=== PATIENT | female | born 1990 | race African-American/Black ===

== ENCOUNTER 2024-03-11 07:35 | Outpatient (OUT) | payer OTHER, SELFPAY ==
--- NOTE | 2024-03-11 12:46 | US_ITS ---
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 TECHNIQUE: Ultrasound biophysical profile was performed in the radiology department. BREATHING MOVEMENTS: 2.0 GROSS BODY MOVEMENTS: 2.0 TONE: 2.0 QUALITATIVE AMNIOTIC FLUID VOLUME: 2.0 PRESENTATION: CEPHALIC HEART RATE: 150.0 bpm bpm. AMNIOTIC FLUID VOLUME: 13.5 cm GESTATIONAL AGE: 33 weeks 3 days CONCLUSION: Total biophysical profile score 8.0. Electronically authenticated by: RENZO CÁRDENAS Date: 03/12/2024 04:16
[2024-03-11 13:02] VITALS: BP 101/57; PULSE 96
== END 2024-03-11 13:30 | disposition home or self-care (01) ==
LOC: US 08:00 → FBC 12:44
PROVIDERS: Visit Provider Obstetrics & Gynecology
DX: I31.9 Disease of pericardium, unspecified (principal); Z3A.33 33 weeks gestation of pregnancy
CPT/HCPCS: 76818

== ENCOUNTER 2024-03-15 07:06 | Outpatient (OUT) | payer OTHER, SELFPAY ==
[2024-03-15 12:49] VITALS: BP 100/57; PULSE 86
== END 2024-03-15 14:11 | disposition home or self-care (01) ==
LOC: FBCO 07:06 → FBC 12:47
PROVIDERS: Visit Provider Obstetrics & Gynecology
DX: O26.893 Other specified pregnancy related conditions, third trimester (principal)
CPT/HCPCS: 59025

== ENCOUNTER 2024-03-18 01:46 | Outpatient (OUT) | payer OTHER, SELFPAY ==
--- NOTE | 2024-03-18 12:53 | US_ITS ---
[address] [address] Patient Name: SHIKHA RAMIREZ MRN: [id number] date: 1990 Sex: F Assigned Patient Location: [facility] Current Patient Location: Accession/Order Number: [id number] Exam Date: 03/18/2024 12:59 Report Date: 03/20/2024 08:01 At the request of: ABDELRAHMAN PERLA Procedure: US OB BPP w non-stress EXAMINATION: US OB BPP w non-stress HISTORY: PERICARDIOMYOPATHY I31.9 COMPARISON: Ultrasound OB biophysical 03/11/2024 TECHNIQUE: Ultrasound biophysical profile was performed in the radiology department. BREATHING MOVEMENTS: 2.0 GROSS BODY MOVEMENTS: 2.0 TONE: 2.0 QUALITATIVE AMNIOTIC FLUID VOLUME: 2.0 PRESENTATION: CEPHALIC HEART RATE: 148.4 bpm bpm. AMNIOTIC FLUID VOLUME: 12.4 cm GESTATIONAL AGE: 34 weeks 3 days CONCLUSION: Total biophysical profile score 8.0. Electronically authenticated by: RENZO CÁRDENAS Date: 03/20/2024 08:01
[2024-03-18 13:29] VITALS: BP 110/55; PULSE 91
== END 2024-03-18 13:50 | disposition home or self-care (01) ==
LOC: US 01:47 → FBC 12:47
PROVIDERS: Visit Provider Obstetrics & Gynecology
DX: I31.9 Disease of pericardium, unspecified (principal); Z3A.34 34 weeks gestation of pregnancy
CPT/HCPCS: 76818

== ENCOUNTER 2024-03-25 08:55 | Outpatient (OUT) | payer OTHER, SELFPAY ==
--- NOTE | 2024-03-25 | US_ITS ---
[address] [address] Patient Name: SHIKHA RAMIERZ MRN: [id number] date: 1990 Sex: F Assigned Patient Location: [facility] Current Patient Location: Accession/Order Number: [id number] Exam Date: 03/25/2024 13:05 Report Date: 03/27/2024 07:35 At the request of: ABDELRAHMAN PERLA Procedure: US OB BPP w non-stress EXAMINATION: US OB BPP w non-stress HISTORY: PARICRDIALMYOPATHY COMPARISON: 03/18/2024 TECHNIQUE: Ultrasound biophysical profile was performed in the radiology department. FINDINGS: BREATHING MOVEMENTS: 2.0 GROSS BODY MOVEMENTS: 2.0 TONE: 2.0 QUALITATIVE AMNIOTIC FLUID VOLUME: 2.0 PRESENTATION: CEPHALIC HEART RATE: 160.7 bpm H.B./min AMNIOTIC FLUID VOLUME: 13.2 cm cm GESTATIONAL AGE: 35 weeks 3 days CONCLUSION: Total biophysical profile score: 8.0 Electronically authenticated by: HUBER SIBLEY Date: 03/27/2024 07:35
--- OUTSIDE RECORDS SUMMARY | 2024-03-25 09:12 | XMS_ITS | CCD ---
Author Organization [facility] Care Team Providers Care Shipping Track Supervisor Name Role Phone ZIGGY PAZ Admitting Unavailable ZIGGY PAZ Attending Unavailable REQUEST, NONE LISTED Primary Care Unavailable ZIGGY PAZ Consulting Unavailable KARASIK, RICHARD Admitting Unavailable KARASIK, RICHARD Attending Unavailable REQUEST, NONE LISTED Primary Care Unavailable KARSAMUELKRICHARD Consulting Unavailable HUBER SIBLEY V Consulting Unavailable KARASIK, RICHARD Admitting Unavailable KARASIK, RICHARD Attending Unavailable REQUEST, NONE LISTED Primary Care Unavailable KARASIK, RICHARD Consulting Unavailable MELIA, RENZO R Consulting Unavailable PANWYATTY Admitting Unavailable PANWYATTY Attending Unavailable KARASIK, RICHARD Admitting Unavailable KARASIK, RICHARD Attending Unavailable KARASIK, RICHARD Consulting Unavailable FREDDYEBER, RENZO R Consulting Unavailable KARASIK, RICHARD Admitting Unavailable KARASIK, RICHARD Attending Unavailable KARASIK, RICHARD Consulting Unavailable KARASIK, RICHARD Admitting Unavailable KARASIK, RICHARD Attending Unavailable REQUEST, NONE LISTED Primary Care Unavailable KARASIK, RICHARD Consulting Unavailable KARASIK, RICHARD Procedure Practitioner Unavaila SAMMIE Melgar Consulting Unavailable Services, [facility] Primary Care Provider ANDRESSA GALLAGHER Referring Unavailable SERVICES, [facility] Primary Care Unava ilable SERVICES, [facility] Primary Care Unava ilable SERVICES, [facility] Primary Care Unava ilable TAMIE VELÁSQUEZ Referring Unavailable SERVICES, [facility] Primary Care Unava ilable MOUSSA, HIND NADIM Attending Unavailable TAMIE VELÁSQUEZ Referring Unavailable SERVICES, [facility] Primary Care Unava ilable ANDRESSA GALLAGHER Attending Unavailable SERVICES, [facility] Unava ilable SERVICES, [facility] Care Unava ilable SERVICES, [facility] Care Unava ilable SAVI MOTA Attending Unavaila ble SAVI MOTA Attending Unavaila ble NAKUL, SAVI Galvez Referring Unavaila ble SERVICES, [facility] Unava ilable AHGEGE, ABEER Attending Unavailable AHMED, ABEER Referring Unavailable SERVICES, [facility] Unava ilable TAMIE VELÁSQUEZ Referring Unavailable SERVICES, [facility] Unava ilable TAMIE VELÁSQUEZ Referring Unavailable SERVICES, [facility] Unava ilable JUNG, TIBERIU S Admitting Unavailable JUNG TIBERIU S Attending Unavailable SERVICES, [facility] Unava ilable AGUEDAVAIBHAV MEHTAIE Referring Unavailable SERVICES, [facility] Unava ilable SERVICES, [facility] Unava ilable SHAYY AGARWAL Attending Unavailable KAL ELLISON Attending Unavailable AHMED, EER Referring Unavailable SERVICES, [facility] Unava ilable TAMIE VELÁSQUEZ Referring Unavailable SERVICES, [facility] Unava ilable ABDELRAHMAN AMARAL Attending Unavailable NELLI RICHARDSON Attending Unavailable PANABDELRAHMAN QUARLES Attending Unavailable NELLI RICHARDSON Attending Unavailable Medications Current Medications Medication Drug Class(es) Dates Sig (Normalized) Sig (Original) clotrimazole 10 mg/ml vaginal cream (5 sources) Azole Antifungal Start: 12-10-2023 End: 12-17-2023 clotrimazole (GYNE-LOTRIMIN) 1 % vaginal cream Indications: Vaginal yeast infection , with 20 completed weeks gestation Insert 1 applicator into the vagina in the morning for 7 days. 45 g 0 12/10/2023 12/17/2023 Active docusate sodium 100 mg oral capsule (9 sources) Start: 12-09-2023 take 1 capsule by mouth once in the morning, then take 1 capsule by mouth at bedtime docusate sodium (COLACE) 100 mg capsule Indications: Constipation during in second trimester Take 1 capsule (100 mg total) by mouth in the morning and 1 capsule (100 mg total) before bedtime. 60 capsule 1 12/09/2023 Active metroNIDAZOLE 500 mg oral tablet (9 sources) Nitroimidazole Antimicrobial Start: 12-10-2023 End: 12-17-2023 take 1 tablet by mouth once in the morning, then take 1 tablet by mouth at bedtime metroNIDAZOLE (FLAGYL) 500 mg tablet Indications: Bacterial vaginosis in , with 20 completed weeks gestation Take 1 tablet (500 mg total) by mouth in the morning and 1 tablet (500 mg total) before bedtime. Do all this for 7 days. 14 tablet 0 12/10/2023 12/17/2023 Active End: 12-10-2023 take 1 capsule by mouth in the morning, then take 1 capsule by mouth at bedtime metroNIDAZOLE (FLAGYL) 375 mg capsule Take 1 capsule (375 mg total) by mouth in the morning and 1 capsule (375 mg total) before bedtime. 0 12/10/2023 Discontinued nitrofurantoin, macrocrystals 25 mg / nitrofurantoin, monohydrate 75 mg oral capsule (1 source) Nitrofuran Antibacterial Start: 11-11-2023 End: 11-18-2023 take 1 capsule by mouth in the morning, then take 1 capsule by mouth at bedtime nitrofurantoin, macrocrystal-monohydrate, (MACROBID) 100 mg capsule Take 1 capsule (100 mg total) by mouth in the morning and 1 capsule (100 mg total) before bedtime. Do all this for 7 days. 14 capsule 0 11/11/2023 11/18/2023 Active 28 mg iron- 800 mcg tablet (11 sources) Start: 09-16-2023 take 1 tablet by mouth in the morning 28 mg iron- 800 mcg tablet Take 1 tablet by mouth in the morning. 0 09/16/2023 Active promethazine hydrochloride 12.5 mg oral tablet (9 sources) Phenothiazine Start: 12-09-2023 take 1 tablet by mouth every six hours as needed for nausea promethazine (PHENERGAN) 12.5 mg tablet Indications: Nausea/vomiting in Take 1 tablet (12.5 mg total) by mouth every 6 (six) hours as needed for nausea or vomiting. 30 tablet 0 12/09/2023 Active Completed/Discontinued Medications Medication Drug Class(es) Dates Sig (Normalized) Sig (Original) ondansetron 4 mg disintegrating oral tablet (3 sources) Serotonin-3 Receptor Antagonist Start: 10-28-2023 End: 12-09-2023 take 1 tablet by mouth every eight hours as needed for nausea ondansetron ODT (ZOFRAN ODT) 4 mg disintegrating tablet Dissolve 1 tablet (4 mg total) on tongue every 8 (eight) hours as needed for nausea for up to 10 doses. 10 tablet 0 10/28/2023 12/09/2023 Discontinued (Side effects) Problems Active Problems Problem Classification Problem Date Documented Date Episodic/Chronic Abdominal pain (2 sources) Unspecified abdominal pain; Translations: [Abdominal pain] Onset: 02-18-2024 Episodic Cardiac and circulatory congenital anomalies (2 sources) H/O: cardiac anomaly; Translations: [Personal history of (corrected) congenital malformations of heart and circulatory system] Onset: 01-13-2024 01-13-2024 Episodic Heart valve disorders (16 sources) Mitral valve regurgitation; Translations: [Nonrheumatic mitral (valve) insufficiency] Onset: 11-23-2019 11-23-2019 Chronic Inflammatory diseases of female pelvic organs (1 source) Vaginitis Onset: 12-09-2023 Episodic Mycoses (1 source) Candidiasis of vagina; Translations: [Vaginal yeast infection] 12-10-2023 Episodic Other and ill-defined heart disease (1 source) Heart disease, unspecified; Translations: [Heart disease, unspecified] Onset: 02-15-2024 Chronic Other complications of (4 sources) Maternal care for other known or suspected poor growth, third trimester, not applicable or unspecified; Translations: [MAT CARE OT IA FTL GR 3RD TM UNS] Onset: 05-12-2019 Episodic Other complications of (2 sources) Supervision of high risk , unspecified, second trimester; Translations: [SUP HIGH RISK UNS 2ND TRI] Onset: 01-19-2019 Episodic Other complications of (2 sources) Vomiting of , unspecified; Translations: [VOMITING OF UNSPECIFIED] Onset: 11-23-2018 Episodic Other complications of (11 sources) Nausea and vomiting; Translations: [Vomiting of , unspecified] Onset: 12-09-2023 12-09-2023 Episodic Other complications of (12 sources) Diseases of the digestive system complicating , second trimester; Translations: [Other current conditions classifiable elsewhere of mother, antepartum condition or complication] Onset: 12-09-2023 12-09-2023 Episodic Other complications of (1 source) Bacterial vaginosis in ; Translations: [Infection of other part of genital tract in , unspecified trimester] 12-10-2023 Episodic Other complications of (1 source) High risk ; Translations: [Supervision of high risk , unspecified, second trimester] 12-16-2023 Episodic Other complications of (2 sources) heart echogenicity on obstetric ultrasound scan; Translations: [Abnormal ultrasonic finding on screening of mother] Onset: 02-22-2024 12-16-2023 Episodic Other complications of (1 source) Gestational edema; Translations: [Gestational edema, third trimester] 01-05-2024 Episodic Other complications of (1 source) Abnormal ultrasonic finding on screening of mother; Translations: [Abnormal ultrasonic finding on screening of mother] Onset: 12-16-2023 Episodic Other complications of (2 sources) Supervision of high risk , unspecified, unspecified trimester; Translations: [Supervision of high risk , unspecified, unspecified trimester] Onset: 12-16-2023 Episodic Other complications of (1 source) Supervision of other high risk pregnancies, third trimester; Translations: [Supervision of other high risk pregnancies, third trimester] Onset: 03-07-2024 Episodic Other complications of (1 source) Other specified related conditions, unspecified trimester; Translations: [Other specified related conditions, unspecified trimester] Onset: 02-18-2024 Episodic Other complications of (1 source) Diseases of the circulatory system complicating , third trimester; Translations: [Diseases of the circulatory system complicating , third trimester] Onset: 02-15-2024 Episodic Other complications of (1 source) Gestational edema, third trimester; Translations: [Gestational edema, third trimester] Onset: 01-05-2024 Episodic Other connective tissue disease (1 source) Pain in lower limb Onset: 01-21-2024 Episodic Other female genital disorders (1 source) Vaginal discharge; Translations: [Other specified noninflammatory disorders of vagina] 12-09-2023 Episodic Other female genital disorders (1 source) Pruritus of vagina; Translations: [Other specified noninflammatory disorders of vagina] 12-09-2023 Episodic Other female genital disorders (1 source) Vaginal irritation; Translations: [Other specified noninflammatory disorders of vagina] 12-09-2023 Episodic Other female genital disorders (2 sources) Other specified noninflammatory disorders of vagina; Translations: [Other specified noninflammatory disorders of vagina] Onset: 12-09-2023 Episodic Other injuries and conditions due to external causes (1 source) Other injury of other muscle(s) and tendon(s) at lower leg level, unspecified leg, initial encounter; Translations: [Other injury of other muscle(s) and tendon(s) at lower leg level, unspecified leg, initial encounter] Onset: 01-21-2024 Episodic Other and delivery including normal (5 sources) Single live ; Translations: [Encounter for test, result positive] Onset: 01-19-2019 01-13-2024 Episodic Other screening for suspected conditions (not mental disorders or infectious disease) (3 sources) Encounter for other specified screening; Translations: [Encounter for screening for cervical length] Onset: 12-16-2023 Episodic Other screening for suspected conditions (not mental disorders or infectious disease) (8 sources) Encounter for screening for Streptococcus B; Translations: [Encounter for other specified screening] Onset: 01-17-2019 Residual codes; unclassified (1 source) Gestation period, 20 weeks; Translations: [20 weeks gestation of ] 12-10-2023 Episodic Residual codes; unclassified (2 sources) Gestation period, 21 weeks; Translations: [21 weeks gestation of ] 12-16-2023 Episodic Residual codes; unclassified (1 source) Gestation period, 25 weeks; Translations: [25 weeks gestation of ] 01-13-2024 Episodic Residual codes; unclassified (2 sources) 25 weeks gestation of ; Translations: [25 weeks gestation of ] Onset: 01-13-2024 Episodic Residual codes; unclassified (1 source) 21 weeks gestation of ; Translations: [21 weeks gestation of ] Onset: 12-16-2023 Episodic Residual codes; unclassified (1 source) 17 weeks gestation of ; Translations: [17 weeks gestation of ] Onset: 11-17-2023 Episodic Residual codes; unclassified (1 source) 35 weeks gestation of ; Translations: [35 WEEKS GESTATION OF ] Onset: 05-15-2019 Residual codes; unclassified (1 source) 18 weeks gestation of ; Translations: [18 WEEKS GESTATION OF ] Onset: 01-19-2019 Residual codes; unclassified (1 source) 38 weeks gestation of ; Translations: [38 WEEKS GESTATION OF ] Onset: 06-15-2019 Residual codes; unclassified (1 source) 25 weeks gestation of ; Translations: [25 WEEKS GESTATION OF ] Onset: 03-15-2019 Screening and history of mental health and substance abuse codes (1 source) Personal history of nicotine dependence; Translations: [PERSONAL HISTORY OF NICOTINE DEPEND] Onset: 06-15-2019 Episodic Spondylosis; intervertebral disc disorders; other back problems (1 source) Backache Onset: 02-18-2024 Episodic Umbilical cord complication (3 sources) Labor and delivery complicated by cord around neck, without compression, not applicable or unspecified; Translations: [L AND D COMP CORD NECK NO COMPRS NA/UNS] Onset: 06-05-2019 Episodic Unclassified (1 source) mfm consult Onset: 12-16-2023 Unclassified (1 source) Routine Visit Onset: 11-17-2023 Unclassified (1 source) Leg Pain 26wks Onset: 01-21-2024 Unclassified (1 source) New Patient Onset: 01-05-2024 Past or Other Problems Problem Classification Problem Date Documented Da te Episodic/Chronic Anal and rectal conditions (1 source) Rectal pain Onset: 11-12-2023 Episodic Nausea and vomiting (3 sources) Nausea with vomiting, unspecified; Translations: [NAUSEA WITH VOMITING UNSPECIFIED] Onset: 10-28-2018 Episodic Other circulatory disease (13 sources) H/O: heart failure; Translations: [Personal history of other diseases of the circulatory system] Onset: 11-17-2023 11-17-2023 Episodic Other circulatory disease (2 sources) Personal history of other diseases of the circulatory system; Translations: [Personal history of other diseases of the circulatory system] Onset: 11-17-2023 Episodic Other complications of ; puerperium affecting management of mother (4 sources) Maternal care for other (suspected) abnormality and damage, not applicable or unspecified; Translations: [MAT CARE OTH ABN DAMGE NA/UNS] Onset: 03-09-2019 Episodic Other complications of (1 source) Supervision of with insufficient care, second trimester; Translations: [SUP PG INSUFF ANTENATL CARE 2ND TRI] Onset: 01-19-2019 Episodic Other gastrointestinal disorders (2 sources) Constipation, unspecified; Translations: [Constipation, unspecified] Onset: 11-12-2023 Episodic Other gastrointestinal disorders (1 source) Constipation Onset: 11-12-2023 Episodic Other lower respiratory disease (11 sources) Dyspnea; Translations: [Dyspnea, unspecified] Onset: 06-11-2019 06-11-2019 Episodic Substance-related disorders (15 sources) Maternal drug use; Translations: [Drug use complicating , unspecified trimester] Onset: 11-12-2023 11-12-2023 Episodic Urinary tract infections (1 source) Acute cystitis without hematuria; Translations: [Acute cystitis without hematuria] Onset: 11-12-2023 Episodic Results Test Name Value Interpretation Reference Range Facil ity COMPLETE BLOOD COUNTon 02-14 Erythrocyte distribution width (RBC) [Ratio] 13.1 % Normal 11.5-15.0 [facility] Comment on above: Performed By: #### Anabella VERGARA, 1504-0, 56144-5 #### [facility] ([id number]) [address] [address] [place] [address] Hematocrit (Bld) [Volume fraction] 30.3 % Low 35-47 [facility] Comment on above: Performed By: #### Anabella VERGARA, 1504-0, 83553-8 #### [facility] ([id number]) [address], [address] [place] [address] Hemoglobin (Bld) [Mass/Vol] 10.4 g/dL Low 11.7-15.5 [facility] Comment on above: Performed By: #### Anabella VERGARA, 1504-0, 56475-6 #### [facility] ([id number]) [address], [facility] [address] [place] [address] MCH (RBC) [Entitic mass] 31.2 pg Normal 27-34 [facility] Comment on above: Performed By: #### Anabella VERGARA, 1504-0, 40361-3 #### [facility] ([id number]) [address], [address] [place] [address] MCHC (RBC) [Mass/Vol] 34.3 g/dL Normal 32-36 [facility] Comment on above: Performed By: #### Anabella VERGARA, 1504-0, 10562-6 #### [facility] ([id number]) [address], [facility] [address] [place] [address] MCV (RBC) [Entitic vol] 91 fL Normal 80-100 [facility] Comment on above: Performed By: #### Anabella VERGARA, 1504-0, 88538-4 #### [facility] ([id number]) [address], [facility] [address] [place] [address] Platelet mean volume (Bld) [Entitic vol] 10.0 fL Normal 7-12 [facility] Comment on above: Performed By: #### Anabella VERGARA, 1504-0, 34257-9 #### [facility] ([id number]) [address], [facility] [address] [place] [address] Platelets (Bld) [#/Vol] 152 10*3/uL Normal 150-450 [facility] Comment on above: Performed By: #### Anabella VERGARA, 1504-0, 79996-8 #### [facility] ([id number]) [address], [address] [place] [address] RBC COUNT 3.33 X10E12/L Low 3.80-5.20 [facility] Comment on above: Performed By: #### Anabella VERGARA, 1504-0, 16006-1 #### [facility] ([id number]) [address], [facility] [address] [place] [address] WBC (Bld) [#/Vol] 6.1 10*3/uL Normal 4.0-11.0 [facility] Comment on above: Performed By: #### Anabella VERGARA, 1504-0, 78014-9 #### [facility] ([id number]) [address] [facility], [address] [place] [address] Glucose 1 Hr post 50 g gluco se PO [Mass/Vol]on 02-15-2024 GLU 1H POST 50G LOAD 102 mg/dL Normal 65-[address] [facility] Comment on above: Performed By: #### C , 1504-0, 73366-4 #### [facility] ([id number]) [address] [place] [address], [address] [place] [address] T. pallidum IgG+IgM IA Ql (S )on 02-15-2024 Syphilis Total <0.2 Normal 0.0-0.8 [facility] Comment on above: Result Comment: NON REACTIVE No serologic evidence of infection to Treponema pallidum (syphilis). Repeat testing may be considered in patients with suspected acute or primary syphilis in 2 to 4 weeks. Performed By: #### C , 1504-0, 88620-5 #### [facility] ([id number]) [address] [place] [address], [address] [place] [address] POCT EKGon 01-05-2024 [facility] VAGINITIS PANEL PCRon 2023 VAGINITIS PANEL PCR BACT. VAGINOSIS DNA Detected (qualifier value) Qualitative results are reported based on detection and quantitation of targeted organism markers which include: Lactobacillus spp. (L. crispatus and L. jensenii), Gardnerella vaginalis, Atopobium vaginae, Bacterial Vaginosis Associated Bacteria-2 (BVAB-2) and Megasphaera-1 CHASITY SPECIES DNA Detected (qualifier value) Chasity species result based on detection of one or more of the following species: C. albicans, C. tropicalis, C. parapsilosis or C. dubliniensis CHASITY KRUSEI DNA Not detected (qualifier value) No Chasity krusei detected CHASITY GLABRATA DNA Not detected (qualifier value) No Chasity glabrata detected TRICHOMONAS VAG DNA Not detected (qualifier value) No Trichomonas vaginalis detected NOTE BD MAX Vaginal Panel has not been evaluated for patients under 18 years old. Results for these patients should be reviewed and assessed in accordance with clinical presentation to determine patient diagnosis. Normal [facility] Comment on above: Performed By: #### V PPCR #### [facility] ([id number]) [address], [address] [place] [address] URINE CULTUREon 11-12-2023 Bacteria identified Cx Nom (U) CULTURE RESULTS 10-50,000 ORGANISMS/mL NORMAL UROGENITAL PAYTON Normal [facility] Comment on above: Performed By: #### 6 30-4 #### [facility] ([id number]) [address] [facility] [place] [address] URN MACROSCOPIC NURon 2022 BILIRUBIN MERY Negative Normal NEG [facility] Comment on above: Performed By: #### N UM #### [facility] ([id number]) [address] [place] [address] BLOOD/HGB MERY Trace Abnormal NEG [facility] Comment on above: Performed By: #### N UM #### [facility] ([id number]) [address] [place] [address] GLUCOSE MERY Negative Normal NEG [facility] Comment on above: Performed By: #### N UM #### [facility] ([id number]) [address] [place] [address] KETONES MERY 15 mg/dL Abnormal NEG [facility] Comment on above: Performed By: #### N UM #### [facility] ([id number]) [address] [place] [address] LEUKOCYTE ESTERASE MERY Trace Abnormal NEG [facility] Comment on above: Performed By: #### N UM #### [facility] ([id number]) [address] [place] [address] NITRITE MERY Negative Normal NEG [facility] Comment on above: Performed By: #### N UM #### [facility] ([id number]) [address] [place] [address] PH MERY 6.0 Normal 5.0-8.5 [facility] Comment on above: Performed By: #### N UM #### [facility] ([id number]) [address] [place] [address] PROTEIN MERY 100 mg/dL Abnormal NEG [facility] Comment on above: Performed By: #### N UM #### [facility] ([id number]) [address] [place] [address] SPECIFIC GRAVITY MERY >=1.030 Normal 1.003-1.035 [facility] Comment on above: Performed By: #### N UM #### [facility] ([id number]) [address] [place] [address] UROBILINOGEN MERY 0.2 eu/dL Normal <1.1 [facility] Comment on above: Performed By: #### N UM #### [facility] ([id number]) [address] [place] [address] BARBITUATE CONFIRMATION, URI NEon 06-11-2019 Amobarbital Negative Normal Donssn=404 [facility] Comment on above: Performed By: #### ALEXANDRA OLIVIA #### [facility] [address] [address] Randi Sandra Barbiturates Positive Abnormal [facility] Comment on above: Performed By: #### ALEXANDRA OLIVIA #### [facility] [address] [address] Randi Sandra Butalbital Positive Abnormal [facility] Comment on above: Performed By: #### ALEXANDRA OLIVIA #### [facility] [address] [address] Randi Sandra Butalbital GC/MS Conf 361 ng/mL Normal Gpdlfn=202 [facility] Comment on above: Performed By: #### ALEXANDRA OLIVIA #### [facility] [address] [place] [address] Randi Sandra Phenobarbital [Mass/Vol] Negative Normal Dydnil=639 [facility] Comment on above: Performed By: #### ALEXANDRA OLIVIA #### [facility] [address] [place] [address] Randi Sandra Phentobarbital Negative Normal Linsjl=186 [facility] Comment on above: Performed By: #### ALEXANDRA OLIVIA #### [facility] [address] [place] [address] Randi Sandra Secobarbital Negative Normal Fmdzwm=529 [facility] Comment on above: Performed By: #### ALEXANDRA OLIVIA #### [facility] [address] [place] [address] Randi Sandra CANNABINOID (THC) CONFIRMATI ON, URINEon 06-10-2019 Cannabinoid Positive Abnormal [facility] Comment on above: Performed By: #### ALEXANDRA OLIVIA #### [facility] [address] [place] [address] Randi Sandra Carboxy THC GC/MS Conf 76 ng/mL Normal Cutoff=10 [facility] Comment on above: Performed By: #### ALEXANDRA OLIVIA #### [facility] [address] [place] [address] Randi Sandra CBC AUTO DIFFon 06-06-2019 Basophils (Bld) [#/Vol] 0.0 103/ul Normal 0.0-0.1 [facility] Comment on above: Performed By: #### ALEXANDRA OLIVIA #### [facility] [address] [place] [address] Randi Sandra Basophils/100 WBC (Bld) 0.4 % Normal 0.2-2.0 [facility] Comment on above: Performed By: #### ALEXANDRA OLIVIA #### [facility] [address] [place] [address] Randi Sandra Eosinophils (Bld) [#/Vol] 0.1 103/ul Normal 0.0-0.7 [facility] Comment on above: Performed By: #### ALEXANDRA OLIVIA #### [facility] [address] [place], [place] [phone] Randi Sandra Eosinophils/100 WBC (Bld) 0.6 % Critically low 0.9-7.0 [facility] Comment on above: Performed By: #### ALEXANDRA OLIVIA #### [facility] [address] [place] [address] Randi Sandra Erythrocyte distribution width (RBC) [Ratio] 13.8 % Normal 11.0-15.0 [facility] Comment on above: Performed By: #### ALEXANDRA OLIVIA #### [facility] [address] [place] [address] Randi Sandra Hematocrit (Bld) [Volume fraction] 25.0 % Critically low 36.0-48.0 [facility] Comment on above: Performed By: #### ALEXANDRA OLIVIA #### [facility] [address] [place] [address] Randi Sandra Hemoglobin (Bld) [Mass/Vol] 8.0 g/dL Critically low 12.0-16.0 [facility] Comment on above: Performed By: #### ALEXANDRA OLIVIA #### [facility] [address] [place] [address] Randi Sandra IG # 0.13 10e3/ul Critically high 0.00-0.03 [facility] Comment on above: Performed By: #### ALEXANDRA OLIVIA #### [facility] [address] [place] [address] Randi Sandra IG % 1.6 % Critically high 0.0-0.5 [facility] Comment on above: Performed By: #### ALEXANDRA OLIVIA #### [facility] [address] [place] [address] Randi Sandra Lymphocytes (Bld) [#/Vol] 1.9 103/ul Normal 1.2-3.8 [facility] Comment on above: Performed By: #### ALEXANDRA OLIVIA #### [facility] [address] [id number] Randi Sandra Lymphocytes/100 WBC (Bld) 22.5 % Normal 20.5-60.0 [facility] Comment on above: Performed By: #### EPHRAIM OLIVIARO #### [facility] [address] [place] [id number] Randi Sandra MANUAL DIFF REQ NO Normal [facility] Comment on above: Performed By: #### EPHRAIM OLIVIARO #### [facility] [address] [place], [place] [phone] Randi Sandra MCH (RBC) [Entitic mass] 28.0 pg Normal 26.7-34.0 [facility] Comment on above: Performed By: #### EPHRAIM OLIVIARO #### [facility] [address] [place], [place] [phone] Randi Sandra MCHC (RBC) [Mass/Vol] 32.0 g/dL Normal 29.9-35.2 [facility] Comment on above: Performed By: #### EPHRAIM OLIVIARO #### [facility] [address] [place], [place] [phone] Randi Sandra MCV (RBC) [Entitic vol] 87.4 fL Normal 81.0-99.0 [facility] Comment on above: Performed By: #### EPHRAIM OLIVIARO #### [facility] [address] [place], [place] [phone] Randi Sandra Monocytes (Bld) [#/Vol] 0.6 103/ul Normal 0.3-0.8 [facility] Comment on above: Performed By: #### EPHRAIM OLIVIARO #### [facility] [address] [place], [place] [phone] Randi Sandra Monocytes/100 WBC (Bld) 6.7 % Normal 1.7-12.0 [facility] Comment on above: Performed By: #### EPHRAIM OLIVIARO #### [facility] [address] [place], [place] [phone] Randi Sandra Neutrophils (Bld) [#/Vol] 5.6 103/ul Normal 1.4-6.5 [facility] Comment on above: Performed By: #### ALEXANDRA OLIVIA #### [facility] [address] [place], [place] [phone] Randi Sandra Neutrophils/100 WBC (Bld) 68.2 % Normal 43.0-75.0 [facility] Comment on above: Performed By: #### ALEXANDRA OLIVIA #### [facility] [address] [place], [place] [phone] Randi Sandra Platelet mean volume (Bld) [Entitic vol] 12.9 fL Normal 9.5-13.5 [facility] Comment on above: Performed By: #### ALEXANDRA OLIVIA #### [facility] [address] [place] [address] Randi Sandra Platelets (Bld) [#/Vol] 103 103/ul Critically low 150-450 [facility] Comment on above: Performed By: #### ALEXANDRA OLIVIA #### [facility] [address] [place], [place] [phone] Randi Sandra RBC (Bld) [#/Vol] 2.86 106/ul Critically low 4.20-5.40 [facility] Comment on above: Performed By: #### ALEXANDRA OLIVIA #### [facility] [address] [place], [place] [phone] Randi Sandra WBC (Bld) [#/Vol] 8.3 103/ul Normal 4.0-11.0 [facility] Comment on above: Performed By: #### EPHRAIM OLIVIARO #### [facility] [address] [place], [place] [phone] Randi Sandra ABO AND RH TYPEon 06-05-2019 ABO and Rh group Nom (Bld) ABO Rh Typing O Rh Positive Normal [facility] Comment on above: Performed By: #### ALEXANDRA OLIVIA #### [facility] [address] [place], [place] [phone] Randi Sandra CBC AUTO DIFFon 06-05-2019 Basophils (Bld) [#/Vol] 0.0 103/ul Normal 0.0-0.1 [facility] Comment on above: Performed By: #### C BC #### [facility] [address] [place], [place] [phone] Randi Sandra Basophils/100 WBC (Bld) 0.4 % Normal 0.2-2.0 [facility] Comment on above: Performed By: #### C BC #### [facility] [address] [place], [place] [phone] Randi Sandra Eosinophils (Bld) [#/Vol] 0.0 103/ul Normal 0.0-0.7 [facility] Comment on above: Performed By: #### C BC #### [facility] [address] [place] [address] Randi Sandra Eosinophils/100 WBC (Bld) 0.3 % Critically low 0.9-7.0 [facility] Comment on above: Performed By: #### C BC #### [facility] [address] [place] [address] Randi Sandra Erythrocyte distribution width (RBC) [Ratio] 13.6 % Normal 11.0-15.0 [facility] Comment on above: Performed By: #### C BC #### [facility] [address] [place] [address] Randi Sandra Hematocrit (Bld) [Volume fraction] 26.8 % Critically low 36.0-48.0 [facility] Comment on above: Performed By: #### C BC #### [facility] [address] [place] [address] Randi Sandra Hemoglobin (Bld) [Mass/Vol] 8.8 g/dL Critically low 12.0-16.0 [facility] Comment on above: Performed By: #### C BC #### [facility] [address] [place] [address] Randi Sandra IG # 0.03 10e3/ul Normal 0.00-0.03 [facility] Comment on above: Performed By: #### C BC #### [facility] [address] [place] [address] Randi Sandra IG % 0.4 % Normal 0.0-0.5 [facility] Comment on above: Performed By: #### C BC #### [facility] [address] [place], [place] [phone] Randi Sandra Lymphocytes (Bld) [#/Vol] 1.9 103/ul Normal 1.2-3.8 [facility] Comment on above: Performed By: #### C BC #### [facility] [address] [place] [address] Randi Sandra Lymphocytes/100 WBC (Bld) 25.2 % Normal 20.5-60.0 [facility] Comment on above: Performed By: #### C BC #### [facility] [address] [place], [place] [phone] Randi Sandra MANUAL DIFF REQ NO Normal [facility] Comment on above: Performed By: #### C BC #### [facility] [address] [place], [place] [phone] Randi Sandra MCH (RBC) [Entitic mass] 28.3 pg Normal 26.7-34.0 [facility] Comment on above: Performed By: #### C BC #### [facility] [address] [place], [place] [phone] Randi Sandra MCHC (RBC) [Mass/Vol] 32.8 g/dL Normal 29.9-35.2 [facility] Comment on above: Performed By: #### C BC #### [facility] [address] [place], [place] [phone] Randi Sandra MCV (RBC) [Entitic vol] 86.2 fL Normal 81.0-99.0 [facility] Comment on above: Performed By: #### C BC #### [facility] [address] [place], [place] [phone] Randi Sandra Monocytes (Bld) [#/Vol] 0.4 103/ul Normal 0.3-0.8 [facility] Comment on above: Performed By: #### C BC #### [facility] [address] [place], [place] [phone] Randi Sandra Monocytes/100 WBC (Bld) 5.7 % Normal 1.7-12.0 [facility] Comment on above: Performed By: #### C BC #### [facility] [address] [phone] Randi Sandra Neutrophils (Bld) [#/Vol] 5.2 103/ul Normal 1.4-6.5 [facility] Comment on above: Performed By: #### C BC #### [facility] [address] [place], [place] [phone] Randipancho Flores Neutrophils/100 WBC (Bld) 68.0 % Normal 43.0-75.0 [facility] Comment on above: Performed By: #### C BC #### [facility] [address] [place], [place] [phone] Randipancho Flores Platelet mean volume (Bld) [Entitic vol] 13.1 fL Normal 9.5-13.5 [facility] Comment on above: Performed By: #### C BC #### [facility] [address] [place], [place] [phone] Randipancho Flores Platelets (Bld) [#/Vol] 112 103/ul Critically low 150-450 [facility] Comment on above: Result Comment: jack r reviewed, few giant plts seen Performed By: #### C BC #### [facility] [address] [place], [place] [phone] Randipancho Albertsen RBC (Bld) [#/Vol] 3.11 106/ul Critically low 4.20-5.40 [facility] Comment on above: Performed By: #### C BC #### [facility] [address] [place], [place] [phone] Randipancho Flores WBC (Bld) [#/Vol] 7.6 103/ul Normal 4.0-11.0 [facility] Comment on above: Performed By: #### C BC #### [facility] [address] [place], [place] [phone] Randipancho Flores DRUG SCREEN RAPID (URINE)on 06-05-2019 AMP Negative Normal NEGATIVE [facility] Comment on above: Performed By: #### E ALEXANDRA VASQUEZ #### [facility] [address] [place] [address] Randi Sandra BAR Positive Normal NEGATIVE [facility] Comment on above: Performed By: #### E EPHRAIM VASQUEZRO #### [facility] [address] [place] [address] Randi Sandra BUP Negative Normal NEGATIVE [facility] Comment on above: Performed By: #### E CHRISTINA UMICRO #### [facility] [address] [place] [address] Randi Sandra BZO Negative Normal NEGATIVE [facility] Comment on above: Performed By: #### E RUEPHRAIM LeeRO #### [facility] [address] [place] [address] Randi Sandra LOREE Negative Normal NEGATIVE [facility] Comment on above: Performed By: #### E EPHRAIM VASQUEZRO #### [facility] [address] [place] [address] Randi Sandra CUT-OFFS SEE BELOW Normal [facility] Comment on above: Result Comment: AMP (Amphetamine): 500ng/mL, BAR (Barbituates): 200 ng/mL, BZO (Benzodiazepines): 150 ng/mL, BUP (Buprenorphine): 10 ng/mL, LOREE (Cocaine): 150 ng/mL, mAMP (Methamphetamine): 500 ng/mL, MTD (Methadone): 200 ng/mL, OPI (Opiates): 100 ng/mL or 2000 ng/mL, OXY (Oxycodone): 100 ng/mL, PCP (Phencyclidine): 25 ng/mL, PPX (Propoxyphene): 300 ng/mL, THC (Cannabinoids): 50 ng/mL, TCA (Trycyclic Antidepressants): 300 ng/mL Performed By: #### E RURosa UMICRO #### [facility] [address] [place] [address] Randi Sandra DRUG CUT HEADER DRUG CLASS TEST SYSTEM CUT-OFF CONCENTRATIONS ARE FOLLOWS: Normal [facility] Comment on above: Performed By: #### E RURosa UMICRO #### [facility] [address] [place] [address] Randi Sandra mAMP Negative Normal NEGATIVE [facility] Comment on above: Performed By: #### Rere VASQUEZ UMICRO #### [facility] [address] [place] [address] Randi Sandra MTD Negative Normal NEGATIVE [facility] Comment on above: Performed By: #### Rere VASQUEZ UMICRO #### [facility] [address] [place] [address] Randi Sandra OPI Negative Normal NEGATIVE [facility] Comment on above: Performed By: #### Rere VASQUEZ UMICRO #### [facility] [address] [place] [address] Randi Sandra OXY Negative Normal NEGATIVE [facility] Comment on above: Performed By: #### Rere VASQUEZ UMICRO #### [facility] [address] [place] [address] Randi Sandra PCP Negative Normal NEGATIVE [facility] Comment on above: Performed By: #### TERESA OLIVIAICRO #### [facility] [address] [place] [address] Randi Sandra PPX Negative Normal NEGATIVE [facility] Comment on above: Performed By: #### Rere VASQUEZ UMICRO #### [facility] [address] [place] [address] Randi Sandra TCA Negative Normal NEGATIVE [facility] Comment on above: Performed By: #### Rere VASQUEZ UMICRO #### [facility] [address] [place] [address] Randi Sandra THC Positive Normal NEGATIVE [facility] Comment on above: Performed By: #### Rere VASQUEZ UMICRO #### [facility] [address] [place] [address] Randi Sandra GROUP B STREP CULTUREon 04-23 S. agalactiae Ag Ql (Unsp spec) Culture Observations: Negative for Group B Streptococcus. Normal [facility] Comment on above: Performed By: #### G BSCX #### [facility] [address] [place] [address] Randi Sandra US PREG GROWTHon 05-12-2019 US PREG GROWTH Patient: CONNIE RAMIREZLiliya Exam Date: 05/12/2019 : 1990 Gender:F Ordering : DR RICHARD GARCÍA . Admission #: [id number] Family : Order #: [id number] CLICK HERE TO VIEW EXAM RADIOLOGY REPORT PROCEDURE: ULTRASOUND GROWTH COMPARISON: None. INDICATIONS: Gacma-jid-yljin baby P05.10; 35w0d TECNIQUE: Transabdominal sonographic examination for growth. FINDINGS: Heart Rate: 127.96 H.B./min Amniotic Fluid Volume 12.32 cm Number: 1 Position: Cephalic BIOMETRY: BPD: 8.56 cm 34 weeks, 4 days 37.30 % FL/AC: 22.03 HC: 31.04 cm 34 weeks, 5 days 12.40 % FL/BPD: 79.41 AC: 30.85 cm 34 weeks, 6 days 50.60 % HC/AC: 1.01 FL: 6.80 cm 35 weeks, 0 days 40.30 % EFW: 2514.62 g 40% by EDC GESTATIONAL AGE: Age by EDC: 35 weeks, 0 days NING by EDC: 2019-06-16 Age by US: 34 weeks, 6 days NING by US: 2019-06-17 CONCLUSION: 1. Single live intrauterine with growth detailed above. Dictated by: Renzo Sloan M.D. on 05/12/2019 at 14:01 Approved by: Renzo Sloan M.D. on 05/12/2019 at 14:02 Normal [facility] US PREG REEVAL ABNon -18-2 019 PREG REEVAL ABN [address] [place] [address] Patient: CONNIE RAMIREZ Exam Date: 03/09/2019 : 1990 Gender:F Ordering : DR RICHARD GARCÍA . Admission #: [id number] Family : Order #: [id number] CLICK HERE TO VIEW EXAM RADIOLOGY REPORT PROCEDURE: ULTRASOUND REEVALUATE ABNORMAL COMPARISON: None. INDICATIONS: screening; 25 weeks, 6 days TECHNIQUE: Transabdominal sonographic examination for obstetrical and evaluation. FINDINGS: NUMBER: One. POSITION: Cephalic. HEART RATE: 146 bpm OBSERVED ANATOMY: Echogenic foci again noted in left cardiac ventricle. AGE BY EDC: 25 weeks, 6 days NING BY EDC: May 17, 2019 CONCLUSION: 1. Persistent echogenic focus within the left cardiac ventricle. This is nonspecific but can be associated with the trisomy syndromes. Dictated by: Renzo Sloan M.D. on 03/09/2019 at 17:11 Approved by: Renzo Sloan M.D. on 03/09/2019 at 17:13 Normal [facility] PREG ANATOMY SINGLEon PREG ANATOMY SINGLE [address] [place] [id number] Patient: CONNIE RAMIREZ Exam Date: 01/17/2019 : 1990 Gender:F Ordering : DR RICHARD GARCÍA . Admission #: [id number] Family : Order #: [id number] CLICK HERE TO VIEW EXAM RADIOLOGY REPORT PROCEDURE: ULTRASOUND > 14 WEEKS COMPARISON: None. INDICATIONS: anatomy study O09.32; 18 weeks, 4 days TECHNIQUE: Transvaginal sonographic examination for obstetrical and evaluation. FINDINGS: FLUID / PLACENTA: Amniotic fluid volume: Subjectively normal for gestational age. Placental location: Anterior. No previa. Cervix Length: 4.3 cm, closed Heart Rate: 143 H.B./min Number: One ANATOMY: Normal structures: Cerebellum. Choroid plexus. Cisterna magna. Lateral cerebral ventricles. Orbits. Midline falx. Hard palate. 4-chamber heart. RVOT. LVOT. Stomach. Kidneys. Bladder. Umbilical cord insertion into abdomen. 3 vessel cord. Cervical spine. Thoracic spine. Lumbar spine. Sacral spine. Right upper extremity. Left upper extremity. Right lower extremity. Left lower extremity. Suboptimally seen: None. Abnormalities/Other: Echogenic foci noted in heart BIOMETRY: BPD: 4.05 cm 18 weeks, 2 days FL/AC: 0.22 HC: 14.80 cm 18 weeks, 0 days FL/BPD: 0.66 AC: 12.40 cm 18 weeks, 0 days HC/AC: 1.19 FL: 2.68 cm 18 weeks, 1 day EFW: 224 grams 52% by AUA; 24% by EDC GESTATIONAL AGE: Age by EDC: 18 weeks, 4 days NING by EDC: 2019-06-16 Age by current US: 18 weeks, 0 days NING by current US: 2019-06-20 *Reference: [employer] Practice Guideline for the performance of Obstetric Ultrasound Examinations, August 22, 2007. CONCLUSION: 1. Single echogenic cardiac focus, consider follow-up in 4 weeks Dictated by: Huber Sibley M.D. on 01/17/2019 at 10:20 Approved by: Huber Sibley M.D. on 01/17/2019 at 10:21 Normal [facility] CBC AUTO DIFFon 10-28-2018 Basophils (Bld) [#/Vol] 0.0 103/ul Normal 0.0-0.1 [facility] Comment on above: Performed By: #### C BC #### [facility] [address] [place] [address] Randi Sandra Basophils/100 WBC (Bld) 0.5 % Normal 0.2-2.0 [facility] Comment on above: Performed By: #### C BC #### [facility] [address] [place] [address] Randi Sandra Eosinophils (Bld) [#/Vol] 0.0 103/ul Normal 0.0-0.7 [facility] Comment on above: Performed By: #### C BC #### [facility] [address] [place] [address] Randi Sandra Eosinophils/100 WBC (Bld) 0.3 % Critically low 0.9-7.0 [facility] Comment on above: Performed By: #### C BC #### [facility] [address] [place], [place] [phone] Randi Sandra Erythrocyte distribution width (RBC) [Ratio] 12.2 % Normal 11.0-15.0 [facility] Comment on above: Performed By: #### C BC #### [facility] [address] [place], [place] [address] Randi Sandra Hematocrit (Bld) [Volume fraction] 35.3 % Critically low 36.0-48.0 [facility] Comment on above: Performed By: #### C BC #### [facility] [address] [place], [place] [phone] Randi Sandra Hemoglobin (Bld) [Mass/Vol] 12.4 g/dL Normal 12.0-16.0 [facility] Comment on above: Performed By: #### C BC #### [facility] [address] [place] [address] Randipancho Flores IG # 0.01 10e3/ul Normal 0.00-0.03 [facility] Comment on above: Performed By: #### C BC #### [facility] [address] [place] [address] Randi Sandra IG % 0.2 % Normal 0.0-0.5 [facility] Comment on above: Performed By: #### C BC #### [facility] [address] [place] [address] Randi Sandra Lymphocytes (Bld) [#/Vol] 2.4 103/ul Normal 1.2-3.8 [facility] Comment on above: Performed By: #### C BC #### [facility] [address] [place] [address] Randipancho Flores Lymphocytes/100 WBC (Bld) 39.3 % Normal 20.5-60.0 [facility] Comment on above: Performed By: #### C BC #### [facility] [address] [place] [address] Randipancho Flores MANUAL DIFF REQ NO Normal [facility] Comment on above: Performed By: #### C BC #### [facility] [address] [place] [address] Randipancho Flores MCH (RBC) [Entitic mass] 30.8 pg Normal 26.7-34.0 [facility] Comment on above: Performed By: #### C BC #### [facility] [address] [place], [place] [phone] Randipancho Flores MCHC (RBC) [Mass/Vol] 35.1 g/dL Normal 29.9-35.2 [facility] Comment on above: Performed By: #### C BC #### [facility] [address] [place] [address] Randipancho Flores MCV (RBC) [Entitic vol] 87.6 fL Normal 81.0-99.0 [facility] Comment on above: Performed By: #### C BC #### [facility] [address] [id number] Randi Sandra Monocytes (Bld) [#/Vol] 0.4 103/ul Normal 0.3-0.8 [facility] Comment on above: Performed By: #### C BC #### [facility] [address] [place], [place] [address] Randi Sandra Monocytes/100 WBC (Bld) 6.8 % Normal 1.7-12.0 [facility] Comment on above: Performed By: #### C BC #### [facility] [address] [place], [place] [phone] Randi Sandra Neutrophils (Bld) [#/Vol] 3.2 103/ul Normal 1.4-6.5 [facility] Comment on above: Performed By: #### C BC #### [facility] [address] [place], [place] [address] Randi Sandra Neutrophils/100 WBC (Bld) 52.9 % Normal 43.0-75.0 [facility] Comment on above: Performed By: #### C BC #### [facility] [address] [place], [place] [phone] Randi Sandra Platelet mean volume (Bld) [Entitic vol] 10.9 fL Normal 9.5-13.5 [facility] Comment on above: Performed By: #### C BC #### [facility] [address] [place], [place] [phone] Randi Sandra Platelets (Bld) [#/Vol] 213 103/ul Normal 150-450 [facility] Comment on above: Performed By: #### C BC #### [facility] [address] [place], [place] [phone] Randi Sandra RBC (Bld) [#/Vol] 4.03 106/ul Critically low 4.20-5.40 [facility] Comment on above: Performed By: #### C BC #### [facility] [address] [place], [place] [phone] Randi Sandra WBC (Bld) [#/Vol] 6.1 103/ul Normal 4.0-11.0 [facility] Comment on above: Performed By: #### C BC #### [facility] [address] [place] [address] Randi Sandra ER URINE PROFILEon 8 Bilirubin [Mass/Vol] Negative Normal NEGATIVE [facility] Comment on above: Performed By: #### EPHRAIM OLIVIARO #### [facility] [address] [place] [address] Randi Sandra BLOOD TRACE-INTACT Normal NEGATIVE [facility] Comment on above: Performed By: #### EPHRAIM OLIVIARO #### [facility] [address] [place] [address] Randi Sandra Clarity (U) CLEAR Normal [facility] Comment on above: Performed By: #### EPHRAIM OLIVIARO #### [facility] [address] [place] [address] Randi Sandra Color (U) YELLOW Normal YELLOW [facility] Comment on above: Performed By: #### EPHRAIM OLIVIARO #### [facility] [address] [place] [address] Randi Sandra ERUAHD A micrscopic examination will be performed if indicated. Normal [facility] Comment on above: Performed By: #### EPHRAIM OLIVIARO #### [facility] [address] [place] [address] Randi Sandra Glucose [Mass/Vol] Negative Normal NEGATIVE [facility] Comment on above: Performed By: #### TERESA OLIVIAICRO #### [facility] [address] [place] [address] Randi Sandra Ketones Ql (U) TRACE Normal NEGATIVE [facility] Comment on above: Performed By: #### EPHRAIM OLIVIARO #### [facility] [address] [place] [address] Randi Sandra Nitrite Ql (U) Negative Normal NEGATIVE [facility] Comment on above: Performed By: #### EPHRAIM OLIVIARO #### [facility] [address] [id number] Randipancho Flores pH (Bld) 6.0 Normal 5-9 [facility] Comment on above: Performed By: #### ALEXANDRA OLIVIA #### [facility] [address] [place], [place] [phone] Randi Flores Protein (U) [Mass/Vol] Negative Normal [facility] [facility] Comment on above: Performed By: #### ALEXANDRA OLIVIA #### [facility] [address] [place] [address] Randi Flores SPEC GRAVITY >=1.030 Normal 1.005-<=1.025 [facility] Comment on above: Performed By: #### ALEXANDRA OLIVIA #### [facility] [address] [place], [place] [phone] Randi Flores UR MICRO IND INDICATED Normal [facility] Comment on above: Performed By: #### ALEXANDRA OLIVIA #### [facility] [address] [place], [place] [phone] Randi Flores Urobilinogen Qn (U) 0.2 EU/dl Normal [facility] Comment on above: Performed By: #### ALEXANDRA OLIVIA #### [facility] [address] [place], [place] [phone] Randi Flores WBC (Bld) [#/Vol] Negative Normal NEGATIVE [facility] Comment on above: Performed By: #### ALEXANDRA OLIVIA #### [facility] [address] [place], [place] [phone] Randipancho Flores PREG QUANT HCGon 10-28-2018 HCG QUANT 88240.00 mIU/mL Normal [facility] Comment on above: Performed By: #### Omar MP, PREGQNT #### [facility] [address] [place], [place] [phone] Randi Sandra HCG RANGE SEE BELOW Normal [facility] Comment on above: Result Comment: 5-50 0-1 WEEK 40-300 1-2 WEEKS 100-1,000 2-3 WEEKS 500-6,000 3-4 WEEKS 5,000-200,000 1-2 MONTHS 10,000-100,000 2-3 MONTHS 3,000-50,000 2ND TRIMESTER 1,000-50,000 3RD TRIMESTER Performed By: #### B HANG, PREGQNT #### [facility] [address] [place] [address] Randi Sandra PROF CHEM 8 (BAS METB)on Anion gap [Moles/Vol] 12.1 mmol/L Normal [facility] Comment on above: Performed By: #### B HANG, PREGQNT #### [facility] [address] [place] [address] Randi Sandra Calcium [Mass/Vol] 9.0 mg/dL Normal 8.4-10.2 [facility] Comment on above: Performed By: #### B HANG, PREGQNT #### [facility] [address] [place] [address] Randi Sandra Chloride [Moles/Vol] 101 mmol/L Normal 98-107 [facility] Comment on above: Performed By: #### B HANG, PREGQNT #### [facility] [address] [place] [address] Randi Sandra CO2 [Moles/Vol] 26.0 mmol/L Normal 22.0-30.[address] [facility] Comment on above: Performed By: #### B HANG, PREGQNT #### [facility] [address] [place] [address] Randi Sandra Creatinine [Mass/Vol] 0.61 mg/dL Normal 0.52-1.04 [facility] Comment on above: Performed By: #### B HANG, PREGQNT #### [facility] [address] [place] [address] Randi Sandra EGFR-AF BELGIAN >60 Normal >=[address] [facility] Comment on above: Performed By: #### B HANG, PREGQNT #### [facility] [address] [place] [address] Randi Sandra EGFR-NON AF BELGIAN >60 Normal >=60 [facility] Comment on above: Performed By: #### B HANG, PREGQNT #### [facility] [address] [phone] Randi Sandra Glucose [Mass/Vol] 82 mg/dL Normal 74-106 [facility] Comment on above: Performed By: #### B HANG, PREGQNT #### [facility] [address] [id number] Randi Sandra Potassium [Moles/Vol] 3.1 mmol/L Critically low 3.4-5.0 [facility] Comment on above: Performed By: #### B HANG, PREGQNT #### [facility] [address] [place] [address] Randi Sandra Sodium [Moles/Vol] 136 mmol/L Critically low 137-145 [facility] Comment on above: Performed By: #### B HANG, PREGQNT #### [facility] [address] [place], [place] [phone] Randi Sandra Urea nitrogen [Mass/Vol] 8.0 mg/dL Normal 7.0-17.0 [facility] Comment on above: Performed By: #### B HANG, PREGQNT #### [facility] [address] [place], [place] [phone] Randi Sandra Urea nitrogen/Creatinine [Mass ratio] 13.1 mg/mg Normal [facility] Comment on above: Performed By: #### B HANG, PREGQNT #### [facility] [address] [place], [place] [phone] Randi Sandra URINE MICROSCOPIC ONLYon Bacteria LM.HPF (Urine sed) [#/Area] TRACE Normal NONE SEEN [facility] Comment on above: Performed By: #### Rere VASQUEZ UMICRO #### [facility] [address] [place], [place] [phone] Randi Sandra CAST NONE SEEN Normal NONE SEEN [facility] Comment on above: Performed By: #### Rere VASQUEZ UMICRO #### [facility] [address] [place], [place] [phone] Randi Sandra Crystals LM Nom (Urine sed) NONE SEEN Normal NONE SEEN [facility] Comment on above: Performed By: #### ALEXANDRA OLIVIA #### [facility] [address] [place], [place] [address] Randi Sandra CULTURE NOT INDICATED Normal [facility] Comment on above: Performed By: #### ALEXANDRA OLIVIA #### [facility] [address] [place], [place] [address] Randi Sandra Epithelial cells LM.HPF (Urine sed) [#/Area] RARE Normal [facility] Comment on above: Performed By: #### ALEXANDRA OLIVIA #### [facility] [address] [place], [place] [address] Randi Sandra MUCOUS NONE SEEN Normal NONE SEEN [facility] Comment on above: Performed By: #### ALEXANDRA OLIVIA #### [facility] [address] [phone] Randi Sandra RBC (U) [#/Vol] 0-2 Normal 0-2 [facility] Comment on above: Performed By: #### ALEXANDRA OLIVIA #### [facility] [address] [phone] Randi Sandra WBC (Bld) [#/Vol] 0-2 Normal NONE SEEN [facility] Comment on above: Performed By: #### ALEXANDRA OLIVIA #### [facility] [address] [phone] Randi Sandra Vital Signs Date Time Vital Sign Value Performing Clinician Mike meier 01-13-2024 15:40-0500 Body mass index (BMI) [Ratio] 20.88 kg/m2 [facility] 01-13-2024 15:40-0500 Body weight 56.93 kg [facility] 01-13-2024 15:40-0500 Diastolic blood pressure 58 mm[Hg] [facility] 01-13-2024 15:40-0500 Systolic blood pressure 100 mm[Hg] [facility] 01-05-2024 09:01-0500 Body height 165.1 cm Kal Ellison MD Work Phone: [facility] 01-05-2024 09:01-0500 Body mass index (BMI) [Ratio] 21.13 kg/m2 Kal Ellison MD Work Phone: [facility] 01-05-2024 09:01-0500 Body weight 57.61 kg Kal Ellison MD Work Phone: [facility] 01-05-2024 09:01-0500 Diastolic blood pressure 60 mm[Hg] Kal Ellison MD Work Phone: [facility] 01-05-2024 09:01-0500 Heart rate 80 /min Kal Ellison MD Work Phone: [facility] 01-05-2024 09:01-0500 SaO2% (BldA) [Mass fraction] 100 % Kal Ellison MD Work Phone: [facility] 01-05-2024 09:01-0500 Systolic blood pressure 110 mm[Hg] Kal Ellison MD Work Phone: [facility] 12-17-2023 14:13-0500 Body mass index (BMI) [Ratio] 19.96 kg/m2 Andressa Keven SOIL FIELD TECHNICIAN-HIGH SCHOOL COORDINATOR Work Phone: [facility] 12-17-2023 14:13-0500 Body weight 56.06 kg Andressa Keven SOIL FIELD TECHNICIAN-HIGH SCHOOL COORDINATOR Work Phone: [facility] 12-17-2023 14:13-0500 Diastolic blood pressure 52 mm[Hg] Andressa Keven SOIL FIELD TECHNICIAN-HIGH SCHOOL COORDINATOR Work Phone: [facility] 12-17-2023 14:13-0500 Systolic blood pressure 94 mm[Hg] Andressa Keven SOIL FIELD TECHNICIAN-HIGH SCHOOL COORDINATOR Work Phone: [facility] 12-16-2023 14:09-0500 Body height 167.6 cm Jossy Nunes MD Work Phone: [facility] 12-16-2023 14:09-0500 Body mass index (BMI) [Ratio] 19.47 kg/m2 Jossy Nunes MD Work Phone: [facility] 12-16-2023 14:09-0500 Body weight 54.7 kg Jossy Nunes MD Work Phone: [facility] 12-16-2023 14:09-0500 Diastolic blood pressure 60 mm[Hg] Jossy Nunes MD Work Phone: [facility] 12-16-2023 14:09-0500 Systolic blood pressure 98 mm[Hg] Jossy Nunes MD Work Phone: [facility] 12-09-2023 14:15-0500 Body height 167.6 cm ws Engineering Program Manager [facility] 12-09-2023 14:15-0500 Body mass index (BMI) [Ratio] 19.43 kg/m2 [facility] 12-09-2023 14:15-0500 Body weight 54.61 kg [facility] 12-09-2023 14:15-0500 Diastolic blood pressure 64 mm[Hg] Pfws Engineering Program Manager [facility] 12-09-2023 14:15-0500 Systolic blood pressure 112 mm[Hg] [facility] Encounters Encounter Date Encounter Type Care Provider Facility Start: 03-20-2024 End: 03-20-2024 ambulatory NELLI RICHARDSON Not Available Start: 03-07-2024 End: 03-08-2024 ambulatory HOLLY [facility] Start: 03-06-2024 End: 03-06-2024 ambulatory ABDELRAHMAN PAN Not Available Start: 02-22-2024 Telephone encounter Tamie clayton SOIL FIELD TECHNICIAN-CNM Work Phone: [facility] Start: 02-21-2024 End: 02-21-2024 ambulatory NELLI RICHARDSON Not Available Start: 02-18-2024 End: 02-18-2024 ambulatory TORRES FENG [facility] Start: 02-15-2024 End: 02-16-2024 ambulatory TAMIE VELÁSQUEZ [facility] Start: 02-15-2024 End: 02-15-2024 ambulatory TAMIE Mejia [facility] Start: 02-07-2024 End: 02-07-2024 ambulatory ABDELRAHMAN AMARAL Not Available Start: 01-21-2024 End: 01-22-2024 Emergency department patient visit SAVI MOTA [facility] Start: 01-18-2024 End: 01-19-2024 ambulatory [facility] Start: 01-13-2024 End: 01-13-2024 ambulatory [facility] Start: 01-13-2024 End: 01-13-2024 Subsequent care visit Pfws Ob Engineering Program Manager [facility] Comment on above: GA: 25w1d Start: 01-05-2024 End: 01-05-2024 ambulatory KAL Mejia [facility] Start: 01-05-2024 End: 01-05-2024 Office outpatient visit 15 minutes Dominik Meza MD Work Phone: [facility] Comment on above: Mitral valve insuffi ciency, unspecified etiology (Primary Dx); Gestational edema in third trimester Start: 12-17-2023 End: 12-17-2023 ambulatory [facility] Start: 12-17-2023 End: 12-17-2023 [facility] SOIL FIELD TECHNICIAN-HIGH SCHOOL COORDINATOR Work Phone: [facility] Comment on above: GA: 21w2d Start: 12-16-2023 End: 12-16-2023 Office outpatient new 45 minutes Jossy Nunes MD Work Phone: [facility] Comment on above: High-risk in second trimester (Primary Dx); Drug use affecting , antepartum; History of acute congestive heart failure; Nonrheumatic mitral valve regurgitation; Echogenic intracardiac focus of fetus on ultrasound; 21 weeks gestation of ; Nausea/vomiting in ; Constipation during in second trimester Start: 12-16-2023 End: 12-16-2023 Orders Only Srinivasan Campbell RN [facility] Comment on above: Nonrheumatic mitral valve regurgitation (Primary Dx); Drug use affecting , antepartum; History of acute congestive heart failure Start: 12-10-2023 Orders Only Andressa Gallagher SOIL FIELD TECHNICIAN-HIGH SCHOOL COORDINATOR Work Phone: [facility] Comment on above: Bacterial vaginosis in (Primary Dx); Vaginal yeast infection; with 20 completed weeks gestation Start: 12-10-2023 End: 12-10-2023 ambulatory ANDRESSA GALLAGHER [facility] Start: 12-09-2023 End: 12-09-2023 [facility] Start: 12-09-2023 End: 12-09-2023 Office outpatient visit 15 minutes Pfws Ob Engineering Program Manager [facility] Comment on above: Vaginal discharge (P rimary Dx); Vagina itching; Vaginal irritation; Nausea/vomiting in ; Constipation during in second trimester Start: 11-23-2023 Telephone encounter Mago cerna DO Work Phone: [facility] Start: 11-17-2023 End: 11-18-[facility] Start: 11-17-2023 End: 11-17-2023 ambulatory [facility] Start: 11-12-2023 Telephone encounter Tamie clayton SOIL FIELD TECHNICIAN-CNM Work Phone: [facility] Start: 11-12-2023 End: 11-12-2023 Emergency department patient visit [facility] Start: 06-05-2019 End: 06-07-2019 Evaluation and management of inpatient RICHARD GARCÍA Facility:[facility] Start: 05-19-2019 End: 05-19-2019 Patient encounter procedure RICHARD GARCÍA Facility:[facility] Start: 05-12-2019 End: 05-13-2019 Patient encounter procedure RICHARD GARCÍA Facility:[facility] Start: 03-11-2019 Patient encounter procedure ABDELRAHMAN AMARAL Facility:[facility] Start: 03-09-2019 End: 03-10-2019 Patient encounter procedure RICHARD ALBERTSSAMUELLindsey Facility:[facility] Start: 01-17-2019 End: 01-18-2019 Patient encounter procedure RICHARD GARCÍA Facility:[facility] Start: 10-28-2018 End: 10-28-2018 Patient encounter procedure ZIGGY PAZ Facility:[facility]1 Procedures Date Procedure Procedure Detail Performing Clinician Start: 01-05-2024 Ecg routine ecg w/le ast 12 lds w/i&r Kal Ellison MD Work Phone: Start: 09-28-2023 Microscopic observat ion [Identifier] in Cervix by Cyto stain Tamie Velásquez APRN-SOHEILA Work Phone: Start: 06-05-2019 Delivery of Products of Conception, External Approach ZIGGY PAZ Plan of Treatment Date Care Activity Detail Author Start: 09-28-2026 Screening for malign ant neoplasm of cervix Pap Smear [facility] Start: 02-17-2025 Adult BMI Screening Adult BMI Screen ing [facility] Start: 02-17-2025 Tobacco Screening Tobacco Screening [facility] Start: 01-13-2025 Adult BMI Screening Adult BMI Screen ing [facility] Start: 01-13-2025 Tobacco Screening Tobacco Screening [facility] Start: 12-17-2024 Adult BMI Screening Adult BMI Screen ing [facility] Start: 12-17-2024 Tobacco Screening Tobacco Screening [facility] Start: 12-16-2024 Adult BMI Screening Adult BMI Screen ing [facility] Start: 12-16-2024 Tobacco Screening Tobacco Screening [facility] Start: 12-09-2024 Adult BMI Screening Adult BMI Screen ing [facility] Start: 12-09-2024 Tobacco Screening Tobacco Screening [facility] Start: 11-17-2024 Adult BMI Screening Adult BMI Screen ing [facility] Start: 11-17-2024 Tobacco Screening Tobacco Screening [facility] Start: 11-11-2024 Adult BMI Screening Adult BMI Screen ing [facility] Start: 11-11-2024 Tobacco Screening Tobacco Screening [facility] Start: 07-23-2024 Influenza vaccination Influenza Vacc ine [facility] Start: 03-07-2024 End: 03-07-2024 Patient encounter procedure 03/07/2024 9:[address] [facility] [address] [place] [address] [facility] Start: 01-18-2024 End: 01-18-2024 Patient encounter procedure 01/18/2024 2:[address] [facility] [address] [place] [phone] [facility] Start: 01-16-2024 End: 12-16-2024 US MFM with or without consult US MFM with or without consult Imaging Routine Nonrheumatic mitral valve regurgitation Drug use affecting , antepartum History of acute congestive heart failure Expected: 01/16/2024 (Approximate), Expires: 12/16/2024 [facility] Work Phone: Comment on above: Expected: 01/16/2024 (Approximate), Expires: 12/16/2024 Start: 01-13-2024 End: 01-13-2024 Patient encounter procedure 01/13/2024 3:45 PM EST Routine [facility] [address] [facility] [place] [phone] [facility] Start: 01-05-2024 End: 01-05-2024 Patient encounter procedure 01/05/2024 9:00 AM EST Office Visit [facility] [address] [place] [phone] Dominik Meza MD [address] [place] [address] Kal Ellison MD [address] [place] [address] [facility] Start: 12-20-2023 End: 12-20-2023 Patient encounter procedure 12/20/2023 8:00 AM EST Office Visit [facility] [address] [place] [phone] Dominik Meza MD [address] [place] [address] Joseph Cook MD [address] [place] [address] [facility] Start: 12-17-2023 End: 12-17-2023 Patient encounter procedure 12/17/2023 2:15 PM EST Routine [facility] [address] [facility] [place] [phone] Andressa Gallagher, SOIL FIELD TECHNICIAN-[facility] [address] [place], [place] [phone] [facility] Start: 12-16-2023 End: 12-16-2023 Telemedicine consultation with patient 12/16/2023 2:15 PM EST Telemedicine [facility] [address] [address] Jossy Nunes MD [address] [facility], [address] [place] [id number] [facility] Start: 12-16-2023 End: 12-16-2023 Patient encounter procedure 12/16/2023 1:00 PM EST Appointment [facility] [address] [facility] [address] [place] [phone] [facility] Start: 12-15-2023 End: 12-15-2023 Patient encounter procedure 12/15/2023 4:00 PM EST Routine [facility] [address] [facility] [place] [address] [facility] Start: 12-09-2023 End: 12-09-2024 Vaginitis Panel PCR Vaginitis Panel PCR Microbiology Routine Vaginal discharge Vagina itching Vaginal irritation Expected: 12/09/2023 (Approximate), Expires: 12/09/2024 [facility] Work Phone: Comment on above: Expected: 12/09/2023 (Approximate), Expires: 12/09/2024 Start: 11-24-2023 End: 11-24-2023 Patient encounter procedure 11/24/2023 9:30 AM EST Routine [facility] [address] [facility] [place] [phone] Mago Valdez DO [address] [place] [address] [facility] Start: 11-17-2023 End: 11-17-2023 Patient encounter procedure [facility] Start: 2011 DTaP,Tdap and Td Vaccines (1 - Tdap) DTaP,Tdap and Td Vaccines (1 - Tdap) [facility] Start: 2010 Adult BMI Follow Up Plan Adult BMI Follow Up Plan [facility] Start: 2004 Depression Screening Depression Scre joanie [facility] Start: 1992 Tobacco Counseling Tobacco Counselin g [facility] End: 01-12-2025 CBC panel - Blood by Automated count CBC without diff Lab Routine 25 weeks gestation of Second trimester 1 Occurrences starting 01/13/2024 until 01/12/2025 [facility] Work Phone: Comment on above: 1 Occurrences starti ng 01/13/2024 until 01/12/2025 End: 01-13-2025 Glucose 1h post 50g load Glucose 1h post 50g load Lab Routine 25 weeks gestation of Second trimester 1 Occurrences starting 01/13/2024 until 01/13/2025 [facility] Comment on above: 1 Occurrences starti ng 01/13/2024 until 01/13/2025 End: 01-13-2025 Syphilis Total(Unknown Syphilis Status) Syphilis Total(Unknown Syphilis Status) Lab Routine 25 weeks gestation of Second trimester 1 Occurrences starting 01/13/2024 until 01/13/2025 [facility] Comment on above: 1 Occurrences starti ng 01/13/2024 until 01/13/2025 Immunizations Immunization Date Immunization Notes Care Provider Lizeth swann 10-26-2023 influenza virus vaccine, unspecified formulation Tamie Velásquez SOIL FIELD TECHNICIAN-CNM Work Phone: [employer] Payers Date Payer Category Payer Private Health [place] [facility] [id number] 2022-Present [phone] [address] [place] [address] [id number] 2022 Private Health Insurance [id number] 1992 Unknown [id number] 2.16.840.1.236522.3.579. 2.593 1992 Unknown [id number] 2.16.840.1.729938.3.579. 2.593 1992 Unknown [id number] 2.16.840.1.977380.3.579. 2.593 1992 Unknown [id number] 2.16.840.1.422743.3.579. 2.593 1992 Unknown [id number] 2.16.840.1.605489.3.579. 2.593 1992 Unknown [id number] 2.16.840.1.284958.3.579. 2.593 1992 Unknown [id number] 2.16.840.1.362260.3.579. 2.593 1992 Unknown [id number] 2.16.840.1.811881.3.579. 2.1286 1992 Unknown [id number] 2.16.840.1.695437.3.579. 2.1286 1992 Unknown [id number] 2.16.840.1.372823.3.579. 2.1285 1992 Unknown [id number] 2.16.840.1.200059.3.579. 2.1285 1992 Unknown [id number] 2.16.840.1.926596.3.579. 2.1285 1992 Unknown [id number] 2.16.840.1.430318.3.579. 2.1285 1992 Unknown [id number] 2.16.840.1.521648.3.579. 2.1285 1992 Unknown [id number] 2.16.840.1.030479.3.579. 2.1285 1992 Unknown [id number] 2.16.840.1.448619.3.579. 2.1285 1992 Unknown [id number] 2.16.840.1.868401.3.579. 2.1285 1992 Unknown [id number] 2.16.840.1.116821.3.579. 2.1285 1992 Unknown [id number] 2.16.840.1.262388.3.579. 2.1285 1992 Unknown [id number] 2.16.840.1.929830.3.579. 2.1285 1992 Unknown [id number] 2.16.840.1.376196.3.579. 2.1285 1992 Unknown [id number] 2.16.840.1.559409.3.579. 2.1285 1992 Unknown [id number] 2.16.840.1.288202.3.579. 2.1285 1992 Unknown [id number] 2.16.840.1.578577.3.579. 2.1285 1992 Unknown [id number] 2.16.840.1.577433.3.579. 2.1258 1992 Unknown [id number] 2.16.840.1.229959.3.579. 2.1258 1992 Unknown [id number] 2.16.840.1.323618.3.579. 2.1259 1992 Unknown [id number] 2.16.840.1.100329.3.579. 2.1259 1959 Self-pay 1959 Unknown [id number] Social History Date Type Detail Facility Start: 03-29-2021 End: 11-17-2023 Tobacco smoking status NHIS Occasional tobacco smoker [facility] Start: 03-29-2021 End: 11-17-2023 Tobacco use and exposure Smokeless tobacco non-user [facility] Start: 11-11-2023 End: 02-18-2024 Alcohol intake Ex-drinker (finding) [facility] Start: 10-21-2018 End: 01-02-2021 History of Social function [facility] Start: 10-21-2018 End: 01-02-2021 Alcohol Use Disorder Identification Test - Consumption [AUDIT-C] [facility] Frequency of Alcohol Consumption Never [facility] Start: 08-04-2023 [facility] Start: 1992 Sex Assigned At Not on file [facility] Clinical Notes 11-12-2023 to 02-22-2024 Telephone Encounter - SHEYLA Hernandez - 02/22/2024 4:31 PM EDTTelephone Encounter - SHEYLA Hernandez - 02/22/2024 4:31 PM EDTGjaylene Velásquez APRNSOHEILA - 01/13/2024 3:45 PM EST Note Date & Type Note Facility 02-22-2024 Miscellaneous Notes Call to pt. To discuss labs. Advised pt. That her hemoglobin is slightly low. Discussed iron rich diet and examples thereof. Discussed that iron can be constipating and may need stool softener in addition to an iron supplement. Pt. State she has transferred her care to Dr. Amaral and she relates she has come into our office and signed the records release for this. Pt. Advised to call Dr. Amaral's office tomorrow to discuss labs. Pt. Verbalized understanding. documented in this encounter [facility] 02-22-2024 Telephone encounter Note Call to pt. To discuss labs. Advised pt. That her hemoglobin is slightly low. Discussed iron rich diet and examples thereof. Discussed that iron can be constipating and may need stool softener in addition to an iron supplement. Pt. State she has transferred her care to Dr. Amaral and she relates she has come into our office and signed the records release for this. Pt. Advised to call Dr. Amaral's office tomorrow to discuss labs. Pt. Verbalized understanding. [facility] 01-13-2024 History of Presen t illness Narrative 34 y.o. at 25w1d. No CTX, VB, LOF. positive FM. Pt. Initially unable to void for routine appt. 1. Reviewed signs of labor and movement 2. No cramping, vaginal bleeding or LOF 3. 28 wk labs next visit 4. Return 3 WKS. WITH [facility]. Discussed MFM recommendation for telemetry in labor and 24hr. After. Discussed availability of cardiology at [facility] vs. [place] and avoidance of separation of mom and baby if either were to need transferred after delivery 5. Reviewed cardiology referral on 01/05 w/Dr. Ellison 6. Reviewed MFM note on 12/16 MARIA ESTHER Hernandez 01/13/24 1657 documented in this encounter [facility] 01-05-2024 History of Presen t illness Narrative Connie Ramirez Date of visit: 01/05/2024 Date of : 1990 Age: 34 y.o. Patient Active Problem List Diagnosis Dyspnea Mitral regurgitation Drug use affecting , antepartum History of acute congestive heart failure Nausea/vomiting in Constipation during No Known Allergies Current Outpatient Medications Medication Sig Dispense Refill docusate sodium (COLACE) 100 mg capsule Take 1 capsule (100 mg total) by mouth in the morning and 1 capsule (100 mg total) before bedtime. 60 capsule 1 28 mg iron- 800 mcg tablet Take 1 tablet by mouth in the morning. promethazine (PHENERGAN) 12.5 mg tablet Take 1 tablet (12.5 mg total) by mouth every 6 (six) hours as needed for nausea or vomiting. 30 tablet 0 No current facility-administered medications for this visit. Chief Complaint Patient presents with New Patient CHERRY CUTTER Mitral valve insufficiency, unspecified etiology L/S MGI 08/2020 PT is in her first trimester due in April 2024. no testing per patient sched w/pt History of Present Illness Patient presents for follow-up she had a history of moderate mitral regurgitation with her 1st in 2018 her heart totally recovered however it appears more likely she had preeclampsia with fluid accumulation in that probably made her valve look more regurgitant at the time be sides being right now she is doing fine she is about 5 months she has no significant lower extremity edema she does have some shortness of breath from time to time she has had no lightheadedness no syncope near syncope Past Medical History: Diagnosis Date Anemia Depression Miscarriage No data recorded No data recorded No data recorded Past Surgical History: Procedure Laterality Date DILATION AND CURETTAGE OF UTERUS x2 Family History Problem Relation Age of Onset Hypertension Mother No Known Problems Father Social History Socioeconomic History Marital status: Single Spouse name: Not on file Number of children: Not on file Years of education: Not on file Highest education level: Not on file Occupational History Not on file Tobacco Use Smoking status: Some Days Smokeless tobacco: Never Vaping Use Vaping Use: Never used Substance and Sexual Activity Alcohol use: Not Currently Drug use: Yes Types: Marijuana Comment: some night when having trouble sleeping Sexual activity: Yes Partners: Male Other Topics Concern Caffeine Use Yes Social History Narrative Not on file Social Determinants of Health Financial Resource Strain: Not on file Food Insecurity: No Food Insecurity (01/05/2024) Hunger Screening Food Insecurity - Worry: Never True Food Insecurity - Inability: Never True Transportation Needs: Not on file Physical Activity: Not on file Stress: Not on file Social Connections: Not on file Interpersonal Safety: Not on file Housing Instability: Not on file Review of Systems Review of Systems Constitutional: Positive for malaise/fatigue. Musculoskeletal: Positive for back pain. Neurological: Positive for headaches. CARDIOVASCULAR: Please review HPI. Physical Examination General appearance: Alert, oriented and cooperative. In no acute distress. Skin: Warm and dry to touch. Head: Normocephalic, without obvious abnormality, atraumatic. Ears, Nose, Mouth, Throat: Throat clear without erythema or exudate. Dentition intact. Eyes: Conjunctivae unremarkable, EOM intact. Neck: No JVD, No carotid bruit. Neck supple, trachea midline. Respiratory: Clear to auscultation bilaterally, no use of accessory muscles. Cardiovascular: RRR with normal S1 and S2 with no murmurs. Musculoskeletal: No peripheral edema. Neurologic: Oriented to time, person and place, affect appropriate. No focal/major motor defects noted. Psychiatric: Appropriate mood, memory and judgement. VITAL SIGNS: BP 110/60 (BP Site: Left Arm, BP Postition: Sitting) Pulse 80 Ht 165.1 cm (5' 5 ) Wt 57.6 kg (127 lb) LMP 06/20/2023 (Within Weeks) SpO2 100% BMI 21.13 kg/m No orders of the defined types were placed in this encounter. There are no discontinued medications. IMPRESSIONS/PLAN 1. Mitral valve insufficiency, unspecified etiology - Ambulatory referral to Cardiology - POCT EKG 1. History of mitral regurgitation prior but the patient did have fluid overload at the time. Last echo is back to normal with normal function with no significant valvular disease Support hose Watch for fluid buildup But I think the patient does not have structural heart disease but rather the increase in fluid previously made the valve look more regurgitant TODAYS ORDERS Orders Placed This Encounter Procedures POCT EKG FOLLOW UP No follow-ups on file. PCP: [facility] [place] Referring Physician: Dominik Meza MD [address] [place] [address] documented in this encounter [facility] 01-05-2024 Instructions Adwoa Rico [facility] - 01/05/2024 9:00 AM EST Are You Ready To Kick The Habit? Free Tobacco Cessation Resources [facility] Services [facility] Centers provide all employees with free tobacco cessation services that include: Counseling to understand nicotine addiction Education about medications that can help you successfully quit Assistance with developing a plan to quit Call to set up an individual appointment or find out when group classes will be held: [facility]: [phone] [facility]: [phone] [facility]: [phone] [facility]: [phone] Quit Smoking Action Plan and Resources [facility] offers an eight-week, online smoking cessation plan to all [facility] employees, regardless of whether [place] is your medical insurance provider. Go to [email or web address] and click the Health Risk Assessment and Resources link to get started. In the [employer] menu, click Action Plans instead of Health Risk Assessment to access the Quit Smoking Action Plan. Additional smoking cessation resources are also available to all [facility] employees on the [employer] web page at [email or web address]/quit smoking. [place] Tobacco Cessation Program If [place] is your medical insurance provider, there are more free resources available to you, including: No copays or deductibles on local tobacco cessation counseling services to help you quit Prescription assistance for tobacco cessation medications to help you quit For details about the tobacco cessation program available to [place] members, go to www.Tweegee (Search: Tobacco Cessation Program). [place] Tobacco Quit Line 0-264-HGAN-NOW ( ) is a toll-free, telephonic service that helps [place] residents quit smoking and using tobacco. It is staffed by experts who tailor a quit plan for you and provide you with advice. [place] Tobacco Quit Line 7-608-MKXS-NOW ( ) is a toll-free, telephonic service that helps [place] residents quit smoking and using tobacco. It is staffed by experts who tailor a quit plan for you and provide you with advice. Two weeks of nicotine replacement therapy may be provided at no charge, if needed. Additional Resources These national organizations also offer free information and resources to help you quit tobacco: [place] [employer]--www.cancer.org/healthy/ stayawayfromtobacco [place] Heart Association--www.heart.org (Search: Quit Smoking) Centers for Disease Control and Prevention--www.cdc.gov/tobacco [place] Lung Association--www.lungusa.org documented in this encounter [facility] 12-17-2023 History of Presen t illness Narrative Routine OB visit 33 y.o. at 21w2d. She denies cramping or abdominal pain. She denies vaginal bleeding or vaginal loss of fluid. Tolerating regular diet without emesis. She reports movements are present. Patient is planning to bottle / formula feed . Today patient reports she is coming down with a cold. No fever / chills. She finished meds for + BV and yeast. Vitals: 12/17/23 1413 BP: 94/52 Weight: 56.1 kg (123 lb 9.6 oz) complicated by: Patient Active Problem List Diagnosis Dyspnea Mitral regurgitation Drug use affecting , antepartum History of acute congestive heart failure Nausea/vomiting in Constipation during 1. Discussed results of anatomy scan / MFM consult and their recommendations. 2. Counseled regarding safe use of safety belt in , importance of exercise and good nutrition, avoidance of supine position and reviewed danger signs. 3. Patient received a flu shot in September. 4. Discussed safe medications to take for cold / sinus / sore throat relief. 5. Answered all questions 6. Educational information given. 7. Return 4 wks. NITO Younger 12/17/23 1438 documented in this encounter [facility] 12-16-2023 History of Presen t illness Narrative Images from the original note were not included. [facility] Maternal- Medicine Tele-Consult Note Reason For Consult: Provider at different site/location than patient. Connie Wallis Hudgiescurrently at [place] office and provider at remote site The patient consented to be treated electronically via this form of telemedicine. This visit was not related to an office visit or procedure in the past 7 days, and in-office follow up is not recommended in the next 24 hours. Video Visit via Real-time Synchronous Audiovisual Provider Location: [facility] AT [address] [address] Patient Location: Other Patient Location Hair Stylist: None Video Visit Consent Statement: I discussed risks, benefits, and alternatives of a real-time synchronous audiovisual consultation with the patient (and any accompanying persons) including the risks that the patient's personal health details and medical records will be discussed over real-time, synchronous, interactive video/audio/telecommunication technology, the visit will not be recorded without the express consent of both the provider and the patient, and that there are some limitations compared to [id number] evaluations. We elected to proceed. HPI: Connie Ramirez is a 33 y.o. @ 21w1d who presented for consultation from Tamie Westfall, AXEL-Anabella* regarding Chief Complaint Patient presents with mfm consult She reports that she is doing well. She denies LOF, contractions, vaginal bleeding, headache, blurry vision, RUQ pain and edema. The primary encounter diagnosis was High-risk in second trimester. Diagnoses of Drug use affecting , antepartum, History of acute congestive heart failure, Nonrheumatic mitral valve regurgitation, Echogenic intracardiac focus of fetus on ultrasound, 21 weeks gestation of , Nausea/vomiting in , and Constipation during in second trimester were also pertinent to this visit. Aneuploidy screening was completed at her office and was low risk for select aneuploidy of chromosomes 21, 13, 18 and sex chromosomes per her report Review of systems: Review of systems was noncontributory Complications: 1. High-risk in second trimester 2. Drug use affecting , antepartum 3. History of acute congestive heart failure 4. Nonrheumatic mitral valve regurgitation 5. Echogenic intracardiac focus of fetus on ultrasound 6. 21 weeks gestation of 7. Nausea/vomiting in 8. Constipation during in second trimester PMH: Past Medical History: Diagnosis Date Anemia Depression Miscarriage PSHIST: Past Surgical History: Procedure Laterality Date DILATION AND CURETTAGE OF UTERUS x2 OB Hx: OB History Para Term AB Living 4 1 1 2 0 SAB IAB Ectopic Multiple Live Births 2 # Outcome Date GA Lbr Tom/2nd Weight Sex Delivery Anes PTL Lv 4 Current 3 2014 10w0d SAB 2 2013 9w0d SAB 1 Term Vag-Spont PREECLAMPSIA SCREEN (US Preventive Services Task Force) Patient is at high risk if 1 or more factors present. Incidence of preeclampsia is ? 8%: Prior preeclampsia YES Multiple gestation NO Chronic hypertension NO Type 1 or 2 diabetes NO Renal disease NO Autoimmune disease NO (Lupus, APLS) Patient is at moderate risk is several risk factors are present: Nulliparity NO Obesity (BMI ? 30) NO Family history of preeclampsia NO (Mother, sister) NO Sociodemographic characteristics NO (AA, low socioeconomic status) Age ? 37 NO Personal history factor NO (Previous SGA, adverse outcome, > 10 years from last ) Allergies: No Known Allergies Meds: Prior to Admission medications Medication Sig Start Date End Date Taking? Authorizing Provider clotrimazole (GYNE-LOTRIMIN) 1 % vaginal cream Insert 1 applicator into the vagina in the morning for 7 days. 12/10/23 12/17/23 NITO Younger docusate sodium (COLACE) 100 mg capsule Take 1 capsule (100 mg total) by mouth in the morning and 1 capsule (100 mg total) before bedtime. 12/09/23 NITO Younger metroNIDAZOLE (FLAGYL) 500 mg tablet Take 1 tablet (500 mg total) by mouth in the morning and 1 tablet (500 mg total) before bedtime. Do all this for 7 days. 12/10/23 12/17/23 NITO Younger 28 mg iron- 800 mcg tablet Take 1 tablet by mouth in the morning. 09/16/23 Not In System Ref Prov promethazine (PHENERGAN) 12.5 mg tablet Take 1 tablet (12.5 mg total) by mouth every 6 (six) hours as needed for nausea or vomiting. 12/09/23 NITO Younger SH: Social History Socioeconomic History Marital status: Single Spouse name: Not on file Number of children: Not on file Years of education: Not on file Highest education level: Not on file Occupational History Not on file Tobacco Use Smoking status: Some Days Smokeless tobacco: Never Substance and Sexual Activity Alcohol use: Not Currently Drug use: Yes Types: Marijuana Comment: some night when having trouble sleeping Sexual activity: Yes Partners: Male Other Topics Concern Caffeine Use Yes Social History Narrative Not on file Social Determinants of Health Financial Resource Strain: Not on file Food Insecurity: No Food Insecurity (11/11/2023) Hunger Screening Food Insecurity - Worry: Never True Food Insecurity - Inability: Never True Transportation Needs: Not on file Physical Activity: Not on file Stress: Not on file Social Connections: Not on file Interpersonal Safety: Not on file Housing Instability: Not on file Physical Exam: Vital Signs: Not obtained Physical Exam: Appears alert, oriented and not in any distress Normal breathing and appropriate affect via video Assessment/Plan 33 y.o. @ 21w1d here for consultation regardin. High-risk in second trimester 2. Drug use affecting , antepartum She denies any drug use at this time. Discussed with her the importance of abstinence in regards to tobacco as well as marijuana use in . She vocalized understanding. 3. History of acute congestive heart failure 4. Nonrheumatic mitral valve regurgitation Reviewed previous records including cardiology records. It appears that she developed pulmonary edema and presented in heart failure 1 week . Connie Ramirez reports that after her discharge from the hospital post delivery she started having shortness of breath at form especially with orthopnea. She presented to the hospital and was told that she has fluid around her heart and in her lungs. Workup at that time included maternal echocardiogram that revealed an ejection fraction that was borderline however not abnormal. There was xeny-ne-moztvury mitral valve regurgitation. There was no evidence of peripartum cardiomyopathy. Discussed with patient the possibility of preeclampsia partially that she reports that her blood pressure was elevated at that time as well. In addition to that reviewed her most recent evaluation including echocardiogram that was done recently. Most recent echocardiogram completed on 11/17/2023 was within normal limits. Recommend baby aspirin in view of possibility of peripartum preeclampsia to reduce recurrence risk. In addition to that it is reasonable to repeat her echocardiogram in the 3rd trimester. Reviewed heart disease in and the WHO criteria for evaluation and management during . In view of point hope ira valvular heart disease however not meeting criteria of being severe it is reasonable to continue follow-up with Cardiology during the every trimester and to deliver at a tertiary care center. Close monitoring including telemetry during labor and for 24 hours . Anesthesia consultation to be obtained in the 3rd trimester. This can be initiated by her primary OB team. From a standpoint serial growth assessments every 4 weeks is recommended. testing to be initiated at 32 weeks with weekly NST and weekly DVP, twice weekly testing at 36 weeks with twice weekly NST and weekly DVP. Delivery recommended at 39 weeks or earlier as clinically indicated 5. Echogenic intracardiac focus of fetus on ultrasound Echogenic intracardiac focus (EIF): An EIF is defined as a small (<6 mm) echogenic area in either cardiac ventricle that is as bright as the surrounding bone and visualized in at least 2 separate planes. EIFs are identified in 3% to 5% of karyotypically normal fetuses, and ethnic variation exists. The pathogenesis of this finding is unclear. EIFs do not represent a structural or functional cardiac abnormality, and they are not associated with cardiac malformations in the fetus or . For people with negative serum or cfDNA screening results and an isolated EIF, we recommend no further evaluation, as this finding is a normal variant of no clinical importance with no indication for echocardiography, follow-up ultrasound imaging, or evaluation. She reports that she has had cell free DNA aneuploidy screen that was low risk. I do not have a copy of that test results. Will attempt to obtain a copy from her primary OB office. For people with no previous aneuploidy screening and isolated echogenic bowel, we recommend counseling to estimate the probability of trisomy 21 and a discussion of options for noninvasive aneuploidy screening with cfDNA or quad screen if cfDNA is unavailable or cost-prohibitive. Although any patient may request diagnostic testing for any indication, we do not recommend diagnostic testing solely for this indication. 6. 21 weeks gestation of High-risk in second trimester [O09.92] The patient is to continue with routine care in your office Recommendations: Baby aspirin 81 mg q.day Serial follow-up with Cardiology during the with repeat echocardiogram in the 3rd trimester Serial growth assessments every 4 weeks after the anatomy scan testing to be initiated at 32 weeks with weekly NST and weekly DVP. Twice weekly testing at 36 weeks with twice weekly NST and weekly DVP Delivery recommended at 39 weeks or earlier as clinically indicated Delivery at tertiary care center is recommended. She is agreeable for delivery at [facility]. Referral to [place] for Health Services is recommended accordingly. In addition to that recommend anesthesia consultation in the 3rd trimester this can be initiated by her primary OB team. Telemetry during labor and for 24 hours Plan reviewed with patient. She vocalized understanding all questions answered. [facility], the CDC, and other organizations representing maternal and public health professionals recommend that , , and lactating people and those considering receive the COVID-19 vaccination. Vaccination is the best method to reduce maternal and complications of SARS-CoV-2 infection. This document was created with [employer] technology. Though I make every effort to review the dictation as it is transcribed, on occasion the spoken word can be misinterpreted by the technology leading to inappropriate words, phrases, or sentences. This note is addressed to the requesting provider as a consultation for clinical guidance. Specific medical abbreviations are occasionally used and those are generally approved by the [place]?Board of?Obstetrics and?Gynecology?as well as?[place] cross abbreviations. The above plan of care was based solely on the diagnoses for which a consultation was requested. ?More frequent testing may be indicated based on her other medical/obstetrical conditions. The management of other or medical conditions is beyond the scope of requested consultation and will continue to be followed by the primary window glass cutter off or primary care provider. Thank you for allowing me to participate in her care. Please contact me if you have any concerns. Total time spent was 45 minutes: Preparing to see the patient (e.g., review of tests) Obtaining and/or reviewing separately obtained history Performing a medically appropriate examination and/or evaluation Counseling and educating the patient/family/caregiver Ordering medications, tests, or procedures Referring and communicating with other health acute care surgeon (not separately reported) Documenting clinical information in the electronic or other health record Independently interpreting results (not separately reported) and communicating results to the patient/family/caregiver Care coordination (not separately reported) Headache/epigastric pain/blurry vision/swelling? denies Cramping/contractions? denies Abnormal vaginal discharge? denies Spotting/vaginal bleeding? denies Loss of fluid like your water may have broken? denies Cats in the home? no Do you change the litter box? na Flu vaccine? yes Genetic testing done this here or other office? yes negative per patient Have you been seen here at [facility] in a previous ? no Recent ER visits or hospitalizations? no Bring blood sugar log or meter with you today? (Please bring them with you for every visit at [facility]) Traveled outside the country in the past 6 month no Any concerns that you would like me to mention to the provider today? No concerns documented in this encounter [facility] 12-10-2023 Miscellaneous Notes Pt seen in Office on December 09 for yeast infection. Pt states she is having a lot of pain. Pt is requesting work excuse note for today. Please advise. Thank you Please provide work note for today only. I did sent prescriptions for her and she should begin them zoraida. Thank you. Advised Pt work note can be provided. Pt asked for it to be emailed to [email or web address]. Work note emailed to Pt. [facility] Tele[facility] encounter Note Pt seen in Office on December 09 for yeast infection. Pt states she is having a lot of pain. Pt is requesting work excuse note for today. Please advise. [facility] Telephone encounter Note Please provide work note for today only. I did sent prescriptions for her and she should begin them zoraida. Thank you. [facility]-10-2023 Telephone encounter Note Advised Pt work note can be provided. Pt asked for it to be emailed to [email or web address]. Work note emailed to Pt. [employer] 12-09-2023 History of Presen t illness Narrative Connie Ramirez is a 33 y.o.female at 20 weeks and 1 day gestation. She presents for possible yeast infection. Pt reports vaginal itching and irritation that started a few days ago. Pt states she did take one dose of Monistat last night with no relief. She is having lots of nausea today, threw up in the trash when getting roomed. Patient was on zofran but states it caused severe constipation. She is also asking for colace today. Patient denies vaginal bleeding, loss of fluid or severe abdominal pain. OB History 4 Para 1 Term 1 AB 2 Living 0 SAB 2 IAB Ectopic Multiple Live Births MEDICAL HX Past Medical History: Diagnosis Date Anemia Depression Miscarriage SURGICAL HX Past Surgical History: Procedure Laterality Date DILATION AND CURETTAGE OF UTERUS x2 FAMILY HX Family History Problem Relation Age of Onset Hypertension Mother No Known Problems Father MEDS Current Outpatient Medications Medication Sig Dispense Refill 28 mg iron- 800 mcg tablet Take 1 tablet by mouth in the morning. docusate sodium (COLACE) 100 mg capsule Take 1 capsule (100 mg total) by mouth in the morning and 1 capsule (100 mg total) before bedtime. 60 capsule 1 metroNIDAZOLE (FLAGYL) 375 mg capsule Take 1 capsule (375 mg total) by mouth in the morning and 1 capsule (375 mg total) before bedtime. (Patient not taking: Reported on 12/09/2023) promethazine (PHENERGAN) 12.5 mg tablet Take 1 tablet (12.5 mg total) by mouth every 6 (six) hours as needed for nausea or vomiting. 30 tablet 0 No current facility-administered medications for this visit. ALLERGIES No Known Allergies Review of Systems Review of Systems Constitutional: Negative. Gastrointestinal: Positive for constipation, nausea and vomiting. Genitourinary: Positive for vaginal discharge. Negative for pelvic pain. Neurological: Negative. Psychiatric/Behavioral: Negative. Objective BP 112/64 Ht 167.6 cm (5' 6 ) Wt 54.6 kg (120 lb 6.4 oz) LMP 06/20/2023 (Within Weeks) BMI 19.43 kg/m Physical Exam Vitals and nursing note reviewed. Constitutional: Appearance: Normal appearance. Pulmonary: Effort: Pulmonary effort is normal. Genitourinary: General: Normal vulva. Labia: Right: No rash or lesion. Left: No rash or lesion. Musculoskeletal: General: Normal range of motion. Skin: General: Skin is warm and dry. Neurological: Mental Status: She is alert and oriented to person, place, and time. Psychiatric: Mood and Affect: Mood normal. Speech: Speech normal. Behavior: Behavior normal. Thought Content: Thought content normal. Judgment: Judgment normal. Assessment/Plan: Connie was seen today for vaginitis. Diagnoses and all orders for this visit: Vaginal discharge - Vaginitis Panel PCR; Future Vagina itching - Vaginitis Panel PCR; Future Vaginal irritation - Vaginitis Panel PCR; Future Nausea/vomiting in - promethazine (PHENERGAN) 12.5 mg tablet; Take 1 tablet (12.5 mg total) by mouth every 6 (six) hours as needed for nausea or vomiting. Constipation during in second trimester - docusate sodium (COLACE) 100 mg capsule; Take 1 capsule (100 mg total) by mouth in the morning and 1 capsule (100 mg total) before bedtime. Await culture and treat as indicated. All questions answered. Educational material provided through [employer]. RTO for next scheduled visit or sooner as needed. Patient has her MFM consult and anatomy scan next week. ALEIDA BILLY APRN-CNP 12/09/23 1431 documented in this encounter [facility] 11-23-2023 Miscellaneous Notes Pt states she had Echo cardiogram done last week & does not understand the results. Procedure was ordered by Dr. Meza. Pt was seen in this Office on November 17, 2023. Please advise. Thank you MAKE APPT TO DISCUSS RESULTS PLS Pt scheduled appt with Dr Valdez on November 24. documented in this encounter [facility] 11-23-2023 Telephone encounter Note Pt states she had Echo cardiogram done last week & does not understand the results. Procedure was ordered by Dr. Meza. Pt was seen in this Office on November 17, 2023. Please advise. Thank you [facility] 11-23-2023 Telephone encounter Note MAKE APPT TO DISCUSS RESULTS PLS [facility] Work Phone: 11-23-2023 Telephone encounter Note Pt scheduled appt with Dr Valdez on November 24. [facility] 11-12-2023 Miscellaneous Notes Call rec.'d from ans. Service. Pt. Relates she went to ED yesterday for constipation and was given an enema and she was told to buy miralax and eat food w/beans. She states she had watery stool yesterday. She relates she went in the middle of the night and it was solid. She states her BM today was solid. Pt. C/o pain to rectum and vagina. She denies having any bleeding. She states she still feels like she needs to move her bowels. She relates she stopped taking zofran 3-4days ago but she did take one yesterday morning. She has not taken anything for pain. Pt. Relates she just went to the bathroom and she is still hurting at the vagina and rectum. She rates her pain at an 8. She states when she has to move her bowels it is a 10. She relates the pain is constant and does not go away between BMs. She denies fever or chills or nausea or vomiting. She states her pain has been this bad all day. She states she has been in bed all day. Pt. States prior to going to the ER yesterday she had not moved her bowels for 2-3 days. Advised pt. To go to ED now. Pt. Agreed to plan of care and verbalized understanding. documented in this encounter [facility] 11-12-2023 Telephone encounter Note Call rec.'d from ans. Service. Pt. Relates she went to ED yesterday for constipation and was given an enema and she was told to buy miralax and eat food w/beans. She states she had watery stool yesterday. She relates she went in the middle of the night and it was solid. She states her BM today was solid. Pt. C/o pain to rectum and vagina. She denies having any bleeding. She states she still feels like she needs to move her bowels. She relates she stopped taking zofran 3-4days ago but she did take one yesterday morning. She has not taken anything for pain. Pt. Relates she just went to the bathroom and she is still hurting at the vagina and rectum. She rates her pain at an 8. She states when she has to move her bowels it is a 10. She relates the pain is constant and does not go away between BMs. She denies fever or chills or nausea or vomiting. She states her pain has been this bad all day. She states she has been in bed all day. Pt. States prior to going to the ER yesterday she had not moved her bowels for 2-3 days. Advised pt. To go to ED now. Pt. Agreed to plan of care and verbalized understanding. [facility] Evaluation note Diagnosis Vaginal discharge- Primary Leukorrhea, not specified as infective Vagina itching Pruritus of genital organs Vaginal irritation Pruritus of genital organs Nausea/vomiting in Unspecified vomiting of , unspecified as to episode of care Constipation during in second trimester [facility] Bacterial vaginosis in - Primary Vaginal yeast infection Candidiasis of vulva and vagina with 20 completed weeks gestation [facility] Diagnosis Nonrheumatic mitral valve regurgitation- Primary Drug use affecting , antepartum History of acute congestive heart failure [facility] Diagnosis High-risk in second trimester- Primary Drug use affecting , antepartum History of acute congestive heart failure Nonrheumatic mitral valve regurgitation Echogenic intracardiac focus of fetus on ultrasound 21 weeks gestation of Nausea/vomiting in Unspecified vomiting of , unspecified as to episode of care Constipation during in second trimester [facility] Diagnosis with 21 completed weeks gestation- Primary [facility] Diagnosis Mitral valve insufficiency, unspecified etiology- Primary Gestational edema in third trimester documented [facility] Diagnosis 25 weeks gestation of - Primary Second trimester state, incidental History of congenital mitral regurgitation History of CHF (congestive heart failure) Personal history of other diseases of circulatory system documented [facility] filedocumented in this encounter [facility]Not on filedocumented in this encounter [facility]* Attachments The following attachments cannot be sent through Care Everywhere. * High Fiber Diet (Venezuelan) * The Fifth Month (Venezuelan) * Vaginitis (Venezuelan) [facility] System[facility]ructionsNot on file documented in [facility] [place] [facility] SystemInstructionsNot on file documented in this encounterPro[facility]Abac[facility] SystemInstructionsNot on file documented in this encounterPro[facility] SystemInstructions* Attachments The following attachments cannot be sent through Care Everywhere. * How to Prepare Baby Formula (Venezuelan) * Kangaroo Care (Venezuelan) documented [facility] [place] [facility] SystemInstructionsNot on file documented in this encounter[facility] [place] [facility] SystemInstructionsNot on file documented in this encounterProDay[facility] SystemReason for referral (narrative)* Consultation (Routine) - Pending Review Specialty Diagnoses / Procedures Referred By Cassius reynolds Referred To Contact Obstetrics and Gynecology Diagnoses 25 weeks gestation of Second trimester History of congenital mitral regurgitation History of CHF (congestive heart failure) Tamie Velásquez, AXEL-JAYDEN [address] [place] [address] [facility] [address] [place] [address] Referral ID Status Reason Start Date Expiration Date Visits Requested Visits Authorized [id number] Pending Review Specialty Services Required 01/13/2024 01/12/2025 1 1 [facility] Summary Purpose Family History No Family History Records FoundNo Family History Records FoundNo Family History Records FoundNo Family History Records FoundNo Family History Records Found Advance Directives No Advanced Directives Records FoundLatest Code Status on File Code Status Date Activated Date Inactivated Comments Full Code 01/28/2019 2:12 PM 01/28/2019 6:30 PM Latest Code Status on File Code Status Date Activated Date Inactivated Comments Full Code 01/28/2019 2:12 PM 01/28/2019 6:30 PM Reason for Referral Specialty Diagnoses / Procedures Referred By Cassius reynolds Referred To Contact Maternal and Medicine Diagnoses Nonrheumatic mitral valve regurgitation Drug use affecting , antepartum History of acute congestive heart failure Procedures [facility] with or without consult Jossy Nunes MD [address], [address] [place] [id number] [facility] Maternal Med [address] [place] [place] [address] Referral ID Status Reason Start Date Expiration Date V isits Requested Visits Authorized [id number] Pending Review 12/16/2023 12/15/2024 1 1 Additional Source Comments INFORMATION SOURCE (unrecogn ized section and content) DATE CREATED AUTHOR 07/21/2019 [facility] DATE CREATED AUTHOR AUTHOR'S ORGANIZ ATION 12/12/2023 [facility] DATE CREATED AUTHOR AUTHOR'S ORGANIZ ATION 01/21/2024 [facility] DATE CREATED AUTHOR AUTHOR'S ORGANIZ ATION 03/08/2024 [facility] DATE CREATED AUTHOR AUTHOR'S ORGANIZ ATION 03/21/2024 [facility] EP[employer] Care Teams (unrecognized sec tion and content) Shipping Track Supervisor Relationship Specialty Start Date End Date Services, [address] [place] - General Family Medicine 09/04/23 Shipping Track Supervisor Relationship Specialty Start Date End Date Services, [facility] [address] [place], [place] PCP - General Family Medicine 09/04/23 Shipping Track Supervisor Relationship Specialty Start Date End Date Services, [facility] [address] [place], [place] PCP - General Family Medicine 09/04/23 Shipping Track Supervisor Relationship Specialty Start Date End Date Services, [facility] [address] [place], [place] PCP - General Family Medicine 09/04/23 Shipping Track Supervisor Relationship Specialty Start Date End Date Services, [facility] [address] [place] - General Family Medicine 09/04/23 Shipping Track Supervisor Relationship Specialty Start Date End Date Services, [facility] [address] [place] - General Family Medicine 09/04/23 Shipping Track Supervisor Relationship Specialty Start Date End Date Services, [facility] [address] [place], [place] PCP - General Family Medicine 09/04/23 Shipping Track Supervisor Relationship Specialty Start Date End Date Services, [facility] [address] [place] - General Family Medicine 09/04/23 Shipping Track Supervisor Relationship Specialty Start Date End Date Services, [facility] [address] [place] PCP - General Family Medicine 09/04/23 Reason for Visit (unrecogniz ed section and content) Reason Comments Vaginitis Reason Comments mfm consult Reason Comments Routine Visit Reason Comments New Patient CHERRY CUTTER Mitral valve insu fficiency, unspecified etiology L/S [facility] 08/2020 PT is in her first trimester due in April 2024. no testing per patient sched w/pt Specialty Diagnoses / Procedures Referred By Contjanel t Referred To Contact Cardiology Diagnoses Mitral valve insufficiency, unspecified etiology Dominik Meza MD [address] [place] [address] [facility] [address] [place] [address] Referral ID Status Reason Start Date Expiration Date Visits Requested Visits Authorized [id number] Pending Review Specialty Services Required 09/28/2023 09/27/2024 1 1 Reason Comments Routine Visit FOR RECORDS PERTAINING TO PATIENTS WHO ARE OR HAVE BEEN ENROLLED IN A CHEMICAL DEPENDENCY/SUBSTANCEABUSE PROGRAM, SOME INFORMATION MAY BE OMITTED. This clinical summary was aggregated from multiple sources. Caution should be exercised in using it in the provision of clinical care. This summary normalizes information from multiple sources, and as a consequence, information in this document may materially change the coding, format and clinical context of patient data. In addition, data may be omitted in some cases. CLINICAL DECISIONS SHOULD BE BASED ON THE PRIMARY CLINICAL RECORDS. [facility] [employer] [facility]. provides no warranty or guarantee of the accuracy or completeness of information in this document.
[2024-03-25 12:56] VITALS: BP 118/61; PULSE 111
== END 2024-03-25 14:26 | disposition home or self-care (01) ==
LOC: US 09:09 → FBC 12:52
PROVIDERS: Visit Provider Obstetrics & Gynecology
DX: I31.9 Disease of pericardium, unspecified (principal); Z3A.35 35 weeks gestation of pregnancy; O90.3 Peripartum cardiomyopathy
CPT/HCPCS: 76818

== ENCOUNTER 2024-03-27 20:31 | Outpatient (REF) | payer OTHER, SELFPAY ==
--- OUTSIDE RECORDS SUMMARY | 2024-03-27 20:40 | XMS_ITS | CCD ---
Author Organization [facility] Care Team Providers [facility] Staff Name Role Phone ZIGGY PAZ Admitting Unavailable [...] RENZO R Consulting Unavailable PANWYATTY Admitting Unavailable PANWYATT QUARLESY Attending Unavailable KARASIK, RICHARD Admitting Unavailable KARASIK, RICHARD Attending Unavailable KARASIK, RICHARD Consulting Unavailable FREDDYEBERRENZO R Consulting Unavailable KARASIK, RICHARD Admitting Unavailable KARASIK, RICHARD Attending Unavailable KARASIK, RICHARD Consulting Unavailable KARASIK, RICHARD Admitting Unavailable KARASIK, RICHARD Attending Unavailable REQUEST, NONE LISTED Primary Care Unavailable KARASIK, RICHARD Consulting Unavailable KARASIK, RICHARD Procedure Practitioner Unavaila SAMMIE Melgar Consulting Unavailable Services, [facility] Primary Care Provider ANDRESSA GALLAGHER Referring Unavailable SERVICES, [facility] Primary Care Unava ilable SERVICES, [facility] Primary Care Unava ilable SERVICES, [facility] Primary Care Unava ilable TAMIE VELÁSQUEZ Referring Unavailable SERVICES, [facility] Primary Care Unava ilable MOUSSA, HIND NADIM Attending Unavailable TAMIE VELÁSQUEZ Referring Unavailable SERVICES, [facility] Primary Care Unava ilable ANDRESSA GALLAGHER Attending Unavailable SERVICES, [facility] Unava ilable SERVICES, [facility] Care Unava ilable SERVICES, [facility] Care Unava ilable SAVI MOTA Attending Unavaila ble SAVI MOTA Attending Unavaila ble NAKUL, SAVI Galvez Referring Unavaila ble SERVICES, [facility] Unava ilable AHGEGE, ABEER Attending Unavailable AHMED, ABEER Referring Unavailable SERVICES, [facility] Unava ilable TAMIE VELÁSQUEZ Referring Unavailable SERVICES, [facility] Unava ilable TAMIE VELÁSQUEZ Referring Unavailable SERVICES, [facility] Unava ilable JUNG, TIBERIU S Admitting Unavailable JUNG TIBERIU S Attending Unavailable SERVICES, [facility] Unava ilable AGUEDAVAIBHAV MEHTAIE Referring Unavailable SERVICES, [facility] Unava ilable SERVICES, [facility] Unava ilable SHAYY AGARWAL Attending Unavailable KAL ELLISON Attending Unavailable AHMED, EER Referring Unavailable SERVICES, [facility] Unava ilable TAMIE VELÁSQUEZ Referring Unavailable SERVICES, [facility] Unava ilable ABDELRAHMAN AMARAL Attending Unavailable NELLI [...] applicable or unspecified; Translations: [MAT CARE OT NV FTL GR 3RD TM UNS] Onset: 05-12-2019 [...] width (RBC) [Ratio] 13.1 % Normal 11.5-15.0 [facility] Comment on above: Performed By: #### Anabella VERGARA, 1504-0, 54670-0 #### [facility] ([id number]) [address] [place] [address] Hematocrit (Bld) [Volume fraction] 30.3 % Low 35-47 [facility] Comment on above: Performed By: #### Anabella VERGARA, 1504-0, 89142-1 #### [facility] ([id number]) [address], [address] [place] [address] Hemoglobin (Bld) [Mass/Vol] 10.4 g/dL Low 11.7-15.5 [facility] Comment on above: Performed By: #### Anabella VERGARA, 1504-0, 12876-4 #### [facility] ([id number]) [address], [facility] [address] [place] [address] MCH (RBC) [Entitic mass] 31.2 pg Normal 27-34 [facility] Comment on above: Performed By: #### Anabella VERGARA, 1504-0, 10680-9 #### [facility] ([id number]) [address], [address] [place] [address] MCHC (RBC) [Mass/Vol] 34.3 g/dL Normal 32-36 [facility] Comment on above: Performed By: #### Anabella VERGARA, 1504-0, 47504-2 #### [facility] ([id number]) [address], [facility] [address] [place] [address] MCV (RBC) [Entitic vol] 91 fL Normal 80-100 [facility] Comment on above: Performed By: #### Anabella VERGARA, 1504-0, 18590-4 #### [facility] ([id number]) [address], [facility] [address] [place] [address] Platelet mean volume (Bld) [Entitic vol] 10.0 fL Normal 7-12 [facility] Comment on above: Performed By: #### Anabella VERGARA, 1504-0, 04977-8 #### [facility] ([id number]) [address], [facility] [address] [place] [address] Platelets (Bld) [#/Vol] 152 10*3/uL Normal 150-450 [facility] Comment on above: Performed By: #### Anabella VERGARA, 1504-0, 34549-5 #### [facility] ([id number]) [address], [address] [place] [address] RBC COUNT 3.33 X10E12/L Low 3.80-5.20 [facility] Comment on above: Performed By: #### Anabella VERGARA, 1504-0, 03355-4 #### [facility] ([id number]) [address], [facility] [address] [place] [address] WBC (Bld) [#/Vol] 6.1 10*3/uL Normal 4.0-11.0 [facility] Comment on above: Performed By: #### Anabella VERGARA, 1504-0, 84528-0 #### [facility] ([id number]) [address] [facility], [address] [place] [address] Glucose 1 Hr post 50 g gluco se PO [Mass/Vol]on 02-15-2024 GLU 1H POST 50G LOAD 102 mg/dL Normal 65-139 [facility] Comment on above: Performed By: #### C , 1504-0, 94649-1 #### [facility] ([id number]) [address] [place] [address], [address] [place] [address] T. pallidum IgG+IgM IA Ql (S )on 02-15-2024 Syphilis Total <0.2 Normal 0.0-0.8 [facility] Comment on above: Result Comment: NON REACTIVE No serologic evidence of infection to Treponema pallidum (syphilis). Repeat testing may be considered in patients with suspected acute or primary syphilis in 2 to 4 weeks. Performed By: #### C , 1504-0, 78165-8 #### [facility] ([id number]) [address] [place] [address], [address] [place] [address] POCT EKGon 01-05-2024 [facility] VAGINITIS PANEL PCRon 2023 VAGINITIS PANEL PCR [...] clinical presentation to determine patient diagnosis. Normal [facility] Comment on above: Performed By: #### V PPCR #### [facility] ([id number]) [address], [address] [place] [address] URINE CULTUREon 11-12-2023 Bacteria identified Cx Nom (U) CULTURE RESULTS 10-50,000 ORGANISMS/mL NORMAL UROGENITAL PAYTON Normal [facility] Comment on above: Performed By: #### 6 30-4 #### [facility] ([id number]) [address] [facility], [address] [place] [address] URN MACROSCOPIC NURon 2022 BILIRUBIN MERY Negative Normal NEG [facility] Comment on above: Performed By: #### N UM #### [facility] ([id number]) [address] [place] [address] BLOOD/HGB MERY Trace Abnormal NEG [facility] Comment on above: Performed By: #### N UM #### [facility] ([id number]) [address] [place] [address] GLUCOSE MERY Negative Normal NEG [facility] Comment on above: Performed By: #### N UM #### [facility] ([id number]) [address] [place] [address] KETONES MERY 15 mg/dL Abnormal NEG [facility] Comment on above: Performed By: #### N UM #### [facility] ([id number]) [address] [place] [address] LEUKOCYTE ESTERASE MERY Trace Abnormal NEG [facility] Comment on above: Performed By: #### N UM #### [facility] ([id number]) [address] [place] [address] NITRITE MERY Negative Normal NEG [facility] Comment on above: Performed By: #### N UM #### [facility] ([id number]) [address] [place] [address] PH MERY 6.0 Normal 5.0-8.5 [facility] Comment on above: Performed By: #### N UM #### [facility] ([id number]) [address] [place] [address] PROTEIN MERY 100 mg/dL Abnormal NEG [facility] Comment on above: Performed By: #### N UM #### [facility] ([id number]) [address] [place] [address] SPECIFIC GRAVITY MERY >=1.030 Normal 1.003-1.035 [facility] Comment on above: Performed By: #### N UM #### [facility] ([id number]) [address] [place] [address] UROBILINOGEN MERY 0.2 eu/dL Normal <1.1 [facility] Comment on above: Performed By: #### N UM #### [facility] ([id number]) [address] [place] [address] BARBITUATE CONFIRMATION, URI NEon 06-11-2019 Amobarbital Negative Normal Dxigjh=[address] [facility] Comment on above: Performed By: #### ALEXANDRA OLIVIA #### [facility] [address] [address] Randi Sandra Barbiturates Positive Abnormal [facility] Comment on above: Performed By: #### ALEXANDRA OLIVIA #### [facility] [address] [address] Randi Sandra Butalbital Positive Abnormal [facility] Comment on above: Performed By: #### ALEXANDRA OLIVIA #### [facility] [address] [address] Randi Sandra Butalbital GC/MS Conf 361 ng/mL Normal Tqebqp=732 [facility] Comment on above: Performed By: #### ALEXANDRA OLIVIA #### [facility] [address] [place] [address] Randi Sandra Phenobarbital [Mass/Vol] Negative Normal Zturwg=141 [facility] Comment on above: Performed By: #### ALEXANDRA OLIVIA #### [facility] [address] [place] [address] Randi Sandra Phentobarbital Negative Normal Bpucbu=522 [facility] Comment on above: Performed By: #### ALEXANDRA OLIVIA #### [facility] [address] [place] [address] Randi Sandra Secobarbital Negative Normal Sfwtpu=990 [facility] Comment on above: Performed By: #### ALEXANDRA OLIVIA #### [facility] [address] [place] [address] Randi Sandra CANNABINOID (THC) CONFIRMATI ON, URINEon 06-10-2019 Cannabinoid Positive Abnormal [facility] Comment on above: Performed By: #### ALEXANDRA OLIVIA #### [facility] [address] [place] [address] Randi Sandra Carboxy THC GC/MS Conf 76 ng/mL Normal Cutoff=10 [facility] Comment on above: Performed By: #### ALEXANDRA OLIVIA #### [facility] [address] [place] [address] Randi Sandra CBC AUTO DIFFon 06-06-2019 Basophils (Bld) [#/Vol] 0.0 103/ul Normal 0.0-0.1 [facility] Comment on above: Performed By: #### ALEXANDRA OLIVIA #### [facility] [address] [place] [address] Randi Sandra Basophils/100 WBC (Bld) 0.4 % Normal 0.2-2.0 [facility] Comment on above: Performed By: #### ALEXANDRA OLIVIA #### [facility] [address] [place] [address] Randi Sandra Eosinophils (Bld) [#/Vol] 0.1 103/ul Normal 0.0-0.7 [facility] Comment on above: Performed By: #### ALEXANDRA OLIVIA #### [facility] [address] [place], [place] [address] Randi Sandra Eosinophils/100 WBC (Bld) 0.6 % Critically low 0.9-7.0 [facility] Comment on above: Performed By: #### ALEXANDRA OLIVIA #### [facility] [address] [place] [address] Randi Sandra Erythrocyte distribution width (RBC) [Ratio] 13.8 % Normal 11.0-15.0 [facility] Comment on above: Performed By: #### ALEXANDRA OLIVIA #### [facility] [address] [place] [address] Randi Sandra Hematocrit (Bld) [Volume fraction] 25.0 % Critically low 36.0-48.0 [facility] Comment on above: Performed By: #### ALEXANDRA OLIVIA #### [facility] [address] [place] [address] Randi Sandra Hemoglobin (Bld) [Mass/Vol] 8.0 g/dL Critically low 12.0-16.0 [facility] Comment on above: Performed By: #### ALEXANDRA OLIVIA #### [facility] [address] [place] [address] Randi Sandra IG # 0.13 10e3/ul Critically high 0.00-0.03 [facility] Comment on above: Performed By: #### ALEXANDRA OLIVIA #### [facility] [address] [place] [address] Randi Sandra IG % 1.6 % Critically high 0.0-0.5 [facility] Comment on above: Performed By: #### ALEXANDRA OLIVIA #### [facility] [address] [place] [address] Randi Sandra Lymphocytes (Bld) [#/Vol] 1.9 103/ul Normal 1.2-3.8 [facility] Comment on above: Performed By: #### ALEXANDRA OLIVIA #### [facility] [address] [id number] Randi Sandra Lymphocytes/100 WBC (Bld) 22.5 % Normal 20.5-60.0 [facility] Comment on above: Performed By: #### EPHRAIM OLIVIARO #### [facility] [address] [place] [address] Randi Sandra MANUAL DIFF REQ NO Normal [facility] Comment on above: Performed By: #### EPHRAIM OLIVIARO #### [facility] [address] [place], [place] [address] Randi Sandra MCH (RBC) [Entitic mass] 28.0 pg Normal 26.7-34.0 [facility] Comment on above: Performed By: #### EPHRAIM OLIVIARO #### [facility] [address] [place], [place] [address] Randi Sandra MCHC (RBC) [Mass/Vol] 32.0 g/dL Normal 29.9-35.2 [facility] Comment on above: Performed By: #### EPHRAIM OLIVIARO #### [facility] [address] [place], [place] [address] Randi Sandra MCV (RBC) [Entitic vol] 87.4 fL Normal 81.0-99.0 [facility] Comment on above: Performed By: #### EPHRAIM OLIVIARO #### [facility] [address] [place], [place] [address] Randi Sandra Monocytes (Bld) [#/Vol] 0.6 103/ul Normal 0.3-0.8 [facility] Comment on above: Performed By: #### EPHRAIM OLIVIARO #### [facility] [address] [place], [place] [address] Randi Sandra Monocytes/100 WBC (Bld) 6.7 % Normal 1.7-12.0 [facility] Comment on above: Performed By: #### EPHRAIM OLIVIARO #### [facility] [address] [place], [place] [address] Randi Sandra Neutrophils (Bld) [#/Vol] 5.6 103/ul Normal 1.4-6.[address] [facility] Comment on above: Performed By: #### ALEXANDRA OLIVIA #### [facility] [address] [place], [place] [address] Randi Sandra Neutrophils/100 WBC (Bld) 68.2 % Normal 43.0-75.[address] [facility] Comment on above: Performed By: #### ALEXANDRA OLIVIA #### [facility] [address] [place], [place] [address] Randi Sandra Platelet mean volume (Bld) [Entitic vol] 12.9 fL Normal 9.5-13.5 [facility] Comment on above: Performed By: #### ALEXANDRA OLIVIA #### [facility] [address] [place] [address] Randi Sandra Platelets (Bld) [#/Vol] 103 103/ul Critically low 150-450 [facility] Comment on above: Performed By: #### ALEXANDRA OLIVIA #### [facility] [address] [place], [place] [address] Randi Sandra RBC (Bld) [#/Vol] 2.86 106/ul Critically low 4.20-5.40 [facility] Comment on above: Performed By: #### ALEXANDRA OLIVIA #### [facility] [address] [place], [place] [address] Randi Sandra WBC (Bld) [#/Vol] 8.3 103/ul Normal 4.0-11.0 [facility] Comment on above: Performed By: #### EPHRAIM OLIVIARO #### [facility] [address] [place], [place] [address] Randi Sandra ABO AND RH TYPEon 06-05-2019 ABO and Rh group Nom (Bld) ABO Rh Typing O Rh Positive Normal [facility] Comment on above: Performed By: #### ALEXANDRA OLIVIA #### [facility] [address] [place], [place] [address] Randi Sandra CBC AUTO DIFFon 06-05-2019 Basophils (Bld) [#/Vol] 0.0 103/ul Normal 0.0-0.[address] [facility] Comment on above: Performed By: #### C BC #### [facility] [address] [place], [place] [address] Randi Sandra Basophils/100 WBC (Bld) 0.4 % Normal 0.2-2.[address] [facility] Comment on above: Performed By: #### C BC #### [facility] [address] [place], [place] [address] Randi Sandra Eosinophils (Bld) [#/Vol] 0.0 103/ul Normal 0.0-0.7 [facility] Comment on above: Performed By: #### C BC #### [facility] [address] [place] [address] Randi Sandra Eosinophils/100 WBC (Bld) 0.3 % Critically low 0.9-7.[address] [facility] Comment on above: Performed By: #### C BC #### [facility] [address] [place] [address] Randi Sandra Erythrocyte distribution width (RBC) [Ratio] 13.6 % Normal 11.0-15.[address] [facility] Comment on above: Performed By: #### C BC #### [facility] [address] [place] [address] Randi Sandra Hematocrit (Bld) [Volume fraction] 26.8 % Critically low 36.0-48.[address] [facility] Comment on above: Performed By: #### C BC #### [facility] [address] [place] [address] Randi Sandra Hemoglobin (Bld) [Mass/Vol] 8.8 g/dL Critically low 12.0-16.0 [facility] Comment on above: Performed By: #### C BC #### [facility] [address] [place] [address] Randi Sandra IG # 0.03 10e3/ul Normal 0.00-0.[address] [facility] Comment on above: Performed By: #### C BC #### [facility] [address] [place] [address] Randi Sandra IG % 0.4 % Normal 0.0-0.[address] [facility] Comment on above: Performed By: #### C BC #### [facility] [address] [place], [place] [address] Randi Sandra Lymphocytes (Bld) [#/Vol] 1.9 103/ul Normal 1.2-3.[address] [facility] Comment on above: Performed By: #### C BC #### [facility] [address] [place] [address] Randi Sandra Lymphocytes/100 WBC (Bld) 25.2 % Normal 20.5-60.[address] [facility] Comment on above: Performed By: #### C BC #### [facility] [address] [place], [place] [address] Randi Sandra MANUAL DIFF REQ NO Normal [facility] Comment on above: Performed By: #### C BC #### [facility] [address] [place], [place] [address] Randi Sandra MCH (RBC) [Entitic mass] 28.3 pg Normal 26.7-34.[address] [facility] Comment on above: Performed By: #### C BC #### [facility] [address] [place], [place] [address] Randi Sandra MCHC (RBC) [Mass/Vol] 32.8 g/dL Normal 29.9-35.[address] [facility] Comment on above: Performed By: #### C BC #### [facility] [address] [place], [place] [address] Randi Sandra MCV (RBC) [Entitic vol] 86.2 fL Normal 81.0-99.[address] [facility] Comment on above: Performed By: #### C BC #### [facility] [address] [place], [place] [address] Randi Sandra Monocytes (Bld) [#/Vol] 0.4 103/ul Normal 0.3-0.[address] [facility] Comment on above: Performed By: #### C BC #### [facility] [address] [place], [place] [address] Randi Sandra Monocytes/100 WBC (Bld) 5.7 % Normal 1.7-12.[address] [facility] Comment on above: Performed By: #### C BC #### [facility] [address] [id number] Randi Sandra Neutrophils (Bld) [#/Vol] 5.2 103/ul Normal 1.4-6.[address] [facility] Comment on above: Performed By: #### C BC #### [facility] [address] [place], [place] [address] Randipancho Flores Neutrophils/100 WBC (Bld) 68.0 % Normal 43.0-75.[address] [facility] Comment on above: Performed By: #### C BC #### [facility] [address] [place], [place] [address] Randipancho Flores Platelet mean volume (Bld) [Entitic vol] 13.1 fL Normal 9.5-13.[address] [facility] Comment on above: Performed By: #### C BC #### [facility] [address] [place], [place] [address] Randipancho Flores Platelets (Bld) [#/Vol] 112 103/ul Critically low 150-450 [facility] Comment on above: Result Comment: jack r reviewed, few giant plts seen Performed By: #### C BC #### [facility] [address] [place], [place] [address] Randipancho Albertsen RBC (Bld) [#/Vol] 3.11 106/ul Critically low 4.20-5.40 [facility] Comment on above: Performed By: #### C BC #### [facility] [address] [place], [place] [address] Randipancho Flores WBC (Bld) [#/Vol] 7.6 103/ul Normal 4.0-11.0 [facility] Comment on above: Performed By: #### C BC #### [facility] [address] [place], [place] [address] Randipancho Flores DRUG SCREEN RAPID (URINE)on 06-05-2019 AMP Negative Normal NEGATIVE [facility] Comment on above: Performed By: #### E ALEXANDRA VASQUEZ #### [facility] [address] [place] [address] Randi Sandra BAR Positive Normal NEGATIVE [facility] Comment on above: Performed By: #### E EPHRAIM VASQUEZRO #### [facility] [address] [place] [address] Randi Sandra BUP Negative Normal NEGATIVE [facility] Comment on above: Performed By: #### E CHRISTINA UMICRO #### [facility] [address] [place] [address] Randi Sandra BZO Negative Normal NEGATIVE [facility] Comment on above: Performed By: #### E RUEPHRAIM LeeRO #### [facility] [address] [place] [address] Randi Sandra LOREE Negative Normal NEGATIVE [facility] Comment on above: Performed By: #### E EPHRAIM VASQUEZRO #### [facility] [address] [place] [address] Randi Sandra CUT-OFFS SEE BELOW Normal [facility] Comment on above: Result Comment: AMP (Amphetamine): [...] Performed By: #### E RURosa UMICRO #### [facility] [address] [place] [address] Randi Sandra DRUG CUT HEADER DRUG CLASS TEST SYSTEM CUT-OFF CONCENTRATIONS ARE FOLLOWS: Normal [facility] Comment on above: Performed By: #### E RURosa UMICRO #### [facility] [address] [place] [address] Randi Sandra mAMP Negative Normal NEGATIVE [facility] Comment on above: Performed By: #### Rere VASQUEZ UMICRO #### [facility] [address] [place] [address] Randi Sandra MTD Negative Normal NEGATIVE [facility] Comment on above: Performed By: #### Rere VASQUEZ UMICRO #### [facility] [address] [place] [address] Randi Sandra OPI Negative Normal NEGATIVE [facility] Comment on above: Performed By: #### Rere VASQUEZ UMICRO #### [facility] [address] [place] [address] Randi Sandra OXY Negative Normal NEGATIVE [facility] Comment on above: Performed By: #### Rere VASQUEZ UMICRO #### [facility] [address] [place] [address] Randi Sandra PCP Negative Normal NEGATIVE [facility] Comment on above: Performed By: #### TERESA OLIVIAICRO #### [facility] [address] [place] [address] Randi Sandra PPX Negative Normal NEGATIVE [facility] Comment on above: Performed By: #### Rere VASQUEZ UMICRO #### [facility] [address] [place] [address] Randi Sandra TCA Negative Normal NEGATIVE [facility] Comment on above: Performed By: #### Rere VASQUEZ UMICRO #### [facility] [address] [place] [address] Randi Sandra THC Positive Normal NEGATIVE [facility] Comment on above: Performed By: #### Rere VASQUEZ UMICRO #### [facility] [address] [place] [address] Randi Sandra GROUP B STREP CULTUREon 04-23 S. agalactiae Ag Ql (Unsp spec) Culture Observations: Negative for Group B Streptococcus. Normal [facility] Comment on above: Performed By: #### G BSCX #### [facility] [address] [place] [address] Randi Sandra US PREG GROWTHon 05-12-2019 US PREG GROWTH Patient: CONNIE RAMIREZLiliya Exam Date: 05/12/2019 : 1990 Gender:F Ordering : DR RICHARD GARCÍA . Admission #: [id number] Family : Order #: [id number] CLICK HERE TO VIEW EXAM RADIOLOGY REPORT PROCEDURE: ULTRASOUND GROWTH COMPARISON: None. INDICATIONS: [id number]-nzu-[id number] baby P05.10; 35w0d TECNIQUE: Transabdominal sonographic examination [...] intrauterine with growth detailed above. Dictated by: Rezno Sloan M.D. on 05/12/2019 at 14:01 Approved by: Renzo Sloan M.D. on 05/12/2019 at 14:[address] [facility] US PREG REEVAL ABNon -18-2 019 PREG REEVAL ABN [address] [place] [address] Patient: CONNIE RAMIREZ Exam Date: 03/09/2019 : 1990 Gender:F Ordering : DR RICHARD GARCÍA . Admission #: [id number] Family : Order #: [id number] CLICK HERE TO VIEW EXAM RADIOLOGY REPORT [...] Sloan M.D. on 03/09/2019 at 17:13 Normal [facility] PREG ANATOMY SINGLEon PREG ANATOMY SINGLE [address] [place] [id number] Patient: CONNIE RAMIREZ Exam Date: 01/17/2019 : 1990 Gender:F Ordering : DR RICHARD GARCÍA . Admission #: [id number] Family : Order #: [id number] CLICK HERE TO VIEW EXAM RADIOLOGY REPORT [...] M.D. on 01/17/2019 at 10:21 Normal [facility] CBC AUTO DIFFon 10-28-2018 Basophils (Bld) [#/Vol] 0.0 103/ul Normal 0.0-0.1 [facility] Comment on above: Performed By: #### C BC #### [facility] [address] [place] [address] Randi Sandra Basophils/100 WBC (Bld) 0.5 % Normal 0.2-2.[address] [facility] Comment on above: Performed By: #### C BC #### [facility] [address] [place] [address] Randi Sandra Eosinophils (Bld) [#/Vol] 0.0 103/ul Normal 0.0-0.7 [facility] Comment on above: Performed By: #### C BC #### [facility] [address] [place] [address] Randi Sandra Eosinophils/100 WBC (Bld) 0.3 % Critically low 0.9-7.[address] [facility] Comment on above: Performed By: #### C BC #### [facility] [address] [place], [place] [id number] Randi Sandra Erythrocyte distribution width (RBC) [Ratio] 12.2 % Normal 11.0-15.0 [facility] Comment on above: Performed By: #### C BC #### [facility] [address] [place], [place] [id number] Randi Sandra Hematocrit (Bld) [Volume fraction] 35.3 % Critically low 36.0-48.[address] [facility] Comment on above: Performed By: #### C BC #### [facility] [address] [place], [place] [address] Randi Sandra Hemoglobin (Bld) [Mass/Vol] 12.4 g/dL Normal 12.0-16.[address] [facility] Comment on above: Performed By: #### C BC #### [facility] [address] [place] [address] Randipancho Flores IG # 0.01 10e3/ul Normal 0.00-0.[address] [facility] Comment on above: Performed By: #### C BC #### [facility] [address] [place] [address] Randi Sandra IG % 0.2 % Normal 0.0-0.[address] [facility] Comment on above: Performed By: #### C BC #### [facility] [address] [place] [address] Randi Sandra Lymphocytes (Bld) [#/Vol] 2.4 103/ul Normal 1.2-3.8 [facility] Comment on above: Performed By: #### C BC #### [facility] [address] [place] [address] Randipancho Flores Lymphocytes/100 WBC (Bld) 39.3 % Normal 20.5-60.[address] [facility] Comment on above: Performed By: #### C BC #### [facility] [address] [place] [address] Randipancho Flores MANUAL DIFF REQ NO Normal [facility] Comment on above: Performed By: #### C BC #### [facility] [address] [place] [address] Randipancho Flores MCH (RBC) [Entitic mass] 30.8 pg Normal 26.7-34.[address] [facility] Comment on above: Performed By: #### C BC #### [facility] [address] [place], [place] [address] Randipancho Flores MCHC (RBC) [Mass/Vol] 35.1 g/dL Normal 29.9-35.2 [facility] Comment on above: Performed By: #### C BC #### [facility] [address] [place] [address] Randipancho Flores MCV (RBC) [Entitic vol] 87.6 fL Normal 81.0-99.0 [facility] Comment on above: Performed By: #### C BC #### [facility] [address] [id number] Randi Sandra Monocytes (Bld) [#/Vol] 0.4 103/ul Normal 0.3-0.[address] [facility] Comment on above: Performed By: #### C BC #### [facility] [address] [place], [place] [address] Randi Sandra Monocytes/100 WBC (Bld) 6.8 % Normal 1.7-12.[address] [facility] Comment on above: Performed By: #### C BC #### [facility] [address] [place], [place] [address] Randi Sandra Neutrophils (Bld) [#/Vol] 3.2 103/ul Normal 1.4-6.[address] [facility] Comment on above: Performed By: #### C BC #### [facility] [address] [place], [place] [address] Randi Sandra Neutrophils/100 WBC (Bld) 52.9 % Normal 43.0-75.[address] [facility] Comment on above: Performed By: #### C BC #### [facility] [address] [place], [place] [address] Randi Sandra Platelet mean volume (Bld) [Entitic vol] 10.9 fL Normal 9.5-13.[address] [facility] Comment on above: Performed By: #### C BC #### [facility] [address] [place], [place] [address] Randi Sandra Platelets (Bld) [#/Vol] 213 103/ul Normal 150-450 [facility] Comment on above: Performed By: #### C BC #### [facility] [address] [place], [place] [address] Randi Sandra RBC (Bld) [#/Vol] 4.03 106/ul Critically low 4.20-5.40 [facility] Comment on above: Performed By: #### C BC #### [facility] [address] [place], [place] [address] Randi Sandra WBC (Bld) [#/Vol] 6.1 103/ul Normal 4.0-11.0 [facility] Comment on above: Performed By: #### C BC #### [facility] [address] [place] [address] Randi Sandra ER URINE PROFILEon 8 Bilirubin [Mass/Vol] Negative Normal NEGATIVE [facility] Comment on above: Performed By: #### EPHRAIM OLIVIARO #### [facility] [address] [place] [address] Randi Sandra BLOOD TRACE-INTACT Normal NEGATIVE [facility] Comment on above: Performed By: #### EPHRAIM OLIVIARO #### [facility] [address] [place] [address] Randi Sandra Clarity (U) CLEAR Normal [facility] Comment on above: Performed By: #### EPHRAIM OLIVIARO #### [facility] [address] [place] [address] Randi Sandra Color (U) YELLOW Normal YELLOW [facility] Comment on above: Performed By: #### EPHRAIM OLIVIARO #### [facility] [address] [place] [address] Randi Sandra ERUAHD A micrscopic examination will be performed if indicated. Normal [facility] Comment on above: Performed By: #### EPHRAIM OLIVIARO #### [facility] [address] [place] [address] Randi Sandra Glucose [Mass/Vol] Negative Normal NEGATIVE [facility] Comment on above: Performed By: #### TERESA OLIVIAICRO #### [facility] [address] [place] [address] Randi Sandra Ketones Ql (U) TRACE Normal NEGATIVE [facility] Comment on above: Performed By: #### EPHRAIM OLIVIARO #### [facility] [address] [place] [address] Randi Sandra Nitrite Ql (U) Negative Normal NEGATIVE [facility] Comment on above: Performed By: #### EPHRAIM OLIVIARO #### [facility] [address] [id number] Randipancho Flores pH (Bld) 6.0 Normal 5-[address] [facility] Comment on above: Performed By: #### ALEXANDRA OLIVIA #### [facility] [address] [place], [place] [address] Randi Flores Protein (U) [Mass/Vol] Negative Normal [facility] Comment on above: Performed By: #### ALEXANDRA OLIVIA #### [facility] [address] [place] [address] Randi Flores SPEC GRAVITY >=1.030 Normal 1.005-<=1.025 [facility] Comment on above: Performed By: #### ALEXANDRA OLIVIA #### [facility] [address] [place], [place] [address] Randi Flores UR MICRO IND INDICATED Normal [facility] Comment on above: Performed By: #### ALEXANDRA OLIVIA #### [facility] [address] [place], [place] [address] Randi Flores Urobilinogen Qn (U) 0.2 EU/dl Normal [facility] Comment on above: Performed By: #### ALEXANDRA OLIVIA #### [facility] [address] [place], [place] [address] Randi Flores WBC (Bld) [#/Vol] Negative Normal NEGATIVE [facility] Comment on above: Performed By: #### ALEXANDRA OLIVIA #### [facility] [address] [place], [place] [address] Randipancho Flores PREG QUANT HCGon 10-28-2018 HCG QUANT 09416.00 mIU/mL Normal [facility] Comment on above: Performed By: #### Omar MP, PREGQNT #### [facility] [address] [place], [place] [address] Randi Sandra HCG RANGE SEE BELOW Normal [facility] Comment on above: Result Comment: 5-50 0-1 WEEK 40-300 1-2 WEEKS 100-1,000 2-3 WEEKS 500-6,000 3-4 WEEKS 5,000-200,000 1-2 MONTHS 10,000-100,000 2-3 MONTHS 3,000-50,000 2ND TRIMESTER 1,000-50,000 3RD TRIMESTER Performed By: #### B HANG, PREGQNT #### [facility] [address] [place] [address] Randi Sandra PROF CHEM 8 (BAS METB)on Anion gap [Moles/Vol] 12.1 mmol/L Normal [facility] Comment on above: Performed By: #### B HANG, PREGQNT #### [facility] [address] [place] [address] Randi Sandra Calcium [Mass/Vol] 9.0 mg/dL Normal 8.4-10.2 [facility] Comment on above: Performed By: #### B HANG, PREGQNT #### [facility] [address] [place] [address] Randi Sandra Chloride [Moles/Vol] 101 mmol/L Normal 98-107 [facility] Comment on above: Performed By: #### B HANG, PREGQNT #### [facility] [address] [place] [address] Randi Sandra CO2 [Moles/Vol] 26.0 mmol/L Normal 22.0-30.0 [facility] Comment on above: Performed By: #### B HANG, PREGQNT #### [facility] [address] [place] [address] Randi Sandra Creatinine [Mass/Vol] 0.61 mg/dL Normal 0.52-1.[address] [facility] Comment on above: Performed By: #### B HANG, PREGQNT #### [facility] [address] [place] [address] Randi Sandra EGFR-AF PERUVIAN >60 Normal >=60 [facility] Comment on above: Performed By: #### B HANG, PREGQNT #### [facility] [address] [place] [address] Randi Sandra EGFR-NON AF PERUVIAN >60 Normal >=60 [facility] Comment on above: Performed By: #### B HANG, PREGQNT #### [facility] [address] [id number] Randi Sandra Glucose [Mass/Vol] 82 mg/dL Normal 74-106 [facility] Comment on above: Performed By: #### B HANG, PREGQNT #### [facility] [address] [id number] Randi Sandra Potassium [Moles/Vol] 3.1 mmol/L Critically low 3.4-5.[address] [facility] Comment on above: Performed By: #### B HANG, PREGQNT #### [facility] [address] [place] [address] Randi Sandra Sodium [Moles/Vol] 136 mmol/L Critically low 137-145 [facility] Comment on above: Performed By: #### B HANG, PREGQNT #### [facility] [address] [place], [place] [address] Randi Sandra Urea nitrogen [Mass/Vol] 8.0 mg/dL Normal 7.0-17.[address] [facility] Comment on above: Performed By: #### B HANG, PREGQNT #### [facility] [address] [place], [place] [address] Randi Sandra Urea nitrogen/Creatinine [Mass ratio] 13.1 mg/mg Normal [facility] Comment on above: Performed By: #### B HANG, PREGQNT #### [facility] [address] [place], [place] [address] Randi Sandra URINE MICROSCOPIC ONLYon Bacteria LM.HPF (Urine sed) [#/Area] TRACE Normal NONE SEEN [facility] Comment on above: Performed By: #### Rere VASQUEZ UMICRO #### [facility] [address] [place], [place] [address] Randi Sandra CAST NONE SEEN Normal NONE SEEN [facility] Comment on above: Performed By: #### Rere VASQUEZ UMICRO #### [facility] [address] [place], [place] [address] Randi Sandra Crystals LM Nom (Urine sed) NONE SEEN Normal NONE SEEN [facility] Comment on above: Performed By: #### ALEXANDRA OLIVIA #### [facility] [address] [place], [place] [address] Randi Sandra CULTURE NOT INDICATED Normal [facility] Comment on above: Performed By: #### ALEXANDRA OLIVIA #### [facility] [address] [place], [place] [address] Randi Sandra Epithelial cells LM.HPF (Urine sed) [#/Area] RARE Normal [facility] Comment on above: Performed By: #### ALEXANDRA OLIVIA #### [facility] [address] [place], [place] [address] Randi Sandra MUCOUS NONE SEEN Normal NONE SEEN [facility] Comment on above: Performed By: #### ALEXANDRA OLIVIA #### [facility] [address] [id number] Randi Sandra RBC (U) [#/Vol] 0-2 Normal 0-2 [facility] Comment on above: Performed By: #### ALEXANDRA OLIVIA #### [facility] [address] [id number] Randi Sandra WBC (Bld) [#/Vol] 0-2 Normal NONE SEEN [facility] Comment on above: Performed By: #### ALEXANDRA OLIVIA #### [facility] [address] [id number] Randi Sandra Vital Signs Date Time Vital Sign Value Performing Clinician Mike meier 01-13-2024 15:40-0500 Body mass index (BMI) [Ratio] 20.88 kg/m2 [facility] 01-13-2024 15:40-0500 Body weight 56.93 kg [facility] 01-13-2024 15:40-0500 Diastolic blood pressure 58 mm[Hg] [facility] 01-13-2024 15:40-0500 Systolic blood pressure 100 mm[Hg] [facility] 01-05-2024 09:01-0500 Body height 165.1 cm Kal Ellison MD Work Phone: [facility] 01-05-2024 09:01-0500 Body mass index (BMI) [Ratio] 21.13 kg/m2 Kal Ellison MD Work Phone: [facility] 01-05-2024 09:01-0500 Body weight 57.61 kg Kal Ellison MD Work Phone: [facility] 01-05-2024 09:01-0500 Diastolic blood pressure 60 mm[Hg] Kal Ellison MD Work Phone: [facility] 01-05-2024 09:01-0500 Heart rate 80 /min Kal Ellison MD Work Phone: [facility] 01-05-2024 09:01-0500 SaO2% (BldA) [Mass fraction] 100 % Kal Ellison MD Work Phone: [facility] 01-05-2024 09:01-0500 Systolic blood pressure 110 mm[Hg] Kal Ellison MD Work Phone: [facility] 12-17-2023 14:13-0500 Body mass index (BMI) [Ratio] 19.96 kg/m2 Andressa Keven EQUIPMENT PROCESSOR[employer] Work Phone: [facility] 12-17-2023 14:13-0500 Body weight 56.06 kg Andressa Keven EQUIPMENT PROCESSOR[employer] Work Phone: [facility] 12-17-2023 14:13-0500 Diastolic blood pressure 52 mm[Hg] Andressa Keven EQUIPMENT PROCESSOR[employer] Work Phone: [facility] 12-17-2023 14:13-0500 Systolic blood pressure 94 mm[Hg] Andressa Keven EQUIPMENT PROCESSOR[employer] Work Phone: [facility] 12-16-2023 14:09-0500 Body height 167.6 cm Jossy Nunes MD Work Phone: [facility] 12-16-2023 14:09-0500 Body mass index (BMI) [Ratio] 19.47 kg/m2 Jossy Nunes MD Work Phone: [facility] 12-16-2023 14:09-0500 Body weight 54.7 kg Jossy Nunes MD Work Phone: [facility] 12-16-2023 14:09-0500 Diastolic blood pressure 60 mm[Hg] Jossy Nunes MD Work Phone: [facility] 12-16-2023 14:09-0500 Systolic blood pressure 98 mm[Hg] Jossy Nunes MD Work Phone: [facility] 12-09-2023 14:15-0500 Body height 167.6 cm ws [employer] [facility] 12-09-2023 14:15-0500 Body mass index (BMI) [Ratio] 19.43 kg/m2 [facility] 12-09-2023 14:15-0500 Body weight 54.61 kg [facility] 12-09-2023 14:15-0500 Diastolic blood pressure 64 mm[Hg] [employer] [employer] [facility] 12-09-2023 14:15-0500 Systolic blood pressure 112 mm[Hg] [facility] Encounters Encounter Date Encounter Type Care Provider Facility Start: 03-20-2024 End: 03-20-2024 ambulatory NELLI RICHARDSON Not Available Start: 03-07-2024 End: 03-08-[address] [facility] Start: 03-06-2024 End: 03-06-2024 ambulatory ABDELRAHMAN PAN Not Available Start: 02-22-2024 Telephone encounter Tamie clayton EQUIPMENT PROCESSOR[employer] Work Phone: [facility] Start: 02-21-2024 End: 02-21-2024 ambulatory NELLI RICHARDSON Not Available Start: 02-18-2024 End: 02-18-2024 ambulatory TORRES FENG [facility] Start: 02-15-2024 End: 02-16-2024 ambulatory TAMIE VELÁSQUEZ [facility] Start: 02-15-2024 End: 02-15-2024 ambulatory TAMIE Mejia [facility] Start: 02-07-2024 End: 02-07-2024 ambulatory ABDELRAHMAN AMARAL Not Available Start: 01-21-2024 End: 01-22-2024 Emergency department patient visit SAVI MOTA [facility] Start: 01-18-2024 End: 01-19-2024 ambulatory [facility] Start: 01-13-2024 End: 01-13-2024 ambulatory [facility] Start: 01-13-2024 End: 01-13-2024 Subsequent care visit Pfws [employer] [facility] Comment on above: GA: 25w1d Start: 01-05-2024 End: 01-05-2024 ambulatory KAL Mejia [facility] Start: 01-05-2024 End: 01-05-2024 Office outpatient visit 15 minutes Dominik Meza MD Work Phone: [facility] Comment on above: Mitral valve insuffi ciency, unspecified etiology (Primary Dx); Gestational edema in third trimester Start: 12-17-2023 End: 12-17-2023 [place]ulatory [facility] Start: 12-17-2023 End: 12-17-2023 [facility] Work Phone: [facility] Comment on above: GA: 21w2d Start: 12-16-2023 End: 12-16-2023 Office outpatient new 45 minutes Jossy Nunes MD Work Phone: [facility] Comment on above: High-risk in second trimester [...] failure Start: 12-10-2023 Orders Only Andressa Gallagher EQUIPMENT PROCESSOR[employer] Work Phone: [facility] Comment on above: Bacterial vaginosis in (Primary Dx); Vaginal yeast infection; with 20 completed weeks gestation Start: 12-10-2023 End: 12-10-2023 ambulatory ANDRESSA GALLAGHER [facility] Start: 12-09-2023 End: 12-09-2023 [facility] Start: 12-09-2023 End: 12-09-2023 Office outpatient visit 15 minutes [employer] [facility] Comment on above: Vaginal discharge (P rimary Dx); Vagina itching; Vaginal irritation; Nausea/vomiting in ; Constipation during in second trimester Start: 11-23-2023 Telephone encounter Mago cerna DO Work Phone: [facility] Start: 11-17-2023 End: 11-18-[address] [facility] Start: 11-17-2023 End: 11-17-2023 ambulatory [facility] Start: 11-12-2023 Telephone encounter Tamie clayton EQUIPMENT PROCESSOR-CNM Work Phone: [facility] Start: 11-12-2023 End: 11-12-2023 Emergency department patient visit [facility] Start: 06-05-2019 End: 06-07-2019 Evaluation and management [...] malign ant neoplasm of cervix Pap Smear [facility] Start: 02-17-2025 Adult BMI Screening Adult BMI Screen ing [facility] Start: 02-17-2025 Tobacco Screening Tobacco Screening [facility] Start: 01-13-2025 Adult BMI Screening Adult BMI Screen ing [facility] Start: 01-13-2025 Tobacco Screening Tobacco Screening [facility] Start: 12-17-2024 Adult BMI Screening Adult BMI Screen ing [facility] Start: 12-17-2024 Tobacco Screening Tobacco Screening [facility] Start: 12-16-2024 Adult BMI Screening Adult BMI Screen ing [facility] Start: 12-16-2024 Tobacco Screening Tobacco Screening [facility] Start: 12-09-2024 Adult BMI Screening Adult BMI Screen ing [facility] Start: 12-09-2024 Tobacco Screening Tobacco Screening [facility] Start: 11-17-2024 Adult BMI Screening Adult BMI Screen ing [facility] Start: 11-17-2024 Tobacco Screening Tobacco Screening [facility] Start: 11-11-2024 Adult BMI Screening Adult BMI Screen ing [facility] Start: 11-11-2024 Tobacco Screening Tobacco Screening [facility] Start: 07-23-2024 Influenza vaccination Influenza Vacc ine [facility] Start: 03-07-2024 End: 03-07-2024 Patient encounter procedure 03/07/2024 9:30 AM EDT Appointment [facility] [address] [place] [address] [facility] Start: 01-18-2024 End: 01-18-2024 Patient encounter procedure 01/18/2024 2:45 PM EST Appointment [facility] [address] [place] [phone] [facility] Start: 01-16-2024 End: 12-16-2024 US [...] PM EST Routine [facility] [address] [facility] [place] [phone] [facility] Start: 01-05-2024 End: 01-05-2024 Patient encounter procedure 01/05/2024 9:00 AM EST Office Visit [facility] [address] [place] [phone] Dominik Meza MD [address] [place] [address] Kal Ellison MD [address] [place] [address] [facility] Start: 12-20-2023 End: 12-20-2023 Patient encounter procedure 12/20/2023 8:00 AM EST Office Visit [facility] [address] [place] [phone] Dominik Meza MD [address] [place] [address] Joseph Cook MD [address] [place] [address] [facility] Start: 12-17-2023 End: 12-17-2023 Patient encounter procedure 12/17/2023 2:15 PM EST Routine [facility] [address] [facility] [place] [address] Andressa Gallagher, EQUIPMENT PROCESSOR-[facility] [address] [place], [place] [id number] [facility] Start: 12-16-2023 End: 12-16-2023 Telemedicine consultation with patient 12/16/2023 2:15 PM EST [facility]medicine [facility] [place] [address] [address] Jossy Nunes MD [address] [facility], [address] [place] [address] [facility] [place] Start: 12-16-2023 End: 12-16-2023 Patient encounter procedure 12/16/2023 1:00 PM EST Appointment [facility] [place] [address] [facility] [place] [phone] [facility] [place] Start: 12-15-2023 End: 12-15-2023 Patient encounter procedure 12/15/2023 4:00 PM EST Routine [facility] [address] [facility] [place] [address] [facility] Start: 12-09-2023 End: 12-09-2024 Vaginitis Panel PCR Vaginitis Panel PCR Microbiology Routine Vaginal discharge Vagina itching Vaginal irritation Expected: 12/09/2023 (Approximate), Expires: 12/09/2024 [facility] Work Phone: Comment on above: Expected: 12/09/2023 (Approximate), Expires: 12/09/2024 Start: 11-24-2023 End: 11-24-2023 Patient encounter procedure 11/24/2023 9:30 AM EST Routine [facility] [address] [facility] [place] [phone] Mago Valdez DO [address] [place] [address] [facility] Start: 11-17-2023 End: 11-17-2023 Patient encounter procedure [facility] Start: 2011 DTaP,Tdap and Td Vaccines (1 - Tdap) DTaP,Tdap and Td Vaccines (1 - Tdap) [facility] Start: 2010 Adult BMI Follow Up Plan Adult BMI Follow Up Plan [facility] Start: 2004 Depression Screening Depression Scre joanie [facility] Start: 1992 Tobacco Counseling Tobacco Counselin g [facility] End: 01-12-2025 CBC panel - Blood by Automated count CBC without diff Lab Routine 25 weeks gestation of Second trimester 1 Occurrences starting 01/13/2024 until 01/12/2025 [facility] Work Phone: Comment on above: 1 Occurrences starti ng 01/13/2024 until 01/12/2025 End: 01-13-2025 Glucose 1h post 50g load Glucose 1h post 50g load Lab Routine 25 weeks gestation of Second trimester 1 Occurrences starting 01/13/2024 until 01/13/2025 [facility] Comment on above: 1 Occurrences starti ng 01/13/2024 until 01/13/2025 End: 01-13-2025 Syphilis Total(Unknown Syphilis Status) Syphilis Total(Unknown Syphilis Status) Lab Routine 25 weeks gestation of Second trimester 1 Occurrences starting 01/13/2024 until 01/13/2025 [facility] Comment on above: 1 Occurrences starti ng 01/13/2024 until 01/13/2025 Immunizations Immunization Date Immunization Notes Care Provider Lizeth swann 10-26-2023 influenza virus vaccine, unspecified formulation Tamie Velásquez EQUIPMENT PROCESSOR-CNM Work Phone: [employer] Payers Date Payer Category Payer Private Health Insurance [facility] [id number] 2022-Present [phone] [address] [place] [address] [id number] 2022 Private Health Insurance [id number] 1992 Unknown [id number] 2.16.840.1.094067.3.579. 2.593 1992 Unknown [id number] 2.16.840.1.036806.3.579. 2.593 1992 Unknown [id number] 2.16.840.1.934990.3.579. 2.593 1992 Unknown [id number] 2.16.840.1.571530.3.579. 2.593 1992 Unknown [id number] 2.16.840.1.035634.3.579. 2.593 1992 Unknown [id number] 2.16.840.1.120633.3.579. 2.593 1992 Unknown [id number] 2.16.840.1.288260.3.579. 2.593 1992 Unknown [id number] 2.16.840.1.084185.3.579. 2.1286 1992 Unknown [id number] 2.16.840.1.414946.3.579. 2.1286 1992 Unknown [id number] 2.16.840.1.921706.3.579. 2.1285 1992 Unknown [id number] 2.16.840.1.773719.3.579. 2.1285 1992 Unknown [id number] 2.16.840.1.984621.3.579. 2.1285 1992 Unknown [id number] 2.16.840.1.282321.3.579. 2.1285 1992 Unknown [id number] 2.16.840.1.862373.3.579. 2.1285 1992 Unknown [id number] 2.16.840.1.791494.3.579. 2.1285 1992 Unknown [id number] 2.16.840.1.529834.3.579. 2.1285 1992 Unknown [id number] 2.16.840.1.554929.3.579. 2.1285 1992 Unknown [id number] 2.16.840.1.359630.3.579. 2.1285 1992 Unknown [id number] 2.16.840.1.826304.3.579. 2.1285 1992 Unknown [id number] 2.16.840.1.720315.3.579. 2.1285 1992 Unknown [id number] 2.16.840.1.469062.3.579. 2.1285 1992 Unknown [id number] 2.16.840.1.821843.3.579. 2.1285 1992 Unknown [id number] 2.16.840.1.610742.3.579. 2.1285 1992 Unknown [id number] 2.16.840.1.534632.3.579. 2.1285 1992 Unknown [id number] 2.16.840.1.097771.3.579. 2.1258 1992 Unknown [id number] 2.16.840.1.311291.3.579. 2.1258 1992 Unknown [id number] 2.16.840.1.643177.3.579. 2.1259 1992 Unknown [id number] 2.16.840.1.778245.3.579. 2.1259 1959 Self-pay 1959 Unknown [id number] Social History Date Type Detail Facility Start: 03-29-2021 End: 11-17-2023 Tobacco smoking status NHIS Occasional tobacco smoker [facility] Start: 03-29-2021 End: 11-17-2023 Tobacco use and exposure Smokeless tobacco non-user [facility] Start: 11-11-2023 End: 02-18-2024 Alcohol intake Ex-drinker (finding) [facility] Start: 10-21-2018 End: 01-02-2021 History of Social function [facility] Start: 10-21-2018 End: 01-02-2021 Alcohol Use Disorder Identification Test - Consumption [AUDIT-C] [facility] Frequency of Alcohol Consumption Never [facility] Start: 08-04-2023 [facility] Start: 1992 Sex Assigned At Not on file [facility] Clinical Notes 11-12-2023 to 02-22-2024 Telephone Encounter [...] Pt. Verbalized understanding. documented in this encounter [facility] 02-22-2024 Telephone encounter Note Call to pt. [...] tomorrow to discuss labs. Pt. Verbalized understanding. [facility] 01-13-2024 History of Presen t illness Narrative [...] 24hr. After. Discussed availability of cardiology at [facility] vs. [facility] and avoidance of separation of mom and baby if either were to need transferred after delivery 5. Reviewed cardiology referral on 01/05 w/Dr. Ellison 6. 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 PCP: [facility] Marci Referring Physician: Dominik Meza MD [address] [place] [address] documented in this encounter [facility] 01-05-2024 Instructions Adwoa Rico [facility] - 01/05/2024 9:00 AM EST Are You Ready To Kick The Habit? Free Tobacco Cessation Resources [facility] Services [facility] Centers provide all employees with free tobacco cessation services that include: Counseling to understand nicotine addiction Education about medications that can help you successfully quit Assistance with developing a plan to quit Call to set up an individual appointment or find out when group classes will be held: [facility]: [phone] [facility]: [phone] [facility]: [phone] [facility]: [phone] Quit Smoking Action Plan and Resources [facility] offers an eight-week, online smoking cessation plan to all [facility] employees, regardless of whether [place] is your medical insurance provider. Go to www.[email or web address].[email or web address]/employeewell ness and click the Health Risk Assessment and Resources link to get started. In the [employer] menu, click Action Plans instead of Health Risk Assessment to access the Quit Smoking Action Plan. Additional smoking cessation resources are also available to all [facility] employees on the [employer] web page at www.Ingenico/quit smoking. [place] Tobacco Cessation Program If [place] is your medical insurance provider, there are more free resources available to you, including: No copays or deductibles on local tobacco cessation counseling services to help you quit Prescription assistance for tobacco cessation medications to help you quit For details about the tobacco cessation program available to [place] members, go to www.Ingenico (Search: Tobacco Cessation Program). [place] Tobacco Quit Line 8-560-PRNO-NOW ( ) is a toll-free, telephonic service that helps [place] residents quit smoking and using tobacco. It is staffed by experts who tailor a quit plan for you and provide you with advice. [place] Tobacco Quit Line 4-030-URVI-NOW ( ) is a toll-free, telephonic service that helps [place] residents quit smoking and using tobacco. It is staffed by experts who tailor a quit plan for you and provide you with advice. Two weeks of nicotine replacement therapy may be provided at no charge, if needed. Additional Resources These national organizations also offer free information and resources to help you quit tobacco: [place] Cancer Society--www.cancer.org/healthy/ stayawayfromtobacco [place] Heart Association--www.heart.org (Search: Quit Smoking) Centers for Disease Control and Prevention--www.cdc.gov/tobacco [place] Lung Association--www.lungusa.org documented in this encounter [facility] 12-17-2023 History of Presen t [...] Younger 12/17/23 1438 documented in this encounter [facility] Ph[facility] 12-16-2023 History of Presen t illness Narrative Images from the original note were not included. [facility] Maternal- Medicine Tele-Consult Note Reason For Consult: Provider at different site/location than patient. Connie Wallis Hudgiescurrently at [place] office and provider at remote site The patient consented to be treated electronically via this form of telemedicine. This visit was not related to an office visit or procedure in the past 7 days, and in-office follow up is not recommended in the next 24 hours. Video Visit via Real-time Synchronous Audiovisual Provider Location: [facility] AT [address] [address] Patient Location: Other Patient Location Nitrocellulose Operator: None Video Visit Consent Statement: I discussed [...] that there are some limitations compared to zsuj-sc-hupa evaluations. We elected to proceed. HPI: Connie [...] was borderline however not abnormal. There was txef-vd-khdjyyvl mitral valve regurgitation. There was no evidence [...] and management during . In view of hoopa valvular heart disease however not meeting criteria [...] recommended. She is agreeable for delivery at [facility]. Referral to [place] [facility] is recommended accordingly. In addition to that recommend anesthesia consultation in the 3rd trimester this can be initiated by her primary OB team. Telemetry during labor and for 24 hours Plan reviewed with patient. She vocalized understanding all questions answered. [facility], the CDC, and other organizations representing maternal and public health professionals recommend that , , and lactating people and those considering receive the COVID-19 vaccination. Vaccination is the best method to reduce maternal and complications of SARS-CoV-2 infection. This document was created with MDCapsule technology. Though I make every effort to review the dictation as it is transcribed, on occasion the spoken word can be misinterpreted by the technology leading to inappropriate words, phrases, or sentences. This note is addressed to the requesting provider as a consultation for clinical guidance. Specific medical abbreviations are occasionally used and those are generally approved by the [place]?Board of?Obstetrics and?Gynecology?as well as?Hussain cross abbreviations. The above plan of care was based solely on the diagnoses for which a consultation was requested. ?More frequent testing may be indicated based on her other medical/obstetrical conditions. The management of other or medical conditions is beyond the scope of requested consultation and will continue to be followed by the primary hip hop dancer or primary care provider. Thank you for [...] procedures Referring and communicating with other health intensive care unit registered nurse (not separately reported) Documenting clinical information in [...] patient Have you been seen here at [facility] in a previous ? no Recent ER visits or hospitalizations? no Bring blood sugar log or meter with you today? (Please bring them with you for every visit at [facility]) Traveled outside the country in the past 6 month no Any concerns that you would like me to mention to the provider today? No concerns documented in this encounter [facility] 12-10-2023 Miscellaneous Notes Pt seen in Office [...] asked for it to be emailed to [email or web address]. Work note emailed to Pt. documented in this encounter [facility] [employer] 12-10-2023 Telephone encounter Note Pt seen in Office on December 09 for yeast infection. Pt states she is having a lot of pain. Pt is requesting work excuse note for today. Please advise. Thank you [facility] 12-10-2023 Telephone encounter Note Please provide work note for today only. I did sent prescriptions for her and she should begin them zoraida. Thank you. [facility] 12-10-2023 Telephone encounter Note Advised Pt work note can be provided. Pt asked for it to be emailed to [email or web address]. Work note emailed to Pt. [facility] 12-09-2023 History of Presen t illness Narrative [...] All questions answered. Educational material provided through [employer]. RTO for next scheduled visit or sooner as needed. Patient has her MFM consult and anatomy scan next week. ALEIDA BILLY APRN-CNP 12/09/23 1431 documented in this encounter [facility] 11-23-2023 Miscellaneous Notes Pt states she had Echo cardiogram done last week & does not understand the results. Procedure was ordered by Dr. Meza. Pt was seen in this Office on November 17, 2023. Please advise. Thank you MAKE APPT TO DISCUSS RESULTS PLS Pt scheduled appt with Dr Valdez on November 24. documented in this encounter [facility] 11-23-2023 Telephone encounter Note Pt states she had Echo cardiogram done last week & does not understand the results. Procedure was ordered by Dr. Meza. Pt was seen in this Office on November 17, 2023. Please advise. Thank you [facility] 11-23-2023 Telephone encounter Note MAKE APPT TO DISCUSS RESULTS PLS [facility] Work Phone: 11-23-2023 Telephone encounter Note Pt scheduled appt with Dr Valdez on November 24. [facility] 11-12-2023 Miscellaneous Notes Call rec.'d from ans. [...] and verbalized understanding. documented in this encounter [facility] 11-12-2023 Telephone encounter Note Call rec.'d from [...] to plan of care and verbalized understanding. [facility] Evaluation note Diagnosis Vaginal discharge- Primary Leukorrhea, not specified as infective Vagina itching Pruritus of genital organs Vaginal irritation Pruritus of genital organs Nausea/vomiting in Unspecified vomiting of , unspecified as to episode of care Constipation during in second trimester [facility] Diagnosis Bacterial vaginosis in - Primary Vaginal yeast infection Candidiasis of vulva and vagina with 20 completed weeks gestation documented [facility] Diagnosis Nonrheumatic mitral valve regurgitation- Primary Drug use affecting , antepartum History of acute congestive heart failure [facility] Diagnosis High-risk in second trimester- Primary Drug use affecting , antepartum History of acute congestive heart failure Nonrheumatic mitral valve regurgitation Echogenic intracardiac focus of fetus on ultrasound 21 weeks gestation of Nausea/vomiting in Unspecified vomiting of , unspecified as to episode of care Constipation during in second trimester [facility] Diagnosis with 21 completed weeks gestation- Primary documented in this [facility] Diagnosis Mitral valve insufficiency, unspecified etiology- Primary Gestational edema in third trimester documented in this [facility]* Diagnosis 25 weeks gestation of - Primary Second trimester state, incidental History of congenital mitral regurgitation History of CHF (congestive heart failure) Personal history of other diseases of circulatory system documented [facility] filedocumented in this encounter [facility] System[facility]ructionsNot on filedocumented in this encounter [facility] System[facility]* Attachments The following attachments cannot be sent through Care Everywhere. * High Fiber Diet (Mongolian) * The Fifth Month (Mongolian) * Vaginitis (Mongolian) documented [facility] SystemInstructionsNot on file documented in [facility] Ph.[facility] SystemInstructionsNot on file documented in this encounterProGerman HospitalSpireon SystemInstructionsNot on file documented in this encounterProFayette [facility] Health SystemInstructions* Attachments The following attachments cannot be sent through Care Everywhere. * How to Prepare Baby Formula (Mongolian) * Kangaroo Care (Mongolian) documented in [facility] Ph.[facility] SystemInstructionsNot on file documented in this encounter[facility] Ph.Creative SystemInstructionsNot on file documented in this encounterProPro[facility] SystemReason for referral (narrative)* Consultation (Routine) - Pending Review Specialty Diagnoses / Procedures Referred By Cassius reynolds Referred To Contact Obstetrics and Gynecology Diagnoses 25 weeks gestation of Second trimester History of congenital mitral regurgitation History of CHF (congestive heart failure) Tamie Velásquez, AXEL-JAYDEN [address] [facility] [place] [address] [facility] [address] [place] [address] Referral ID Status Reason Start Date Expiration Date Visits Requested Visits Authorized [id number] Pending Review Specialty Services Required 01/13/2024 01/12/2025 1 1 [facility] Summary Purpose Family History No [...] of acute congestive heart failure Procedures US [facility] with or without consult Jossy Nunes MD [address], [address] [place] [address] [facility] Maternal Med [address] [place] [address] Referral ID Status Reason Start Date Expiration Date V isits Requested Visits Authorized [id number] Pending Review 12/16/2023 12/15/2024 1 1 Additional Source Comments INFORMATION SOURCE (unrecogn ized section and content) DATE CREATED AUTHOR 07/21/2019 [facility] DATE CREATED AUTHOR AUTHOR'S ORGANIZ ATION 12/12/2023 [facility] DATE CREATED AUTHOR AUTHOR'S ORGANIZ ATION 01/21/2024 [facility] DATE CREATED AUTHOR AUTHOR'S ORGANIZ ATION 03/08/2024 [facility] DATE CREATED AUTHOR AUTHOR'S ORGANIZ ATION 03/21/2024 [facility] dical Specialists EPIC Care Teams (unrecognized sec tion and content) [employer]house Staff Relationship Specialty Start Date End Date Services, [address] [place] PCP - General Family Medicine 09/04/23 Greenhouse Staff Relationship Specialty Start Date End Date Services, [facility] [address] [place], [place] PCP - General Family Medicine 09/04/23 Greenhouse Staff Relationship Specialty Start Date End Date Services, [facility] [address] [place], [place] PCP - General Family Medicine 09/04/23 Greenhouse Staff Relationship Specialty Start Date End Date Services, [facility] [address] [place], [place] PCP - General Family Medicine 09/04/23 Greenhouse Staff Relationship Specialty Start Date End Date Services, [facility]ly [facility] [address] [place] PCP - General Family Medicine 09/04/23 [employer]house Staff Relationship Specialty Start Date End Date Services, [facility] [address] [place] PCP - General Family Medicine 09/04/23 Greenhouse Staff Relationship Specialty Start Date End Date Services, [facility] [address] [place] PCP - General Family Medicine 09/04/23 Greenhouse Staff Relationship Specialty Start Date End Date Services, [facility] [address] [place] PCP - General Family Medicine 09/04/23 Greenhouse Staff Relationship Specialty Start Date End Date Services, [facility] [address] [place] PCP - General Family Medicine 09/04/23 Reason for Visit (unrecogniz ed section and content) Reason Comments Vaginitis Reason Comments mfm consult Reason Comments Routine Visit Reason Comments New Patient [employer] Mitral valve insu fficiency, unspecified etiology L/S [facility] 08/2020 PT is in her first trimester due in April 2024. no testing per patient sched w/pt Specialty Diagnoses / Procedures Referred By Contjanel t Referred To Contact Cardiology Diagnoses Mitral valve insufficiency, unspecified etiology Dominik Meza MD [address] [place] [address] [facility] [address] [place] [address] Referral ID Status Reason Start Date Expiration Date Visits Requested Visits Authorized [id number] Pending Review Specialty Services Required 09/28/2023 09/27/2024 [...] BE BASED ON THE PRIMARY CLINICAL RECORDS. [facility]. provides no warranty or guarantee of the accuracy or completeness of information in this document.
== END 2024-03-27 20:32 | disposition home or self-care (01) ==
LOC: LAB 20:31
PROVIDERS: Visit Provider Physician Assistant
DX: Z34.93 Encounter for supervision of normal pregnancy, unspecified, third trimester (principal)
CPT/HCPCS: 87081

== ENCOUNTER 2024-04-08 02:51 | Outpatient (OUT) | payer OTHER, SELFPAY ==
--- OUTSIDE RECORDS SUMMARY | 2024-04-08 02:53 | XMS_ITS | CCD ---
Author Organization [facility] Care Team Providers Care Detail Sergeant Name Role Phone ZIGGY PAZ Admitting Unavailable ZIGGY PAZ Attending Unavailable REQUEST, NONE LISTED Primary Care Unavailable ZIGGY PAZ Consulting Unavailable KARASIK, RICHARD Admitting Unavailable KARASIK, RICHARD Attending Unavailable REQUEST, NONE LISTED Primary Care Unavailable KARASIKRICHARD Consulting Unavailable HUBER SIBLEY V Consulting Unavailable KARASIK, RICHARD Admitting Unavailable KARASIK, RICHARD Attending Unavailable REQUEST, NONE LISTED Primary Care Unavailable KARASIK, RICHARD Consulting Unavailable ZIEBRENZO ZHAO Consulting Unavailable PAN, ABDELRAHMAN Admitting Unavailable PAN, ABDELRAHMAN Attending Unavailable KARASIK, RICHARD Admitting Unavailable KARASIK, RCIHARD Attending Unavailable KARASIK, RICHARD Consulting Unavailable ZIEBRENZO ZHAO R Consulting Unavailable KARASIK, RICHARD Admitting Unavailable KARASIK, RICHARD Attending Unavailable KARASIK, RICHARD Consulting Unavailable KARASIK, RICHARD Admitting Unavailable KARASIK, RICHARD Attending Unavailable REQUEST, NONE LISTED Primary Care Unavailable KARASIK, RICHARD Consulting Unavailable KARASIK, RICHARD Procedure Practitioner Unavaila SAMMIE Melgar Consulting Unavailable Services[facility] Primary Care Provider ANDRESSA GALLAGHER Referring Unavailable SERVICES, [facility] Primary Care Unava ilable SERVICES, [facility] Primary Care Unava ilable SERVICES, [facility] Primary Care Unava ilable TAMIE VELÁSQUEZ Referring Unavailable SERVICES, [facility] Primary Care Unava ilable MOUSSA, HIND NADIM Attending Unavailable TAMIE VELÁSQUEZ Referring Unavailable SERVICES, [facility] Primary Care Unava ilable ANDRESSA GALLAGHER Attending Unavailable SERVICES, [facility] Primary Care Unava ilable SERVICES, [facility] Unava ilable PAN, ABDELRAHMAN Attending Unavailable DEBRA, NELLI Attending Unavailable PAN, ABDELRAHMAN Attending Unavailable DEBRA, NELLI Attending Unavailable PAN, ABDELRAHMAN Attending Unavailable PAN, ABDELRAHMAN Attending Unavailable SERVICES, [facility] Unava ilable NAKUL, SAVI Torrez Attending Unavailab le NEVERAUSKAS, SAVI Torrez Attending Unavailab le NEVERAUSKAS, SAVI Torrez Referring Unavailab le SERVICES, [facility] Unava ilable AHMED, ABEER Attending Unavailable AHMED, ABEER Referring Unavailable SERVICES, [facility] Unava ilable TAMIE VELÁSQUEZ Referring Unavailable SERVICES, [facility] Unava ilable TAMIE VELÁSQUEZ Referring Unavailable SERVICES, [facility] Unava ilable JUNG, TIBERIU S Admitting Unavailable JUNG TIBERIU S Attending Unavailable SERVICES, [facility] Unava ilable SERVICES, [facility] Unava ilable SHAYY AGARWAL Attending Unavailable KAL ELLISON Attending Unavailable AHMED ABEER Referring Unavailable SERVICES, [facility] Unava ilable TAMIE VELÁSQUEZ Referring Unavailable SERVICES, [facility] Unava ilable HOLLY ROMEO L Referring Unavailable SERVICES, [facility] Unava ilable KELSEY EDUAR Referring Unavailable SERVICES, [facility] Unava ilable Medications Current Medications Medication Drug Class(es) Dates [...] applicable or unspecified; Translations: [MAT CARE OT NE FTL GRTH 3RD TM UNS] Onset: 05-12-2019 Episodic Other [...] , third trimester] Onset: 02-15-2024 Episodic Other connective tissue disease (1 source) [...] CARE 2ND TRI] Onset: 01-19-2019 Episodic Other complications of (1 source) Gestational edema, third trimester; Translations: [Gestational edema, third trimester] Onset: 01-05-2024 Episodic Other gastrointestinal disorders (2 sources) Constipation, [...] width (RBC) [Ratio] 13.1 % Normal 11.5-15.0 [facility] Comment on above: Performed By: #### Anabella VERGARA, 1504-0, 14731-9 #### [facility] ([id number]) [address] [facility] [address] [place] [address] Hematocrit (Bld) [Volume fraction] 30.3 % Low 35-47 [facility] Comment on above: Performed By: #### Anabella VERGARA, 1504-0, 70606-1 #### [facility] ([id number]) [address], [address] [place] [address] Hemoglobin (Bld) [Mass/Vol] 10.4 g/dL Low 11.7-15.5 [facility] Comment on above: Performed By: #### Anabella VERGARA, 1504-0, 27433-9 #### [facility] ([id number]) [address], [facility] [address] [place] [address] MCH (RBC) [Entitic mass] 31.2 pg Normal 27-34 [facility] Comment on above: Performed By: #### Anabella VERGARA, 1504-0, 23609-3 #### [facility] ([id number]) [address], [address] [place] [address] MCHC (RBC) [Mass/Vol] 34.3 g/dL Normal 32-36 [facility] Comment on above: Performed By: #### Anabella VERGARA, 1504-0, 52360-5 #### [facility] ([id number]) [address], [address] [place] [address] MCV (RBC) [Entitic vol] 91 fL Normal 80-100 [facility] Comment on above: Performed By: #### Anabella VERGARA, 1504-0, 66698-9 #### [facility] ([id number]) [address] [place] [address] Platelet mean volume (Bld) [Entitic vol] 10.0 fL Normal 7-12 [facility] Comment on above: Performed By: #### Anabella VERGARA, 1504-0, 99516-7 #### [facility] ([id number]) [address], [address] [place] [address] Platelets (Bld) [#/Vol] 152 10*3/uL Normal 150-450 [facility] Comment on above: Performed By: #### Anabella VERGARA, 1504-0, 57081-2 #### [facility] ([id number]) [address], [address] [place] [address] RBC COUNT 3.33 X10E12/L Low 3.80-5.20 [facility] Comment on above: Performed By: #### Anabella VERGARA, 1504-0, 27391-2 #### [facility] ([id number]) [address], [address] [place] [address] WBC (Bld) [#/Vol] 6.1 10*3/uL Normal 4.0-11.0 [facility] Comment on above: Performed By: #### Anabella VERGARA, 1504-0, 72260-3 #### [facility] ([id number]) [address] [facility] [place] [address] Glucose 1 Hr post 50 g gluco se PO [Mass/Vol]on 02-15-2024 GLU 1H POST 50G LOAD 102 mg/dL Normal 65-139 [facility] Comment on above: Performed By: #### C , 1504-0, 57038-2 #### [facility] ([id number]) [address] [facility], [address] [place] [address] T. pallidum IgG+IgM IA Ql (S )on 02-15-2024 Syphilis Total <0.2 Normal 0.0-0.8 [facility] Comment on above: Result Comment: NON REACTIVE No serologic evidence of infection to Treponema pallidum (syphilis). Repeat testing may be considered in patients with suspected acute or primary syphilis in 2 to 4 weeks. Performed By: #### Anabella , 1504-0, 67717-4 #### [facility] ([id number]) [address] [place] [address], [address] [place] [address] POCT EKGon 01-05-2024 [facility] VAGINITIS PANEL PCRon 2023 VAGINITIS PANEL PCR [...] clinical presentation to determine patient diagnosis. Normal [facility] Comment on above: Performed By: #### V PPCR #### [facility] ([id number]) [address], [address] [place] [address] URINE CULTUREon 11-12-2023 Bacteria identified Cx Nom (U) CULTURE RESULTS 10-50,000 ORGANISMS/mL NORMAL UROGENITAL PAYTON Normal [facility] Comment on above: Performed By: #### 6 30-4 #### [facility] ([id number]) [address] [facility] [place] [address] URN MACROSCOPIC NURon 2022 BILIRUBIN MERY Negative Normal [facility] Comment on above: Performed By: #### N UM #### [facility] ([id number]) [address] [place] [address] BLOOD/HGB MERY Trace Abnormal NEG [facility] Comment on above: Performed By: #### N UM #### [facility] ([id number]) [address] [place] [address] GLUCOSE MERY Negative Normal [facility] Comment on above: Performed By: #### N UM #### [facility] ([id number]) [address] [place] [address] KETONES MERY 15 mg/dL Abnormal NEG [facility] Comment on above: Performed By: #### N UM #### [facility] ([id number]) [address] [place] [address] LEUKOCYTE ESTERASE MERY Trace Abnormal NEG [facility] Comment on above: Performed By: #### N UM #### [facility] ([id number]) [address] [place] [address] NITRITE MERY Negative Normal NEG [facility] Comment on above: Performed By: #### N UM #### [facility] ([id number]) [address] [place] [address] PH MERY 6.0 Normal 5.0-8.5 [facility] Comment on above: Performed By: #### N UM #### [facility] ([id number]) [address] [place] [address] PROTEIN MERY 100 mg/dL Abnormal NEG [facility] Comment on above: Performed By: #### N UM #### [facility] ([id number]) [address] [place] [address] SPECIFIC GRAVITY MERY >=1.030 Normal 1.003-1.035 [facility] Comment on above: Performed By: #### N UM #### [facility] ([id number]) [address] [place] [address] UROBILINOGEN MERY 0.2 eu/dL Normal <1.1 [facility] Comment on above: Performed By: #### N UM #### [facility] ([id number]) [address] [place] [address] BARBITUATE CONFIRMATION, URI NEon 06-11-2019 Amobarbital Negative Normal Fnjapy=844 Comment on above: Performed By: #### ALEXANDRA OLIVIA #### [facility] [address] [place] [address] Randi Sandra Barbiturates Positive Abnormal Comment on above: Performed By: #### ALEXANDRA OLIVIA #### [facility] [address] [address] Ranid Sandra Butalbital Positive Abnormal Comment on above: Performed By: #### ALEXANDRA OLIVIA #### [facility] [address] [address] Randi Sandra Butalbital GC/MS Conf 361 ng/mL Normal Jvoyag=613 Comment on above: Performed By: #### ALEXANDRA OLIVIA #### [facility] [address] [place], [place] [address] Randi Sandra Phenobarbital [Mass/Vol] Negative Normal Sypvru=149 [facility] Comment on above: Performed By: #### ALEXANDRA OLIVIA #### [facility] [address] [place] [address] Randi Sandra Phentobarbital Negative Normal Mxbcid=847 [facility] Comment on above: Performed By: #### ALEXANDRA OLIVIA #### [facility] [address] [place] [address] Randi Sandra Secobarbital Negative Normal Yafrgl=580 [facility] Comment on above: Performed By: #### ALEXANDRA OLIVIA #### [facility] [address] [place] [address] Randi Sandra CANNABINOID (THC) CONFIRMATI ON, URINEon 06-10-2019 Cannabinoid Positive Abnormal [facility] Comment on above: Performed By: #### ALEXANDRA OLIVIA #### [facility] [address] [place] [address] Randi Sandra Carboxy THC GC/MS Conf 76 ng/mL Normal Cutoff=10 [facility] Comment on above: Performed By: #### ALEXANDRA OLIVIA #### [facility] [address] [place] [address] Randi Sandra CBC AUTO DIFFon 06-06-2019 Basophils (Bld) [#/Vol] 0.0 103/ul Normal 0.0-0.1 [facility] Comment on above: Performed By: #### ALEXANDRA OLIVIA #### [facility] [address] [place], [place] [address] Radni Sandra Basophils/100 WBC (Bld) 0.4 % Normal 0.2-2.0 [facility] Comment on above: Performed By: #### ALEXANDRA OLIVIA #### [facility] [address] [place], [place] [address] Randi Sandra Eosinophils (Bld) [#/Vol] 0.1 103/ul Normal 0.0-0.7 Comment on above: Performed By: #### ALEXANDRA OLIVIA #### [facility] [address] [place] [address] Randi Sandra Eosinophils/100 WBC (Bld) 0.6 % Critically low 0.9-7.0 [facility] Comment on above: Performed By: #### ALEXANDRA OLIVIA #### [facility] [address] [place] [address] Randi Sandra Erythrocyte distribution width (RBC) [Ratio] 13.8 % Normal 11.0-15.0 [facility] Comment on above: Performed By: #### ALEXANDRA OLIVIA #### [facility] [address] [place] [address] Randi Sandra Hematocrit (Bld) [Volume fraction] 25.0 % Critically low 36.0-48.0 [facility] Comment on above: Performed By: #### ALEXANDRA OLIVIA #### [facility] [address] [place] [address] Randi Sandra Hemoglobin (Bld) [Mass/Vol] 8.0 g/dL Critically low 12.0-16.0 [facility] Comment on above: Performed By: #### ALEXANDRA OLIVIA #### [facility] [address] [place] [address] Randi Sandra IG # 0.13 10e3/ul Critically high 0.00-0.03 [facility] Comment on above: Performed By: #### ALEXANDRA OLIVIA #### [facility] [address] [place] [address] Randi Sandra IG % 1.6 % Critically high 0.0-0.[address] [facility] Comment on above: Performed By: #### ALEXANDRA OLIVIA #### [facility] [address] [place] [address] Randi Sandra Lymphocytes (Bld) [#/Vol] 1.9 103/ul Normal 1.2-3.8 [facility] Comment on above: Performed By: #### EPHRAIM OLIVIARO #### [facility] [address] [place], [place] [address] Randi Sandra Lymphocytes/100 WBC (Bld) 22.5 % Normal 20.5-60.0 Comment on above: Performed By: #### EPHRAIM OLIVIARO #### [facility] [address] [place], [place] [address] Randi Sandra MANUAL DIFF REQ NO Normal [facility] Comment on above: Performed By: #### Rere VASQUEZ UMICRO #### [facility] [address] [place], [place] [address] Randi Sandra MCH (RBC) [Entitic mass] 28.0 pg Normal 26.7-34.0 Comment on above: Performed By: #### EPHRAIM OLIVIARO #### [facility] [address] [place], [place] [address] Randi Sandra MCHC (RBC) [Mass/Vol] 32.0 g/dL Normal 29.9-35.2 [facility] Comment on above: Performed By: #### TERESA OLIVIAICRO #### [facility] [address] [place], [place] [address] Randi Sandra MCV (RBC) [Entitic vol] 87.4 fL Normal 81.0-99.0 Comment on above: Performed By: #### TERESA OLIVIAICRO #### [facility] [address] [place], [place] [address] Randi Sandra Monocytes (Bld) [#/Vol] 0.6 103/ul Normal 0.3-0.8 Comment on above: Performed By: #### TERESA OLIVIAICRO #### [facility] [address] [place], [place] [address] Randi Sandra Monocytes/100 WBC (Bld) 6.7 % Normal 1.7-12.0 Comment on above: Performed By: #### Rere VASQUEZ UMICRO #### [facility] [address] [place], [place] [address] Randi Sandra Neutrophils (Bld) [#/Vol] 5.6 103/ul Normal 1.4-6.5 Comment on above: Performed By: #### ALEXANDRA OLIVIA #### [facility] [address] [place] [address] Randi Flores Neutrophils/100 WBC (Bld) 68.2 % Normal 43.0-75.0 Comment on above: Performed By: #### EPHRAIM OLIVIARO #### [facility] [address] [place], [place] [address] Randi Sandra Platelet mean volume (Bld) [Entitic vol] 12.9 fL Normal 9.5-13.5 Comment on above: Performed By: #### ALEXANDRA OLIVIA #### [facility] [address] [place], [place] [address] Randi Sandra Platelets (Bld) [#/Vol] 103 103/ul Critically low 150-450 [facility] Comment on above: Performed By: #### ALEXANDRA OLIVIA #### [facility] [address] [place] [address] Randi Sandra RBC (Bld) [#/Vol] 2.86 106/ul Critically low 4.20-5.40 [facility] Comment on above: Performed By: #### EPHRAIM OLIVIARO #### [facility] [address] [place], [place] [address] Randi Sandra WBC (Bld) [#/Vol] 8.3 103/ul Normal 4.0-11.0 [facility] Comment on above: Performed By: #### EPHRAIM OLIVIARO #### [facility] [address] [place] [address] Randi Sandra ABO AND RH TYPEon 06-05-2019 ABO and Rh group Nom (Bld) ABO Rh Typing O Rh Positive Normal Comment on above: Performed By: #### EPHRAIM OLIVIARO #### [facility] [address] [place], [place] [address] Randi Sandra CBC AUTO DIFFon 07-15-2019 Basophils (Bld) [#/Vol] 0.0 103/ul Normal 0.0-0.1 Comment on above: Performed By: #### C BC #### [facility] [address] [place], [place] [address] Randi Sandra Basophils/100 WBC (Bld) 0.4 % Normal 0.2-2.0 Comment on above: Performed By: #### C BC #### [facility] [address] [place] [address] Randi Sandra Eosinophils (Bld) [#/Vol] 0.0 103/ul Normal 0.0-0.7 [facility] Comment on above: Performed By: #### C BC #### [facility] [address] [place] [address] Randi Sandra Eosinophils/100 WBC (Bld) 0.3 % Critically low 0.9-7.0 Comment on above: Performed By: #### C BC #### [facility] [address] [place] [address] Randipancho Lombardien Erythrocyte distribution width (RBC) [Ratio] 13.6 % Normal 11.0-15.0 Comment on above: Performed By: #### C BC #### [facility] [address] [place] [address] Randipancho [place]ien Hematocrit (Bld) [Volume fraction] 26.8 % Critically low 36.0-48.0 Comment on above: Performed By: #### C BC #### [facility] [address] [place] [address] Randi Sandra Hemoglobin (Bld) [Mass/Vol] 8.8 g/dL Critically low 12.0-16.0 [facility] Comment on above: Performed By: #### C BC #### [facility] [address] [place] [address] Randi Sandra IG # 0.03 10e3/ul Normal 0.00-0.03 [facility] Comment on above: Performed By: #### C BC #### [facility] [address] [place] [address] Randi Sandra IG % 0.4 % Normal 0.0-0.5 Comment on above: Performed By: #### C BC #### [facility] [address] [place] [address] Randi Sandra Lymphocytes (Bld) [#/Vol] 1.9 103/ul Normal 1.2-3.8 Comment on above: Performed By: #### C BC #### [facility] [address] [place] [address] Randi Sandra Lymphocytes/100 WBC (Bld) 25.2 % Normal 20.5-60.0 Comment on above: Performed By: #### C BC #### [facility] [address] [place] [address] Randi Flores MANUAL DIFF REQ NO Normal [facility] Comment on above: Performed By: #### C BC #### [facility] [address] [place] [address] Randi Sandra MCH (RBC) [Entitic mass] 28.3 pg Normal 26.7-34.0 Comment on above: Performed By: #### C BC #### [facility] [address] [place] [address] Randipancho Flores MCHC (RBC) [Mass/Vol] 32.8 g/dL Normal 29.9-35.2 [facility] Comment on above: Performed By: #### C BC #### [facility] [address] [place] [address] Randi Sandra MCV (RBC) [Entitic vol] 86.2 fL Normal 81.0-99.0 [facility] Comment on above: Performed By: #### C BC #### [facility] [address] [place], [place] [address] Randi Sandra Monocytes (Bld) [#/Vol] 0.4 103/ul Normal 0.3-0.8 [facility] Comment on above: Performed By: #### C BC #### [facility] [address] [place], [place] [address] Randi Sandra Monocytes/100 WBC (Bld) 5.7 % Normal 1.7-12.0 Comment on above: Performed By: #### C BC #### [facility] [address] [place] [address] Randi Sandra Neutrophils (Bld) [#/Vol] 5.2 103/ul Normal 1.4-6.5 Comment on above: Performed By: #### C BC #### [facility] [address] [place] [address] Randi Sandra Neutrophils/100 WBC (Bld) 68.0 % Normal 43.0-75.0 Comment on above: Performed By: #### C BC #### [facility] [address] [place], [place] [address] Randi Sandra Platelet mean volume (Bld) [Entitic vol] 13.1 fL Normal 9.5-13.5 Comment on above: Performed By: #### C BC #### [facility] [address] [place], [place] [address] Randi Sandra Platelets (Bld) [#/Vol] 112 103/ul Critically low 150-450 Comment on above: Result Comment: jack rodriguez reviewed, few giant plts seen Performed By: #### C BC #### [facility] [address] [place] [address] Randi Sandra RBC (Bld) [#/Vol] 3.11 106/ul Critically low 4.20-5.40 [facility] Comment on above: Performed By: #### C BC #### [facility] [address] [place] [address] Randi Sandra WBC (Bld) [#/Vol] 7.6 103/ul Normal 4.0-11.0 [facility] Comment on above: Performed By: #### C BC #### [facility] [address] [place] [address] Randi Sandra DRUG SCREEN RAPID (URINE)on 06-05-2019 AMP Negative Normal NEGATIVE [facility] Comment on above: Performed By: #### E ALEXANDRA VASQUEZ #### [facility] [address] [place] [address] Randi Sandra BAR Positive Normal NEGATIVE [facility] Comment on above: Performed By: #### ALEXANDRA OLIVIA #### [facility] [address] [place] [address] Randi Sandra BUP Negative Normal NEGATIVE [facility] Comment on above: Performed By: #### ALEXANDRA OLIVIA #### [facility] [address] [place] [address] Randi Sandra BZO Negative Normal NEGATIVE Comment on above: Performed By: #### ALEXANDRA OLIVIA #### [facility] [address] [place] [address] Randi Sandra LOREE Negative Normal NEGATIVE [facility] Comment on above: Performed By: #### ALEXANDRA OLIVIA #### [facility] [address] [place] [address] Randi Sandra CUT-OFFS SEE BELOW Normal [facility] Comment on above: Result Comment: AMP [...] (Trycyclic Antidepressants): 300 ng/mL Performed By: #### ALEXANDRA OLIVIA #### [facility] [address] [place] [address] Sandra DRUG CUT HEADER DRUG CLASS TEST SYSTEM CUT-OFF CONCENTRATIONS ARE FOLLOWS: Normal [facility] Comment on above: Performed By: #### ALEXANDRA OLIVIA #### [facility] [address] [place] [address] Randi Sandra mAMP Negative Normal NEGATIVE [facility] Comment on above: Performed By: #### Rere VASQUEZ UMICRO #### [facility] [address] [place] [address] Randi Sandra MTD Negative Normal NEGATIVE [facility] Comment on above: Performed By: #### Rere VASQUEZ UMICRO #### [facility] [address] [place] [address] Randi Sandra OPI Negative Normal NEGATIVE [facility] Comment on above: Performed By: #### Rere VASQUEZ UMICRO #### [facility] [address] [place] [address] Randi Sandra OXY Negative Normal NEGATIVE [facility] Comment on above: Performed By: #### TERESA OLIVIAICRO #### [facility] [address] [place] [address] Randi Sandra PCP Negative Normal NEGATIVE [facility] Comment on above: Performed By: #### EPHRAIM OLIVIARO #### [facility] [address] [place] [address] Randi Sandra PPX Negative Normal NEGATIVE [facility] Comment on above: Performed By: #### EPHRAIM OLIVIARO #### [facility] [address] [place] [address] Randi Sandra TCA Negative Normal NEGATIVE [facility] Comment on above: Performed By: #### TERESA OLIVIAICRO #### [facility] [address] [place] [address] Randi Sandra THC Positive Normal NEGATIVE [facility] Comment on above: Performed By: #### TERESA OLIVIAICRO #### [facility] [address] [place] [address] Randi Sandra GROUP B STREP CULTUREon 04-23 S. agalactiae Ag Ql (Unsp spec) Culture Observations: Negative for Group B Streptococcus. Normal [facility] Comment on above: Performed By: #### G BSCX #### [facility] [address] [place] [address] Randi Sandra US PREG GROWTHon 05-12-2019 US PREG GROWTH Patient: CONNIE RAMIREZ Exam Date: 05/12/2019 : 1990 Gender:F Ordering : DR RICHARD GARCÍA . Admission #: [id number] Family : Order #: [id number] CLICK HERE TO VIEW EXAM RADIOLOGY REPORT PROCEDURE: ULTRASOUND GROWTH COMPARISON: None. INDICATIONS: Utymb-bga-svvcs baby P05.10; 35w0d TECNIQUE: Transabdominal sonographic examination [...] Sloan M.D. on 05/12/2019 at 14:02 Normal US PREG REEVAL ABNon -18-2 019 US PREG REEVAL ABN [address] [place] [address] Patient: CONNIE RAMIREZ Exam Date: 03/09/2019 : 1990 Gender:F Ordering : DR RICHARD GARCÍA . Admission #: [id number] Family : Order #: [id number] CLICK HERE TO VIEW EXAM RADIOLOGY REPORT [...] Sloan M.D. on 03/09/2019 at 17:13 Normal [facility] PREG ANATOMY SINGLEon PREG ANATOMY SINGLE [address] [place] [address] Patient: CONNIE RAMIREZ Exam Date: 01/17/2019 : 1990 Gender:F Ordering : DR RICHARD GARCÍA . Admission #: [id number] Family : Order #: [id number] CLICK HERE TO VIEW EXAM RADIOLOGY REPORT [...] M.D. on 01/17/2019 at 10:21 Normal [facility] CBC AUTO DIFFon 10-28-2018 Basophils (Bld) [#/Vol] 0.0 103/ul Normal 0.0-0.1 [facility] Comment on above: Performed By: #### C BC #### [facility] [address] [place] [address] Randi Sandra Basophils/100 WBC (Bld) 0.5 % Normal 0.2-2.0 Comment on above: Performed By: #### C BC #### [facility] [address] [place] [address] Randi Sandra Eosinophils (Bld) [#/Vol] 0.0 103/ul Normal 0.0-0.7 Comment on above: Performed By: #### C BC #### [facility] [address] [place] [address] Randi Sandra Eosinophils/100 WBC (Bld) 0.3 % Critically low 0.9-7.0 Comment on above: Performed By: #### C BC #### [facility] [address] [place] [address] Randi Sandra Erythrocyte distribution width (RBC) [Ratio] 12.2 % Normal 11.0-15.0 Comment on above: Performed By: #### C BC #### [facility] [address] [place] [address] Randi Sandra Hematocrit (Bld) [Volume fraction] 35.3 % Critically low 36.0-48.0 Comment on above: Performed By: #### C BC #### [facility] [address] [place] [address] Randi Sandra Hemoglobin (Bld) [Mass/Vol] 12.4 g/dL Normal 12.0-16.0 [facility] Comment on above: Performed By: #### C BC #### [facility] [address] [place] [address] Randi Sandra IG # 0.01 10e3/ul Normal 0.00-0.03 [facility] Comment on above: Performed By: #### C BC #### [facility] [address] [place] [address] Randi Sandra IG % 0.2 % Normal 0.0-0.5 [facility] Comment on above: Performed By: #### C BC #### [facility] [address] [place] [address] Randi Sandra Lymphocytes (Bld) [#/Vol] 2.4 103/ul Normal 1.2-3.8 [facility] Comment on above: Performed By: #### C BC #### [facility] [address] [place] [address] Randi Sandra Lymphocytes/100 WBC (Bld) 39.3 % Normal 20.5-60.0 [facility] Comment on above: Performed By: #### C BC #### [facility] [address] [place] [address] Randipancho Flores MANUAL DIFF REQ NO Normal [facility] Comment on above: Performed By: #### C BC #### [facility] [address] [place] [address] Randi Sandra MCH (RBC) [Entitic mass] 30.8 pg Normal 26.7-34.0 [facility] Comment on above: Performed By: #### C BC #### [facility] [address] [place] [address] Randi Sandra MCHC (RBC) [Mass/Vol] 35.1 g/dL Normal 29.9-35.2 [facility] Comment on above: Performed By: #### C BC #### [facility] [address] [place] [address] Randi Sandra MCV (RBC) [Entitic vol] 87.6 fL Normal 81.0-99.0 Comment on above: Performed By: #### C BC #### [facility] [address] [place], [place] [address] Randi Sandra Monocytes (Bld) [#/Vol] 0.4 103/ul Normal 0.3-0.8 Comment on above: Performed By: #### C BC #### [facility] [address] [place], [place] [address] Randi Sandra Monocytes/100 WBC (Bld) 6.8 % Normal 1.7-12.0 Comment on above: Performed By: #### C BC #### [facility] [address] [place] [address] Randi Sandra Neutrophils (Bld) [#/Vol] 3.2 103/ul Normal 1.4-6.5 Comment on above: Performed By: #### C BC #### [facility] [address] [place] [address] Randi Sandra Neutrophils/100 WBC (Bld) 52.9 % Normal 43.0-75.0 Comment on above: Performed By: #### C BC #### [facility] [address] [place] [address] Randi Sandra Platelet mean volume (Bld) [Entitic vol] 10.9 fL Normal 9.5-13.5 Comment on above: Performed By: #### C BC #### [facility] [address] [place], [place] [address] Randi Sandra Platelets (Bld) [#/Vol] 213 103/ul Normal 150-450 [facility] Comment on above: Performed By: #### C BC #### [facility] [address] [place], [place] [address] Randi Sandra RBC (Bld) [#/Vol] 4.03 106/ul Critically low 4.20-5.40 [facility] Comment on above: Performed By: #### C BC #### [facility] [address] [place], [place] [address] Randi Sandra WBC (Bld) [#/Vol] 6.1 103/ul Normal 4.0-11.0 [facility] Comment on above: Performed By: #### C BC #### [facility] [address] [place] [address] Randipancho Flores ER URINE PROFILEon 8 Bilirubin [Mass/Vol] Negative Normal NEGATIVE Comment on above: Performed By: #### EPHRAIM OLIVIARO #### [facility] [address] [place] [address] Randi Sandra BLOOD TRACE-INTACT Normal NEGATIVE Comment on above: Performed By: #### EPHRAIM OLIVIARO #### [facility] [address] [place] [address] Randi Sandra Clarity (U) CLEAR Normal Comment on above: Performed By: #### ALEXANDRA OLIVIA #### [facility] [address] [place] [address] Randi Sandra Color (U) YELLOW Normal YELLOW [facility] Comment on above: Performed By: #### EPHRAIM OLIVIARO #### [facility] [address] [place] [address] Randi Sandra ERUAHD A micrscopic examination will be performed if indicated. Normal [facility] Comment on above: Performed By: #### ALEXANDRA OLIVIA #### [facility] [address] [place] [address] Randi Sandra Glucose [Mass/Vol] Negative Normal NEGATIVE [facility] Comment on above: Performed By: #### EPHRAIM OLIVIARO #### [facility] [address] [place] [address] Randi Sandra Ketones Ql (U) TRACE Normal NEGATIVE [facility] Comment on above: Performed By: #### EPHRAIM OLIVIARO #### [facility] [address] [place] [address] Randi Sandra Nitrite Ql (U) Negative Normal NEGATIVE [facility] Comment on above: Performed By: #### ALEXANDRA OLIVIA #### [facility] [address] [place], [place] [address] Randi Sandra pH (Bld) 6.0 Normal 5-9 Comment on above: Performed By: #### ALEXANDRA OLIVIA #### [facility] [address] [place], [place] [address] Randi Sandra Protein (U) [Mass/Vol] Negative Normal Comment on above: Performed By: #### EPHRAIM OLIVIARO #### [facility] [address] [place] [address] Randi Sandra SPEC GRAVITY >=1.030 Normal 1.005-<=1.025 [facility] Comment on above: Performed By: #### ALEXANDRA OLIVIA #### [facility] [address] [place] [address] Randi Sandra UR MICRO IND INDICATED Normal Comment on above: Performed By: #### ALEXANDRA OLIVIA #### [facility] [address] [place], [place] [address] Randi Sandra Urobilinogen Qn (U) 0.2 EU/dl Normal [facility] Comment on above: Performed By: #### EPHRAIM OLIVIARO #### [facility] [address] [place], [place] [address] Randi Sandra WBC (Bld) [#/Vol] Negative Normal NEGATIVE [facility] Comment on above: Performed By: #### ALEXANDRA OLIVIA #### [facility] [address] [place], [place] [address] Randi Sandra PREG QUANT HCGon 10-28-2018 HCG QUANT 72078.00 mIU/mL Normal [facility] Comment on above: Performed By: #### Omar MP, PREGQNT #### [facility] [address] [place], [place] [address] Randi Sandra HCG RANGE SEE BELOW Normal Comment on above: Result Comment: 5-50 0-1 WEEK 40-300 1-2 WEEKS 100-1,000 2-3 WEEKS 500-6,000 3-4 WEEKS 5,000-200,000 1-2 MONTHS 10,000-100,000 2-3 MONTHS 3,000-50,000 2ND TRIMESTER 1,000-50,000 3RD TRIMESTER Performed By: #### B HANG, PREGQNT #### [facility] [address] [place], [place] [address] Randi Sandra PROF CHEM 8 (BAS METB)on Anion gap [Moles/Vol] 12.1 mmol/L Normal Comment on above: Performed By: #### B HANG, PREGQNT #### [facility] [address] [place] [address] Randi Sandra Calcium [Mass/Vol] 9.0 mg/dL Normal 8.4-10.2 [facility] Comment on above: Performed By: #### B HANG, PREGQNT #### [facility] [address] [place] [address] Randi Sandra Chloride [Moles/Vol] 101 mmol/L Normal 98-107 Comment on above: Performed By: #### B HANG, PREGQNT #### [facility] [address] [place] [address] Randi Sandra CO2 [Moles/Vol] 26.0 mmol/L Normal 22.0-30.0 [facility] Comment on above: Performed By: #### B HANG, PREGQNT #### [facility] [address] [place] [address] Randi Sandra Creatinine [Mass/Vol] 0.61 mg/dL Normal 0.52-1.04 Comment on above: Performed By: #### B HANG, PREGQNT #### [facility] [address] [place] [address] Randi Sandra EGFR-AF MEXICAN >60 Normal >=60 [facility] Comment on above: Performed By: #### B HANG, PREGQNT #### [facility] [address] [place] [address] Randi Sandra EGFR-NON AF MEXICAN >60 Normal >=60 [facility] Comment on above: Performed By: #### B HANG, PREGQNT #### [facility] [address] [place], [place] [address] Randi Sandra Glucose [Mass/Vol] 82 mg/dL Normal 74-106 [facility] Comment on above: Performed By: #### B HANG, PREGQNT #### [facility] [address] [place], [place] [address] Randi Sandra Potassium [Moles/Vol] 3.1 mmol/L Critically low 3.4-5.0 Comment on above: Performed By: #### B HANG, PREGQNT #### [facility] [address] [place], [place] [address] Randi Sandra Sodium [Moles/Vol] 136 mmol/L Critically low 137-145 [facility] Comment on above: Performed By: #### B HANG, PREGQNT #### [facility] [address] [place], [place] [address] Randi Sandra Urea nitrogen [Mass/Vol] 8.0 mg/dL Normal 7.0-17.0 Comment on above: Performed By: #### B HANG, PREGQNT #### [facility] [address] [place], [place] [address] Randi Sandra Urea nitrogen/Creatinine [Mass ratio] 13.1 mg/mg Normal Comment on above: Performed By: #### B HANG, PREGQNT #### [facility] [address] [place], [place] [address] Randi Sandra URINE MICROSCOPIC ONLYon Bacteria LM.HPF (Urine sed) [#/Area] TRACE Normal NONE SEEN [facility] [place] [facility] Comment on above: Performed By: #### EPHRAIM OLIVIARO #### [facility] [address] [place], [place] [address] Randi Sandra CAST NONE SEEN Normal NONE SEEN Comment on above: Performed By: #### Rere VASQUEZ UMICRO #### [facility] [address] [place], [place] [address] Randi Sandra Crystals LM Nom (Urine sed) NONE SEEN Normal NONE SEEN Comment on above: Performed By: #### ALEXANDRA OLIVIA #### [facility] [address] [place], [place] [address] Randi Sandra CULTURE NOT INDICATED Normal [facility] [place] [facility] Comment on above: Performed By: #### ALEXANDRA OLIVIA #### [facility] [address] [place], [place] [address] Randi Sandra Epithelial cells LM.HPF (Urine sed) [#/Area] RARE Normal [facility] Comment on above: Performed By: #### ALEXANDRA OLIVIA #### [facility] [address] [place], [place] [address] Randi Sandra MUCOUS NONE SEEN Normal NONE SEEN [facility] Comment on above: Performed By: #### ALEXANDRA OLIVIA #### [facility] [address] [place], [place] [address] Randi Sandra RBC (U) [#/Vol] 0-2 Normal 0-[address] [facility] Comment on above: Performed By: #### ALEXANDRA OLIVIA #### [facility] [address] [place], [place] [address] Randi Sandra WBC (Bld) [#/Vol] 0-2 Normal NONE SEEN [facility] Comment on above: Performed By: #### ALEXANDRA OLIVIA #### [facility] [address] [place], [place] [address] Ranid Sandra Vital Signs Date Time Vital Sign Value Performing Clinician Mike meier 01-13-2024 15:40-0500 Body mass index (BMI) [Ratio] 20.88 kg/m2 [facility] 01-13-2024 15:40-0500 Body weight 56.93 kg [facility] 01-13-2024 15:40-0500 Diastolic blood pressure 58 mm[Hg] [facility] 01-13-2024 15:40-0500 Systolic blood pressure 100 mm[Hg] [facility] 01-05-2024 09:01-0500 Body height 165.1 cm Kal Ellison MD Work Phone: [facility] 01-05-2024 09:01-0500 Body mass index (BMI) [Ratio] 21.13 kg/m2 Kal Ellison MD Work Phone: [facility] 01-05-2024 09:01-0500 Body weight 57.61 kg Kal Ellison MD Work Phone: [facility] 01-05-2024 09:01-0500 Diastolic blood pressure 60 mm[Hg] Kal Ellison MD Work Phone: [facility] 01-05-2024 09:01-0500 Heart rate 80 /min Kal Ellison MD Work Phone: [facility] 01-05-2024 09:01-0500 SaO2% (BldA) [Mass fraction] 100 % Kal Ellison MD Work Phone: [facility] 01-05-2024 09:01-0500 Systolic blood pressure 110 mm[Hg] Kal Ellison MD Work Phone: [facility] 12-17-2023 14:13-0500 Body mass index (BMI) [Ratio] 19.96 kg/m2 Andressa Keven MUSIC SPECIALIST-SURGICAL ATTENDANT Work Phone: [facility] 12-17-2023 14:13-0500 Body weight 56.06 kg Andressa Keven MUSIC SPECIALIST-SURGICAL ATTENDANT Work Phone: [facility] 12-17-2023 14:13-0500 Diastolic blood pressure 52 mm[Hg] Andressa Keven MUSIC SPECIALIST-SURGICAL ATTENDANT Work Phone: [facility] 12-17-2023 14:13-0500 Systolic blood pressure 94 mm[Hg] Andressa Keven MUSIC SPECIALIST-SURGICAL ATTENDANT Work Phone: [facility] 12-16-2023 14:09-0500 Body height 167.6 cm Jossy Nunes MD Work Phone: [facility] 12-16-2023 14:09-0500 Body mass index (BMI) [Ratio] 19.47 kg/m2 Jossy Nunes MD Work Phone: [facility] 12-16-2023 14:09-0500 Body weight 54.7 kg Jossy Nunes MD Work Phone: [facility] 12-16-2023 14:09-0500 Diastolic blood pressure 60 mm[Hg] Jossy Nunes MD Work Phone: [facility] 12-16-2023 14:09-0500 Systolic blood pressure 98 mm[Hg] Jossy Nunes MD Work Phone: [facility] 12-09-2023 14:15-0500 Body height 167.6 cm [facility] 12-09-2023 14:15-0500 Body mass index (BMI) [Ratio] 19.43 kg/m2 [facility] 12-09-2023 14:15-0500 Body weight 54.61 kg [facility] 12-09-2023 14:15-0500 Diastolic blood pressure 64 mm[Hg] [facility] 12-09-2023 14:15-0500 Systolic blood pressure 112 mm[Hg] [facility] En[facility] Date Encounter Type Care Provider Facility Start: 04-04-2024 End: 04-05-2024 ambulatory [facility] Start: 04-04-2024 End: 04-04-2024 ambulatory ABDELRAHMAN PAN Not Available Start: 03-27-2024 End: 03-27-2024 ambulatory ABDELRAHMAN PAN Not Available Start: 03-20-2024 End: 03-20-2024 ambulatory NELLI MELLOEY Not Available Start: 03-07-2024 End: [facility] Start: 03-06-2024 End: 03-06-2024 ambulatory ABDELRAHMAN PAN Not Available Start: 02-22-2024 Telephone encounter Tamie clayton MUSIC SPECIALIST-CNM Work Phone: [facility] Start: 02-21-2024 End: 02-21-2024 ambulatory NELLI RICHARDSON Not Available Start: 02-18-2024 End: 02-18-2024 ambulatory TORRES [facility] Start: 02-15-2024 End: 02-16-2024 ambulatory [facility] Start: 02-15-2024 End: 02-15-2024 ambulatory [facility] Start: 02-07-2024 End: 02-07-2024 ambulatory ABDELRAHMAN AMARAL Not Available Start: 01-21-2024 End: 01-22-2024 [facility] Start: 01-18-2024 End: 01-19-2024 ambulatory [facility] Start: 01-13-2024 End: 01-13-2024 ambulatory [facility] Start: 01-13-2024 End: 01-13-2024 Subsequent care visit [facility] Comment on above: GA: 25w1d Start: 01-05-2024 End: 01-05-2024 ambulatory KAL Mejia [facility] Start: 01-05-2024 End: 01-05-2024 Office outpatient visit 15 minutes Dominik Meza MD Work Phone: [facility] Comment on above: Mitral valve insuffi ciency, unspecified etiology (Primary Dx); Gestational edema in third trimester Start: 12-17-2023 End: 12-17-2023 ambulatory [facility] Start: 12-17-2023 End: 12-17-2023 Subsequent care visit [facility] MUSIC SPECIALIST-SURGICAL ATTENDANT Work Phone: [facility] Comment on above: GA: 21w2d Start: 12-16-2023 End: 12-16-2023 Office outpatient new 45 minutes Jossy Nunes MD Work Phone: [facility] Comment on above: High-risk in second trimester (Primary Dx); Drug use affecting , antepartum; History of acute congestive heart failure; Nonrheumatic mitral valve regurgitation; Echogenic intracardiac focus of fetus on ultrasound; 21 weeks gestation of ; Nausea/vomiting in ; Constipation during in second trimester Start: 12-16-2023 End: 12-16-2023 Orders Only Srinivasan Campbell RN [facility] Comment on above: Nonrheumatic mitral valve regurgitation (Primary Dx); Drug use affecting , antepartum; History of acute congestive heart failure Start: 12-10-2023 Orders Only Andressa Jackie Gallagher MUSIC SPECIALIST-SURGICAL ATTENDANT Work Phone: [facility] Comment on above: Bacterial vaginosis in (Primary Dx); Vaginal yeast infection; with 20 completed weeks gestation Start: 12-10-2023 End: 12-10-2023 ambulatory [facility] Start: 12-09-2023 End: 12-09-2023 [facility] Start: 12-09-2023 End: 12-09-2023 Office outpatient visit 15 minutes [facility] Comment on above: Vaginal discharge (P rimary Dx); Vagina itching; Vaginal irritation; Nausea/vomiting in ; Constipation during in second trimester Start: 11-23-2023 Telephone encounter Mago cerna DO Work Phone: [facility] Start: 11-17-2023 End: 11-18-2023 ambulatory [facility] Start: 11-17-2023 End: 11-17-2023 ambulatory [facility] Start: 11-12-2023 Telephone encounter Tamie clayton MUSIC SPECIALIST-CNM Work Phone: [facility] Start: 11-12-2023 End: 11-12-2023 Emergency department patient visit [facility] Start: 06-05-2019 End: 06-07-2019 Evaluation and management of inpatient RICHARD GARCÍA Facility: Start: 05-19-2019 End: 05-19-2019 Patient encounter procedure RICHARD GARCÍA Facility:[facility] Start: 05-12-2019 End: 05-13-2019 Patient encounter procedure RICHARD GARCÍA Facility:[facility] Start: 03-11-2019 Patient encounter procedure ABDELRAHMAN AMARAL Facility:[facility] Start: 03-09-2019 End: 03-10-2019 Patient encounter procedure RICHARD GARCÍA Facility:[facility] Start: 01-17-2019 End: 01-18-2019 Patient encounter procedure RICHARD GARCÍA Facility:[facility] Start: 10-28-2018 End: 10-28-2018 Patient encounter procedure ZIGGY ANTHONYAVELINA Facility:[facility] Procedures Date Procedure Procedure Detail Performing Clinician Start: 01-05-2024 Ecg routine ecg w/le ast 12 lds w/i&r Kal Ellison MD Work Phone: Start: 09-28-2023 Microscopic observat ion [Identifier] in Cervix by Cyto stain Tamie Velásquez MUSIC SPECIALIST-CNM Work Phone: Start: 06-05-2019 Delivery of Products of Conception, External Approach ZIGGY PAZ Plan of Treatment Date Care Activity Detail Author Start: 09-28-2026 Screening for malign ant neoplasm of cervix Pap Smear [facility] Start: 02-17-2025 Adult BMI Screening Adult BMI Screen ing [facility] Start: 02-17-2025 Tobacco Screening Tobacco Screening [facility] Start: 01-13-2025 Adult BMI Screening Adult BMI Screen ing [facility] Start: 01-13-2025 Tobacco Screening Tobacco Screening [facility] Start: 12-17-2024 Adult BMI Screening Adult BMI Screen ing [facility] Start: 12-17-2024 Tobacco Screening Tobacco Screening [facility] Start: 12-16-2024 Adult BMI Screening Adult BMI Screen ing [facility] Start: 12-16-2024 Tobacco Screening Tobacco Screening [facility] Start: 12-09-2024 Adult BMI Screening Adult BMI Screen ing [facility] Start: 12-09-2024 Tobacco Screening Tobacco Screening [facility] Start: 11-17-2024 Adult BMI Screening Adult BMI Screen ing [facility] Start: 11-17-2024 Tobacco Screening Tobacco Screening [facility] Start: 11-11-2024 Adult BMI Screening Adult BMI Screen ing [facility] Start: 11-11-2024 Tobacco Screening Tobacco Screening [facility] Start: 07-23-2024 Influenza vaccination Influenza Vacc ine [facility] Start: 03-07-2024 End: 03-07-2024 Patient encounter procedure 03/07/2024 9:30 AM EDT Appointment [facility] [address] [place] [id number] [facility] Start: 01-18-2024 End: 01-18-2024 Patient encounter procedure 01/18/2024 2:45 PM EST Appointment [facility] [address] [place] [address] [facility] Start: 01-16-2024 End: 12-16-2024 US MFM with or without consult US MFM with or without consult Imaging Routine Nonrheumatic mitral valve regurgitation Drug use affecting , antepartum History of acute congestive heart failure Expected: 01/16/2024 (Approximate), Expires: 12/16/2024 [facility] Work Phone: Comment on above: Expected: 01/16/2024 (Approximate), Expires: 12/16/2024 Start: 01-13-2024 End: 01-13-2024 Patient encounter procedure 01/13/2024 3:45 PM EST Routine [facility] [address] [place] [address] [facility] Start: 01-05-2024 End: 01-05-2024 Patient encounter procedure 01/05/2024 9:00 AM EST Office Visit [facility] [address] [place] [address] Dominik Meza MD [address] [place], [place] [id number] Kal Ellison MD [address] [place] [address] [facility] Start: 12-20-2023 End: 12-20-2023 Patient encounter procedure 12/20/2023 8:00 AM EST Office Visit [facility] [address] [place] [phone] Dominik Meza MD [address] [place] [address] Joseph Cook MD [address] [place] [address] [facility] Start: 12-17-2023 End: 12-17-2023 Patient encounter procedure 12/17/2023 2:15 PM EST Routine [facility] [address] [place] [id number] Andressa Gallagher, MUSIC SPECIALIST-SURGICAL ATTENDANT [address] [place] [address] [facility] Start: 12-16-2023 End: 12-16-2023 Telemedicine consultation with patient 12/16/2023 2:15 PM EST Telemedicine [facility] [address] [facility] [address] [place] [phone] Jossy Nunes MD [address], [address] [place] [address] [facility] Start: 12-16-2023 End: 12-16-2023 Patient encounter procedure 12/16/2023 1:00 PM EST Appointment [facility] [address] [place] [phone] [facility] Start: 12-15-2023 End: 12-15-2023 Patient encounter procedure 12/15/2023 4:00 PM EST Routine [facility] [address] [place] [address] [facility] Start: 12-09-2023 End: 12-09-2024 Vaginitis Panel PCR Vaginitis Panel PCR Microbiology Routine Vaginal discharge Vagina itching Vaginal irritation Expected: 12/09/2023 (Approximate), Expires: 12/09/2024 [facility] Work Phone: Comment on above: Expected: 12/09/2023 (Approximate), Expires: 12/09/2024 Start: 11-24-2023 End: 11-24-2023 Patient encounter procedure 11/24/2023 9:30 AM EST Routine [facility] [address] [place] [address] Mago Valdez DO [address] [place] [address] [facility] Start: 11-17-2023 End: 11-17-2023 Patient encounter procedure [facility] Start: 2011 DTaP,Tdap and Td Vaccines (1 - Tdap) DTaP,Tdap and Td Vaccines (1 - Tdap) [facility] Start: 2010 Adult BMI Follow Up Plan Adult BMI Follow Up Plan [facility] Start: 2004 Depression Screening Depression Scre [facility] Start: 1992 Tobacco Counseling Tobacco Counselin g [facility] End: 01-12-2025 CBC panel - Blood by Automated count CBC without diff Lab Routine 25 weeks gestation of Second trimester 1 Occurrences starting 01/13/2024 until 01/12/2025 [facility] Work Phone: Comment on above: 1 Occurrences starti ng 01/13/2024 until 01/12/2025 End: 01-13-2025 Glucose 1h post 50g load Glucose 1h post 50g load Lab Routine 25 weeks gestation of Second trimester 1 Occurrences starting 01/13/2024 until 01/13/[address] [facility] Comment on above: 1 Occurrences starti ng 01/13/2024 until 01/13/2025 End: 01-13-2025 Syphilis Total(Unknown Syphilis Status) Syphilis Total(Unknown Syphilis Status) Lab Routine 25 weeks gestation of Second trimester 1 Occurrences starting 01/13/2024 until 01/13/[address] [facility] on above: 1 Occurrences starti ng 01/13/2024 until 01/13/2025 Immunizations Immunization Date Immunization Notes Care Provider Fa cili 10-26-2023 influenza virus vaccine, unspecified formulation Tamie Velásquez MUSIC SPECIALIST-CNM Work Phone: [facility] Payers Date Payer Category Payer Private Health Insurance [facility] [id number] 2022-Present [phone] [address] [place] [phone] 2022 Private Health Insurance [id number] 1992 Unknown [id number] 2.16840.1.775275.3.579. 2.593 1992 Unknown [id number] 2.840.1.518565.3.579. 2.593 1992 Unknown [id number] 2.840.1.086628.3.579. 2.593 1992 Unknown [id number] 2.16.840.1.566490.3.579. 2.593 1992 Unknown [id number] 2.16.840.1.490315.3.579. 2.593 1992 Unknown [id number] 2.16.840.1.588534.3.579. 2.593 1992 Unknown [id number] 2.16.840.1.840446.3.579. 2.593 1992 Unknown [id number] 2.16.840.1.650673.3.579. 2.1285 1992 Unknown [id number] 2.16.840.1.200124.3.579. 2.1285 1992 Unknown [id number] 2.16.840.1.954503.3.579. 2.1285 1992 Unknown [id number] 2.16840.1.809004.3.579. 2.1285 1992 Unknown [id number] 2.16.840.1.022934.3.579. 2.1285 1992 Unknown [id number] 2.840.1.883092.3.579. 2.1285 1992 Unknown [id number] 2.16840.1.305484.3.579. 2.1285 1992 Unknown [id number] 2.840.1.678478.3.579. 2.1258 1992 Unknown [id number] 2.16840.1.737263.3.579. 2.1258 1992 Unknown [id number] 2.16840.1.479215.3.579. 2.1258 1992 Unknown [id number] 2.16840.1.049334.3.579. 2.1258 1992 Unknown [id number] 2.840.1.479147.3.579. 2.1258 1992 Unknown [id number] 2.16.840.1.136480.3.579. 2.1258 1992 Unknown [id number] 2.16.840.1.167844.3.579. 2.1285 1992 Unknown [id number] 2.16.840.1.732599.3.579. 2.1285 1992 Unknown [id number] 2.16840.1.962439.3.579. 2.1285 1992 Unknown [id number] 2.16.840.1.801892.3.579. 2.1286 1992 Unknown [id number] 2.16.840.1.663853.3.579. 2.1286 1992 Unknown [id number] 2.16.840.1.100272.3.579. 2.1286 1992 Unknown [id number] 2.16.840.1.577323.3.579. 2.1286 1992 Unknown [id number] 2.16.840.1.892450.3.579. 2.1286 1992 Unknown [id number] 2.16.840.1.982255.3.579. 2.1286 1992 Unknown [id number] 2.16.840.1.420056.3.579. 2.1286 1992 Unknown [id number] 2.16.840.1.256170.3.579. 2.1286 1959 Self-pay 1959 Unknown [id number] Social History Date Type Detail Facility Start: 03-29-2021 End: 11-17-2023 Tobacco smoking status TNIS Occasional tobacco smoker [facility] Start: 03-29-2021 End: 11-17-2023 Tobacco use and exposure Smokeless tobacco non-user [facility] Start: 11-11-2023 End: 02-18-2024 Alcohol intake Ex-drinker (finding) [facility] Start: 10-21-2018 End: 01-02-2021 History of Social function [facility] Start: 10-21-2018 End: 01-02-2021 Alcohol Use Disorder Identification Test - Consumption [AUDIT-C] [facility] Frequency of Alcohol Consumption Never [facility] Start: 08-04-2023 [facility] Start: 1992 Sex Assigned At Not on file [facility] Clinical Notes 11-12-2023 to 02-22-2024 Telephone Encounter - MARIA ESTHER Hernandez - 02/22/2024 4:31 PM EDTTelephone Encounter - MARIA ESTHER Hernandez - 02/22/2024 4:31 PM EDTGMARIA ESTHER Dumont - 01/13/2024 3:45 PM EST Note Date [...] Pt. Verbalized understanding. documented in this encounter [facility] 02-22-2024 Telephone encounter Note Call to pt. [...] tomorrow to discuss labs. Pt. Verbalized understanding. [facility] 01-13-2024 History of Presen t illness Narrative 34 y.o. at 25w1d. No CTX, VB, LOF. positive FM. Pt. Initially unable to void for routine appt. 1. Reviewed signs of labor and movement 2. No cramping, vaginal bleeding or LOF 3. 28 wk labs next visit 4. Return 3 WKS. WITH [facility]. Discussed [facility] recommendation for telemetry in labor and 24hr. After. Discussed availability of cardiology at [facility] vs. [place] and avoidance of separation of mom and baby if either were to need transferred after delivery 5. Reviewed cardiology referral on 01/05 w/Dr. Ellison 6. Reviewed MFM note on 12/16 MARIA ESTHER Hernandez 01/13/24 1657 documented in this encounter [facility] 01-05-2024 History of Presen t illness Narrative Connie Kadi Ramirez Date of visit: 01/05/2024 Date of [...] Chief Complaint Patient presents with New Patient DIRECTOR OF MARKETING OPERATIONS Mitral valve insufficiency, unspecified etiology L/S MGI [...] FOLLOW UP No follow-ups on file. PCP: LALITA [place] Referring Physician: Dominik Meza MD [address] [place] [address] documented in this encounter [employer] 01-05-2024 Instructions Adwoa Rico, PURCHASING BUYER - 01/05/2024 9:00 AM EST Are You Ready To Kick The Habit? Free Tobacco Cessation Resources [facility] Services [facility] provide all employees with free tobacco cessation services that include: Counseling to understand nicotine addiction Education about medications that can help you successfully quit Assistance with developing a plan to quit Call to set up an individual appointment or find out when group classes will be held: [facility]: [phone] [facility]: [phone] [facility]: [phone] [facility]: [phone] Quit Smoking Action Plan and Resources [facility] offers an eight-week, online smoking cessation plan to all [facility] employees, regardless of whether [place] is your medical insurance provider. Go to www.Weroom.org/employeewell ness and click the Health Risk Assessment and Resources link to get started. In the ii4b menu, click Action Plans instead of Health Risk Assessment to access the Quit Smoking Action Plan. Additional smoking cessation resources are also available to all [facility] employees on the [employer] web page at www.ChinaPNR/quit smoking. [place] Tobacco Cessation Program If [place] is your medical insurance provider, there are more free resources available to you, including: No copays or deductibles on local tobacco cessation counseling services to help you quit Prescription assistance for tobacco cessation medications to help you quit For details about the tobacco cessation program available to [place] members, go to www.[employer] (Search: Tobacco Cessation Program). [place] Tobacco Quit Line 0-660-FAAY-NOW ( ) is a toll-free, telephonic service that helps [place] residents quit smoking and using tobacco. It is staffed by experts who tailor a quit plan for you and provide you with advice. [place] Tobacco Quit Line 3-167-IAGC-NOW ( ) is a toll-free, telephonic service that helps [place] residents quit smoking and using tobacco. It is staffed by experts who tailor a quit plan for you and provide you with advice. Two weeks of nicotine replacement therapy may be provided at no charge, if needed. Additional Resources These national organizations also offer free information and resources to help you quit tobacco: [place] [employer]--www.cancer.org/healthy/ stayawayfromtobacco [place] Heart [employer]--www.heart.org (Search: Quit Smoking) Centers for Disease Control and Prevention--www.cdc.gov/tobacco [place] Lung [employer]--www.lungusa.org documented in this encounter [facility] 12-17-2023 History of Presen t illness Narrative [...] Younger 12/17/23 1438 documented in this encounter [facility] 12-16-2023 History of Presen t illness Narrative Images from the original note were not included. [facility] Maternal- Medicine Tele-Consult Note Reason For Consult: Provider at different site/location than patient. Connie Ramirezcurrently at [place] office and provider at remote site The patient consented to be treated electronically via this form of telemedicine. This visit was not related to an office visit or procedure in the past 7 days, and in-office follow up is not recommended in the next 24 hours. Video Visit via Real-time Synchronous Audiovisual Provider Location: [facility] MATERNAL- MEDICINE AT [address] [address] Patient Location: Other Patient Location Associate Producer: None Video Visit Consent Statement: I discussed [...] that there are some limitations compared to ccvo-[id number] evaluations. We elected to proceed. HPI: Connie Ramirez is a 33 y.o. @ 21w1d who presented for consultation from Tamie Westfall M, MUSIC SPECIALIST-C* regarding Chief Complaint Patient presents with mfm [...] was borderline however not abnormal. There was xqml-gt-tmupcxjj mitral valve regurgitation. There was no evidence [...] and management during . In view of [place] valvular heart disease however not meeting criteria [...] recommended. She is agreeable for delivery at [facility]. Referral to [facility] is recommended accordingly. In addition to that recommend anesthesia consultation in the 3rd trimester this can be initiated by her primary OB team. Telemetry during labor and for 24 hours Plan reviewed with patient. She vocalized understanding all questions answered. [facility], the CDC, and other organizations representing maternal and public health professionals recommend that , , and lactating people and those considering receive the COVID-19 vaccination. Vaccination is the best method to reduce maternal and complications of SARS-CoV-2 infection. This document was created with [employer] technology. Though I make every effort to review the dictation as it is transcribed, on occasion the spoken word can be misinterpreted by the technology leading to inappropriate words, phrases, or sentences. This note is addressed to the requesting provider as a consultation for clinical guidance. Specific medical abbreviations are occasionally used and those are generally approved by the [place]?Board of?Obstetrics and?Gynecology?as well as?[place] s abbreviations. The above plan of care was based solely on the diagnoses for which a consultation was requested. ?More frequent testing may be indicated based on her other medical/obstetrical conditions. The management of other or medical conditions is beyond the scope of requested consultation and will continue to be followed by the primary vocational rehabilitation supervisor or primary care provider. Thank you for [...] procedures Referring and communicating with other health care analyst (not separately reported) Documenting clinical information in [...] patient Have you been seen here at [facility] in a previous ? no Recent ER visits or hospitalizations? no Bring blood sugar log or meter with you today? (Please bring them with you for every visit at [facility]) Traveled outside the country in the past 6 month no Any concerns that you would like me to mention to the provider today? No concerns documented in this encounter [facility] 12-10-2023 Miscellaneous Notes Pt seen in Office [...] asked for it to be emailed to [email or web address]. Work note emailed to Pt. documented in this encounter [facility] 12-10-2023 Telephone encounter Note Pt seen in Office on December 09 for yeast infection. Pt states she is having a lot of pain. Pt is requesting work excuse note for today. Please advise. Thank you [facility] 12-10-2023 Telephone encounter Note Please provide work note for today only. I did sent prescriptions for her and she should begin them zoraida. Thank you. [facility] 12-10-2023 Telephone encounter Note Advised Pt work note can be provided. Pt asked for it to be emailed to [email or web address]. Work note emailed to Pt. [facility] 12-09-2023 History of Presen t illness Narrative [...] All questions answered. Educational material provided through [employer]. RTO for next scheduled visit or sooner as needed. Patient has her MFM consult and anatomy scan next week. ALEIDA IBLLY APRN-CNP 12/09/23 1431 documented in this encounter [employer] 11-23-2023 Miscellaneous Notes Pt states she had Echo cardiogram done last week & does not understand the results. Procedure was ordered by Dr. Meza. Pt was seen in this Office on November 17, 2023. Please advise. Thank you MAKE APPT TO DISCUSS RESULTS PLS Pt scheduled appt with Dr Valdez on November 24. documented [facility] this encounter [facility]-23-[facility]23 Telephone encounter Note Pt states she had Echo cardiogram done last week & does not understand the results. Procedure was ordered by Dr. Meza. Pt was seen in this Office on November 17, 2023. Please advise. [facility] 11-23-2023 Telephone encounter Note MAKE APPT TO DISCUSS RESULTS PLS [employer] Work Phone: 11-23-2023 Telephone encounter Note Pt scheduled appt with Dr Valdez on November 24. [employer] 11-12-2023 Miscellaneous Notes Call rec.'d from ans. [...] and verbalized understanding. documented in this encounter [employer] 11-12-2023 Telephone encounter Note Call rec.'d from [...] to plan of care and verbalized understanding. [facility] Evaluation note Diagnosis Vaginal discharge- Primary Leukorrhea, not specified as infective Vagina itching Pruritus of genital organs Vaginal irritation Pruritus of genital organs Nausea/vomiting in Unspecified vomiting of , unspecified as to episode of care Constipation during in second trimester documented [facility] this [facility]* Diagnosis Bacterial vaginosis in - Primary Vaginal yeast infection Candidiasis of vulva and vagina with 20 completed weeks gestation documented [facility] this [facility]* Diagnosis Nonrheumatic mitral valve regurgitation- Primary Drug use affecting , antepartum History of acute congestive heart failure documented in this [facility]* Diagnosis High-risk in second trimester- Primary Drug use affecting , antepartum History of acute congestive heart failure Nonrheumatic mitral valve regurgitation Echogenic intracardiac focus of fetus on ultrasound 21 weeks gestation of Nausea/vomiting in Unspecified vomiting of , unspecified as to episode of care Constipation during in second trimester documented in this [facility]* Diagnosis with 21 completed weeks gestation- Primary documented in this [facility]* Diagnosis Mitral valve insufficiency, unspecified etiology- Primary Gestational edema in third trimester documented in this [facility]* Diagnosis 25 weeks gestation of - Primary Second trimester state, incidental History of congenital mitral regurgitation History of CHF (congestive heart failure) Personal history of other diseases of circulatory system documented [facility] this [facility] SystemInstructionsNot on filedocumented in this encounter [facility] SystemInstructionsNot on filedocumented in this encounter [facility]* Attachments The following attachments cannot be sent through Care Everywhere. * High Fiber Diet (Syrian) * The Fifth Month (Syrian) * Vaginitis (Syrian) documented in [facility] System[facility]ructionsNot on file documented in this encounterProUniversity [facility] SystemInstructionsNot on file documented in this encounterProUniversity [facility] SystemInstructionsNot on file [facility]* Attachments The following attachments cannot be sent through Care Everywhere. * How to Prepare Baby Formula (Syrian) * Kangaroo Care (Syrian) documented in this encounterProUniversity [facility] SystemInstructionsNot on file documented in this encounterProUniversity [facility] SystemInstructionsNot on file documented in this encounterParkview HealthReason for referral (narrative)* Consultation (Routine) - Pending Review Specialty Diagnoses / Procedures Referred By Contac t Referred To Contact Obstetrics and Gynecology Diagnoses 25 weeks gestation of Second trimester History of congenital mitral regurgitation History of CHF (congestive heart failure) Tamie Velásquez APRN-CNM [address] [facility] [place] [address] [facility] [address] [place] [address] Referral ID Status Reason Start Date Expiration Date Visits Requested Visits Authorized [id number] Pending Review Specialty Services Required 01/13/2024 01/12/2025 1 1 [facility] Summary Purpose Family History No Family History [...] Referral Specialty Diagnoses / Procedures Referred By Contac t Referred To Contact Maternal and Medicine Diagnoses Nonrheumatic mitral valve regurgitation Drug use affecting , antepartum History of acute congestive heart failure Procedures US [facility] with or without consult Jossy Nunes MD [address], [address] [place] [address] [facility] Maternal Med [address] [place] [address] Referral ID Status Reason Start Date Expiration Date V isits Requested Visits Authorized [id number] Pending Review 12/16/2023 12/15/2024 1 1 Additional Source Comments INFORMATION SOURCE (unrecogn ized section and content) DATE CREATED AUTHOR 07/21/2019 [facility] DATE CREATED AUTHOR AUTHOR'S ORGANIZ ATION 12/12/2023 [facility] DATE CREATED AUTHOR AUTHOR'S ORGANIZ ATION 01/21/2024 [facility] DATE CREATED AUTHOR AUTHOR'S ORGANIZ ATION 04/06/2024 [facility] EPIC DATE CREATED AUTHOR AUTHOR'S ORGANIZ ATION 04/06/2024 [facility] Care Teams (unrecognized sec tion and content) Detail Sergeant Relationship Specialty Start Date End Date Services, [facility] [address] [place] PCP - General Family Medicine 09/04/23 Detail Sergeant Relationship Specialty Start Date End Date Services, [facility] [address] [place] PCP - General Family Medicine 09/04/23 Detail Sergeant Relationship Specialty Start Date End Date Services, [facility] [address] [place] PCP - General Family Medicine 09/04/23 Detail Sergeant Relationship Specialty Start Date End Date Services, [facility] [address] [place] PCP - General Family Medicine 09/04/23 Detail Sergeant Relationship Specialty Start Date End Date Services, [facility] [address] [place] PCP - General Family Medicine 09/04/23 Detail Sergeant Relationship Specialty Start Date End Date Services, [facility] [address] [place] PCP - General Family Medicine 09/04/23 Detail Sergeant Relationship Specialty Start Date End Date Services, [facility] [address] [place] PCP - General Family Medicine 09/04/23 Detail Sergeant Relationship Specialty Start Date [facility] [address] [place] PCP - General Family Medicine 09/04/23 Detail Sergeant Relationship Specialty Start Date End Date [facility], [facility] [address] [place] PCP - General Family Medicine 09/04/23 Reason for Visit (unrecogniz ed section and content) Reason Comments Vaginitis Reason Comments mfm consult Reason Comments Routine Visit Reason Comments 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 no testing per patient sched w/pt Specialty Diagnoses / Procedures Referred By Cassius t Referred To Contact Cardiology Diagnoses Mitral valve insufficiency, unspecified etiology Dominik Meza MD [address] [place] [address] [facility] [address] [address] Referral ID Status Reason Start Date Expiration Date Visits Requested Visits Authorized [id number] Pending Review Specialty Services Required 09/28/2023 09/27/2024 [...] BE BASED ON THE PRIMARY CLINICAL RECORDS. [facility] [employer] provides no warranty or guarantee of the accuracy or completeness of information in this document.
--- NOTE | 2024-04-08 12:53 | US_ITS ---
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 TECHNIQUE: Ultrasound biophysical profile was performed in the radiology department. BREATHING MOVEMENTS: 2.0 GROSS BODY MOVEMENTS: 2.0 TONE: 2.0 QUALITATIVE AMNIOTIC FLUID VOLUME: 2.0 PRESENTATION: CEPHALIC HEART RATE: 161.7 bpm bpm. AMNIOTIC FLUID VOLUME: 13.4 cm GESTATIONAL AGE: 37 weeks 3 days CONCLUSION: Total biophysical profile score 8.0. Electronically authenticated by: RENZO CÁRDENAS Date: 04/10/2024 11:01
[2024-04-08 13:13] VITALS: BP 113/65; PULSE 100
--- OUTSIDE RECORDS SUMMARY | 2024-04-12 08:06 | XMS_ITS | CCD ---
Author Organization [facility] Care Team Providers Care Media Assistant Name Role Phone ZIGGY PAZ Admitting Unavailable ZIGGY PAZ Attending Unavailable REQUEST, NONE LISTED Primary Care Unavailable ZIGGY PAZ Consulting Unavailable KARASIK, RICHARD Admitting Unavailable KARASIK, RICHARD Attending Unavailable REQUEST, NONE LISTED Primary Care Unavailable IRMAKRICHARD Consulting Unavailable HUBER SIBLEY V Consulting Unavailable KARASIK, RICHARD Admitting Unavailable KARASIK, RICHARD Attending Unavailable REQUEST, NONE LISTED Primary Care Unavailable KARASIK, RICHARD Consulting Unavailable RENZO SLOAN R Consulting Unavailable PAN, ABDELRAHMAN Admitting Unavailable PAN, ABDELRAHMAN Attending Unavailable KARASIK, RICHARD Admitting Unavailable KARASIK, RICHARD Attending Unavailable KARASIK, RICHARD Consulting Unavailable ZIEBRENZO ZHAO R Consulting Unavailable KARASIK, RICHARD Admitting Unavailable KARASIK, RICHARD Attending Unavailable KARASIK, RICHARD Consulting Unavailable KARASIK, RICHARD Admitting Unavailable KARASIK, RICHARD Attending Unavailable REQUEST, NONE LISTED Primary Care Unavailable KARASIK, RICHARD Consulting Unavailable KARASIK, RICHARD Procedure Practitioner Unavaila SAMMIE Melgar Consulting Unavailable Services, [facility] Primary Care Provider ANDRESSA GALLAGHER Referring Unavailable SERVICES, [facility] Primary Care Unava ilable SERVICES, [facility] Primary Care Unava ilable SERVICES, [facility] Primary Care Unava ilable TAMIE VELÁSQUEZ Referring Unavailable SERVICES, [facility] Primary Care Unava ilable MOUSSA, HIND NADIM Attending Unavailable TAMIE VELÁSQUEZ Referring Unavailable SERVICES, [facility] Primary Care Unava ilable ANDRESSA GALLAGHER Attending Unavailable SERVICES, [facility] Primary Care Unava ilable SERVICES, [facility] Unava ilable PAN, ABDELRAHMAN Attending Unavailable DEBRA, NELLI Attending Unavailable PAN, ABDELRAHMAN Attending Unavailable DEBRA, NELLI Attending Unavailable PAN, ABDELRAHMAN Attending Unavailable PAN, ABDELRAHMAN Attending Unavailable SERVICES, [facility] Unava ilable NAKUL, SAVI Torrez Attending Unavailab le NEVERAUSKAS, SAVI Torrez Attending Unavailab le NEVERAUSKAS, SAVI Torrez Referring Unavailab le SERVICES, [facility] Unava ilable AHMED, ABEER Attending Unavailable AHMED, ABEER Referring Unavailable SERVICES, [facility] Unava ilable TAMIE VELÁSQUEZ Referring Unavailable SERVICES, [facility] Unava ilable TAMIE VELÁSQUEZ Referring Unavailable SERVICES, [facility] Unava ilable JUNG, TIBERIU S Admitting Unavailable JUNG, TIBERIU S Attending Unavailable SERVICES, [facility] Unava ilable SERVICES, [facility] Unava ilable SHAYY AGARWAL Attending Unavailable KAL ELLISON Attending Unavailable AHMED, ABEER Referring Unavailable SERVICES, [facility] Unava ilable TAMIE VELÁSQUEZ Referring Unavailable SERVICES, [facility] Unava ilable HOLLY ROMEO Referring Unavailable SERVICES, [facility] Unava ilable DEUAR COLE Referring Unavailable SERVICES, [facility] Unava ilable Medications Current Medications Medication Drug [...] unspecified; Translations: [MAT CARE OT IA FTL GRTH 3RD TM UNS] Onset: 05-12-2019 [...] width (RBC) [Ratio] 13.1 % Normal 11.5-15.0 [facility] Comment on above: Performed By: #### Anabella VERGARA, 1504-0, 76251-7 #### [facility] ([id number]) [address] [place] [address] Hematocrit (Bld) [Volume fraction] 30.3 % Low 35-47 [facility] Comment on above: Performed By: #### Anabella VERGARA, 1504-0, 32942-2 #### [facility] ([id number]) [address] [place] [address] Hemoglobin (Bld) [Mass/Vol] 10.4 g/dL Low 11.7-15.5 [facility] Comment on above: Performed By: #### Anabella VERGARA, 1504-0, 50658-4 #### [facility] ([id number]) [address], [facility] [address] [place] [address] MCH (RBC) [Entitic mass] 31.2 pg Normal 27-34 [facility] Comment on above: Performed By: #### Anabella VERGARA, 1504-0, 32708-3 #### [facility] ([id number]) [address], [address] [place] [address] MCHC (RBC) [Mass/Vol] 34.3 g/dL Normal 32-36 [facility] Comment on above: Performed By: #### Anabella VERGARA, 1504-0, 99181-2 #### [facility] ([id number]) [address], [address] [place] [address] MCV (RBC) [Entitic vol] 91 fL Normal 80-100 [facility] Comment on above: Performed By: #### Anabella VERGARA, 1504-0, 91865-9 #### [facility] ([id number]) [address], [address] [place] [address] Platelet mean volume (Bld) [Entitic vol] 10.0 fL Normal 7-12 [facility] Comment on above: Performed By: #### Anabella VERGARA, 1504-0, 55591-6 #### [facility] ([id number]) [address], [address] [place] [address] Platelets (Bld) [#/Vol] 152 10*3/uL Normal 150-450 [facility] Comment on above: Performed By: #### Anabella VERGARA, 1504-0, 15023-6 #### [facility] ([id number]) [address], [address] [place] [address] RBC COUNT 3.33 X10E12/L Low 3.80-5.20 [facility] Comment on above: Performed By: #### Anabella VERGARA, 1504-0, 52886-3 #### [facility] ([id number]) [address], [address] [place] [address] WBC (Bld) [#/Vol] 6.1 10*3/uL Normal 4.0-11.0 [facility] Comment on above: Performed By: #### Anabella , 1504-0, 05558-8 #### [facility] ([id number]) [address] [place] [address], [address] [place] [address] Glucose 1 Hr post 50 g gluco se PO [Mass/Vol]on 02-15-2024 GLU 1H POST 50G LOAD 102 mg/dL Normal 65-139 [facility] Comment on above: Performed By: #### Anabella , 1504-0, 60541-6 #### [facility] ([id number]) [address] [place] [address], [address] [place] [address] T. pallidum IgG+IgM IA Ql (S )on 02-15-2024 Syphilis Total <0.2 Normal 0.0-0.8 [facility] Comment on above: Result Comment: NON REACTIVE No serologic evidence of infection to Treponema pallidum (syphilis). Repeat testing may be considered in patients with suspected acute or primary syphilis in 2 to 4 weeks. Performed By: #### Anabella , 1504-0, 96832-6 #### [facility] ([id number]) [address] [place] [address], [address] [place] [address] POCT EKGon 01-05-2024 [facility] VAGINITIS PANEL PCRon 2023 VAGINITIS PANEL [...] clinical presentation to determine patient diagnosis. Normal [facility] Comment on above: Performed By: #### V PPCR #### [facility] ([id number]) [address], [address] [place] [address] URINE CULTUREon 11-12-2023 Bacteria identified Cx Nom (U) CULTURE RESULTS 10-50,000 ORGANISMS/mL NORMAL UROGENITAL PAYTON Normal [facility] Comment on above: Performed By: #### 6 30-4 #### [facility] ([id number]) [address] [place] [address] URN MACROSCOPIC NURon 2022 BILIRUBIN MERY Negative Normal NEG [facility] Comment on above: Performed By: #### N UM #### [facility] ([id number]) [address] [place] [address] BLOOD/HGB MERY Trace Abnormal NEG [facility] Comment on above: Performed By: #### N UM #### [facility] ([id number]) [address] [place] [address] GLUCOSE MERY Negative Normal [facility] Comment on above: Performed By: #### N UM #### [facility] ([id number]) [address] [place] [address] KETONES MERY 15 mg/dL Abnormal NEG [facility] Comment on above: Performed By: #### N UM #### [facility] ([id number]) [address] [place] [address] LEUKOCYTE ESTERASE MERY Trace Abnormal NEG [facility] Comment on above: Performed By: #### N UM #### [facility] ([id number]) [address] [place] [address] NITRITE MERY Negative Normal NEG [facility] Comment on above: Performed By: #### N UM #### [facility] ([id number]) [address] [place] [address] PH MERY 6.0 Normal 5.0-8.5 [facility] Comment on above: Performed By: #### N UM #### [facility] ([id number]) [address] [place] [address] PROTEIN MERY 100 mg/dL Abnormal NEG [facility] Comment on above: Performed By: #### N UM #### [facility] ([id number]) [address] [place] [address] SPECIFIC GRAVITY MERY >=1.030 Normal 1.003-1.035 [facility] Comment on above: Performed By: #### N UM #### [facility] ([id number]) [address] [place] [address] UROBILINOGEN MERY 0.2 eu/dL Normal <1.1 [facility] Comment on above: Performed By: #### N UM #### [facility] ([id number]) [address] [place] [address] BARBITUATE CONFIRMATION, URI NEon 06-11-2019 Amobarbital Negative Normal Pvxtuo=772 [facility] Comment on above: Performed By: #### ALEXANDRA OLIVIA #### [facility] [address] [address] Randi Sandra Barbiturates Positive Abnormal [facility] Comment on above: Performed By: #### ALEXANDRA OLIVIA #### [facility] [address] [address] Randi Sandra Butalbital Positive Abnormal [facility] Comment on above: Performed By: #### ALEXANDRA OLIVIA #### [facility] [address] [address] Randi Sandra Butalbital GC/MS Conf 361 ng/mL Normal Ihgmhu=240 [facility] Comment on above: Performed By: #### EPHRAIM OLIVIARO #### [facility] [address] [place] [address] Randi Sandra Phenobarbital [Mass/Vol] Negative Normal Hmzqno=153 [facility] Comment on above: Performed By: #### EPHRAIM OLIVIARO #### [facility] [address] [place] [address] Randi Sandra Phentobarbital Negative Normal Nvhopk=795 [facility] Comment on above: Performed By: #### EPHRAIM OLIVIARO #### [facility] [address] [place] [address] Randi Sandra Secobarbital Negative Normal Ftpkff=906 [facility] Comment on above: Performed By: #### EPHRAIM OLIVIARO #### [facility] [address] [place] [address] Randi Sandra CANNABINOID (THC) CONFIRMATI ON, URINEon 06-10-2019 Cannabinoid Positive Abnormal [facility] Comment on above: Performed By: #### EPHRAIM OLIVIARO #### [facility] [address] [place] [address] Randi Sandra Carboxy THC GC/MS Conf 76 ng/mL Normal Cutoff=10 [facility] Comment on above: Performed By: #### ALEXANDRA OLIVIA #### [facility] [address] [place] [address] Randi Sandra CBC AUTO DIFFon 06-06-2019 Basophils (Bld) [#/Vol] 0.0 103/ul Normal 0.0-0.1 [facility] Comment on above: Performed By: #### EPHRAIM OLIVIARO #### [facility] [address] [place], [place] [address] Randi Sandra Basophils/100 WBC (Bld) 0.4 % Normal 0.2-2.0 [facility] Comment on above: Performed By: #### EPHRAIM OLIVIARO #### [facility] [address] [place] [address] Randi Sandra Eosinophils (Bld) [#/Vol] 0.1 103/ul Normal 0.0-0.7 [facility] Comment on above: Performed By: #### ALEXANDRA OLIVIA #### [facility] [address] [place], [place] [address] Randi Sandra Eosinophils/100 WBC (Bld) 0.6 % Critically low 0.9-7.0 [facility] Comment on above: Performed By: #### ALEXANDRA OLIVIA #### [facility] [address] [place] [address] Randi Sandra Erythrocyte distribution width (RBC) [Ratio] 13.8 % Normal 11.0-15.0 [facility] Comment on above: Performed By: #### ALEXANDRA OLIVIA #### [facility] [address] [place] [address] Randi Sandra Hematocrit (Bld) [Volume fraction] 25.0 % Critically low 36.0-48.0 [facility] Comment on above: Performed By: #### ALEXANDRA OLIVIA #### [facility] [address] [place] [address] Randi Sandra Hemoglobin (Bld) [Mass/Vol] 8.0 g/dL Critically low 12.0-16.0 [facility] Comment on above: Performed By: #### ALEXANDRA OLIVIA #### [facility] [address] [place] [address] Randi Sandra IG # 0.13 10e3/ul Critically high 0.00-0.03 [facility] Comment on above: Performed By: #### ALEXANDRA OLIVIA #### [facility] [address] [place] [address] Randi Sandra IG % 1.6 % Critically high 0.0-0.5 [facility] Comment on above: Performed By: #### EPHRAIM OLIVIARO #### [facility] [address] [place], [place] [address] Randi Sandra Lymphocytes (Bld) [#/Vol] 1.9 103/ul Normal 1.2-3.8 [facility] Comment on above: Performed By: #### EPHRAIM OLIVIARO #### [facility] [address] [place], [place] [address] Randi Sandra Lymphocytes/100 WBC (Bld) 22.5 % Normal 20.5-60.0 [facility] Comment on above: Performed By: #### EPHRAIM OLIVIARO #### [facility] [address] [place], [place] [address] Randi Sandra MANUAL DIFF REQ NO Normal [facility] Comment on above: Performed By: #### EPHRAIM OLIVIARO #### [facility] [address] [place], [place] [address] Randi Sandra MCH (RBC) [Entitic mass] 28.0 pg Normal 26.7-34.0 [facility] Comment on above: Performed By: #### EPHARIM OLIVIARO #### [facility] [address] [place] [address] Randi Sandra MCHC (RBC) [Mass/Vol] 32.0 g/dL Normal 29.9-35.2 [facility] Comment on above: Performed By: #### TERESA OLIVIAICRO #### [facility] [address] [place], [place] [address] Randi Sandra MCV (RBC) [Entitic vol] 87.4 fL Normal 81.0-99.0 [facility] Comment on above: Performed By: #### EPHRAIM OLIVIARO #### [facility] [address] [place], [place] [address] Randi Sandra Monocytes (Bld) [#/Vol] 0.6 103/ul Normal 0.3-0.8 [facility] Comment on above: Performed By: #### EPHRAIM OLIVIARO #### [facility] [address] [place] [address] Randi Sandra Monocytes/100 WBC (Bld) 6.7 % Normal 1.7-12.0 [facility] Comment on above: Performed By: #### EPHRAIM OLIVIARO #### [facility] [address] [place], [place] [address] Randi Sandra Neutrophils (Bld) [#/Vol] 5.6 103/ul Normal 1.4-6.5 [facility] Comment on above: Performed By: #### ALEXANDRA OLIVIA #### [facility] [address] [place], [place] [address] Randi Flores Neutrophils/100 WBC (Bld) 68.2 % Normal 43.0-75.0 [facility] Comment on above: Performed By: #### ALEXANDRA OLIVIA #### [facility] [address] [place] [address] Randipancho Flores Platelet mean volume (Bld) [Entitic vol] 12.9 fL Normal 9.5-13.5 [facility] Comment on above: Performed By: #### ALEXANDRA OLIVIA #### [facility] [address] [place] [address] Randi Sandra Platelets (Bld) [#/Vol] 103 103/ul Critically low 150-450 [facility] Comment on above: Performed By: #### ALEXANDRA OLIVIA #### [facility] [address] [place], [place] [address] Randi Sandra RBC (Bld) [#/Vol] 2.86 106/ul Critically low 4.20-5.40 [facility] Comment on above: Performed By: #### ALEXANDRA OLIVIA #### [facility] [address] [place], [place] [address] Randi Sandra WBC (Bld) [#/Vol] 8.3 103/ul Normal 4.0-11.0 [facility] Comment on above: Performed By: #### EPHRAIM OLIVIARO #### [facility] [address] [place], [place] [address] Randipancho Flores ABO AND RH TYPEon 06-05-2019 ABO and Rh group Nom (Bld) ABO Rh Typing O Rh Positive Normal [facility] Comment on above: Performed By: #### EPHRAIM OLIVIARO #### [facility] [address] [place], [place] [address] Randi Sandra CBC AUTO DIFFon 06-05-2019 Basophils (Bld) [#/Vol] 0.0 103/ul Normal 0.0-0.1 [facility] Comment on above: Performed By: #### C BC #### [facility] [address] [id number] Randi Sandra Basophils/100 WBC (Bld) 0.4 % Normal 0.2-2.0 [facility] Comment on above: Performed By: #### C BC #### [facility] [address] [place] [address] Randi Sandra Eosinophils (Bld) [#/Vol] 0.0 103/ul Normal 0.0-0.7 [facility] Comment on above: Performed By: #### C BC #### [facility] [address] [place] [address] Randi Sandra Eosinophils/100 WBC (Bld) 0.3 % Critically low 0.9-7.0 [facility] Comment on above: Performed By: #### C BC #### [facility] [address] [place] [address] Randi Sandra Erythrocyte distribution width (RBC) [Ratio] 13.6 % Normal 11.0-15.0 [facility] Comment on above: Performed By: #### C BC #### [facility] [address] [place], [place] [address] Randi Sandra Hematocrit (Bld) [Volume fraction] 26.8 % Critically low 36.0-48.0 [facility] Comment on above: Performed By: #### C BC #### [facility] [address] [place] [address] Randi Sandra Hemoglobin (Bld) [Mass/Vol] 8.8 g/dL Critically low 12.0-16.0 [facility] Comment on above: Performed By: #### C BC #### [facility] [address] [place] [address] Randi Sandra IG # 0.03 10e3/ul Normal 0.00-0.03 [facility] Comment on above: Performed By: #### C BC #### [facility] [address] [place] [address] Randi Sandra IG % 0.4 % Normal 0.0-0.5 [facility] Comment on above: Performed By: #### C BC #### [facility] [address] [place] [address] Randi Sandra Lymphocytes (Bld) [#/Vol] 1.9 103/ul Normal 1.2-3.8 [facility] Comment on above: Performed By: #### C BC #### [facility] [address] [place], [place] [address] Randi Sandra Lymphocytes/100 WBC (Bld) 25.2 % Normal 20.5-60.0 [facility] Comment on above: Performed By: #### C BC #### [facility] [address] [place], [place] [address] Randipancho Flores MANUAL DIFF REQ NO Normal [facility] Comment on above: Performed By: #### C BC #### [facility] [address] [place], [place] [address] Randi Sandra MCH (RBC) [Entitic mass] 28.3 pg Normal 26.7-34.0 [facility] Comment on above: Performed By: #### C BC #### [facility] [address] [place], [place] [address] Randi Sandra MCHC (RBC) [Mass/Vol] 32.8 g/dL Normal 29.9-35.2 [facility] Comment on above: Performed By: #### C BC #### [facility] [address] [place] [address] Randi Sandra MCV (RBC) [Entitic vol] 86.2 fL Normal 81.0-99.0 [facility] Comment on above: Performed By: #### C BC #### [facility] [address] [place], [place] [address] Randi Sandra Monocytes (Bld) [#/Vol] 0.4 103/ul Normal 0.3-0.8 [facility] Comment on above: Performed By: #### C BC #### [facility] [address] [place], [place] [address] Randi Sandra Monocytes/100 WBC (Bld) 5.7 % Normal 1.7-12.0 [facility] Comment on above: Performed By: #### C BC #### [facility] [address] [place], [place] [address] Randi Sandra Neutrophils (Bld) [#/Vol] 5.2 103/ul Normal 1.4-6.5 [facility] Comment on above: Performed By: #### C BC #### [facility] [address] [id number] Randi Sandra Neutrophils/100 WBC (Bld) 68.0 % Normal 43.0-75.0 [facility] Comment on above: Performed By: #### C BC #### [facility] [address] [place], [place] [address] Randi Sandra Platelet mean volume (Bld) [Entitic vol] 13.1 fL Normal 9.5-13.5 [facility] Comment on above: Performed By: #### C BC #### [facility] [address] [place], [place] [address] Randi Sandra Platelets (Bld) [#/Vol] 112 103/ul Critically low 150-450 [facility] Comment on above: Result Comment: jack rodriguez reviewed, few giant plts seen Performed By: #### C BC #### [facility] [address] [place] [address] Randi Sandra RBC (Bld) [#/Vol] 3.11 106/ul Critically low 4.20-5.40 [facility] Comment on above: Performed By: #### C BC #### [facility] [address] [place] [address] Randi Sandra WBC (Bld) [#/Vol] 7.6 103/ul Normal 4.0-11.0 [facility] Comment on above: Performed By: #### C BC #### [facility] [address] [place] [address] Randi Sandra DRUG SCREEN RAPID (URINE)on 06-05-2019 AMP Negative Normal NEGATIVE [facility] Comment on above: Performed By: #### E CHRISTINA, UMICRO #### [facility] [address] [place] [address] Randi Sandra BAR Positive Normal NEGATIVE [facility] Comment on above: Performed By: #### ALEXANDRA OLIVIA #### [facility] [address] [place] [address] Randi Sandra BUP Negative Normal NEGATIVE [facility] Comment on above: Performed By: #### ALEXANDRA OLIVIA #### [facility] [address] [place] [address] Randi Sandra BZO Negative Normal NEGATIVE [facility] [facility] Comment on above: Performed By: #### ALEXANDRA OLIVIA #### [facility] [address] [place] [address] Randi Sandra LOREE Negative Normal NEGATIVE [facility] Comment on above: Performed By: #### ALEXANDRA OLIVIA #### [facility] [address] [place] [address] [facility] C[facility]-OFFS SEE BELOW Normal [facility] Comment on above: Result Comment: AMP [...] ng/mL Performed By: #### ALEXANDRA OLIVIA #### [facility] [address] [place] [address] [facility] DR[facility] CUT HEADER DRUG CLASS TEST SYSTEM CUT-OFF CONCENTRATIONS ARE FOLLOWS: Normal [facility] Comment on above: Performed By: #### ALEXANDRA OLIVIA #### [facility] [address] [place] [address] Randi Sandra mAMP Negative Normal NEGATIVE [facility] Comment on above: Performed By: #### Rere VASQUEZ UMICRO #### [facility] [address] [place] [address] Randi Sandra MTD Negative Normal NEGATIVE [facility] Comment on above: Performed By: #### Rere VASQUEZ UMICRO #### [facility] [address] [place] [address] Randi Sandra OPI Negative Normal NEGATIVE [facility] Comment on above: Performed By: #### Rere VASQUEZ UMICRO #### [facility] [address] [place] [address] Randi Sandra OXY Negative Normal NEGATIVE [facility] Comment on above: Performed By: #### EPHRAIM OLIVIARO #### [facility] [address] [place] [address] Randi Sandra PCP Negative Normal NEGATIVE [facility] Comment on above: Performed By: #### EPHRAIM OLIVIARO #### [facility] [address] [place] [address] Randi Sandra PPX Negative Normal NEGATIVE [facility] Comment on above: Performed By: #### EPHRAIM OLIVIARO #### [facility] [address] [place] [address] Arndi Sandra TCA Negative Normal NEGATIVE [facility] Comment on above: Performed By: #### TERESA OLIVIAICRO #### [facility] [address] [place] [address] Randi Sandra THC Positive Normal NEGATIVE [facility] Comment on above: Performed By: #### TERESA OLIVIAICRO #### [facility] [address] [place] [address] Randi Flores GROUP B STREP CULTUREon 04-23 S. agalactiae Ag Ql (Unsp spec) Culture Observations: Negative for Group B Streptococcus. Normal [facility] Comment on above: Performed By: #### G BSCX #### [facility] [address] [place] [address] Randi Sandra US PREG GROWTHon 05-12-2019 US PREG GROWTH Patient: CONNIE RAMIREZ Exam Date: 05/12/2019 : 1990 Gender:F Ordering : DR RICHARD GARCÍA . Admission #: [id number] Family : Order #: [id number] CLICK HERE TO VIEW EXAM RADIOLOGY REPORT PROCEDURE: ULTRASOUND GROWTH COMPARISON: None. INDICATIONS: Mvvkc-jjb-tzors baby P05.10; 35w0d TECNIQUE: Transabdominal sonographic examination [...] Sloan M.D. on 05/12/2019 at 14:02 Normal [facility] PREG REEVAL ABNon 03-09-2 019 US PREG REEVAL ABN [address] [place] [address] Patient: CONNIE RAMIREZ Exam Date: 03/09/2019 : 1990 Gender:F Ordering : DR RICHARD GARCÍA . Admission #: [id number] Family : Order #: [id number] CLICK HERE TO VIEW EXAM RADIOLOGY REPORT [...] Sloan M.D. on 03/09/2019 at 17:13 Normal [facility] PREG ANATOMY SINGLEon PREG ANATOMY SINGLE [address] [place] [address] Patient: CONNIE RAMIREZ Exam Date: 01/17/2019 : 1990 Gender:F Ordering : DR RICHARD GARCÍA . Admission #: [id number] Family : Order #: [id number] CLICK HERE TO VIEW EXAM RADIOLOGY REPORT [...] M.D. on 01/17/2019 at 10:21 Normal [facility] CBC AUTO DIFFon 10-28-2018 Basophils (Bld) [#/Vol] 0.0 103/ul Normal 0.0-0.1 [facility] Comment on above: Performed By: #### C BC #### [facility] [address] [place] [address] Randi Sandra Basophils/100 WBC (Bld) 0.5 % Normal 0.2-2.0 [facility] Comment on above: Performed By: #### C BC #### [facility] [address] [place] [address] Randi Sandra Eosinophils (Bld) [#/Vol] 0.0 103/ul Normal 0.0-0.7 [facility] Comment on above: Performed By: #### C BC #### [facility] [address] [place] [address] Randi Sandra Eosinophils/100 WBC (Bld) 0.3 % Critically low 0.9-7.0 [facility] Comment on above: Performed By: #### C BC #### [facility] [address] [place] [address] Randi Sandra Erythrocyte distribution width (RBC) [Ratio] 12.2 % Normal 11.0-15.0 [facility] Comment on above: Performed By: #### C BC #### [facility] [address] [place] [address] Randi Sandra Hematocrit (Bld) [Volume fraction] 35.3 % Critically low 36.0-48.0 [facility] Comment on above: Performed By: #### C BC #### [facility] [address] [place] [id number] Randi Sandra Hemoglobin (Bld) [Mass/Vol] 12.4 g/dL Normal 12.0-16.0 [facility] Comment on above: Performed By: #### C BC #### [facility] [address] [id number] Randi Sandra IG # 0.01 10e3/ul Normal 0.00-0.03 [facility] Comment on above: Performed By: #### C BC #### [facility] [address] [place], [place] [phone] Randi Sandra IG % 0.2 % Normal 0.0-0.5 [facility] Comment on above: Performed By: #### C BC #### [facility] [address] [place], [place] [phone] Randi Sandra Lymphocytes (Bld) [#/Vol] 2.4 103/ul Normal 1.2-3.8 [facility] Comment on above: Performed By: #### C BC #### [facility] [address] [place], [place] [phone] Randi Sandra Lymphocytes/100 WBC (Bld) 39.3 % Normal 20.5-60.0 [facility] Comment on above: Performed By: #### C BC #### [facility] [address] [place], [place] [phone] Randi Sandra MANUAL DIFF REQ NO Normal [facility] Comment on above: Performed By: #### C BC #### [facility] [address] [place], [place] [phone] Randi Sandra MCH (RBC) [Entitic mass] 30.8 pg Normal 26.7-34.0 [facility] Comment on above: Performed By: #### C BC #### [facility] [address] [place], [place] [phone] Randi Sandra MCHC (RBC) [Mass/Vol] 35.1 g/dL Normal 29.9-35.2 [facility] Comment on above: Performed By: #### C BC #### [facility] [address] [place], [place] [address] Randi Sandra MCV (RBC) [Entitic vol] 87.6 fL Normal 81.0-99.0 [facility] Comment on above: Performed By: #### C BC #### [facility] [address] [place] [address] Randi Sandra Monocytes (Bld) [#/Vol] 0.4 103/ul Normal 0.3-0.8 [facility] Comment on above: Performed By: #### C BC #### [facility] [address] [place] [address] Randi Sandra Monocytes/100 WBC (Bld) 6.8 % Normal 1.7-12.0 [facility] Comment on above: Performed By: #### C BC #### [facility] [address] [place], [place] [phone] Randi Sandra Neutrophils (Bld) [#/Vol] 3.2 103/ul Normal 1.4-6.5 [facility] Comment on above: Performed By: #### C BC #### [facility] [address] [place], [place] [phone] Randi Sandra Neutrophils/100 WBC (Bld) 52.9 % Normal 43.0-75.0 [facility] Comment on above: Performed By: #### C BC #### [facility] [address] [place], [place] [phone] Randi Sandra Platelet mean volume (Bld) [Entitic vol] 10.9 fL Normal 9.5-13.5 [facility] Comment on above: Performed By: #### C BC #### [facility] [address] [place] [address] Randi Sandra Platelets (Bld) [#/Vol] 213 103/ul Normal 150-450 [facility] Comment on above: Performed By: #### C BC #### [facility] [address] [place], [place] [phone] Randi Sandra RBC (Bld) [#/Vol] 4.03 106/ul Critically low 4.20-5.40 [facility] Comment on above: Performed By: #### C BC #### [facility] [address] [place] [address] Randi Sandra WBC (Bld) [#/Vol] 6.1 103/ul Normal 4.0-11.0 The [facility] Comment on above: Performed By: #### C BC #### [facility] [address] [place] [address] Randi Sandra ER URINE PROFILEon 8 Bilirubin [Mass/Vol] Negative Normal NEGATIVE [facility] Comment on above: Performed By: #### EPHRAIM OLIVIARO #### [facility] [address] [place] [address] Randi Sandra BLOOD TRACE-INTACT Normal NEGATIVE [facility] Comment on above: Performed By: #### EPHRAIM OLIVIARO #### [facility] [address] [place] [address] Randi Sandra Clarity (U) CLEAR Normal [facility] Comment on above: Performed By: #### EPHRAIM OLIVIARO #### [facility] [address] [place] [address] Randi Sandra Color (U) YELLOW Normal YELLOW [facility] Comment on above: Performed By: #### EPHRAIM OLIVIARO #### [facility] [address] [place] [address] Randi Sandra ERUAHD A micrscopic examination will be performed if indicated. Normal [facility] Comment on above: Performed By: #### EPHRAIM OLIVIARO #### [facility] [address] [place] [address] Randi Sandra Glucose [Mass/Vol] Negative Normal NEGATIVE [facility] Comment on above: Performed By: #### EPHRAIM OLIVIARO #### [facility] [address] [place] [address] Randi Sandra Ketones Ql (U) TRACE Normal NEGATIVE [facility] Comment on above: Performed By: #### EPHRAIM OLIVIARO #### [facility] [address] [place] [address] Randi Sandra Nitrite Ql (U) Negative Normal NEGATIVE [facility] Comment on above: Performed By: #### Rere VASQUEZ UMICRO #### [facility] [address] [place], [place] [address] Randi Sandra pH (Bld) 6.0 Normal 5-9 [facility] Comment on above: Performed By: #### Rere VASQUEZ UMPAIGERO #### [facility] [address] [place], [place] [address] Randi Sandra Protein (U) [Mass/Vol] Negative Normal [facility] Comment on above: Performed By: #### Rere VASQUEZ, UMICRO #### [facility] [address] [place] [address] Randi Sandra SPEC GRAVITY >=1.030 Normal 1.005-<=1.025 [facility] Comment on above: Performed By: #### Rere VASQUEZ UMPAIGERO #### [facility] [address] [place], [place] [phone] Randi Sandra UR MICRO IND INDICATED Normal [facility] Comment on above: Performed By: #### Rere VASQUEZ UMICRO #### [facility] [address] [place] [address] Randi Sandra Urobilinogen Qn (U) 0.2 EU/dl Normal [facility] Comment on above: Performed By: #### Rere VASQUEZ UMICRO #### [facility] [address] [place] [address] Randi Sandra WBC (Bld) [#/Vol] Negative Normal NEGATIVE [facility] Comment on above: Performed By: #### Rere VASQUEZ UMICRO #### [facility] [address] [place] [address] Randi Sandra PREG QUANT HCGon 10-28-2018 HCG QUANT 59442.00 mIU/mL Normal [facility] Comment on above: Performed By: #### B MP, PREGQNT #### [facility] [address] [place] [address] Randi Sandra HCG RANGE SEE BELOW Normal [facility] Comment on above: Result Comment: 5-50 0-1 WEEK 40-300 1-2 WEEKS 100-1,000 2-3 WEEKS 500-6,000 3-4 WEEKS 5,000-200,000 1-2 MONTHS 10,000-100,000 2-3 MONTHS 3,000-50,000 2ND TRIMESTER 1,000-50,000 3RD TRIMESTER Performed By: #### B HANG, PREGQNT #### [facility] [address] [place] [address] Randi Sandra PROF CHEM 8 (BAS METB)on Anion gap [Moles/Vol] 12.1 mmol/L Normal [facility] Comment on above: Performed By: #### B HANG, PREGQNT #### [facility] [address] [place] [address] Randi Sandra Calcium [Mass/Vol] 9.0 mg/dL Normal 8.4-10.2 [facility] Comment on above: Performed By: #### B HANG, PREGQNT #### [facility] [address] [place] [address] Randi Sandra Chloride [Moles/Vol] 101 mmol/L Normal 98-107 [facility] Comment on above: Performed By: #### B HANG, PREGQNT #### [facility] [address] [place] [address] Randi Sandra CO2 [Moles/Vol] 26.0 mmol/L Normal 22.0-30.[address] [facility] Comment on above: Performed By: #### B HANG, PREGQNT #### [facility] [address] [place] [address] Randi Sandra Creatinine [Mass/Vol] 0.61 mg/dL Normal 0.52-1.04 [facility] Comment on above: Performed By: #### B HANG, PREGQNT #### [facility] [address] [place] [address] Randi Sandra EGFR-AF BELIZEAN >60 Normal >=60 [facility] Comment on above: Performed By: #### Omar MAURICIO, PREGQNT #### [facility] [address] [place] [address] Randi Sandra EGFR-NON AF BELIZEAN >60 Normal >=60 [facility] Comment on above: Performed By: #### B HANG, PREGQNT #### [facility] [address] [phone] Randi Sandra Glucose [Mass/Vol] 82 mg/dL Normal 74-106 [facility] Comment on above: Performed By: #### B HANG, PREGQNT #### [facility] [address] [place], [place] [phone] Randi Sandra Potassium [Moles/Vol] 3.1 mmol/L Critically low 3.4-5.0 [facility] Comment on above: Performed By: #### B HANG, PREGQNT #### [facility] [address] [place], [place] [phone] Randi Sandra Sodium [Moles/Vol] 136 mmol/L Critically low 137-145 Th [facility] Comment on above: Performed By: #### B HANG, PREGQNT #### [facility] [address] [place] [address] Randi Sandra Urea nitrogen [Mass/Vol] 8.0 mg/dL Normal 7.0-17.0 [facility] Comment on above: Performed By: #### B HANG, PREGQNT #### [facility] [address] [place] [address] Randi Sandra Urea nitrogen/Creatinine [Mass ratio] 13.1 mg/mg Normal [facility] Comment on above: Performed By: #### B HANG, PREGQNT #### [facility] [address] [place], [place] [phone] Randi Sandra URINE MICROSCOPIC ONLYon Bacteria LM.HPF (Urine sed) [#/Area] TRACE Normal NONE SEEN The [facility] Comment on above: Performed By: #### EPHRAIM OLIVIARO #### [facility] [address] [place], [place] [phone] Randi Sandra CAST NONE SEEN Normal NONE SEEN [facility] Comment on above: Performed By: #### Rere VASQUEZ UMICRO #### [facility] [address] [place], [place] [phone] Randi Sandra Crystals LM Nom (Urine sed) NONE SEEN Normal NONE SEEN [facility] Comment on above: Performed By: #### Rere VASQUEZ, EPHRAIMRO #### [facility] [address] [place], [place] [address] Randi Sandra CULTURE NOT INDICATED Normal [facility] Comment on above: Performed By: #### Rere VASQUEZ, EPHRAIMRO #### [facility] [address] [place], [place] [address] Randi Sandra Epithelial cells LM.HPF (Urine sed) [#/Area] RARE Normal [facility] Comment on above: Performed By: #### Rere VASQUEZ, ALEXANDRA #### [facility] [address] [place], [place] [address] Randi Sandra MUCOUS NONE SEEN Normal NONE SEEN [facility] Comment on above: Performed By: #### Rere VASQUEZ, ALEXANDRA #### [facility] [address] [place], [place] [address] Randi Sandra RBC (U) [#/Vol] 0-2 Normal 0-2 [facility] Comment on above: Performed By: #### EPHRAIM OLIVIARO #### [facility] [address] [place], [place] [address] Randi Sandra WBC (Bld) [#/Vol] 0-2 Normal NONE SEEN [facility] Comment on above: Performed By: #### Rere VASQUEZ, EPHRAIMRO #### [facility] [address] [place] [address] Randi Sandra Vital Signs Date Time Vital Sign Value Performing Clinician Mike meier 01-13-2024 15:40-0500 Body mass index (BMI) [Ratio] 20.88 kg/m2 [facility] 01-13-2024 15:40-0500 Body weight 56.93 kg [facility] 01-13-2024 15:40-0500 Diastolic blood pressure 58 mm[Hg] [facility] 01-13-2024 15:40-0500 Systolic blood pressure 100 mm[Hg] [facility] 01-05-2024 09:01-0500 Body height 165.1 cm Kal Ellison MD Work Phone: [facility] [employer] [facility] 01-05-2024 09:01-0500 Body mass index (BMI) [Ratio] 21.13 kg/m2 Kal Ellison MD Work Phone: [facility] 01-05-2024 09:01-0500 Body weight 57.61 kg Kal Ellison MD Work Phone: [facility] 01-05-2024 09:01-0500 Diastolic blood pressure 60 mm[Hg] Kal Ellison MD Work Phone: [facility] 01-05-2024 09:01-0500 Heart rate 80 /min Kal Ellison MD Work Phone: [facility] 01-05-2024 09:01-0500 SaO2% (BldA) [Mass fraction] 100 % Kal Ellison MD Work Phone: [facility] 01-05-2024 09:01-0500 Systolic blood pressure 110 mm[Hg] Kal Ellison MD Work Phone: [facility] 12-17-2023 14:13-0500 Body mass index (BMI) [Ratio] 19.96 kg/m2 Anderssa Keven REQUIREMENTS ANALYST-BASE FILLER OPERATOR Work Phone: [facility] 12-17-2023 14:13-0500 Body weight 56.06 kg Andressa Keven REQUIREMENTS ANALYST-BASE FILLER OPERATOR Work Phone: [facility] 12-17-2023 14:13-0500 Diastolic blood pressure 52 mm[Hg] Andressa Keven REQUIREMENTS ANALYST-BASE FILLER OPERATOR Work Phone: [facility] 12-17-2023 14:13-0500 Systolic blood pressure 94 mm[Hg] Andressa Keven REQUIREMENTS ANALYST-BASE FILLER OPERATOR Work Phone: [facility] 12-16-2023 14:09-0500 Body height 167.6 cm Jossy Nunes MD Work Phone: [facility] 12-16-2023 14:09-0500 Body mass index (BMI) [Ratio] 19.47 kg/m2 Jossy Nunes MD Work Phone: [facility] 12-16-2023 14:09-0500 Body weight 54.7 kg Jossy Nunes MD Work Phone: [facility] 12-16-2023 14:09-0500 Diastolic blood pressure 60 mm[Hg] Jossy Nunes MD Work Phone: [facility] 12-16-2023 14:09-0500 Systolic blood pressure 98 mm[Hg] Jossy Nunes MD Work Phone: [facility] 12-09-2023 14:15-0500 Body height 167.6 cm [facility] 12-09-2023 14:15-0500 Body mass index (BMI) [Ratio] 19.43 kg/m2 [facility] 12-09-2023 14:15-0500 Body weight 54.61 [facility] 12-09-2023 14:15-0500 Diastolic blood pressure 64 mm[Hg] [employer] [facility] 12-09-2023 14:15-0500 Systolic blood pressure 112 mm[Hg] [facility] Encounters Encounter Date Encounter Type Care Provider Facility Start: 04-04-2024 End: 04-05-2024 ambulatory [facility] Start: 04-04-2024 End: 04-04-2024 ambulatory ABDELRAHMAN PAN Not Available Start: 03-27-2024 End: 03-27-2024 ambulatory ABDELRAHMAN PAN Not Available Start: 03-20-2024 End: 03-20-2024 ambulatory NELLI EDBRA Not Available Start: 03-07-2024 End: 03-08-[facility] Start: 03-06-2024 End: 03-06-2024 ambulatory ABDELRAHMAN PAN Not Available Start: 02-22-2024 Telephone encounter Tamie clayton REQUIREMENTS ANALYST-CNM Work Phone: [facility] Start: 02-21-2024 End: 02-21-2024 ambulatory NELLI RICHARDSON Not Available Start: 02-18-2024 End: 02-18-2024 ambulatory TORRES FENG [facility] Start: 02-15-2024 End: 02-16-2024 ambulatory [facility] Start: 02-15-2024 End: 02-15-2024 ambulatory [facility] Start: 02-07-2024 End: 02-07-2024 ambulatory ABDELRAHMAN AMARAL Not Available Start: 01-21-2024 End: 01-22-2024 Emergency department patient visit SAVI Torrez GOPIFOREIGN [facility] Start: 01-18-2024 End: 01-19-2024 ambulatory [facility] Start: 01-13-2024 End: 01-13-2024 ambulatory [facility] Start: 01-13-2024 End: 01-13-2024 Subsequent care visit [facility] Comment on above: GA: 25w1d Start: 01-05-2024 End: [facility] Start: 01-05-2024 End: 01-05-2024 Office outpatient visit 15 minutes Dominik Meza MD Work Phone: [facility] Comment on above: Mitral valve insuffi ciency, unspecified etiology (Primary Dx); Gestational edema in third trimester Start: 12-17-2023 End: 12-17-2023 ambulatory [facility] Start: 12-17-2023 End: 12-17-2023 Subsequent care visit Andressa Shankaro REQUIREMENTS ANALYST-BASE FILLER OPERATOR Work Phone: [facility] Comment on above: GA: 21w2d Start: 12-16-2023 End: 12-16-2023 Office outpatient new 45 minutes Jossy Nunes MD Work Phone: [facility] [place] Comment on above: High-risk in second trimester (Primary Dx); Drug use affecting , antepartum; History of acute congestive heart failure; Nonrheumatic mitral valve regurgitation; Echogenic intracardiac focus of fetus on ultrasound; 21 weeks gestation of ; Nausea/vomiting in ; Constipation during in second trimester Start: 12-16-2023 End: 12-16-2023 Orders Only Srinivasan Campbell RN [facility] [place] Comment on above: Nonrheumatic mitral valve regurgitation (Primary Dx); Drug use affecting , antepartum; History of acute congestive heart failure Start: 12-10-2023 Orders Only Andressa Jackie Keven INFANTEN-BASE FILLER OPERATOR Work Phone: [facility] Comment on above: Bacterial vaginosis in (Primary Dx); Vaginal yeast infection; with 20 completed weeks gestation Start: 12-10-2023 End: 12-10-2023 ambulatory [facility] Start: 12-09-2023 End: 12-09-2023 ambulatory [facility] Start: 12-09-2023 End: 12-09-2023 Office outpatient visit 15 minutes [facility] Comment on above: Vaginal discharge (P rimary Dx); Vagina itching; Vaginal irritation; Nausea/vomiting in ; Constipation during in second trimester Start: 11-23-2023 Telephone encounter Mago cenra DO Work Phone: [facility] Start: 11-17-2023 End: 11-18-[facility] Start: 11-17-2023 End: 11-17-2023 ambulatory [facility] Start: 11-12-2023 Telephone encounter Tamie clayton REQUIREMENTS ANALYST-CNM Work Phone: [facility] Start: 11-12-2023 End: 11-12-2023 Emergency department patient visit [facility] Start: 06-05-2019 End: 06-07-2019 Evaluation and management [...] 10-28-2018 End: 10-28-2018 Patient encounter procedure ZIGGY Sanjiv PAZ Facility:H1 Procedures Date Procedure Procedure Detail Performing Clinician Start: 01-05-2024 Ecg routine ecg w/le ast 12 lds w/i&r Kal Ellison MD Work Phone: Start: 09-28-2023 Microscopic observat ion [Identifier] in Cervix by Cyto stain Tamie Velásquez REQUIREMENTS ANALYST-CNM Work Phone: Start: 06-05-2019 Delivery of Products of Conception, External Approach ZIGGY PAZ Plan of Treatment Date Care Activity Detail Author Start: 09-28-2026 Screening for malign ant neoplasm of cervix Pap Smear [facility] Start: 02-17-2025 Adult BMI Screening Adult BMI Screen ing [facility] Start: 02-17-2025 Tobacco Screening Tobacco Screening [facility] Start: 01-13-2025 Adult BMI Screening Adult BMI Screen ing [facility] Start: 01-13-2025 Tobacco Screening Tobacco Screening [facility] Start: 12-17-2024 Adult BMI Screening Adult BMI Screen ing [facility] Start: 12-17-2024 Tobacco Screening Tobacco Screening [facility] Start: 12-16-2024 Adult BMI Screening Adult BMI Screen ing [facility] Start: 12-16-2024 Tobacco Screening Tobacco Screening [facility] Start: 12-09-2024 Adult BMI Screening Adult BMI Screen ing [facility] Start: 12-09-2024 Tobacco Screening Tobacco Screening [facility] Start: 11-17-2024 Adult BMI Screening Adult BMI Screen ing [facility] Start: 11-17-2024 Tobacco Screening Tobacco Screening [facility] Start: 11-11-2024 Adult BMI Screening Adult BMI Screen ing [facility] Start: 11-11-2024 Tobacco Screening Tobacco Screening [facility] Start: 07-23-2024 Influenza vaccination Influenza Vacc ine [facility] Start: 03-07-2024 End: 03-07-2024 Patient encounter procedure 03/07/2024 9:30 AM EDT Appointment [facility] [address] [place] [address] [facility] Start: 01-18-2024 End: 01-18-2024 Patient encounter procedure 01/18/2024 2:45 PM EST Appointment [facility] [address] [place] [address] [facility] Start: 01-16-2024 End: 12-16-2024 US MFM with or without consult US MFM with or without consult Imaging Routine Nonrheumatic mitral valve regurgitation Drug use affecting , antepartum History of acute congestive heart failure Expected: 01/16/2024 (Approximate), Expires: 12/16/2024 [facility] Work Phone: Comment on above: Expected: 01/16/2024 (Approximate), Expires: 12/16/2024 Start: 01-13-2024 End: 01-13-2024 Patient encounter procedure 01/13/2024 3:45 PM EST Routine [facility] [address] [place] [address] [facility] Start: 01-05-2024 End: 01-05-2024 Patient encounter procedure 01/05/2024 9:00 AM EST Office Visit [facility] [address] [place] [address] Dominik Meza MD [address] [place], [place] [id number] Kal Ellison MD [address] [facility] [place] [address] [facility] Start: 12-20-2023 End: 12-20-2023 Patient encounter procedure 12/20/2023 8:00 AM EST Office Visit [facility] [address] [place] [id number] Dominik Meza MD [address] [place] [address] Joseph Cook MD [address] [place] [address] [facility] Start: 12-17-2023 End: 12-17-2023 Patient encounter procedure 12/17/2023 2:15 PM EST Routine [facility] [address] [facility] [place] [id number] Andressa Gallagher, REQUIREMENTS ANALYST-BASE FILLER OPERATOR [address] [place] [address] [facility] Start: 12-16-2023 End: 12-16-2023 Telemedicine consultation with patient 12/16/2023 2:15 PM EST Telemedicine [facility] [place] [address] [facility] [address] [place] [address] Jossy Nunes MD [address] [place] [address] [facility] [place] Start: 12-16-2023 End: 12-16-2023 Patient encounter procedure 12/16/2023 1:00 PM EST Appointment [facility] [place] [address] [place] [address] [facility] [place] Start: 12-15-2023 End: 12-15-2023 Patient encounter procedure 12/15/2023 4:00 PM EST Routine [facility] [address] [facility] [place] [address] [facility] Start: 12-09-2023 End: 12-09-2024 Vaginitis Panel PCR Vaginitis Panel PCR Microbiology Routine Vaginal discharge Vagina itching Vaginal irritation Expected: 12/09/2023 (Approximate), Expires: 12/09/2024 [facility] Work Phone: Comment on above: Expected: 12/09/2023 (Approximate), Expires: 12/09/2024 Start: 11-24-2023 End: 11-24-2023 Patient encounter procedure 11/24/2023 9:30 AM EST Routine [facility] [address] [facility] [place] [address] Mago Valdez DO [address] [place], [place] [id number] [facility] Start: 11-17-2023 End: 11-17-2023 Patient encounter procedure [facility] Start: 2011 DTaP,Tdap and Td Vaccines (1 - Tdap) DTaP,Tdap and Td Vaccines (1 - Tdap) [facility] Start: 2010 Adult BMI Follow Up Plan Adult BMI Follow Up Plan [facility] Start: 2004 Depression Screening Depression Scre [facility] Start: 1992 Tobacco Counseling Tobacco Counselin g [facility] End: 01-12-2025 CBC panel - Blood [...] trimester 1 Occurrences starting 01/13/2024 until 01/13/2025 [facility] Comment on above: 1 Occurrences starti ng 01/13/2024 until 01/13/2025 End: 01-13-2025 Syphilis Total(Unknown Syphilis Status) Syphilis Total(Unknown Syphilis Status) Lab Routine 25 weeks gestation of Second trimester 1 Occurrences starting 01/13/2024 until 01/13/2025 [facility] Comment on above: 1 Occurrences starti ng 01/13/2024 until 01/13/2025 Immunizations Immunization Date Immunization Notes Care Provider Lizeth [facility] 10-26-2023 influenza virus vaccine, unspecified formulation Tamie Velásquez APRN-CNM Work Phone: [facility] Payers Date Payer Category Payer Private Health Insurance [employer] [id number] 2022-Present [phone] [address] [place] [address] [id number] 2022 Private Health Insurance [id number] 1992 Unknown [id number] 2.16.840.1.463163.3.579. 2.593 1992 Unknown [id number] 2.16.840.1.057192.3.579. 2.593 1992 Unknown [id number] 2.16.840.1.847388.3.579. 2.593 1992 Unknown [id number] 2.16.840.1.761958.3.579. 2.593 1992 Unknown [id number] 2.16.840.1.897532.3.579. 2.593 1992 Unknown [id number] 2.16.840.1.387423.3.579. 2.593 1992 Unknown [id number] 2.16.840.1.286401.3.579. 2.593 1992 Unknown [id number] 2.16.840.1.764309.3.579. 2.1285 1992 Unknown [id number] 2.16.840.1.321119.3.579. 2.1285 1992 Unknown [id number] 2.16.840.1.673641.3.579. 2.1285 1992 Unknown [id number] 2.16.840.1.261813.3.579. 2.1285 1992 Unknown [id number] 2.16.840.1.137932.3.579. 2.1285 1992 Unknown [id number] 2.16.840.1.616742.3.579. 2.1285 1992 Unknown [id number] 2.16.840.1.781349.3.579. 2.1285 1992 Unknown [id number] 2.16.840.1.999206.3.579. 2.1258 1992 Unknown [id number] 2.16.840.1.501950.3.579. 2.1258 1992 Unknown [id number] 2.16.840.1.065844.3.579. 2.1258 1992 Unknown [id number] 2.16.840.1.058947.3.579. 2.1258 1992 Unknown [id number] 2.16.840.1.870584.3.579. 2.1258 1992 Unknown [id number] 2.16.840.1.931420.3.579. 2.1258 1992 Unknown [id number] 2.16.840.1.152700.3.579. 2.1285 1992 Unknown [id number] 2.16.840.1.952896.3.579. 2.1285 1992 Unknown [id number] 2.16.840.1.474289.3.579. 2.1285 1992 Unknown [id number] 2.16.840.1.365346.3.579. 2.1286 1992 Unknown [id number] 2.16.840.1.714249.3.579. 2.1286 1992 Unknown [id number] 2.16.840.1.920778.3.579. 2.1286 1992 Unknown [id number] 2.16.840.1.732347.3.579. 2.1286 1992 Unknown [id number] 2.16.840.1.655601.3.579. 2.1286 1992 Unknown [id number] 2.16.840.1.122073.3.579. 2.6 1992 Unknown [id number] 2.16.840.1.736612.3.579. 2.1286 1992 Unknown [id number] 2.16.840.1.387736.3.579. 2.1286 1959 Self-pay 1959 Unknown [id number] Social History Date Type Detail Facility Start: 03-29-2021 End: 11-17-2023 Tobacco smoking status NHIS Occasional tobacco smoker [facility] Start: 03-29-2021 End: 11-17-2023 Tobacco use and exposure Smokeless tobacco non-user [facility] Start: 11-11-2023 End: 02-18-2024 Alcohol intake Ex-drinker (finding) [facility] Start: 10-21-2018 End: 01-02-2021 History of Social function [facility] Start: 10-21-2018 End: 01-02-2021 Alcohol Use Disorder Identification Test - Consumption [AUDIT-C] [facility] Frequency of Alcohol Consumption Never [facility] Start: 08-04-2023 [facility] Start: 1992 Sex Assigned At Not on file [facility] Clinical Notes 11-12-2023 to 02-22-2024 Telephone Encounter - Tamie Velásquez APRN-JAYDEN - 02/22/2024 4:31 PM EDTTelephone Encounter - [...] Pt. Verbalized understanding. documented in this encounter [facility] 02-22-2024 Telephone encounter Note Call to [...] tomorrow to discuss labs. Pt. Verbalized understanding. [facility] 01-13-2024 History of Presen t illness Narrative 34 y.o. at 25w1d. No CTX, VB, LOF. positive FM. Pt. Initially unable to void for routine appt. 1. Reviewed signs of labor and movement 2. No cramping, vaginal bleeding or LOF 3. 28 wk labs next visit 4. Return 3 WKS. WITH [facility]. Discussed [facility] recommendation for telemetry in labor and 24hr. After. Discussed availability of cardiology at [facility] vs. [place] and avoidance of separation of mom and baby if either were to need transferred after delivery 5. Reviewed cardiology referral on 01/05 w/Dr. Ellison 6. Reviewed MFM note on 12/16 MARIA ESTHER Hernandez 01/13/24 1657 documented in this encounter [facility] 01-05-2024 History of Presen t illness Narrative Connie Wallis James Date of visit: 01/05/2024 Date of : [...] Chief Complaint Patient presents with New Patient SIGNALS OFFICER Mitral valve insufficiency, unspecified etiology L/S MGI 08/2020 PT is in her first trimester due in April 2024. no testing per patient sched w/pt History of Present Illness Patient presents for follow-up she had a history of moderate mitral regurgitation with her 1st in 2019 her heart totally recovered however it appears [...] Meza MD [address] [facility] [place] [address] documented in this encounter [facility] 01-05-2024 Instructions Adwoa Rico, AUDIOLOGY DOCTOR - 01/05/2024 9:00 AM EST Are You Ready To Kick The Habit? Free Tobacco Cessation Resources [facility] Services [facility] Centers provide all employees with free tobacco cessation services that include: Counseling to understand nicotine addiction Education about medications that can help you successfully quit Assistance with developing a plan to quit Call to set up an individual appointment or find out when group classes will be held: [facility]: [phone] [facility]: [phone] [facility]: [phone] [facility]: [phone] Quit Smoking Action Plan and Resources [facility] offers an eight-week, online smoking cessation plan to all [facility] employees, regardless of whether [place] is your medical insurance provider. Go to [email or web address] ness and click the Health Risk Assessment and Resources link to get started. In the Novelo menu, click Action Plans instead of Health Risk Assessment to access the Quit Smoking Action Plan. Additional smoking cessation resources are also available to all [facility] employees on the Iyreh8Kmwhkn web page at www.Tempolib/quit smoking. [place] Tobacco Cessation Program If [place] is your medical insurance provider, there are more free resources available to you, including: No copays or deductibles on local tobacco cessation counseling services to help you quit Prescription assistance for tobacco cessation medications to help you quit For details about the tobacco cessation program available to [place] members, go to www.Fever.Metricly (Search: Tobacco Cessation Program). [place] Tobacco Quit Line 5-156-LCJQ-NOW ( ) is a toll-free, telephonic service that helps [place] residents quit smoking and using tobacco. It is staffed by experts who tailor a quit plan for you and provide you with advice. [place] Tobacco Quit Line 5-313-TZGB-NOW ( ) is a toll-free, telephonic service that helps [place] residents quit smoking and using tobacco. It is staffed by experts who tailor a quit plan for you and provide you with advice. Two weeks of nicotine replacement therapy may be provided at no charge, if needed. Additional Resources These national organizations also offer free information and resources to help you quit tobacco: [place] Cancer Society--www.cancer.org/healthy/ stayawayfromtobacco [place] Heart Association--www.heart.org (Search: Quit Smoking) Centers for Disease Control and Prevention--www.cdc.gov/tobacco [place] Lung Association--www.lungusa.org documented in this encounter [facility] 12-17-2023 History of Presen t illness [...] Younger 12/17/23 1438 documented in this encounter [facility] [email or web address] 12-16-2023 History of Presen t illness Narrative Images from the original note were not included. [facility] Maternal- Medicine Tele-Consult Note Reason For Consult: Provider at different site/location than patient. Connie Ramirezcurrently at [place] office and provider at remote site The patient consented to be treated electronically via this form of telemedicine. This visit was not related to an office visit or procedure in the past 7 days, and in-office follow up is not recommended in the next 24 hours. Video Visit via Real-time Synchronous Audiovisual Provider Location: [facility]- [facility]ICINE AT [address] [address] Patient Location: Other Patient Location Out Patient Therapist: None Video Visit Consent Statement: I discussed [...] that there are some limitations compared to awgd-uc-[id number] evaluations. We elected to proceed. HPI: Connie Ramirez is a 33 y.o. @ 21w1d who presented for consultation from Tamie Westfall, AXEL-C* regarding Chief Complaint Patient presents with mfm [...] was borderline however not abnormal. There was lkap-ki-pcbahjnm mitral valve regurgitation. There was no evidence [...] and management during . In view of [place] valvular heart disease however not meeting criteria [...] is agreeable for delivery at [facility]. Referral to [place] for Health Services is recommended accordingly. In addition to that recommend anesthesia consultation in the 3rd trimester this can be initiated by her primary OB team. Telemetry during labor and for 24 hours Plan reviewed with patient. She vocalized understanding all questions answered. [facility], the CDC, and other organizations representing maternal and public health professionals recommend that , , and lactating people and those considering receive the COVID-19 vaccination. Vaccination is the best method to reduce maternal and complications of SARS-CoV-2 infection. This document was created with WeHack.It technology. Though I make every effort to review the dictation as it is transcribed, on occasion the spoken word can be misinterpreted by the technology leading to inappropriate words, phrases, or sentences. This note is addressed to the requesting provider as a consultation for clinical guidance. Specific medical abbreviations are occasionally used and those are generally approved by the [place]?Board of?Obstetrics and?Gynecology?as well as?[place] s abbreviations. The above plan of care was based solely on the diagnoses for which a consultation was requested. ?More frequent testing may be indicated based on her other medical/obstetrical conditions. The management of other or medical conditions is beyond the scope of requested consultation and will continue to be followed by the primary steam service inspector or primary care provider. Thank you for [...] procedures Referring and communicating with other health healthcare insurance sales agent (not separately reported) Documenting clinical information in [...] patient Have you been seen here at [facility] in a previous ? no Recent ER visits or hospitalizations? no Bring blood sugar log or meter with you today? (Please bring them with you for every visit at [facility]) Traveled outside the country in the past 6 month no Any concerns that you would like me to mention to the provider today? No concerns documented in this encounter [facility] 12-10-2023 Miscellaneous Notes Pt seen in [...] asked for it to be emailed to [email or web address]. Work note emailed to Pt. documented in this encounter [facility] 12-10-2023 Telephone encounter Note Pt seen in Office on December 09 for yeast infection. Pt states she is having a lot of pain. Pt is requesting work excuse note for today. Please advise. Thank you [facility] 12-10-2023 Telephone encounter Note Please provide work note for today only. I did sent prescriptions for her and she should begin them zoraida. Thank you. [facility] 12-10-2023 Telephone encounter Note Advised Pt work note can be provided. Pt asked for it to be emailed to [email or web address]. Work note emailed to Pt. [facility] 12-09-2023 History of Presen t illness Narrative [...] All questions answered. Educational material provided through SalesLoft. RTO for next scheduled visit or sooner as needed. Patient has her MFM consult and anatomy scan next week. PEEWEE MOTLEY, NITO Coello 12/09/23 1431 documented in this encounter [facility] 11-23-2023 Miscellaneous Notes Pt states she had Echo cardiogram done last week & does not understand the results. Procedure was ordered by Dr. Meza. Pt was seen in this Office on November 17, 2023. Please advise. Thank you MAKE APPT TO DISCUSS RESULTS PLS Pt scheduled appt with Dr Valdez on November 24. documented [facility] encounter [facility] Telephone encounter Note Pt states she had Echo cardiogram done last week & does not understand the results. Procedure was ordered by Dr. Meza. Pt was seen in this Office on November 17, 2023. Please advise. Thank you [facility] 11-23-2023 Telephone encounter Note MAKE APPT TO DISCUSS RESULTS PLS [facility] Work Phone: 11-23-2023 Telephone encounter Note Pt scheduled appt with Dr Valdez on November 24. [facility] 11-12-2023 Miscellaneous Notes Call rec.'d from ans. [...] and verbalized understanding. [facility]23 Telephone encounter Note Call rec.'d from [...] plan of care and verbalized understanding. [facility] Evaluation note Diagnosis Vaginal discharge- Primary Leukorrhea, not specified as infective Vagina itching Pruritus of genital organs Vaginal irritation Pruritus of genital organs Nausea/vomiting in Unspecified vomiting of , unspecified as to episode of care Constipation during in second trimester [facility] Diagnosis Bacterial vaginosis in - Primary Vaginal yeast infection Candidiasis of vulva and vagina with 20 completed weeks gestation [facility] Diagnosis Nonrheumatic mitral valve regurgitation- Primary Drug use affecting , antepartum History of acute congestive heart failure documented [facility] this [facility]* Diagnosis High-risk in second trimester- Primary Drug use affecting , antepartum History of acute congestive heart failure Nonrheumatic mitral valve regurgitation Echogenic intracardiac focus of fetus on ultrasound 21 weeks gestation of Nausea/vomiting in Unspecified vomiting of , unspecified as to episode of care Constipation during in second trimester [facility] Diagnosis with 21 completed weeks gestation- Primary documented [facility] this [facility]* Diagnosis Mitral valve insufficiency, unspecified etiology- Primary Gestational edema in third trimester [facility] Diagnosis 25 weeks gestation of - Primary Second trimester state, incidental History of congenital mitral regurgitation History of CHF (congestive heart failure) Personal history of other diseases of circulatory system [facility] System[facility]ructionsNot on filedocumented in this encounter [facility] System[facility]ructionsNot on filedocumented in this [facility]* Attachments The following attachments cannot be sent through Care Everywhere. * High Fiber Diet (Urdu) * The Fifth Month (Urdu) * Vaginitis (Urdu) documented in [facility] System[facility]ructionsNot on file documented in this encounterProOhio[facility] SystemInstructionsNot on file documented in this encounterProOhiohealth [facility] SystemInstructionsNot on file documented in this encounterSt. [facility] SystemInstructions* Attachments The following attachments cannot be sent through Care Everywhere. * How to Prepare Baby Formula (Urdu) * Kangaroo Care (Urdu) documented in this encounterProOhio[facility] SystemInstructionsNot on file documented in this encounterProOhiohealth [facility] SystemInstructionsNot on file documented in this encounterProSalem City HospitalReason for referral (narrative)* Consultation (Routine) - Pending Review Specialty Diagnoses / Procedures Referred By Contac t Referred To Contact Obstetrics and Gynecology Diagnoses 25 weeks gestation of Second trimester History of congenital mitral regurgitation History of CHF (congestive heart failure) Tamie Velásquez APRN-CNM [id number] [facility] [place] [address] [facility] [address] [place] [address] Referral ID Status Reason Start Date Expiration Date Visits Requested Visits Authorized [id number] Pending Review Specialty Services Required 01/13/2024 01/12/2025 1 1 [facility] Summary Purpose Family History No [...] of acute congestive heart failure Procedures US [facility] with or without consult Jossy Nunes MD [address], [address] [place] [id number] [facility] Maternal Med [address] [place] [address] Referral ID Status Reason Start Date Expiration Date V isits Requested Visits Authorized [id number] Pending Review 12/16/2023 12/15/2024 1 1 Additional Source Comments INFORMATION SOURCE (unrecogn ized section and content) DATE CREATED AUTHOR 07/21/2019 [facility] DATE CREATED AUTHOR AUTHOR'S ORGANIZ ATION 12/12/2023 [facility] DATE CREATED AUTHOR AUTHOR'S ORGANIZ ATION 01/21/2024 [facility] DATE CREATED AUTHOR AUTHOR'S ORGANIZ ATION 04/06/2024 [facility] EPIC DATE CREATED AUTHOR AUTHOR'S ORGANIZ ATION 04/06/2024 [facility] Care Teams (unrecognized sec tion and content) Media Assistant Relationship Specialty Start Date End Date Services, [facility] [address] [place] - General Family Medicine 09/04/23 Media Assistant Relationship Specialty Start Date End Date Services, [facility] [address] [place] - General Family Medicine 09/04/23 Media Assistant Relationship Specialty Start Date End Date Services, [facility] [address] [place] - General Family Medicine 09/04/23 Media Assistant Relationship Specialty Start Date End Date Services, [facility] [address] [place] - General Family Medicine 09/04/23 Media Assistant Relationship Specialty Start Date End Date Services, [facility] [address] [place] - General Family Medicine 09/04/23 Media Assistant Relationship Specialty Start Date End Date Services, [facility] [address] [place] - General Family Medicine 09/04/23 Media Assistant Relationship Specialty Start Date End Date Services, [facility] [address] [place] - General Family Medicine 09/04/23 Media Assistant Relationship Specialty Start Date End [facility] [address] [place] P[place] - General Family Medicine 09/04/23 Media Assistant Relationship Specialty Start Date End Date Services, [facility] [address] [place] - General Family Medicine 09/04/23 Reason for Visit (unrecogniz ed section and content) Reason Comments Vaginitis Reason Comments mfm consult Reason Comments Routine Visit Reason Comments New Patient SIGNALS OFFICER Mitral valve insu fficiency, unspecified etiology L/S [facility] 08/2020 PT is in her first trimester due in April 2024. no testing per patient sched w/pt Specialty Diagnoses / Procedures Referred By Cassius t Referred To Contact Cardiology Diagnoses Mitral valve insufficiency, unspecified etiology Dominik Meza MD [address] [place] [address] [facility] [address] [id number] Referral ID Status Reason Start Date Expiration Date Visits Requested Visits Authorized [id number] Pending Review Specialty Services Required 09/28/2023 09/27/2024 [...] BE BASED ON THE PRIMARY CLINICAL RECORDS. [employer] [facility] provides no warranty or guarantee of the accuracy or completeness of information in this document.
== END 2024-04-08 13:40 | disposition home or self-care (01) ==
LOC: US 02:51 → FBC 12:55
PROVIDERS: Visit Provider Obstetrics & Gynecology
DX: I51.9 Heart disease, unspecified (principal); Z3A.37 37 weeks gestation of pregnancy
CPT/HCPCS: 76818

== ENCOUNTER 2024-04-17 05:43 | Inpatient (IN) | payer OTHER, SELFPAY ==
[2024-04-17] VITALS (111 sets, daily range): BP systolic 92–146; BP diastolic 53–88; PULSE 61–102; TEMP 35.9–37.4; O2SAT 95–100
--- OUTSIDE RECORDS SUMMARY | 2024-04-17 05:46 | XMS_ITS | CCD ---
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 Role Phone ZIGGY PAZ Admitting Unavailable ZIGGY PAZ Attending Unavailable REQUEST, NONE LISTED Primary Care Unavailable ZIGGY PAZ Consulting Unavailable KARRICHARD BARNES Admitting Unavailable KARASIK, RICHARD Attending Unavailable REQUEST, NONE LISTED Primary Care Unavailable RICHARD GARCÍA Consulting Unavailable HUBER SIBLEY V Consulting Unavailable KARASIK, RICHARD Admitting Unavailable KARASIK, RICHARD Attending Unavailable REQUEST, NONE LISTED Primary Care Unavailable KARASIK, RICHARD Consulting Unavailable RENZO SLOAN R Consulting Unavailable PAN ABDELRAHMAN Admitting Unavailable PANWYATTY Attending Unavailable KARASIK, RICHARD Admitting Unavailable KARASIK, RICHARD Attending Unavailable KARASIK, RICHARD Consulting Unavailable FREDDYEBRENZO ZHAO R Consulting Unavailable KARASIK, RICHARD Admitting Unavailable KARASIK, RICHARD Attending Unavailable KARASIK, RICHARD Consulting Unavailable KARASIK, RICHARD Admitting Unavailable KARASIK, RICHARD Attending Unavailable REQUEST, NONE LISTED Primary Care Unavailable KARASIK, RICHARD Consulting Unavailable KARASIK, RICHARD Procedure Practitioner Unavaila SAMMIE Melgar Consulting Unavailable Services, [facility] Primary Care Provider ANDRESSA GALLAGHER Referring Unavailable SERVICES, [facility] Primary Care Unava ilable SERVICES, [facility] Primary Care Unava ilable SERVICES, [facility] Primary Care Unava ilable TAMIE VELÁSQUEZ Referring Unavailable SERVICES, [facility] Primary Care Unava ilable MOUSSA, HIND NADIM Attending Unavailable TAMIE VELÁSQUEZ Referring Unavailable SERVICES, [facility] Primary Care Unava ilable ANDRESSA GALLAGHER Attending Unavailable SERVICES, [facility] Unava ilable SERVICES, [facility] Unava ilable SERVICES, [facility] Unava ilable NAKUL, SAVI Torrez Attending Unavailab le NEVERAUSBARBARA, SAVI Torrez Attending Unavailab le NEVERAUSBARBARA, SAVI Torrez Referring Unavailab le SERVICES, [facility] Unava ilable AHMED, ABEER Attending Unavailable AHMED, ABEER Referring Unavailable SERVICES, [facility] Unava ilable TAMIE VELÁSQUEZ Referring Unavailable SERVICES, [facility] Unava ilable TAMIE VELÁSQUEZ Referring Unavailable SERVICES, [facility] Unava ilable JUNG, TIBERIU S Admitting Unavailable JUNG, TIBERIU S Attending Unavailable SERVICES, [facility] Unava ilable SERVICES, [facility] Unava ilable SHAYY AGARWAL Attending Unavailable JEFFREYKAL Baker Attending Unavailable AHMED, ABEER Referring Unavailable SERVICES, [facility] Unava ilable TAMIE VELÁSQUEZ Referring Unavailable SERVICES, [facility] Unava ilable HOLLY ROMEO L Referring Unavailable SERVICES, [facility] Unava ilable COLE, EDUAR Referring Unavailable SERVICES, [facility] Unava ilable PAN, ABDELRAHMAN Attending Unavailable DEBRA, NELLI Attending Unavailable PAN, ABDELRAHMAN Attending Unavailable DEBRA, NELLI Attending Unavailable PAN, ABDELRAHMAN Attending Unavailable PAN, ABDELRAHMAN Attending Unavailable DEBRA, NELLI Attending Unavailable Medications Current Medications Medication Drug [...] applicable or unspecified; Translations: [MAT CARE OT MD FTL GRTH 3RD TM UNS] Onset: 05-12-2019 [...] width (RBC) [Ratio] 13.1 % Normal 11.5-15.0 [facility] Comment on above: Performed By: #### Anabella VERGARA, 1504-0, 69154-1 #### [facility] ([id number]) [address], [address] [place] [address] Hematocrit (Bld) [Volume fraction] 30.3 % Low 35-47 [facility] Comment on above: Performed By: #### Anabella VERGARA, 1504-0, 39046-0 #### [facility] ([id number]) [address], [address] [place] [address] Hemoglobin (Bld) [Mass/Vol] 10.4 g/dL Low 11.7-15.5 [facility] Comment on above: Performed By: #### Anabella VERGARA, 1504-0, 61914-4 #### [facility] ([id number]) [address], [address] [place] [address] MCH (RBC) [Entitic mass] 31.2 pg Normal 27-34 [facility] Comment on above: Performed By: #### Anabella VERGARA, 1504-0, 77124-2 #### [facility] ([id number]) [address], [address] [place] [address] MCHC (RBC) [Mass/Vol] 34.3 g/dL Normal 32-36 [facility] Comment on above: Performed By: #### Anabella VERGARA, 1504-0, 82814-1 #### [facility] ([id number]) [address], [address] [place] [address] MCV (RBC) [Entitic vol] 91 fL Normal 80-100 [facility] Comment on above: Performed By: #### Anabella VERGARA, 1504-0, 84150-2 #### [facility] ([id number]) [address], [address] [place] [address] Platelet mean volume (Bld) [Entitic vol] 10.0 fL Normal 7-12 [facility] Comment on above: Performed By: #### Anabella VERGARA, 1504-0, 82729-1 #### [facility] ([id number]) [address], [address] [place] [address] Platelets (Bld) [#/Vol] 152 10*3/uL Normal 150-450 [facility] Comment on above: Performed By: #### Anabella VERGARA, 1504-0, 73147-8 #### [facility] ([id number]) [address], [address] [place] [address] RBC COUNT 3.33 X10E12/L Low 3.80-5.20 [facility] Comment on above: Performed By: #### Anabella VERGARA, 1504-0, 68654-2 #### [facility] ([id number]) [address], [address] [place] [address] WBC (Bld) [#/Vol] 6.1 10*3/uL Normal 4.0-11.0 [facility] Comment on above: Performed By: #### C , 1504-0, 47221-6 #### [facility] ([id number]) [address] [place] [address] Glucose 1 Hr post 50 g gluco se PO [Mass/Vol]on 02-15-2024 GLU 1H POST 50G LOAD 102 mg/dL Normal 65-139 [facility] Comment on above: Performed By: #### C , 1504-0, 13971-8 #### [facility] ([id number]) [address] [address], [address] [place] [address] T. pallidum IgG+IgM IA Ql (S )on 02-15-2024 Syphilis Total <0.2 Normal 0.0-0.8 [facility] Comment on above: Result Comment: NON REACTIVE No serologic evidence of infection to Treponema pallidum (syphilis). Repeat testing may be considered in patients with suspected acute or primary syphilis in 2 to 4 weeks. Performed By: #### Anabella , 1504-0, 67319-6 #### [facility] ([id number]) [address] [facility] [address], [address] [place] [address] POCT EKGon 01-05-2024 [facility] VAGINITIS PANEL PCRon 2023 VAGINITIS PANEL PCR [...] clinical presentation to determine patient diagnosis. Normal [facility] Comment on above: Performed By: #### V PPCR #### [facility] ([id number]) [address], [address] [place] [address] URINE CULTUREon 11-12-2023 Bacteria identified Cx Nom (U) CULTURE RESULTS 10-50,000 ORGANISMS/mL NORMAL UROGENITAL PAYTON Normal [facility] Comment on above: Performed By: #### 6 30-4 #### [facility] ([id number]) [address] [place] [address] URN MACROSCOPIC NURon 2022 BILIRUBIN MERY Negative Normal NEG [facility] Comment on above: Performed By: #### N UM #### [facility] ([id number]) [address] [place] [address] BLOOD/HGB MERY Trace Abnormal NEG [facility] Comment on above: Performed By: #### N UM #### [facility] ([id number]) [address] [place] [address] GLUCOSE MERY Negative Normal NEG [facility] Comment on above: Performed By: #### N UM #### [facility] ([id number]) [address] [place] [address] KETONES MERY 15 mg/dL Abnormal NEG [facility] Comment on above: Performed By: #### N UM #### [facility] ([id number]) [address] [place] [address] LEUKOCYTE ESTERASE MERY Trace Abnormal NEG [facility] Comment on above: Performed By: #### N UM #### [facility] ([id number]) [address] [place] [address] NITRITE MERY Negative Normal NEG [facility] Comment on above: Performed By: #### N UM #### [facility] ([id number]) [address] [place] [address] PH MERY 6.0 Normal 5.0-8.5 [facility] Comment on above: Performed By: #### N UM #### [facility] ([id number]) [address] [place] [address] PROTEIN MERY 100 mg/dL Abnormal NEG [facility] Comment on above: Performed By: #### N UM #### [facility] ([id number]) [address] [place] [address] SPECIFIC GRAVITY MERY >=1.030 Normal 1.003-1.035 [facility] Comment on above: Performed By: #### N UM #### [facility] ([id number]) [address] [place] [address] UROBILINOGEN MERY 0.2 eu/dL Normal <1.1 [facility] Comment on above: Performed By: #### N UM #### [facility] ([id number]) [address] [place] [address] BARBITUATE CONFIRMATION, URI NEon 06-11-2019 Amobarbital Negative Normal Csfdth=330 [facility] Comment on above: Performed By: #### ALEXANDRA OLIVIA #### [facility] [address] [place] [address] Randi Sandra Barbiturates Positive Abnormal [facility] Comment on above: Performed By: #### ALEXANDRA OLIVIA #### [facility] [address] [place] [address] Randi Sandra Butalbital Positive Abnormal [facility] Comment on above: Performed By: #### ALEXANDRA OLIVIA #### [facility] [address] [address] Randi Sandra Butalbital GC/MS Conf 361 ng/mL Normal Accaiz=034 [facility] Comment on above: Performed By: #### ALEXANDRA OLIVIA #### [facility] [address] [place] [address] Randi Sandra Phenobarbital [Mass/Vol] Negative Normal Bcnopj=472 [facility] Comment on above: Performed By: #### ALEXANDRA OLIVIA #### [facility] [address] [place] [address] Randi Sandra Phentobarbital Negative Normal Obgvrt=894 [facility] [place] [facility] Comment on above: Performed By: #### ALEXANDRA OLIVIA #### [facility] [address] [place] [address] Randi Sandra Secobarbital Negative Normal Cdgmnq=986 [facility] Comment on above: Performed By: #### ALEXANDRA OLIVIA #### [facility] [address] [place] [address] Randi Sandra CANNABINOID (THC) CONFIRMATI ON, URINEon 06-10-2019 Cannabinoid Positive Abnormal [facility] Comment on above: Performed By: #### ALEXANDRA OLIVIA #### [facility] [address] [place] [address] Randi Sandra Carboxy THC GC/MS Conf 76 ng/mL Normal Cutoff=10 [facility] Comment on above: Performed By: #### ALEXANDRA OLIVIA #### [facility] [address] [place] [address] Randi Sandra CBC AUTO DIFFon 06-06-2019 Basophils (Bld) [#/Vol] 0.0 103/ul Normal 0.0-0.1 [facility] Comment on above: Performed By: #### ALEXANDRA OLIVIA #### [facility] [address] [place] [address] Randi Sandra Basophils/100 WBC (Bld) 0.4 % Normal 0.2-2.0 [facility] Comment on above: Performed By: #### ALEXANDRA OLIVIA #### [facility] [address] [place] [address] Randi Sandra Eosinophils (Bld) [#/Vol] 0.1 103/ul Normal 0.0-0.7 [facility] Comment on above: Performed By: #### ALEXANDRA OLIVIA #### [facility] [address] [place], [place] [address] Randi Sandra Eosinophils/100 WBC (Bld) 0.6 % Critically low 0.9-7.0 [facility] Comment on above: Performed By: #### ALEXANDRA OLIVIA #### [facility] [address] [place] [address] Randi Sandra Erythrocyte distribution width (RBC) [Ratio] 13.8 % Normal 11.0-15.0 [facility] Comment on above: Performed By: #### ALEXANDRA OLIVIA #### [facility] [address] [place] [address] Randi Sandra Hematocrit (Bld) [Volume fraction] 25.0 % Critically low 36.0-48.0 [facility] Comment on above: Performed By: #### ALEXANDRA OLIVIA #### [facility] [address] [place] [address] Randi Sandra Hemoglobin (Bld) [Mass/Vol] 8.0 g/dL Critically low 12.0-16.0 [facility] Comment on above: Performed By: #### ALEXANDRA OLIVIA #### [facility] [address] [place], [place] [address] Randi Sandra IG # 0.13 10e3/ul Critically high 0.00-0.03 [facility] Comment on above: Performed By: #### EPHRAIM OLIVIARO #### [facility] [address] [place], [place] [address] Randi Sandra IG % 1.6 % Critically high 0.0-0.5 The [facility] Comment on above: Performed By: #### EPHRAIM OLIVIARO #### [facility] [address] [place], [place] [address] Randi Sandra Lymphocytes (Bld) [#/Vol] 1.9 103/ul Normal 1.2-3.8 [facility] Comment on above: Performed By: #### ALEXANDRA OLIVIA #### [facility] [address] [place], [place] [address] Randi Sandra Lymphocytes/100 WBC (Bld) 22.5 % Normal 20.5-60.0 [facility] [place] Comment on above: Performed By: #### ALEXANDRA OLIVIA #### [facility] [address] [place], [place] [address] Randi Sandra MANUAL DIFF REQ NO Normal [facility] Comment on above: Performed By: #### ALEXANDRA OLIVIA #### [facility] [address] [place] [address] Randi Sandra MCH (RBC) [Entitic mass] 28.0 pg Normal 26.7-34.0 [facility] [place] Comment on above: Performed By: #### ALEXANDRA OLIVIA #### [facility] [address] [place] [address] Randi Sandra MCHC (RBC) [Mass/Vol] 32.0 g/dL Normal 29.9-35.2 [facility] Comment on above: Performed By: #### ALEXANDRA OLIVIA #### [facility] [address] [place] [address] Randi Sandra MCV (RBC) [Entitic vol] 87.4 fL Normal 81.0-99.0 [facility] Comment on above: Performed By: #### ALEXANDRA OLIVIA #### [facility] [address] [place] [address] Randi Sandra Monocytes (Bld) [#/Vol] 0.6 103/ul Normal 0.3-0.8 [facility] Comment on above: Performed By: #### ALEXANDRA OLIVIA #### [facility] [address] [place] [address] Randi Sandra Monocytes/100 WBC (Bld) 6.7 % Normal 1.7-12.0 [facility] Comment on above: Performed By: #### ALEXANDRA OLIVIA #### [facility] [address] [place], [place] [address] Randi Sandra Neutrophils (Bld) [#/Vol] 5.6 103/ul Normal 1.4-6.5 [facility] [place] Comment on above: Performed By: #### ALEXANDRA OLIVIA #### [facility] [address] [place], [place] [address] Randi Sandra Neutrophils/100 WBC (Bld) 68.2 % Normal 43.0-75.0 [facility] [place] Comment on above: Performed By: #### EPHRAIM OLIVIARO #### [facility] [address] [place], [place] [address] Randi Sandra Platelet mean volume (Bld) [Entitic vol] 12.9 fL Normal 9.5-13.5 [facility] [place] Comment on above: Performed By: #### ALEXANDRA OLIVIA #### [facility] [address] [place], [place] [address] Randi Sandra Platelets (Bld) [#/Vol] 103 103/ul Critically low 150-450 [facility] [place] Comment on above: Performed By: #### ALEXANDRA OLIVIA #### [facility] [address] [place], [place] [address] Randi Sandra RBC (Bld) [#/Vol] 2.86 106/ul Critically low 4.20-5.40 [facility] Comment on above: Performed By: #### EPHRAIM OLIVIARO #### [facility] [address] [place], [place] [address] Randi Sandra WBC (Bld) [#/Vol] 8.3 103/ul Normal 4.0-11.0 [facility] Comment on above: Performed By: #### EPHRAIM OLIVIARO #### [facility] [address] [place], [place] [address] Randi Sandra ABO AND RH TYPEon 06-05-2019 ABO and Rh group Nom (Bld) ABO Rh Typing O Rh Positive Normal [facility] [place] Comment on above: Performed By: #### EPHRAIM OLIVIARO #### [facility] [address] [place], [place] [address] Randi Sandra CBC AUTO DIFFon 06-05-2019 Basophils (Bld) [#/Vol] 0.0 103/ul Normal 0.0-0.1 [facility] [place] Comment on above: Performed By: #### C BC #### [facility] [address] [place], [place] [address] Randi Sandra Basophils/100 WBC (Bld) 0.4 % Normal 0.2-2.0 [facility] Comment on above: Performed By: #### C BC #### [facility] [address] [place] [address] Randi Sandra Eosinophils (Bld) [#/Vol] 0.0 103/ul Normal 0.0-0.7 [facility] Comment on above: Performed By: #### C BC #### [facility] [address] [place] [address] Randi Sandra Eosinophils/100 WBC (Bld) 0.3 % Critically low 0.9-7.0 [facility] [place] Comment on above: Performed By: #### C BC #### [facility] [address] [place] [address] Randi Sandra Erythrocyte distribution width (RBC) [Ratio] 13.6 % Normal 11.0-15.0 [facility] [place] Comment on above: Performed By: #### C BC #### [facility] [address] [place] [address] Randi Sandra Hematocrit (Bld) [Volume fraction] 26.8 % Critically low 36.0-48.0 [facility] Comment on above: Performed By: #### C BC #### [facility] [address] [place] [address] Randi Sandra Hemoglobin (Bld) [Mass/Vol] 8.8 g/dL Critically low 12.0-16.0 [facility] Comment on above: Performed By: #### C BC #### [facility] [address] [place] [address] Randi Sandra IG # 0.03 10e3/ul Normal 0.00-0.03 [facility] Comment on above: Performed By: #### C BC #### [facility] [address] [id number] Randi Sadnra IG % 0.4 % Normal 0.0-0.5 [facility] Comment on above: Performed By: #### C BC #### [facility] [address] [place], [place] [address] Randi Sandra Lymphocytes (Bld) [#/Vol] 1.9 103/ul Normal 1.2-3.8 [facility] Comment on above: Performed By: #### C BC #### [facility] [address] [place], [place] [address] Randi Sandra Lymphocytes/100 WBC (Bld) 25.2 % Normal 20.5-60.0 [facility] Comment on above: Performed By: #### C BC #### [facility] [address] [place], [place] [address] Randi Sandra MANUAL DIFF REQ NO Normal [facility] Comment on above: Performed By: #### C BC #### [facility] [address] [place], [place] [address] Randi Sandra MCH (RBC) [Entitic mass] 28.3 pg Normal 26.7-34.0 [facility] Comment on above: Performed By: #### C BC #### [facility] [address] [place], [place] [address] Randi Sandra MCHC (RBC) [Mass/Vol] 32.8 g/dL Normal 29.9-35.2 [facility] Comment on above: Performed By: #### C BC #### [facility] [address] [place], [place] [address] Randi Sandra MCV (RBC) [Entitic vol] 86.2 fL Normal 81.0-99.0 [facility] Comment on above: Performed By: #### C BC #### [facility] [address] [place], [place] [address] Randi Sandra Monocytes (Bld) [#/Vol] 0.4 103/ul Normal 0.3-0.8 [facility] Comment on above: Performed By: #### C BC #### [facility] [address] [place], [place] [address] Randi Sandra Monocytes/100 WBC (Bld) 5.7 % Normal 1.7-12.0 [facility] [place] Comment on above: Performed By: #### C BC #### [facility] [address] [place], [place] [address] Randi Sandra Neutrophils (Bld) [#/Vol] 5.2 103/ul Normal 1.4-6.5 [facility] [place] Comment on above: Performed By: #### C BC #### [facility] [address] [place], [place] [address] Randi Sandra Neutrophils/100 WBC (Bld) 68.0 % Normal 43.0-75.0 [facility] [place] Comment on above: Performed By: #### C BC #### [facility] [address] [place] [address] Randi Sandra Platelet mean volume (Bld) [Entitic vol] 13.1 fL Normal 9.5-13.5 [facility] [place] Comment on above: Performed By: #### C BC #### [facility] [address] [place] [address] Randi Sandra Platelets (Bld) [#/Vol] 112 103/ul Critically low 150-450 [facility] [place] Comment on above: Result Comment: smea r reviewed, few giant plts seen Performed By: #### C BC #### [facility] [address] [place] [address] Randi Sandra RBC (Bld) [#/Vol] 3.11 106/ul Critically low 4.20-5.40 [facility] Comment on above: Performed By: #### C BC #### [facility] [address] [place], [place] [address] Randi Sandra WBC (Bld) [#/Vol] 7.6 103/ul Normal 4.0-11.0 [facility] Comment on above: Performed By: #### C BC #### [facility] [address] [place], [place] [address] Randi Sandra DRUG SCREEN RAPID (URINE)on 06-05-2019 AMP Negative Normal NEGATIVE [facility] Comment on above: Performed By: #### ALEXANDRA OLIVIA #### [facility] [address] [place] [address] Randi Sandra BAR Positive Normal NEGATIVE [facility] Comment on above: Performed By: #### ALEXANDRA OLIVIA #### [facility] [address] [place] [address] Randi Sandra BUP Negative Normal NEGATIVE [facility] Comment on above: Performed By: #### ALEXANDRA OLIVIA #### [facility] [address] [place] [address] Randi Sandra BZO Negative Normal NEGATIVE [facility] Comment on above: Performed By: #### ALEXANDRA OLIVIA #### [facility] [address] [place] [address] Randi Sandra LOREE Negative Normal NEGATIVE [facility] Comment on above: Performed By: #### ALEXANDRA OLIVIA #### [facility] [address] [place] [address] Randi Sandra CUT-OFFS SEE BELOW Normal [facility] [place] Comment on above: Result Comment: AMP (Amphetamine): 500ng/mL, BAR (Barbituates): 200 ng/mL, BZO (Benzodiazepines): 150 ng/mL, BUP (Buprenorphine): 10 ng/mL, LOREE (Cocaine): 150 ng/mL, mAMP (Methamphetamine): 500 ng/mL, MTD (Methadone): 200 ng/mL, OPI (Opiates): 100 ng/mL or 2000 ng/mL, OXY (Oxycodone): 100 ng/mL, PCP (Phencyclidine): 25 ng/mL, PPX (Propoxyphene): 300 ng/mL, THC (Cannabinoids): 50 ng/mL, TCA (Trycyclic Antidepressants): 300 ng/mL Performed By: #### EPHRAIM OLIVIARO #### [facility] [address] [place] [address] Sandra DRUG CUT HEADER DRUG CLASS TEST SYSTEM CUT-OFF CONCENTRATIONS ARE FOLLOWS: Normal [facility] Comment on above: Performed By: #### ALEXANDRA OILVIA #### [facility] [address] [place] [address] Randi Sandra mAMP Negative Normal NEGATIVE [facility] Comment on above: Performed By: #### EPHRAIM OLIVIARO #### [facility] [address] [place] [address] Randi Sandra MTD Negative Normal NEGATIVE [facility] Comment on above: Performed By: #### EPHRAIM OLIVIARO #### [facility] [address] [place] [address] Randi Sandra OPI Negative Normal NEGATIVE [facility] Comment on above: Performed By: #### EPHRAIM OLIVIARO #### [facility] [address] [place] [address] Randi Sandra OXY Negative Normal NEGATIVE [facility] Comment on above: Performed By: #### EPHRAIM OLIVIARO #### [facility] [address] [place] [address] Randi Sandra PCP Negative Normal NEGATIVE [facility] Comment on above: Performed By: #### EPHRAIM OLIVIARO #### [facility] [address] [place] [address] Randi Sandra PPX Negative Normal NEGATIVE [facility] Comment on above: Performed By: #### EPHRAIM OLIVIARO #### [facility] [address] [place] [address] Randi Sandra TCA Negative Normal NEGATIVE [facility] Comment on above: Performed By: #### EPHRAIM OLIVIARO #### [facility] [address] [place] [address] Randi Sandra THC Positive Normal NEGATIVE [facility] Comment on above: Performed By: #### EPHRAIM OLIVIARO #### [facility] [address] [place] [address] Randi Sandra GROUP B STREP CULTUREon 04-23 S. agalactiae Ag Ql (Unsp spec) Culture Observations: Negative for Group B Streptococcus. Normal [facility] Comment on above: Performed By: #### G BSCX #### [facility] [address] [place] [address] Randi Flores US PREG GROWTHon 05-12-2019 US PREG GROWTH Patient: CONNIE RAMIREZ Exam Date: 05/12/2019 : 1990 Gender:F Ordering : DR RICHARD GARCÍA . Admission #: [id number] Family : Order #: [id number] CLICK HERE TO VIEW EXAM RADIOLOGY REPORT PROCEDURE: ULTRASOUND GROWTH COMPARISON: None. INDICATIONS: Whzkd-ylt-bpusk baby P05.10; 35w0d TECNIQUE: Transabdominal sonographic examination [...] Sloan M.D. on 05/12/2019 at 14:02 Normal [facility] [place] US PREG REEVAL ABNon 03-09- 019 US PREG REEVAL ABN [address] [place] [address] Patient: CONNIE RAMIREZ Exam Date: 03/09/2019 : 1990 Gender:F Ordering : DR RICHARD GARCÍA . Admission #: [id number] Family : Order #: [id number] CLICK HERE TO VIEW EXAM RADIOLOGY REPORT [...] Sloan M.D. on 03/09/2019 at 17:13 Normal [facility] PREG ANATOMY SINGLEon PREG ANATOMY SINGLE [address] [place] [address] Patient: CONNIE RAMIREZ Exam Date: 01/17/2019 : 1990 Gender:F Ordering : DR RICHARD GARCÍA . Admission #: [id number] Family : Order #: [id number] CLICK HERE TO VIEW EXAM RADIOLOGY REPORT [...] M.D. on 01/17/2019 at 10:21 Normal [facility] CBC AUTO DIFFon 10-28-2018 Basophils (Bld) [#/Vol] 0.0 103/ul Normal 0.0-0.1 [facility] Comment on above: Performed By: #### C BC #### [facility] [address] [place] [address] Randi Sandra Basophils/100 WBC (Bld) 0.5 % Normal 0.2-2.0 [facility] [place] Comment on above: Performed By: #### C BC #### [facility] [address] [place] [address] Randi Sandra Eosinophils (Bld) [#/Vol] 0.0 103/ul Normal 0.0-0.7 [facility] [place] Comment on above: Performed By: #### C BC #### [facility] [address] [place], [place] [address] Randi Sandra Eosinophils/100 WBC (Bld) 0.3 % Critically low 0.9-7.0 [facility] [place] Comment on above: Performed By: #### C BC #### [facility] [address] [place] [address] Randi Sandra Erythrocyte distribution width (RBC) [Ratio] 12.2 % Normal 11.0-15.0 [facility] Comment on above: Performed By: #### C BC #### [facility] [address] [place] [address] Randi Sandra Hematocrit (Bld) [Volume fraction] 35.3 % Critically low 36.0-48.0 [facility] Comment on above: Performed By: #### C BC #### [facility] [address] [place], [place] [address] Randi Sandra Hemoglobin (Bld) [Mass/Vol] 12.4 g/dL Normal 12.0-16.0 [facility] Comment on above: Performed By: #### C BC #### [facility] [address] [place] [id number] Randi Sandra IG # 0.01 10e3/ul Normal 0.00-0.03 [facility] Comment on above: Performed By: #### C BC #### [facility] [address] [place] [address] Randi Sandra IG % 0.2 % Normal 0.0-0.5 [facility] Comment on above: Performed By: #### C BC #### [facility] [address] [place] [address] Randi Sandra Lymphocytes (Bld) [#/Vol] 2.4 103/ul Normal 1.2-3.8 [facility] Comment on above: Performed By: #### C BC #### [facility] [address] [place], [place] [address] Randi Sandra Lymphocytes/100 WBC (Bld) 39.3 % Normal 20.5-60.0 [facility] Comment on above: Performed By: #### C BC #### [facility] [address] [place], [place] [address] Randi Sandra MANUAL DIFF REQ NO Normal The [facility] Comment on above: Performed By: #### C BC #### [facility] [address] [place], [place] [address] Randi Sandra MCH (RBC) [Entitic mass] 30.8 pg Normal 26.7-34.0 [facility] Comment on above: Performed By: #### C BC #### [facility] [address] [place], [place] [address] Randi Sandra MCHC (RBC) [Mass/Vol] 35.1 g/dL Normal 29.9-35.2 [facility] Comment on above: Performed By: #### C BC #### [facility] [address] [place], [place] [address] Randi Sandra MCV (RBC) [Entitic vol] 87.6 fL Normal 81.0-99.0 [facility] [place] Comment on above: Performed By: #### C BC #### [facility] [address] [place] [address] Randi Sandra Monocytes (Bld) [#/Vol] 0.4 103/ul Normal 0.3-0.8 [facility] Comment on above: Performed By: #### C BC #### [facility] [address] [place] [address] Randi Sandra Monocytes/100 WBC (Bld) 6.8 % Normal 1.7-12.0 [facility] [place] Comment on above: Performed By: #### C BC #### [facility] [address] [place], [place] [address] Randi Sandra Neutrophils (Bld) [#/Vol] 3.2 103/ul Normal 1.4-6.5 [facility] [place] Comment on above: Performed By: #### C BC #### [facility] [address] [place] [address] Randi Sandra Neutrophils/100 WBC (Bld) 52.9 % Normal 43.0-75.0 [facility] [place] Comment on above: Performed By: #### C BC #### [facility] [address] [place] [address] Randi Sandra Platelet mean volume (Bld) [Entitic vol] 10.9 fL Normal 9.5-13.5 [facility] Comment on above: Performed By: #### C BC #### [facility] [address] [place] [address] Randi Sandra Platelets (Bld) [#/Vol] 213 103/ul Normal 150-450 [facility] Comment on above: Performed By: #### C BC #### [facility] [address] [place], [place] [address] Randi Sandra RBC (Bld) [#/Vol] 4.03 106/ul Critically low 4.20-5.40 [facility] Comment on above: Performed By: #### C BC #### [facility] [address] [place] [address] Randi Sandra WBC (Bld) [#/Vol] 6.1 103/ul Normal 4.0-11.0 The [facility] Comment on above: Performed By: #### C BC #### [facility] [address] [place] [address] Randi Sandra ER URINE PROFILEon 8 Bilirubin [Mass/Vol] Negative Normal NEGATIVE [facility] Comment on above: Performed By: #### ALEXANDRA OLIVIA #### [facility] [address] [place] [address] Randi Sandra BLOOD TRACE-INTACT Normal NEGATIVE [facility] Comment on above: Performed By: #### ALEXANDRA OLIVIA #### [facility] [address] [place] [address] Randi Sandra Clarity (U) CLEAR Normal [facility] [place] Comment on above: Performed By: #### ALEXANDRA OLIVIA #### [facility] [address] [place] [address] Randi Sandra Color (U) YELLOW Normal YELLOW [facility] Comment on above: Performed By: #### ALEXANDRA OLIVIA #### [facility] [address] [place] [address] Randi Sandra ERUAHD A micrscopic examination will be performed if indicated. Normal [facility] Comment on above: Performed By: #### ALEXANDRA OLIVIA #### [facility] [address] [place] [address] Randi Sandra Glucose [Mass/Vol] Negative Normal NEGATIVE [facility] Comment on above: Performed By: #### ALEXANDRA OLIVIA #### [facility] [address] [place] [address] Randi Sandra Ketones Ql (U) TRACE Normal NEGATIVE [facility] [place] [facility] Comment on above: Performed By: #### ALEXANDRA OLIVIA #### [facility] [address] [place] [address] Randi Sandra Nitrite Ql (U) Negative Normal NEGATIVE [facility] Comment on above: Performed By: #### Rere VASQUEZ, UMICRO #### [facility] [address] [place], [place] [address] Randipancho Flores pH (Bld) 6.0 Normal 5-9 [facility] [place] Comment on above: Performed By: #### Rere VASQUEZ, UMICRO #### [facility] [address] [place], [place] [address] Randi Sandra Protein (U) [Mass/Vol] Negative Normal [facility] [place] Comment on above: Performed By: #### Rere VASQUEZ UMICRO #### [facility] [address] [place], [place] [address] Randipancho Flores SPEC GRAVITY >=1.030 Normal 1.005-<=1.025 [facility] Comment on above: Performed By: #### Rere VASQUEZ, UMICRO #### [facility] [address] [place], [place] [address] Randi Flores UR MICRO IND INDICATED Normal [facility] [place] Comment on above: Performed By: #### Rere VASQUEZ UMICRO #### [facility] [address] [place], [place] [address] Randipancho Flores Urobilinogen Qn (U) 0.2 EU/dl Normal [facility] Comment on above: Performed By: #### Rere VASQUEZ UMICRO #### [facility] [address] [place], [place] [address] Randipancho Flores WBC (Bld) [#/Vol] Negative Normal NEGATIVE [facility] Comment on above: Performed By: #### Rere VASQUEZ, UMICRO #### [facility] [address] [place], [place] [address] Randipancho Flores PREG QUANT HCGon 10-28-2018 HCG QUANT 46155.00 mIU/mL Normal [facility] Comment on above: Performed By: #### Omar MP, PREGQNT #### [facility] [address] [place], [place] [address] Randi Sandra HCG RANGE SEE BELOW Normal [facility] [place] Comment on above: Result Comment: 5-50 0-1 WEEK 40-300 1-2 WEEKS 100-1,000 2-3 WEEKS 500-6,000 3-4 WEEKS 5,000-200,000 1-2 MONTHS 10,000-100,000 2-3 MONTHS 3,000-50,000 2ND TRIMESTER 1,000-50,000 3RD TRIMESTER Performed By: #### B HANG, PREGQNT #### [facility] [address] [place] [address] Randi Sandra PROF CHEM 8 (BAS METB)on Anion gap [Moles/Vol] 12.1 mmol/L Normal [facility] [place] Comment on above: Performed By: #### B HANG, PREGQNT #### [facility] [address] [place] [address] Randi Sandra Calcium [Mass/Vol] 9.0 mg/dL Normal 8.4-10.2 [facility] Comment on above: Performed By: #### Omar MAURICIO PREGQNT #### [facility] [address] [place] [address] Randi Sandra Chloride [Moles/Vol] 101 mmol/L Normal 98-107 [facility] Comment on above: Performed By: #### Omar MAURICIO PREGQNT #### [facility] [address] [place] [address] Randi Sandra CO2 [Moles/Vol] 26.0 mmol/L Normal 22.0-30.0 [facility] Comment on above: Performed By: #### Omar MAURICIO, PREGQNT #### [facility] [address] [place] [address] Randi Sandra Creatinine [Mass/Vol] 0.61 mg/dL Normal 0.52-1.04 [facility] Comment on above: Performed By: #### Omar MAURICIO, PREGQNT #### [facility] [address] [place], [place] [address] Randi Sandra EGFR-AF ESTONIAN >60 Normal >=60 [facility] Comment on above: Performed By: #### Omar MAURICIO, PREGQNT #### [facility] [address] [place], [place] [address] Randi Sandra EGFR-NON AF ESTONIAN >60 Normal >=60 [facility] [place] Comment on above: Performed By: #### B HANG, PREGQNT #### [facility] [address] [place], [place] [address] Randi Sandra Glucose [Mass/Vol] 82 mg/dL Normal 74-106 [facility] Comment on above: Performed By: #### B HANG, PREGQNT #### [facility] [address] [place], [place] [address] Randi Sandra Potassium [Moles/Vol] 3.1 mmol/L Critically low 3.4-5.0 [facility] [place] Comment on above: Performed By: #### B HANG, PREGQNT #### [facility] [address] [place] [address] Randi Sandra Sodium [Moles/Vol] 136 mmol/L Critically low 137-145 [facility] Comment on above: Performed By: #### B HANG, PREGQNT #### [facility] [address] [place] [address] Randi Sandra Urea nitrogen [Mass/Vol] 8.0 mg/dL Normal 7.0-17.0 [facility] [place] Comment on above: Performed By: #### B HANG, PREGQNT #### [facility] [address] [place] [address] Randi Sandra Urea nitrogen/Creatinine [Mass ratio] 13.1 mg/mg Normal [facility] [place] Comment on above: Performed By: #### Omar MAURICIO PREGQNT #### [facility] [address] [place], [place] [address] Randi Sandra URINE MICROSCOPIC ONLYon Bacteria LM.HPF (Urine sed) [#/Area] TRACE Normal NONE SEEN The [facility] Comment on above: Performed By: #### ALEXANDRA OLIVIA #### [facility] [address] [place] [address] Randi Sandra CAST NONE SEEN Normal NONE SEEN [facility] Comment on above: Performed By: #### EPHRAIM OLIVIARO #### [facility] [address] [place], [place] [address] Randi Sandra Crystals LM Nom (Urine sed) NONE SEEN Normal NONE SEEN [facility] Comment on above: Performed By: #### EPHRAIM OLIVIARO #### [facility] [address] [place], [place] [address] Randi Sandra CULTURE NOT INDICATED Normal [facility] Comment on above: Performed By: #### Rere VASQUEZ, UMPAIGERO #### [facility] [address] [phone] Randi Sandra Epithelial cells LM.HPF (Urine sed) [#/Area] RARE Normal [facility] Comment on above: Performed By: #### Rere VASQUEZ, UMPAIGERO #### [facility] [address] [place] [address] Randi Sandra MUCOUS NONE SEEN Normal NONE SEEN [facility] Comment on above: Performed By: #### Rere VASQUEZ, EPHRAIMRO #### [facility] [address] [place], [place] [address] Randi Sandra RBC (U) [#/Vol] 0-2 Normal 0-2 [facility] Comment on above: Performed By: #### Rere VASQUEZ, UMPAIGERO #### [facility] [address] [place] [address] Randi Sandra WBC (Bld) [#/Vol] 0-2 Normal NONE SEEN The [facility] Comment on above: Performed By: #### Rere VASQUEZ, UMPAIGERO #### [facility] [address] [place] [address] Randi Sandra Vital Signs Date Time Vital Sign Value Performing Clinician Anitai hardeep 01-13-2024 15:40-0500 Body mass index (BMI) [Ratio] 20.88 kg/m2 [facility] 01-13-2024 15:40-0500 Body weight 56.[address] [facility] 01-13-2024 15:40-0500 Diastolic blood pressure 58 mm[Hg] [facility] 01-13-2024 15:40-0500 Systolic blood pressure 100 mm[Hg] [facility] 01-05-2024 09:01-0500 Body height 165.1 cm Kal Ellison MD Work Phone: [facility] [employer] [facility] 01-05-2024 09:01-0500 Body mass index (BMI) [Ratio] 21.13 kg/m2 Kal Ellison MD Work Phone: [facility] [employer] [facility] 01-05-2024 09:01-0500 Body weight 57.61 kg Kal Ellison MD Work Phone: [facility] [employer] [facility] 01-05-2024 09:01-0500 Diastolic blood pressure 60 mm[Hg] Kal Ellison MD Work Phone: [facility] [employer] [facility] 01-05-2024 09:01-0500 Heart rate 80 /min Kal Ellison MD Work Phone: [facility] [employer] [facility] 01-05-2024 09:01-0500 SaO2% (BldA) [Mass fraction] 100 % Kal Ellison MD Work Phone: [facility] [employer] [facility] 01-05-2024 09:01-0500 Systolic blood pressure 110 mm[Hg] Kal Ellison MD Work Phone: [facility] [employer] [facility] 12-17-2023 14:13-0500 Body mass index (BMI) [Ratio] 19.96 kg/m2 Andressa Keven SENIOR CONSTRUCTION ESTIMATOR-PROGRAM INSTRUCTOR Work Phone: [facility] [employer] [facility] 12-17-2023 14:13-0500 Body weight 56.06 kg Andressa Keven SENIOR CONSTRUCTION ESTIMATOR-PROGRAM INSTRUCTOR Work Phone: [facility] [employer] [facility] 12-17-2023 14:13-0500 Diastolic blood pressure 52 mm[Hg] Andressa Keven SENIOR CONSTRUCTION ESTIMATOR-PROGRAM INSTRUCTOR Work Phone: [facility] [employer] [facility] 12-17-2023 14:13-0500 Systolic blood pressure 94 mm[Hg] Andressa Keven SENIOR CONSTRUCTION ESTIMATOR-PROGRAM INSTRUCTOR Work Phone: [facility] [employer] [facility] 12-16-2023 14:09-0500 Body height 167.6 cm Jossy Nunes MD Work Phone: [facility] 12-16-2023 14:09-0500 Body mass index (BMI) [Ratio] 19.47 kg/m2 Jossy Nunes MD Work Phone: [facility] 12-16-2023 14:09-0500 Body weight 54.7 kg Jossy Nunes MD Work Phone: [facility] 12-16-2023 14:09-0500 Diastolic blood pressure 60 mm[Hg] Jossy Nunes MD Work Phone: [facility] 12-16-2023 14:09-0500 Systolic blood pressure 98 mm[Hg] Jossy Nunes MD Work Phone: [facility] 12-09-2023 14:15-0500 Body height [facility].6 [facility] 12-09-2023 14:15-0500 Body mass index (BMI) [Ratio] 19.43 kg/m2 [facility] 12-09-2023 14:15-0500 Body weight 54.61 [facility] 12-09-2023 14:15-0500 Diastolic blood pressure 64 mm[Hg] ws [facility] 12-09-2023 14:15-0500 Systolic blood pressure 112 mm[Hg] [facility] Encounters Encounter Date Encounter Type Care Provider Facility Start: 04-11-2024 End: 04-11-2024 ambulatory NELLI DEBRA Not Available Start: 04-04-2024 End: 04-05-2024 ambulatory EDUAR [facility] Start: 04-04-2024 End: 04-04-2024 ambulatory ABDELRAHMAN PAN Not Available Start: 03-27-2024 End: 03-27-2024 ambulatory ABDELRAHMAN PAN Not Available Start: 03-20-2024 End: 03-20-2024 ambulatory NELLI DEBRA Not Available Start: 03-07-2024 End: 03-08-2024 ambulatory HOLLY [facility] Start: 03-06-2024 End: 03-06-2024 ambulatory ABDELRAHMAN PAN Not Available Start: 02-22-2024 Telephone encounter Tamie clayton SENIOR CONSTRUCTION ESTIMATOR-CNM Work Phone: [facility] Start: 02-21-2024 End: 02-21-2024 ambulatory NELLI RICHARDSON Not Available Start: 02-18-2024 End: 02-18-2024 ambulatory [facility] Start: 02-15-2024 End: 02-16-2024 ambulatory TAMIE Mejia [facility] Start: 02-15-2024 End: 02-15-2024 ambulatory TAMIE M [facility] Start: 02-07-2024 End: 02-07-2024 ambulatory ABDELRAHMAN AMARAL Not Available Start: 01-21-2024 End: 01-22-2024 Emergency department patient visit SAVI MOTA [facility] Start: 01-18-2024 End: 01-19-2024 ambulatory [facility] Start: 01-13-2024 End: 01-13-2024 ambulatory [facility] Start: 01-13-2024 End: 01-13-2024 Subsequent care visit [facility] Comment on above: GA: 25w1d Start: 01-05-2024 End: 01-05-2024 [facility] Start: 01-05-2024 End: 01-05-2024 Office outpatient visit 15 minutes Dominik Meza MD Work Phone: [facility] Comment on above: Mitral valve insuffi ciency, unspecified etiology (Primary Dx); Gestational edema in third trimester Start: 12-17-2023 End: 12-17-2023 ambulatory ANDRESSA Mejia [facility] Start: 12-17-2023 End: 12-17-2023 Subsequent care visit Andressa Gallagher SENIOR CONSTRUCTION ESTIMATOR-PROGRAM INSTRUCTOR Work Phone: [facility] Comment on above: GA: 21w2d Start: 12-16-2023 End: 12-16-2023 Office outpatient new 45 minutes Hind Nadim Moussa MD Work Phone: [facility] [place] Comment on above: High-risk in second trimester (Primary Dx); Drug use affecting , antepartum; History of acute congestive heart failure; Nonrheumatic mitral valve regurgitation; Echogenic intracardiac focus of fetus on ultrasound; 21 weeks gestation of ; Nausea/vomiting in ; Constipation during in second trimester Start: 12-16-2023 End: 12-16-2023 Orders Only Srinivasan Campbell RN [facility] [place] Comment on above: Nonrheumatic mitral valve regurgitation (Primary Dx); Drug use affecting , antepartum; History of acute congestive heart failure Start: 12-10-2023 Orders Only Andressa Gallagher APRN-PROGRAM INSTRUCTOR Work Phone: [facility] Comment on above: Bacterial vaginosis in (Primary Dx); Vaginal yeast infection; with 20 completed weeks gestation Start: 12-10-2023 End: 12-10-2023 ambulatory ANDRESSA M [facility] Start: 12-09-2023 End: 12-09-[address] [facility] Start: 12-09-2023 End: 12-09-2023 Office outpatient visit 15 minutes [facility] Comment on above: Vaginal discharge (P rimary Dx); Vagina itching; Vaginal irritation; Nausea/vomiting in ; Constipation during in second trimester Start: 11-23-2023 Telephone encounter Mago cerna DO Work Phone: [facility] Start: 11-17-2023 End: 11-18-2023 ambulatory [facility] Start: 11-17-2023 End: 11-17-2023 ambulatory [facility] Amb[facility] Start: 11-12-2023 Telephone encounter Tamie clayton SENIOR CONSTRUCTION ESTIMATOR-CNM Work Phone: [facility] LD Start: 11-12-2023 End: 11-12-2023 Emergency department patient visit [facility] Start: 06-05-2019 End: 06-07-2019 Evaluation and [...] in Cervix by Cyto stain Tamie Velásquez SENIOR CONSTRUCTION ESTIMATOR-CNM Work Phone: Start: 06-05-2019 Delivery of Products of Conception, External Approach ZIGGY PAZ Plan of Treatment Date Care Activity Detail Author Start: 09-28-2026 Screening for malign ant neoplasm of cervix Pap Smear [facility] Start: 02-17-2025 Adult BMI Screening Adult BMI Screen ing [facility] Start: 02-17-2025 Tobacco Screening Tobacco Screening [facility] Start: 01-13-2025 Adult BMI Screening Adult BMI Screen ing [facility] Start: 01-13-2025 Tobacco Screening Tobacco Screening [facility] Start: 12-17-2024 Adult BMI Screening Adult BMI Screen ing [facility] Start: 12-17-2024 Tobacco Screening Tobacco Screening [facility] Start: 12-16-2024 Adult BMI Screening Adult BMI Screen ing [facility] Start: 12-16-2024 Tobacco Screening Tobacco Screening [facility] Start: 12-09-2024 Adult BMI Screening Adult BMI Screen ing [facility] Start: 12-09-2024 Tobacco Screening Tobacco Screening [facility] Start: 11-17-2024 Adult BMI Screening Adult BMI Screen ing [facility] Start: 11-17-2024 Tobacco Screening Tobacco Screening [facility] Start: 11-11-2024 Adult BMI Screening Adult BMI Screen ing [facility] Start: 11-11-2024 Tobacco Screening Tobacco Screening [facility] Start: 07-23-2024 Influenza vaccination Influenza Vacc ine [facility] Start: 03-07-2024 End: 03-07-2024 Patient encounter procedure 03/07/2024 9:30 AM EDT Appointment [facility] - Ultrasound [address] [place] [address] [facility] Start: 01-18-2024 End: 01-18-2024 Patient encounter procedure 01/18/2024 2:45 PM EST Appointment [facility] [address] [place] [address] [facility] Start: 01-16-2024 End: 12-16-2024 US MFM with or without consult US MFM with or without consult Imaging Routine Nonrheumatic mitral valve regurgitation Drug use affecting , antepartum History of acute congestive heart failure Expected: 01/16/2024 (Approximate), Expires: 12/16/2024 [facility] Work Phone: Comment on above: Expected: 01/16/2024 (Approximate), Expires: 12/16/2024 Start: 01-13-2024 End: 01-13-2024 Patient encounter procedure 01/13/2024 3:45 PM EST Routine [facility] [address] [facility] [place] [id number] [facility] Start: 01-05-2024 End: 01-05-2024 Patient encounter procedure 01/05/2024 9:00 AM EST Office Visit [facility] [address] [place] [phone] Dominik Meza MD [address] [place] [address] Kal Ellison MD [address] [place] [phone] [facility] Start: 12-20-2023 End: 12-20-2023 Patient encounter procedure 12/20/2023 8:00 AM EST Office Visit [facility] [address] [place] [phone] Dominik Meza MD [address] [place] [address] Joseph Cook MD [address] [place], [place] [id number] [facility] Start: 12-17-2023 End: 12-17-2023 Patient encounter procedure 12/17/2023 2:15 PM EST Routine [facility] [address] [facility] [place] [place] [phone] Andressa Gallagher, SENIOR CONSTRUCTION ESTIMATOR-PROGRAM INSTRUCTOR [address] [place] [address] [facility] Start: 12-16-2023 End: 12-16-2023 Telemedicine consultation with patient 12/16/2023 2:15 PM EST [facility]medicine [facility] [place] [address] [place] [phone] Jossy Nunes MD [address], [address] [place] [address] [facility] [place] Start: 12-16-2023 End: 12-16-2023 Patient encounter procedure 12/16/2023 1:00 PM EST Appointment [facility] [place] [address] [place] [address] [facility] [place] Start: 12-15-2023 End: 12-15-2023 Patient encounter procedure 12/15/2023 4:00 PM EST Routine [facility] [address] [facility] [place] [address] [facility] Start: 12-09-2023 End: 12-09-2024 Vaginitis Panel PCR Vaginitis Panel PCR Microbiology Routine Vaginal discharge Vagina itching Vaginal irritation Expected: 12/09/2023 (Approximate), Expires: 12/09/2024 [facility] Work Phone: Comment on above: Expected: 12/09/2023 (Approximate), Expires: 12/09/2024 Start: 11-24-2023 End: 11-24-2023 Patient encounter procedure 11/24/2023 9:30 AM EST Routine [facility] [address] [facility] [place] [address] Mago Valdez DO [address] [place] [address] [facility] Start: 11-17-2023 End: 11-17-2023 Patient encounter procedure [facility] Start: 2011 DTaP,Tdap and Td Vaccines (1 - Tdap) DTaP,Tdap and Td Vaccines (1 - Tdap) [facility] Start: 2010 Adult BMI Follow Up Plan Adult BMI Follow Up Plan [facility] Start: 2004 Depression Screening Depression Nas nair [facility] Start: 1992 Tobacco Counseling Tobacco Counselin g [facility] End: 01-12-2025 CBC panel - Blood by [...] trimester 1 Occurrences starting 01/13/2024 until 01/13/2025 [facility] Comment on above: 1 Occurrences starti ng 01/13/2024 until 01/13/2025 End: 01-13-2025 Syphilis Total(Unknown Syphilis Status) Syphilis Total(Unknown Syphilis Status) Lab Routine 25 weeks gestation of Second trimester 1 Occurrences starting 01/13/2024 until 01/13/2025 [facility] above: 1 Occurrences starti ng 01/13/2024 until 01/13/2025 Immunizations Immunization Date Immunization Notes Care Provider Lizeth swann 10-26-2023 influenza virus vaccine, unspecified formulation Tamie Velásquez SENIOR CONSTRUCTION ESTIMATOR-CNM Work Phone: [facility] Payers Date Payer Category Payer Private Health Insurance [facility] [id number] 2022-Present [phone] [address] [place] [address] [id number] 2022 Private Health Insurance [id number] 1992 Unknown [id number] 2.16.840.1.024421.3.579. 2.593 1992 Unknown [id number] 2.16.840.1.462020.3.579. 2.593 1992 Unknown [id number] 2.16.840.1.704771.3.579. 2.593 1992 Unknown [id number] 2.16.840.1.321180.3.579. 2.593 1992 Unknown [id number] 2.16.840.1.526885.3.579. 2.593 1992 Unknown [id number] 2.16.840.1.703373.3.579. 2.593 1992 Unknown [id number] 2.16.840.1.864353.3.579. 2.593 1992 Unknown [id number] 2.16.840.1.772992.3.579. 2.1285 1992 Unknown [id number] 2.16.840.1.480597.3.579. 2.1285 1992 Unknown [id number] 2.16.840.1.028331.3.579. 2.1285 1992 Unknown [id number] 2.16.840.1.014510.3.579. 2.1285 1992 Unknown [id number] 2.16.840.1.923342.3.579. 2.1285 1992 Unknown [id number] 2.16.840.1.233136.3.579. 2.1285 1992 Unknown [id number] 2.16.840.1.328040.3.579. 2.1285 1992 Unknown [id number] 2.16.840.1.349042.3.579. 2.1285 1992 Unknown [id number] 2.16.840.1.570864.3.579. 2.1285 1992 Unknown [id number] 2.16.840.1.823535.3.579. 2.1285 1992 Unknown [id number] 2.16.840.1.182723.3.579. 2.1285 1992 Unknown [id number] 2.16.840.1.131994.3.579. 2.1285 1992 Unknown [id number] 2.16.840.1.818377.3.579. 2.1285 1992 Unknown [id number] 2.16.840.1.932109.3.579. 2.1285 1992 Unknown [id number] 2.16.840.1.824801.3.579. 2.1286 1992 Unknown [id number] 2.16.840.1.951160.3.579. 2.1286 1992 Unknown [id number] 2.16.840.1.703987.3.579. 2.6 1992 Unknown [id number] 2.16.840.1.864909.3.579. 2.1286 1992 Unknown [id number] 2.16.840.1.995066.3.579. 2.9 1992 Unknown [id number] 2.16.840.1.571712.3.579. 2.9 1992 Unknown [id number] 2.16.840.1.847220.3.579. 2.9 1992 Unknown [id number] 2.16.840.1.913356.3.579. 2.9 1992 Unknown [id number] 2.16.840.1.469886.3.579. 2.9 1992 Unknown [id number] 2.16.840.1.087726.3.579. 2.9 1992 Unknown [id number] 2.16.840.1.969304.3.579. 2.1259 1959 Self-pay 1959 Unknown [id number] Social History Date Type Detail Facility Start: 03-29-2021 End: 11-17-2023 Tobacco smoking status [facility] Occasional tobacco smoker [facility] Start: 03-29-2021 End: 11-17-2023 Tobacco use and exposure Smokeless tobacco non-user [facility] Start: 11-11-2023 End: 02-18-2024 Alcohol intake Ex-drinker (finding) [facility] Start: 10-21-2018 End: 01-02-2021 History of Social function [facility] Start: 10-21-2018 End: 01-02-2021 Alcohol Use Disorder Identification Test - Consumption [AUDIT-C] [facility] Frequency of Alcohol Consumption Never [facility] Start: 08-04-2023 [facility] Start: 1992 Sex Assigned At Not on file [facility] Clinical Notes 11-12-2023 to 02-22-2024 Telephone Encounter [...] Pt. Verbalized understanding. documented in this encounter [facility] 02-22-2024 Telephone encounter Note Call to pt. [...] tomorrow to discuss labs. Pt. Verbalized understanding. [facility] 01-13-2024 History of Presen t illness Narrative 34 y.o. at 25w1d. No CTX, VB, LOF. positive FM. Pt. Initially unable to void for routine appt. 1. Reviewed signs of labor and movement 2. No cramping, vaginal bleeding or LOF 3. 28 wk labs next visit 4. Return 3 WKS. WITH [facility]. Discussed MFM recommendation for telemetry in labor and 24hr. After. Discussed availability of cardiology at [facility] vs. [facility] and avoidance of separation of mom and baby if either were to need transferred after delivery 5. Reviewed cardiology referral on 01/05 w/Dr. Ellison 6. 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 PCP: [facility] Referring Physician: Dominik Meza MD [address] [facility] [place] [facility] [place] [address] documented in this encounter [facility] 01-05-2024 Instructions Adwoa Trisha, CASHIER PAYMENTS RECEIVED - 01/05/2024 9:00 AM EST Are You Ready To Kick The Habit? Free Tobacco Cessation Resources [facility] provide all employees with free tobacco cessation services that include: Counseling to understand nicotine addiction Education about medications that can help you successfully quit Assistance with developing a plan to quit Call to set up an individual appointment or find out when group classes will be held: [facility]: [phone] [facility]: [phone] [facility]: [phone] [facility]: [phone] Quit Smoking Action Plan and Resources [facility] offers an eight-week, online smoking cessation plan to all [facility] employees, regardless of whether [place] is your medical insurance provider. Go to [email or web address]/[email or web address] ness and click the Health Risk Assessment and Resources link to get started. In the SeeFuture menu, click Action Plans instead of Health Risk Assessment to access the Quit Smoking Action Plan. Additional smoking cessation resources are also available to all [facility] employees on the Mgoxr0Wnxrsh web page at www.BroadClip/quit smoking. [place] Tobacco Cessation Program If [place] is your medical insurance provider, there are more free resources available to you, including: No copays or deductibles on local tobacco cessation counseling services to help you quit Prescription assistance for tobacco cessation medications to help you quit For details about the tobacco cessation program available to [place] members, go to [email or web address] (Search: Tobacco Cessation Program). [place] Tobacco Quit Line 2-630-DUTS-NOW ( ) is a toll-free, telephonic service that helps [place] residents quit smoking and using tobacco. It is staffed by experts who tailor a quit plan for you and provide you with advice. [place] Tobacco Quit Line 8-853-ZNYN-NOW ( ) is a toll-free, telephonic service that helps [place] residents quit smoking and using tobacco. It is staffed by experts who tailor a quit plan for you and provide you with advice. Two weeks of nicotine replacement therapy may be provided at no charge, if needed. Additional Resources These national organizations also offer free information and resources to help you quit tobacco: [place] Cancer Society--www.cancer.org/healthy/ stayawayfromtobacco [place] Heart Association--www.heart.org (Search: Quit Smoking) Centers for Disease Control and Prevention--www.cdc.gov/tobacco [place] Lung Association--www.lungusa.org documented in this encounter [facility] 12-17-2023 History of Presen t illness Narrative Routine OB visit 33 y.o. at 21w2d. She denies cramping or abdominal pain. She denies vaginal bleeding or vaginal loss of fluid. Tolerating regular diet without emesis. She reports movements are present. Patient is planning to bottle / formula feed infant. Today patient reports she is coming down [...] 7. Return 4 wks. NITO Younger 12/17/23 1578 documented in this encounter [facility] 12-16-2023 History of Presen t illness Narrative Images from the original note were not included. [facility] Tele-Consult Note Reason For Consult: Provider at different site/location than patient. Connie Ramirezcurrently at [place] office and provider at remote site The patient consented to be treated electronically via this form of telemedicine. This visit was not related to an office visit or procedure in the past 7 days, and in-office follow up is not recommended in the next 24 hours. Video Visit via Real-time Synchronous Audiovisual Provider Location: [facility] AT [address] [phone] Patient Location: Other Patient Location Audio Production Manager: None Video Visit Consent Statement: I discussed [...] that there are some limitations compared to [id number] evaluations. We elected to proceed. HPI: Connie Ramirez is a 33 y.o. @ 21w1d who presented for consultation from Dr. Velásquez, Tamie Mejia, SENIOR CONSTRUCTION ESTIMATOR-C* regarding Chief Complaint Patient presents with mfm [...] was borderline however not abnormal. There was hsqg-na-mgsnwuvs mitral valve regurgitation. There was no evidence [...] and management during . In view of knik valvular heart disease however not meeting criteria [...] is agreeable for delivery at [facility]. Referral to [place] for [facility] is recommended accordingly. In addition to that recommend anesthesia consultation in the 3rd trimester this can be initiated by her primary OB team. Telemetry during labor and for 24 hours Plan reviewed with patient. She vocalized understanding all questions answered. [facility], the CDC, and other organizations representing maternal and public health professionals recommend that , , and lactating people and those considering receive the COVID-19 vaccination. Vaccination is the best method to reduce maternal and complications of SARS-CoV-2 infection. This document was created with Spinnakr technology. Though I make every effort to review the dictation as it is transcribed, on occasion the spoken word can be misinterpreted by the technology leading to inappropriate words, phrases, or sentences. This note is addressed to the requesting provider as a consultation for clinical guidance. Specific medical abbreviations are occasionally used and those are generally approved by the [place]?Board of?Obstetrics and?Gynecology?as well as?[place] s abbreviations. The above plan of care was based solely on the diagnoses for which a consultation was requested. ?More frequent testing may be indicated based on her other medical/obstetrical conditions. The management of other or medical conditions is beyond the scope of requested consultation and will continue to be followed by the primary director of learning or primary care provider. Thank you for [...] procedures Referring and communicating with other health field care manager (not separately reported) Documenting clinical information in [...] patient Have you been seen here at [facility] in a previous ? no Recent ER visits or hospitalizations? no Bring blood sugar log or meter with you today? (Please bring them with you for every visit at [facility]) Traveled outside the country in the past 6 month no Any concerns that you would like me to mention to the provider today? No concerns documented in this encounter [facility] 12-10-2023 Miscellaneous Notes Pt seen in Office [...] asked for it to be emailed to [email or web address]. Work note emailed to Pt. documented in this encounter [facility] 12-10-2023 Telephone encounter Note Pt seen in Office on December 09 for yeast infection. Pt states she is having a lot of pain. Pt is requesting work excuse note for today. Please advise. Thank you [facility] 12-10-2023 Telephone encounter Note Please provide work note for today only. I did sent prescriptions for her and she should begin them zoraida. Thank you. [facility] 12-10-2023 Telephone encounter Note Advised Pt work note can be provided. Pt asked for it to be emailed to [email or web address]. Work note emailed to Pt. [facility] 12-09-2023 History of Presen t illness Narrative [...] All questions answered. Educational material provided through [place] [employer]. RTO for next scheduled visit or sooner as needed. Patient has her MFM consult and anatomy scan next week. PEEWEE MOTLEY, CASHIER PAYMENTS RECEIVED NITO Younger 12/09/23 1431 documented in this encounter [facility] 11-23-2023 Miscellaneous Notes Pt states she had Echo cardiogram done last week & does not understand the results. Procedure was ordered by Dr. Meza. Pt was seen in this Office on November 17, 2023. Please advise. Thank you MAKE APPT TO DISCUSS RESULTS PLS Pt scheduled appt with Dr Valdez on November 24. documented in this encounter [facility] 11-23-2023 Telephone encounter Note Pt states she had Echo cardiogram done last week & does not understand the results. Procedure was ordered by Dr. Meza. Pt was seen in this Office on November 17, 2023. Please advise. Thank you [facility] 11-23-2023 Telephone encounter Note MAKE APPT TO DISCUSS RESULTS PLS [facility] Work Phone: 11-23-2023 Telephone encounter Note Pt scheduled appt with Dr Valdez on November 24. [facility] 11-12-2023 Miscellaneous Notes Call rec.'d from ans. [...] and verbalized understanding. documented in this encounter [facility] 11-12-2023 Telephone encounter Note Call rec.'d from [...] to plan of care and verbalized understanding. [facility] Evaluation note Diagnosis Vaginal discharge- Primary Leukorrhea, not specified as infective Vagina itching Pruritus of genital organs Vaginal irritation Pruritus of genital organs Nausea/vomiting in Unspecified vomiting of , unspecified as to episode of care Constipation during in second trimester documented in this encounter [facility]* Diagnosis Bacterial vaginosis in - Primary Vaginal yeast infection Candidiasis of vulva and vagina with 20 completed weeks gestation documented in this encounter [facility]* Diagnosis Nonrheumatic mitral valve regurgitation- Primary Drug use affecting , antepartum History of acute congestive heart failure documented in this encounter [facility]* Diagnosis High-risk in second trimester- Primary Drug use affecting , antepartum History of acute congestive heart failure Nonrheumatic mitral valve regurgitation Echogenic intracardiac focus of fetus on ultrasound 21 weeks gestation of Nausea/vomiting in Unspecified vomiting of , unspecified as to episode of care Constipation during in second trimester documented in this encounter [facility]* Diagnosis with 21 completed weeks gestation- Primary documented in this encounter [facility]* Diagnosis Mitral valve insufficiency, unspecified etiology- Primary Gestational edema in third trimester documented in this encounter [facility]* Diagnosis 25 weeks gestation of - Primary Second trimester state, incidental History of congenital mitral regurgitation History of CHF (congestive heart failure) Personal history of other diseases of circulatory system documented in this [facility] on filedocumented in this encounter [facility] SystemInstructionsNot on filedocumented in this encounter [facility]* Attachments The following attachments cannot be sent through Care Everywhere. * High Fiber Diet (Nepalese) * The Fifth Month (Nepalese) * Vaginitis (Nepalese) [facility] System[facility]ructionsNot on file documented in [facility] SystemInstructionsNot on file documented in this [facility] SystemInstructionsNot on file documented in [facility] SystemInstructions* Attachments The following attachments cannot be sent through Care Everywhere. * How to Prepare Baby Formula (Nepalese) * Kangaroo Care (Nepalese) documented in this [facility] SystemInstructionsNot on file documented in this encounterProBet[facility] SystemInstructionsNot on file [facility] SystemReason for referral (narrative)* Consultation (Routine) - Pending Review Specialty Diagnoses / Procedures Referred By Cassius reynolds Referred To Contact Obstetrics and Gynecology Diagnoses 25 weeks gestation of Second trimester History of congenital mitral regurgitation History of CHF (congestive heart failure) Tamie Velásquez APRN-CNM [id number] [facility] [facility] [place] [address] [facility] [address] [place] [address] Referral ID Status Reason Start Date Expiration Date Visits Requested Visits Authorized [id number] Pending Review Specialty Services Required 01/13/2024 01/12/2025 1 1 [facility] Summary Purpose Family History No Family History [...] of acute congestive heart failure Procedures [facility] with or without consult Jossy Nunes MD [address] [facility], [address] [place] [id number] [facility]aternal [facility] [address] [place] [address] Referral ID Status Reason Start Date Expiration Date V isits Requested Visits Authorized [id number] Pending Review 12/16/2023 12/15/2024 1 1 Additional Source Comments INFORMATION SOURCE (unrecogn ized section and content) DATE CREATED AUTHOR 07/21/2019 [facility] DATE CREATED AUTHOR AUTHOR'S ORGANIZ ATION 12/12/2023 [facility] DATE CREATED AUTHOR AUTHOR'S ORGANIZ ATION 01/21/2024 [facility] DATE CREATED AUTHOR AUTHOR'S ORGANIZ ATION 04/06/2024 [facility] DATE CREATED AUTHOR AUTHOR'S ORGANIZ ATION 04/13/2024 [facility] Specialists EPIC Care Teams (unrecognized sec tion and content) Welder Railcar Mechanic Relationship Specialty Start Date End Date Services, [facility] [address] [place], [place] PCP - General Family Medicine 09/04/23 Welder Railcar Mechanic Relationship Specialty Start Date End Date Services, [facility] [address] [place], [place] PCP - General Family Medicine 09/04/23 Welder Railcar Mechanic Relationship Specialty Start Date End Date Services, [facility] [address] [place], [place] PCP - General Family Medicine 09/04/23 Welder Railcar Mechanic Relationship Specialty Start Date End Date Services, [facility] [address] [place] PCP - General Family Medicine 09/04/23 Welder Railcar Mechanic Relationship Specialty Start Date End Date Services, [facility] [address] [place] PCP - General Family Medicine 09/04/23 Welder Railcar Mechanic Relationship Specialty Start Date End Date Services, [facility] [address] [place] PCP - General Family Medicine 09/04/23 Welder Railcar Mechanic Relationship Specialty Start Date [facility] [address] [place] PCP - General [facility] 09/04/23 Welder Railcar Mechanic Relationship Specialty Start Date End Date Services, [facility] [address] [place] PCP - General [facility] Medicine 09/04/23 Welder Railcar Mechanic Relationship Specialty Start Date End Date Services, [facility] [address] [place] PCP - [facility] Medicine 09/04/23 Reason for Visit (unrecogniz ed section and content) Reason Comments Vaginitis Reason Comments mfm consult Reason Comments Routine Visit Reason Comments 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 no testing per patient sched w/pt Specialty Diagnoses / Procedures Referred By Contjanel t Referred To Contact Cardiology Diagnoses Mitral valve insufficiency, unspecified etiology Dominik Meza MD [address] [place] [place] [address] [facility] [address] [address] Referral ID Status Reason Start Date Expiration Date Visits Requested Visits Authorized [id number] Pending Review Specialty Services Required 09/28/2023 09/27/2024 [...] BE BASED ON THE PRIMARY CLINICAL RECORDS. [facility]. provides no warranty or guarantee of the accuracy or completeness of information in this document.
--- NOTE | 2024-04-17 06:07 | PC.NURSE ---
Called [facility] for tranport (Jacey) to come for pt. Transfered to talk with Vicki Real ROUTE AGENT. Told that nothing can be done til baby is born and after baby is born call back and then they will send NICU transport. ROUTE AGENT states that she was reading over the chart and did not see anything that needs to be done at this time. Dr Martinez arrives on floor and aware then Peds arrives to floor and is also made aware.
--- NOTE | 2024-04-17 06:26 | P.OBHP_ITS ---
OB - H&P: HPI History of Present Illness Chief complaint: poss labor : 4 Para: 1 Gestational age based on last menstrual period: 38.5 Indications for induction: other (THIS PATIENT WAS TO BE DELIVERED AT [facility]. PRESENTED COMPLETE TO [facility]. TEMPLATE CLERK HERE AND CALLING NICU TEAM TO COME DUE TO MULTIPLE SEVERE CARDIAC ABNORMALITIES IN BABY) Narrative: THIS PATIENT HAD TRANSFER OF CARE TO [facility] DUE TO MULTIPLE CARDIAC ANOMALIES OF MOTHER. SHE NEEDS TO BE DELIVERED AT A [facility]. [facility] CALLED TO NOTIFY OF ADMISSION. THE PLAN WAS TO INDUCE AND HAVE VAGINAL DELIVERY. History of Present Dating criteria: other (DO NOT HAVE OB RECORD) care: good care Ultrasounds: other (do not have [facility] RECORDS) complications: other (POSSIBLE REDUNDANT FORAMEN OVALE, CARDIOMYOPATHY AND MITRAL VALAVE ABNORMALITIES) complications comment: MFM HAD PLANNED INDUCTION AND VAG DELIVERY Medical complications OB: cardiovascular Narrative: MOTHER IN ACTIVE LABOR. COMPLETELY DILATED. NO TIME TO TRANSFER Labs Blood type: O (+) positive Rubella: immune RPR/VDLR: nonreactive GBS status: negative HBsAG: negative Review of Systems ROS Status of ROS: 10 or more systems reviewed and unremarkable except as noted in history and below Meds Home Medications and Allergies Allergies Allergy/AdvReac Type Severity Reaction Status Date / Time No Known Drug Allergies Allergy Verified 04/17/24 07:05 Exam Constitutional Documenting provider has reviewed patient's vital signs: yes Common normals: average body habitus, oriented x3, healthy appearing and alert General appearance: cooperative, well kempt and well developed Orientation/consciousness: Yes awake, Yes oriented to person, Yes oriented to place and Yes oriented to time Other: IN ACTIVE LABOR HENMT Common normals: normocephalic and head/scalp atraumatic Eye Pupil: PERRL and accommodation reflex normal Neck & C-Spine Common normals: full ROM and supple Respiratory Common normals: normal respiratory effort Cardio Common normals: regular rate and regular rhythm Rate: regular rate Rhythm: regular rhythm GI Common normals: Normal to inspection, nondistended, normoactive bowel sounds present Common normals: no CVA tenderness Back & Pelvis Common normals: no thoracic nor lumbar tenderness Extremity Common normals: normal to inspection, full ROM and no calf tenderness Neuro Common normals: CN's II-XII intact bilaterally, moves all extremities, no focal motor deficits and no sensory deficits noted Psych Common normals: mental status grossly normal, thought process normal, cooperative, affect normal and speech normal OB - A/P Assessment and Plan (1) Cardiomyopathy: Assessment and Plan: DO NOT HAVE MATERNAL ECHO RESULTS, THIS DX BASED ON OFFICE NOTES OF DR. PERLA. THOUGH PLUS 2, PREFER PATIENT DOESN'T PUSH. 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 THOUGH COMPLETE PLUS 2 STATION. DUE TO ABSENCE OF QUANTIFICATION OF CARDIAC RESERVE PREFER PATIENT NOT PUSH BUT LABOR DOWN. HAVE ASKED STUDENT SUCCESS ADVISOR TO PLACE SPINAL SO THAT PATIENT WON'T PERFORM VALSALVA WITH EACH CONTRACTION DUE TO POSSIBLE IMPAIRED EJECTION FRACTION
--- NOTE | 2024-04-17 06:30 | PC.NURSE ---
IV started in the rt forearm then had to be restarted after IV fell out d/t pt being diaphoretic. IV was restarted in the rt forearm with a 20g cath.
[2024-04-17 06:46] LABS: Basophils Percent Auto 0.3 % (0.2-2.0); Eosinophils Percent Auto 0.4 % (0.9-7.0); Immature Granulocytes Abs Auto 0.04 10^3/uL (0.00-0.03); Immature Granulocytes Pct Auto 0.5 % (0.0-0.5); Lymphocytes Absolute Auto 2.7 10^3/uL (1.2-3.8); Lymphocytes Percent Auto 35.6 % (20.5-60.0); Mean Corpuscular HGB Conc 32.3 g/dL (29.9-35.2); Mean Corpuscular Hemoglobin 28.2 pg (26.7-34.0); Mean Corpuscular Volume 87.3 fL (81.0-99.0); Mean Platelet Volume 13.4 fL (9.5-13.5); Monocytes Absolute Auto 0.6 10^3/uL (0.3-0.8); Monocytes Percent Auto 7.5 % (1.7-12.0); Neutrophils Absolute Auto 4.2 10^3/uL (1.4-6.5); Neutrophils Percent Auto 55.7 % (43.0-75.0); Platelet Count 128 10^3/uL (150-450); Red Blood Count 3.55 10^6/uL (4.20-5.40); Red Cell Distribution Width 13.8 % (11.0-15.0); White Blood Count 7.5 10^3/uL (4.0-11.0)
--- NOTE | 2024-04-17 07:46 | PM.OBPN ---
OB - PN: Subj Subjective Interval history: WAS ABLE TO PLACE SPINAL Patient comments: no complaints and pain well controlled Exam Narrative Exam Narrative: NONFOCAL CLINICAL EXAM OTHER THAN ACTIVE LABOR Constitutional Vital Signs, click to edit/add: Last Vital Signs Temp 96.6 F L 04/17/24 07:23 Pulse 83 04/17/24 07:40 BP 116/88 04/17/24 07:40 Results Labs Labs: Short CBC 04/17/24 Range/Units 06:00 WBC 7.5 (4.0-11.0) 10^3/uL Hgb 10.0 L (12.0-16.0) g/dL Hct 31.0 L (36.0-48.0) % Plt Count 128 L (150-450) 10^3/uL OB - PN: A/P Assessment and Plan (1) Cardiomyopathy: Assessment and Plan: THUS FAR STABLE HEART RATE, BLOOD PRESSURE AND NORMAL BREATHING Qualifiers: 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 IF NEEDED FOR MATERNAL INDICATIONS OR INDICATIONS WILL PLACE OUTLET VACUUM Plan ANTICIPATE Time Spent with Patient Time: Total time spent is greater than 50% in coordination of care (as documented) at patient's floor/unit and/or counseling patient: Total time spent with greater than 50% in coordination of care (as documented) at patient's floor/unit and/or counseling patient: greater than 35 minutes
--- NOTE | 2024-04-17 08:07 | P.OBPRC_ITS ---
Procedure Delivery augmentation: pitocin (once spinal was in, began pitocin at 6 miu to assist delivery and minimize need for maternal pushing) Delivery monitor: external FHT Route of delivery: vacuum extraction (applied vacuum once when because wanted to avoid maternal pushing given cardiac history of nonquantitated cardiomyopathy) Episiotomy Description: none L&D Laceration Description: none Estimated blood loss (mL): 200 Anesthesia type: Spinal Disposition: floor (with telemetry) Complications: baby had a deep variable with push when which resolved quickly, however that and maternal cardiac condition were indication for vacuum assisted vaginal delivery Narrative: PATIENT WAS IN 357. SPINAL WITH MARCAINE AND FENTANYL WAS PLACED EXPEDITIOUSLY DID NOT WANT MOM TO VALSALVA WITH CONTRACTION. WHEN , BABY HAD DECEL DOWN TO [address] OUTLET VACUUM WAS MADE. THE INDICATION FOR VACUUM WAS EXPLAINED TO PATIENT, FOB AND MATERNAL GRANDMOTHER WHO STATED UNDERSTANDING AND WERE IN AGREEMENT. THE HEAD WAS DELIVERED OVER AN INTACT PERINEUM. THE CUP WAS PLACED OVER THE MIDLINE ANTERIOR TO THE POSTERIOR FONTANELLE AND POSTERIOR TO THE ANTERIOR FONTANELLE. ONLY ONE GENTLE TRACTION WAS NEEDED AND THE HAD THE UMBILICAL CORD WRAPPED AROUND HIS BODY TIMES ONCE. THE CORD WAS UNWRAPPED AND MILKED FOR THIRTY SECONDS BEFORE BEING DOUBLY CLAMPED AND CUT. AFTER THE BABY WAS ASSESSED HE WAS PLACED SKIN TO SKIN ON MOM. THE PLACENTA WAS SPONTANEOUSLY DELIVERED INTACT AND NOT SENT TO PATHOLOGY. THE PERINEUM WAS INTACT. THE EBL WAS 200 CC. THE INSTRUMENT COUNT, SPONGE COUNT WAS CORRECT. THE BABY DELIVERED WITH SPONTANEOUS CRYING AND VIGOROUS. Infant Delivery date: 04/17/24 Gender: male presentation: vertex Placental delivery description: Spontaneous cord description: Around Body x1 respiratory effort - 1 minute: Spontaneous/Strong Cry muscle tone - 1 minute: Active Movement reflex response - 1 minute: Prompt Response color - 1 minute: [place]/No Cyanosis
[2024-04-17] MEDS: OXYTOCIN/0.9 % SODIUM CHLORIDE 20 UNITS/1,000 ML PLAST..BAG 125 UNIT IV (08:15)
--- NOTE | 2024-04-17 08:34 | P.PN_ITS ---
Progress Note: Subjective Subjective Interval history: WAS ABLE TO PLACE SPINAL Exam Narrative Exam Narrative: s/p uncomplicated vacuum assist vaginal delivery for decel when and maternal cardiomyopathy Constitutional Vital Signs, click to edit/add: Last Vital Signs Temp 96.6 F L 04/17/24 07:23 Pulse 78 04/17/24 08:33 BP 116/88 04/17/24 07:40 Pulse Ox 100 04/17/24 08:33 Documenting provider has reviewed patient's vital signs: yes Common normals: no apparent distress, oriented x3, no limitations, healthy appearing and alert General appearance: comfortable Orientation/consciousness: Yes awake, Yes oriented to person, Yes oriented to place, Yes oriented to time and Yes confused HENMT Common normals: normocephalic and head/scalp atraumatic Eye Common normals: PERRL Neck & C-Spine Common normals: full ROM Respiratory Common normals: normal respiratory effort Effort & inspection: able to speak in complete sentences Auscultation: clear to auscultation bilaterally Cardio Common normals: regular rate and regular rhythm Common normals: no CVA tenderness, external appearance normal, appearance of the vagina normal and bimanual exam normal Back & Pelvis Common normals: no thoracic nor lumbar tenderness Extremity Common normals: full ROM and no calf tenderness Neuro Common normals: CN's II-XII intact bilaterally, moves all extremities, no focal motor deficits and no sensory deficits noted Sensorium/orientation: awake, alert, oriented to person, oriented to place and oriented to time Progress Note: Objective Labs Labs: Short CBC 04/17/24 Range/Units 06:00 WBC 7.5 (4.0-11.0) 10^3/uL Hgb 10.0 L (12.0-16.0) g/dL Hct 31.0 L (36.0-48.0) % Plt Count 128 L (150-450) 10^3/uL Progress Note: A&P Assessment and Plan (1) Cardiomyopathy: Qualifiers: 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 (2) Patent foramen ovale: (3) Active labor: Procedures Vaginal Delivery Infant Presentation: vertex Cord Description: Around Body x1 Infant delivery method: assisted vaginal delivery (due to heart rate decel and maternal nonquatitated cardiomyopathy) Infant Delivery Assistance Method: vacuum (one traction on outlet vacuum) heart rate - 1 minute: 100 bpm or Greater respiratory effort - 1 minute: Spontaneous/Strong Cry muscle tone - 1 minute: Active Movement reflex response - 1 minute: Prompt Response color - 1 minute: [place]/No Cyanosis total score - 1 minute: 10 heart rate - 5 minute: 100 bpm or Greater respiratory effort - 5 minute: Spontaneous/Strong Cry muscle tone - 5 minute: Active Movement reflex response - 5 minute: Prompt Response color - 5 minute: [place]/No Cyanosis total score - 5 minute: 10 Vaginal Delivery Patient tolerated procedure: well Complications vaginal delivery: none Care transferred to: patient will be monitored by telemetry for 48 hours and have SAO2 monitored Additional comments: ALL RECORDS HAVE BEEN REQUESTED FOR BOTH BABY AND MOM FROM [facility] ([facility] ([place], [place] WILL NOT HESITATED TO TRANSFER MOM FOR ANY SIGN OR SYMTOM OF CARDIOVASCULAR COMPROMISE.
[2024-04-17] MEDS: 0.9 % SODIUM CHLORIDE 1,000 ML 125 ML IV (09:17)
[2024-04-17] MEDS: IBUPROFEN 400 MG TABLET 800 MG PO ×2 (10:16→17:39)
[2024-04-17 14:49] LABS: Bilirubin Urine NEGATIVE (NEGATIVE); Blood Urine LARGE (NEGATIVE); Clarity Urine CLEAR (CLEAR); Color Urine LT. YELLOW (YELLOW); Glucose Urine UA NEGATIVE (NEGATIVE); Ketones Urine TRACE mg/dL (NEGATIVE); Leukocyte Esterase Urine TRACE (NEGATIVE); Nitrite Urine NEGATIVE (NEGATIVE); Protein Urine 30 mg/dL (NEG/TRACE); Specific Gravity Urine 1.015 (1.005-1.025); pH Urine 6.5 (5.0-9.0)
[2024-04-17 15:02] LABS: Urine Microscopic Indicated YES
[2024-04-17 15:13] LABS: Bacteria Urine NONE SEEN #/HPF (NONE SEEN); Cast Seen? NONE SEEN #/LPF (NONE SEEN); Crystals Seen? None Seen #/HPF (None Seen); Mucus Urine TRACE (NONE SEEN); RBC Urine 20-50 #/HPF (0-2); Squamous Epithelial Cell Urine NONE SEEN #/LPF (NONE/RARE)
[2024-04-17 17:56] LABS: Amphetamine Screen Urine NEGATIVE (NEGATIVE); Barbiturates Screen Urine NEGATIVE (NEGATIVE); Benzodiazepines Screen Urine NEGATIVE (NEGATIVE); Buprenorphine Screen Urine NEGATIVE (NEGATIVE); Cannabinoid Screen Urine POSITIVE (NEGATIVE); Cocaine Screen Urine NEGATIVE (NEGATIVE); Methadone Screen Urine NEGATIVE (NEGATIVE); Methamphetamines Screen Urine NEGATIVE (NEGATIVE); Opiate Screen Urine NEGATIVE (NEGATIVE); Oxycodone Screen Urine NEGATIVE (NEGATIVE); Phencyclidine Screen Urine NEGATIVE (NEGATIVE); Tricyclic Antidepressant Urine NEGATIVE (NEGATIVE)
[2024-04-17] MEDS: ACETAMINOPHEN 325 MG TABLET 650 MG PO (20:34)
[2024-04-18] VITALS (234 sets, daily range): BP systolic 95–158; BP diastolic 57–96; PULSE 65–111; TEMP 36.2–36.7; O2SAT 63–100
[2024-04-18] MEDS: SIMETHICONE 80 MG TAB.CHEW PO (00:49)
[2024-04-18] MEDS: IBUPROFEN 400 MG TABLET 800 MG PO ×3 (01:51→17:52)
[2024-04-18 05:40] LABS: Hematocrit 25.7 % (36.0-48.0); Hemoglobin 8.2 g/dL (12.0-16.0); Mean Corpuscular HGB Conc 31.9 g/dL (29.9-35.2); Mean Corpuscular Hemoglobin 28.5 pg (26.7-34.0); Mean Corpuscular Volume 89.2 fL (81.0-99.0); Mean Platelet Volume 12.3 fL (9.5-13.5); Platelet Count 107 10^3/uL (150-450); Red Blood Count 2.88 10^6/uL (4.20-5.40); White Blood Count 9.5 10^3/uL (4.0-11.0)
[2024-04-18 06:02] LABS: Band Neutrophils Absolute 0.1 10^3/uL (0.0-0.3); Lymphocytes Absolute Manual 1.52 10^3/uL (1.20-3.80); Monocytes Absolute Manual 0.38 10^3/uL (0.30-0.80)
--- NOTE | 2024-04-18 07:34 | PM.OBPN ---
OB - PN: Subj Subjective Interval history: WAS ABLE TO PLACE SPINAL Patient comments: no complaints and pain well controlled [place] infant status: doing well Exam Constitutional Vital Signs, click to edit/add: Last Vital Signs Temp 97.1 F L 04/18/24 04:02 Pulse 74 04/18/24 05:53 Resp 18 04/18/24 04:00 BP 127/76 04/18/24 04:00 Pulse Ox 98 04/18/24 05:53 O2 Del Method Room Air 04/18/24 04:02 Documenting provider has reviewed patient's vital signs: yes Common normals: no apparent distress Respiratory Common normals: normal respiratory effort and clear to auscultation bilaterally Cardio Common normals: regular rate and regular rhythm GI Common normals: Normal to inspection, nondistended, normoactive bowel sounds present Results Labs Labs: Short CBC 04/18/24 Range/Units 05:30 WBC 9.5 (4.0-11.0) 10^3/uL Hgb 8.2 L (12.0-16.0) g/dL Hct 25.7 L (36.0-48.0) % Plt Count 107 L (150-450) 10^3/uL Urine 04/17/24 Range/Units 14:00 Urine Color Lt. 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
[2024-04-18] MEDS: FERROUS SULFATE 325 MG TABLET PO (08:04)
[2024-04-18] MEDS: DOCUSATE SODIUM 100 MG CAPSULE PO ×2 (08:04→21:31)
[2024-04-18] MEDS: ACETAMINOPHEN 325 MG TABLET 650 MG PO ×2 (08:04→15:08)
--- NOTE | 2024-04-18 08:35 | P.OBPN_ITS ---
OB - PN: Subj Subjective Interval history: WAS ABLE TO PLACE SPINAL Patient comments: no complaints and pain well controlled [place] infant status: doing well [place] feeding status: exclusively bottle feeding Exam Constitutional Vital Signs, click to edit/add: Last Vital Signs Temp 97.1 F L 04/18/24 04:02 Pulse 75 04/18/24 08:00 Resp 18 04/18/24 04:00 BP 127/76 04/18/24 04:00 Pulse Ox 98 04/18/24 05:53 O2 Del Method Room Air 04/18/24 04:02 Documenting provider has reviewed patient's vital signs: yes Common normals: no apparent distress, average body habitus, oriented x3, no limitations, healthy appearing, alert and well nourished Orientation/consciousness: Yes awake, Yes oriented to person, Yes oriented to place and Yes oriented to time HENMT Common normals: normocephalic Eye Common normals: EOMs intact bilaterally Neck & C-Spine Common normals: full ROM Lymph Lymphatic: no lymphadenopathy noted Chest Common normals: inspection of chest normal Respiratory Common normals: normal respiratory effort and clear to auscultation bilaterally Effort & inspection: able to speak in complete sentences Cardio Common normals: regular rate Rate: regular rate Rhythm: regular rhythm GI Common normals: Normal to inspection, nondistended, normoactive bowel sounds present, soft to palpation and non-tender Palpation: soft Percussion: normal to percussion Common normals: no CVA tenderness Back & Pelvis Common normals: no CVA tenderness Extremity Common normals: normal to inspection, full ROM, normal capillary refill, no joint enlargement, no clubbing, cyanosis or edema, no calf tenderness and no pedal edema Neuro Common normals: oriented x3 and no sensory deficits noted Sensorium/orientation: awake, alert, oriented to person, oriented to place and oriented to time Psych Common normals: mental status grossly normal, thought process normal and cooperative Attitude: calm Speech: normal speech Results Labs Labs: Short CBC 04/18/24 Range/Units 05:30 WBC 9.5 (4.0-11.0) 10^3/uL Hgb 8.2 L (12.0-16.0) g/dL Hct 25.7 L (36.0-48.0) % Plt Count 107 L (150-450) 10^3/uL Urine 04/17/24 Range/Units 14:00 Urine Color Lt. 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
--- NOTE | 2024-04-18 14:52 | SWNOTE1 ---
SW was consulted due to positive THC during . SW met with pt to discuss THC usage during . Pt did voice she ate gummies during on and off. She ate gummies due to her nausea and voice she could not eat anything and this helped. THC also helped her with sleeping. Pt does not have medical marijuana card and she does not plan on continuing use once home. Pt does have a 4 year old daughter at home. Pt only has her 4 year old in the home. The father of the baby lives down the street and he works midnights. He bought everything for the baby. She does have crib, car seat, clothing, diapers, formula at home for baby. Pt is on WIC and food-stamps as well. Pt voiced to SW that she lives in [employer] housing and she is under PIPP, which is percentage of income payment plan for utilities. Pt voiced she does not pay for rent and she is working with someone in regards to her electric bill and getting it lowered. Pt stated she had to stop working due to her nausea. The last time she spoke to someone at [facility] she was supposed to meet with them on 04/16/24, but she was here delivering baby. Pt provided SW with her e-mail and SW attempt to e-mail her. Pt voiced she has a disconnection notice. SW to check in to this for pt. Pt did voice she has a good support system at home between her family/friends and father of baby family. 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 SW advised against smoking or eating gummies with children in her care. SW advised pt that SW is mandated reported and will have to make report to [facility] CPS. She voiced understanding. Referral made to [facility] CPS. HIPAA form filled out and sent to [place]. MELANIE sent e-mail to at [facility], but email bounced back and did not work.
--- NOTE | 2024-04-18 15:25 | SWNOTE1 ---
[facility] and spoke to a shirring machine operator and she provided SW with another email to try. SW sent email.
[2024-04-19] VITALS (101 sets, daily range): BP systolic 111–127; BP diastolic 66–84; PULSE 63–110; TEMP 36.7; O2SAT 95–100
[2024-04-19] MEDS: ACETAMINOPHEN 325 MG TABLET 650 MG PO (01:40)
--- NOTE | 2024-04-19 08:17 | P.OBPN_ITS ---
OB - PN: Subj Subjective Interval history: WAS ABLE TO PLACE SPINAL Patient comments: no complaints and pain well controlled [place] infant status: doing well Exam Constitutional Vital Signs, click to edit/add: Last Vital Signs Temp 98.1 F 04/19/24 00:15 Pulse 90 04/19/24 07:58 Resp 18 04/19/24 04:25 BP 111/71 04/19/24 04:00 Pulse Ox 98 04/19/24 04:25 O2 Del Method Room Air 04/19/24 00:00 Documenting provider has reviewed patient's vital signs: yes Common normals: no apparent distress Respiratory Common normals: normal respiratory effort and clear to auscultation bilaterally Cardio Common normals: regular rate and regular rhythm GI Common normals: Normal to inspection, nondistended, normoactive bowel sounds present Extremity Common normals: no clubbing, cyanosis or edema and no calf tenderness OB - PN: A/P Assessment and Plan (1) Cardiomyopathy: Qualifiers: 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
--- NOTE | 2024-04-19 09:27 | SWNOTE1 ---
MELANIE checked email and the other [facility] not work. MELANIE called [employer] again and left a message for someone within the PIPP program, waiting to hear back.
[2024-04-19] MEDS: DOCUSATE SODIUM 100 MG CAPSULE PO (09:47)
[2024-04-19] MEDS: FERROUS SULFATE 325 MG TABLET PO (09:47)
--- NOTE | 2024-04-19 13:28 | SWNOTE1 ---
SW received call back from [facility] and she voiced they do not have the funds to assist. She stated the patient should call [facility] family services and ask for the PRC program. She also voiced to try [facility] but she is pretty sure they do not have the funds either. MELANIE was able to talk to pt as she was leaving and let her know to call jobs and family services. She voiced understanding.
== END 2024-04-19 13:22 | disposition home or self-care (01) | DRG 560 ==
PROVIDERS: Admitting Provider Obstetrics & Gynecology; Visit Provider Obstetrics & Gynecology
DX: O90.3 Peripartum cardiomyopathy (principal); Z3A.38 38 weeks gestation of pregnancy; Z37.0 Single live birth; O76 Abnormality in fetal heart rate and rhythm complicating labor and delivery; O99.324 Drug use complicating childbirth; F12.90 Cannabis use, unspecified, uncomplicated; I34.0 Nonrheumatic mitral (valve) insufficiency
CPT/HCPCS: 36415; 59050; 59410; 80307; 81001; 84112; 85007; 85025; 85027; 86850; 86900; 86901; 96374

== ENCOUNTER 2024-04-21 08:44 | Outpatient (OUT) | payer OTHER, SELFPAY ==
--- OUTSIDE RECORDS SUMMARY | 2024-04-21 09:04 | XMS_ITS | CCD ---
Author Organization [facility] Care Team Providers Care Cracking Unit Operator Name Role Phone ZIGGY PAZ Admitting Unavailable [...] ANDRESSA GALLAGHER Referring Unavailable SERVICES, [facility] Primary Care Unava ilable SERVICES, [facility] Primary Care Unava ilable SERVICES, [facility] Primary Care Unava ilable TAMIE VELÁSQUEZ Referring Unavailable SERVICES, [facility] Primary Care Unava ilable MOUSSA, HIND NADIM Attending Unavailable TAMIE VELÁSQUEZ Referring Unavailable SERVICES, [facility] Primary Care Unava ilable ANDRESSA GALLAGHER Attending Unavailable SERVICES, [facility] Unava ilable SERVICES, [facility] Unava ilable SERVICES, [facility] Unava ilable NAKUL, SAVI Torrez Attending Unavailab le NEVERAUSBARBARA, SAVI Torrez Attending Unavailab le NEVERAUSBARBARA, SAVI Torrez Referring Unavailab le SERVICES, [facility] Unava ilable AHMED, ABEER Attending Unavailable AHMED, ABEER Referring Unavailable SERVICES, [facility] Unava ilable TAMIE VELÁSQUEZ Referring Unavailable SERVICES, [facility] Unava ilable TAMIE VELÁSQUEZ Referring Unavailable SERVICES, [facility] Unava ilable JUNG, TIBERIU S Admitting Unavailable JUNG, TIBERIU S Attending Unavailable SERVICES, [facility] Unava ilable SERVICES, [facility] Unava ilable SHAYY AGARWAL Attending Unavailable JEFFREYKAL Baker Attending Unavailable AHMED, ABEER Referring Unavailable SERVICES, [facility] Unava ilable TAMIE VELÁSQUEZ Referring Unavailable SERVICES, [facility] Unava ilable HOLLY ROMEO L Referring Unavailable SERVICES, [facility] Unava ilable COLE, EDUAR Referring Unavailable SERVICES, [facility] Unava ilable PAN, ABDELRAHMAN Attending Unavailable [...] applicable or unspecified; Translations: [MAT CARE OT LA FTL GRTH 3RD TM UNS] Onset: 05-12-2019 [...] width (RBC) [Ratio] 13.1 % Normal 11.5-15.0 [facility] Comment on above: Performed By: #### Anabella VERGARA, 1504-0, 87067-6 #### [facility] ([id number]) [address], [address] [place] [address] Hematocrit (Bld) [Volume fraction] 30.3 % Low 35-47 [facility] Comment on above: Performed By: #### Anabella VERGARA, 1504-0, 24255-9 #### [facility] ([id number]) [address], [address] [place] [address] Hemoglobin (Bld) [Mass/Vol] 10.4 g/dL Low 11.7-15.5 [facility] Comment on above: Performed By: #### Anabella VERGARA, 1504-0, 94807-7 #### [facility] ([id number]) [address], [address] [place] [address] MCH (RBC) [Entitic mass] 31.2 pg Normal 27-34 [facility] Comment on above: Performed By: #### Anabella VERGARA, 1504-0, 78274-6 #### [facility] ([id number]) [address], [address] [place] [address] MCHC (RBC) [Mass/Vol] 34.3 g/dL Normal 32-36 [facility] Comment on above: Performed By: #### Anabella VERGARA, 1504-0, 86011-1 #### [facility] ([id number]) [address], [address] [place] [address] MCV (RBC) [Entitic vol] 91 fL Normal 80-100 [facility] Comment on above: Performed By: #### Anabella VERGARA, 1504-0, 06027-1 #### [facility] ([id number]) [address], [address] [place] [address] Platelet mean volume (Bld) [Entitic vol] 10.0 fL Normal 7-12 [facility] Comment on above: Performed By: #### Anabella VERGARA, 1504-0, 08650-8 #### [facility] ([id number]) [address], [address] [place] [address] Platelets (Bld) [#/Vol] 152 10*3/uL Normal 150-450 [facility] Comment on above: Performed By: #### Anabella VERGARA, 1504-0, 40424-5 #### [facility] ([id number]) [address], [address] [place] [address] RBC COUNT 3.33 X10E12/L Low 3.80-5.20 [facility] Comment on above: Performed By: #### Anabella VERGARA, 1504-0, 95182-1 #### [facility] ([id number]) [address], [address] [place] [address] WBC (Bld) [#/Vol] 6.1 10*3/uL Normal 4.0-11.0 [facility] Comment on above: Performed By: #### C , 1504-0, 29126-8 #### [facility] ([id number]) [address] [place] [address] Glucose 1 Hr post 50 g gluco se PO [Mass/Vol]on 02-15-2024 GLU 1H POST 50G LOAD 102 mg/dL Normal 65-139 [facility] Comment on above: Performed By: #### C , 1504-0, 72739-7 #### [facility] ([id number]) [address] [facility], [address] [place] [address] T. pallidum IgG+IgM IA Ql (S )on 02-15-2024 Syphilis Total <0.2 Normal 0.0-0.8 [facility] Comment on above: Result Comment: NON REACTIVE No serologic evidence of infection to Treponema pallidum (syphilis). Repeat testing may be considered in patients with suspected acute or primary syphilis in 2 to 4 weeks. Performed By: #### Anabella , 1504-0, 87229-3 #### [facility] ([id number]) [address] [facility], [address] [place] [address] POCT EKGon 01-05-2024 [facility] VAGINITIS PANEL PCRon 2023 VAGINITIS PANEL [...] clinical presentation to determine patient diagnosis. Normal [facility] Comment on above: Performed By: #### V PPCR #### [facility] ([id number]) [address], [address] [place] [address] URINE CULTUREon 11-12-2023 Bacteria identified Cx Nom (U) CULTURE RESULTS 10-50,000 ORGANISMS/mL NORMAL UROGENITAL PAYTON Normal [facility] Comment on above: Performed By: #### 6 30-4 #### [facility] ([id number]) [address] [place] [address] URN MACROSCOPIC NURon 2022 BILIRUBIN MERY Negative Normal NEG [facility] Comment on above: Performed By: #### N UM #### [facility] ([id number]) [address] [place] [address] BLOOD/HGB MERY Trace Abnormal NEG [facility] Comment on above: Performed By: #### N UM #### [facility] ([id number]) [address] [place] [address] GLUCOSE MERY Negative Normal NEG [facility] Comment on above: Performed By: #### N UM #### [facility] ([id number]) [address] [place] [address] KETONES MERY 15 mg/dL Abnormal NEG [facility] Comment on above: Performed By: #### N UM #### [facility] ([id number]) [address] [place] [address] LEUKOCYTE ESTERASE MERY Trace Abnormal NEG [facility] Comment on above: Performed By: #### N UM #### [facility] ([id number]) [address] [place] [address] NITRITE MERY Negative Normal NEG [facility] Comment on above: Performed By: #### N UM #### [facility] ([id number]) [address] [place] [address] PH MERY 6.0 Normal 5.0-8.5 [facility] Comment on above: Performed By: #### N UM #### [facility] ([id number]) [address] [place] [address] PROTEIN MERY 100 mg/dL Abnormal NEG [facility] Comment on above: Performed By: #### N UM #### [facility] ([id number]) [address] [place] [address] SPECIFIC GRAVITY MERY >=1.030 Normal 1.003-1.035 [facility] Comment on above: Performed By: #### N UM #### [facility] ([id number]) [address] [place] [address] UROBILINOGEN MERY 0.2 eu/dL Normal <1.[address] [facility] Comment on above: Performed By: #### N UM #### [facility] ([id number]) [address] [place] [address] BARBITUATE CONFIRMATION, URI NEon 06-11-2019 Amobarbital Negative Normal Rqrbny=736 [facility] Comment on above: Performed By: #### ALEXANDRA OLIVIA #### [facility] [address] [place] [address] Randi Sandra Barbiturates Positive Abnormal [facility] Comment on above: Performed By: #### ALEXANDRA OLIVIA #### [facility] [address] [place] [address] Randi Sandra Butalbital Positive Abnormal [facility] Comment on above: Performed By: #### ALEXANDRA OLIVIA #### [facility] [address] [address] Randi Sandra Butalbital GC/MS Conf 361 ng/mL Normal Krrxyf=874 [facility] Comment on above: Performed By: #### ALEXANDRA OLIVIA #### [facility] [address] [place] [address] Randi Sandra Phenobarbital [Mass/Vol] Negative Normal Kcgomh=684 [facility] Comment on above: Performed By: #### ALEXANDRA OLIVIA #### [facility] [address] [place] [address] Randi Sandra Phentobarbital Negative Normal Zzivbf=387 [facility] Comment on above: Performed By: #### ALEXANDRA OLIVIA #### [facility] [address] [place] [address] Randi Sandra Secobarbital Negative Normal Qmhlvq=470 [facility] Comment on above: Performed By: #### ALEXANDRA OLIVIA #### [facility] [address] [place] [address] Randi Sandra CANNABINOID (THC) CONFIRMATI ON, URINEon 06-10-2019 Cannabinoid Positive Abnormal [facility] Comment on above: Performed By: #### ALEXANDRA OLIVIA #### [facility] [address] [place] [address] Randi Sandra Carboxy THC GC/MS Conf 76 ng/mL Normal Cutoff=10 [facility] Comment on above: Performed By: #### ALEXANDRA OLIVIA #### [facility] [address] [place] [address] Randi Sandra CBC AUTO DIFFon 06-06-2019 Basophils (Bld) [#/Vol] 0.0 103/ul Normal 0.0-0.1 [facility] Comment on above: Performed By: #### ALEXANDRA OLIVIA #### [facility] [address] [place] [address] Randi Sandra Basophils/100 WBC (Bld) 0.4 % Normal 0.2-2.0 [facility] Comment on above: Performed By: #### ALEXANDRA OLIVIA #### [facility] [address] [place] [address] Randi Sandra Eosinophils (Bld) [#/Vol] 0.1 103/ul Normal 0.0-0.7 [facility] Comment on above: Performed By: #### ALEXANDRA OLIVIA #### [facility] [address] [place], [place] [address] Randi Sandra Eosinophils/100 WBC (Bld) 0.6 % Critically low 0.9-7.0 [facility] Comment on above: Performed By: #### ALEXANDRA OLIVIA #### [facility] [address] [place] [address] Randi Sandra Erythrocyte distribution width (RBC) [Ratio] 13.8 % Normal 11.0-15.0 [facility] Comment on above: Performed By: #### ALEXANDRA OLIVIA #### [facility] [address] [place] [address] Randi Sandra Hematocrit (Bld) [Volume fraction] 25.0 % Critically low 36.0-48.0 [facility] Comment on above: Performed By: #### ALEXANDRA OLIVIA #### [facility] [address] [place] [address] Randi Sandra Hemoglobin (Bld) [Mass/Vol] 8.0 g/dL Critically low 12.0-16.0 [facility] Comment on above: Performed By: #### ALEXANDRA OLIVIA #### [facility] [address] [place], [place] [address] Randi Sandra IG # 0.13 10e3/ul Critically high 0.00-0.[address] [facility] Comment on above: Performed By: #### EPHRAIM OLIVIARO #### [facility] [address] [place], [place] [address] Randi Sandra IG % 1.6 % Critically high 0.0-0.5 [facility] Comment on above: Performed By: #### EPHRAIM OLIVIARO #### [facility] [address] [place], [place] [address] Randi Sandra Lymphocytes (Bld) [#/Vol] 1.9 103/ul Normal 1.2-3.8 [facility] Comment on above: Performed By: #### ALEXANDRA OLIVIA #### [facility] [address] [place], [place] [address] Randi Sandra Lymphocytes/100 WBC (Bld) 22.5 % Normal 20.5-60.0 [facility] Comment on above: Performed By: #### ALEXANDRA OLIVIA #### [facility] [address] [place], [place] [address] Randi Sandra MANUAL DIFF REQ NO Normal [facility] Comment on above: Performed By: #### ALEXANDRA OLIVIA #### [facility] [address] [place] [address] Ranid Sandra MCH (RBC) [Entitic mass] 28.0 pg Normal 26.7-34.0 [facility] Comment on above: Performed By: #### ALEXANDRA OLIVIA #### [facility] [address] [place] [address] Randi Sandra MCHC (RBC) [Mass/Vol] 32.0 g/dL Normal 29.9-35.2 [facility] Comment on above: Performed By: #### ALEXANDRA OLIVIA #### [facility] [address] [place] [address] Randi Sandra MCV (RBC) [Entitic vol] 87.4 fL Normal 81.0-99.0 [facility] Comment on above: Performed By: #### ALEXANDRA OLIVIA #### [facility] [address] [place] [address] Randi Sandra Monocytes (Bld) [#/Vol] 0.6 103/ul Normal 0.3-0.8 [facility] Comment on above: Performed By: #### ALEXANDRA OLIVIA #### [facility] [address] [place] [address] Randi Sandra Monocytes/100 WBC (Bld) 6.7 % Normal 1.7-12.0 [facility] Comment on above: Performed By: #### ALEXANDRA OLIVIA #### [facility] [address] [place], [place] [address] Randi Sandra Neutrophils (Bld) [#/Vol] 5.6 103/ul Normal 1.4-6.5 [facility] Comment on above: Performed By: #### ALEXANDRA OLIVIA #### [facility] [address] [place], [place] [address] Randi Sandra Neutrophils/100 WBC (Bld) 68.2 % Normal 43.0-75.0 [facility] Comment on above: Performed By: #### EPHRAIM OLIVIARO #### [facility] [address] [place], [place] [address] Randi Sandra Platelet mean volume (Bld) [Entitic vol] 12.9 fL Normal 9.5-13.5 [facility] Comment on above: Performed By: #### ALEXANDRA OLIVIA #### [facility] [address] [place], [place] [address] Randi Sandra Platelets (Bld) [#/Vol] 103 103/ul Critically low 150-450 [facility] Comment on above: Performed By: #### ALEXANDRA OLIVIA #### [facility] [address] [place], [place] [address] Randi Sandra RBC (Bld) [#/Vol] 2.86 106/ul Critically low 4.20-5.40 [facility] Comment on above: Performed By: #### EPHRAIM OLIVIARO #### [facility] [address] [place], [place] [address] Randi Sandra WBC (Bld) [#/Vol] 8.3 103/ul Normal 4.0-11.[address] [facility] Comment on above: Performed By: #### EPHRAIM OLIVIARO #### [facility] [address] [place], [place] [address] Randi Sandra ABO AND RH TYPEon 06-05-2019 ABO and Rh group Nom (Bld) ABO Rh Typing O Rh Positive Normal [facility] Comment on above: Performed By: #### EPHRAIM OLIVIARO #### [facility] [address] [place], [place] [address] Randi Sandra CBC AUTO DIFFon 06-05-2019 Basophils (Bld) [#/Vol] 0.0 103/ul Normal 0.0-0.1 [facility] Comment on above: Performed By: #### C BC #### [facility] [address] [place], [place] [address] Randi Sandra Basophils/100 WBC (Bld) 0.4 % Normal 0.2-2.0 [facility] Comment on above: Performed By: #### C BC #### [facility] [address] [place] [address] Randi Sandra Eosinophils (Bld) [#/Vol] 0.0 103/ul Normal 0.0-0.7 [facility] Comment on above: Performed By: #### C BC #### [facility] [address] [place] [address] Randi Sandra Eosinophils/100 WBC (Bld) 0.3 % Critically low 0.9-7.0 [facility] Comment on above: Performed By: #### C BC #### [facility] [address] [place] [address] Randi Sandra Erythrocyte distribution width (RBC) [Ratio] 13.6 % Normal 11.0-15.0 [facility] Comment on above: Performed By: #### C BC #### [facility] [address] [place] [address] Randi Sandra Hematocrit (Bld) [Volume fraction] 26.8 % Critically low 36.0-48.0 [facility] Comment on above: Performed By: #### C BC #### [facility] [address] [place] [address] Randi Sandra Hemoglobin (Bld) [Mass/Vol] 8.8 g/dL Critically low 12.0-16.0 [facility] Comment on above: Performed By: #### C BC #### [facility] [address] [place] [address] Randi Sandra IG # 0.03 10e3/ul Normal 0.00-0.03 [facility] Comment on above: Performed By: #### C BC #### [facility] [address] [id number] Randi Sandra IG % 0.4 % Normal 0.0-0.5 [facility] Comment on above: Performed By: #### C BC #### [facility] [address] [place], [place] [address] Randi Sandra Lymphocytes (Bld) [#/Vol] 1.9 103/ul Normal 1.2-3.8 [facility] Comment on above: Performed By: #### C BC #### [facility] [address] [place], [place] [address] Randi Sandra Lymphocytes/100 WBC (Bld) 25.2 % Normal 20.5-60.0 [facility] Comment on above: Performed By: #### C BC #### [facility] [address] [place], [place] [address] Randi Sandra MANUAL DIFF REQ NO Normal [facility] Comment on above: Performed By: #### C BC #### [facility] [address] [place], [place] [address] Randi Sandra MCH (RBC) [Entitic mass] 28.3 pg Normal 26.7-34.0 [facility] Comment on above: Performed By: #### C BC #### [facility] [address] [place], [place] [address] Randi Sandra MCHC (RBC) [Mass/Vol] 32.8 g/dL Normal 29.9-35.2 [facility] Comment on above: Performed By: #### C BC #### [facility] [address] [place], [place] [address] Randi Sandra MCV (RBC) [Entitic vol] 86.2 fL Normal 81.0-99.0 [facility] Comment on above: Performed By: #### C BC #### [facility] [address] [place], [place] [address] Randi Sandra Monocytes (Bld) [#/Vol] 0.4 103/ul Normal 0.3-0.8 [facility] Comment on above: Performed By: #### C BC #### [facility] [address] [place], [place] [address] Randi Sandra Monocytes/100 WBC (Bld) 5.7 % Normal 1.7-12.0 [facility] Comment on above: Performed By: #### C BC #### [facility] [address] [place], [place] [address] Randi Sandra Neutrophils (Bld) [#/Vol] 5.2 103/ul Normal 1.4-6.5 [facility] Comment on above: Performed By: #### C BC #### [facility] [address] [place], [place] [address] Randi Sandra Neutrophils/100 WBC (Bld) 68.0 % Normal 43.0-75.0 [facility] Comment on above: Performed By: #### C BC #### [facility] [address] [place] [address] Randi Sandra Platelet mean volume (Bld) [Entitic vol] 13.1 fL Normal 9.5-13.5 [facility] Comment on above: Performed By: #### C BC #### [facility] [address] [place] [address] Randi Sandra Platelets (Bld) [#/Vol] 112 103/ul Critically low 150-450 [facility] Comment on above: Result Comment: smea r reviewed, few giant plts seen Performed By: #### C BC #### [facility] [address] [place] [address] Randi Sandra RBC (Bld) [#/Vol] 3.11 106/ul Critically low 4.20-5.40 [facility] Comment on above: Performed By: #### C BC #### [facility] [address] [place], [place] [address] Randi Sandra WBC (Bld) [#/Vol] 7.6 103/ul Normal 4.0-11.[address] [facility] Comment on above: Performed By: #### C BC #### [facility] [address] [place], [place] [address] Randi Sandra DRUG SCREEN RAPID (URINE)on 06-05-2019 AMP Negative Normal NEGATIVE [facility] Comment on above: Performed By: #### ALEXANDRA OLIVIA #### [facility] [address] [place] [address] Randi Sandra BAR Positive Normal NEGATIVE [facility] Comment on above: Performed By: #### ALEXANDRA OLIVIA #### [facility] [address] [place] [address] Randi Sandra BUP Negative Normal NEGATIVE [facility] Comment on above: Performed By: #### ALEXANDRA OLIVIA #### [facility] [address] [place] [address] Randi Sandra BZO Negative Normal NEGATIVE [facility] Comment on above: Performed By: #### ALEXANDRA OLIVIA #### [facility] [address] [place] [address] Ranid Sandra LOREE Negative Normal NEGATIVE [facility] Comment on above: Performed By: #### ALEXANDRA OLIVIA #### [facility] [address] [place] [address] Randi Sandra CUT-OFFS SEE BELOW Normal [facility] Comment on above: Result Comment: AMP [...] ng/mL Performed By: #### EPHRAIM OLIVIARO #### [facility] [address] [place] [address] Sandra DRUG CUT HEADER DRUG CLASS TEST SYSTEM CUT-OFF CONCENTRATIONS ARE FOLLOWS: Normal [facility] Comment on above: Performed By: #### ALEXANDRA OLIVIA #### [facility] [address] [place] [address] Randi Sandra mAMP Negative Normal NEGATIVE [facility] Comment on above: Performed By: #### EPHRAIM OLIVIARO #### [facility] [address] [place] [address] Randi Sandra MTD Negative Normal NEGATIVE [facility] Comment on above: Performed By: #### EPHRAIM OLIVIARO #### [facility] [address] [place] [address] Randi Sandra OPI Negative Normal NEGATIVE [facility] Comment on above: Performed By: #### EPHRAIM OLIVIARO #### [facility] [address] [place] [address] Randi Sandra OXY Negative Normal NEGATIVE [facility] Comment on above: Performed By: #### EPHRAIM OLIVIARO #### [facility] [address] [place] [address] Randi Sandra PCP Negative Normal NEGATIVE [facility] Comment on above: Performed By: #### EPHRAIM OLIVIARO #### [facility] [address] [place] [address] Randi Sandra PPX Negative Normal NEGATIVE [facility] Comment on above: Performed By: #### EPHRAIM OLIVIARO #### [facility] [address] [place] [address] Randi Sandra TCA Negative Normal NEGATIVE [facility] Comment on above: Performed By: #### EPHRAIM OLIVIARO #### [facility] [address] [place] [address] Randi Sandra THC Positive Normal NEGATIVE [facility] Comment on above: Performed By: #### EPHRAIM OLIVIARO #### [facility] [address] [place] [address] Randi Sandra GROUP B STREP CULTUREon 04-23 S. agalactiae Ag Ql (Unsp spec) Culture Observations: Negative for Group B Streptococcus. Normal [facility] Comment on above: Performed By: #### G BSCX #### [facility] [address] [place] [address] Randi Flores US PREG GROWTHon 05-12-2019 US PREG GROWTH Patient: CONNIE RAMIREZ Exam Date: 05/12/2019 : 1990 Gender:F Ordering : DR RICHARD GARCÍA . Admission #: [id number] Family : Order #: [id number] CLICK HERE TO VIEW EXAM RADIOLOGY REPORT PROCEDURE: ULTRASOUND GROWTH COMPARISON: None. INDICATIONS: Sxzmb-zyl-hbnns baby P05.10; 35w0d TECNIQUE: Transabdominal sonographic examination [...] Sloan M.D. on 05/12/2019 at 14:02 Normal [facility] US PREG REEVAL ABNon 03-09- 019 US PREG REEVAL ABN [address] [place] [address] Patient: CONNIE RAMIREZ Exam Date: 03/09/2019 : 1990 Gender:F Ordering : DR RICHARD GARCÍA . Admission #: [id number] Family : Order #: [id number] CLICK HERE TO VIEW EXAM RADIOLOGY REPORT [...] Sloan M.D. on 03/09/2019 at 17:13 Normal [facility] PREG ANATOMY SINGLEon PREG ANATOMY SINGLE [address] [place] [address] Patient: CONNIE RAMIREZ Exam Date: 01/17/2019 : 1990 Gender:F Ordering : DR RICHARD GARCÍA . Admission #: [id number] Family : Order #: [id number] CLICK HERE TO VIEW EXAM RADIOLOGY REPORT [...] M.D. on 01/17/2019 at 10:21 Normal [facility] CBC AUTO DIFFon 10-28-2018 Basophils (Bld) [#/Vol] 0.0 103/ul Normal 0.0-0.1 [facility] Comment on above: Performed By: #### C BC #### [facility] [address] [place] [address] Randi Sandra Basophils/100 WBC (Bld) 0.5 % Normal 0.2-2.0 [facility] Comment on above: Performed By: #### C BC #### [facility] [address] [place] [address] Randi Sandra Eosinophils (Bld) [#/Vol] 0.0 103/ul Normal 0.0-0.7 [facility] Comment on above: Performed By: #### C BC #### [facility] [address] [place], [place] [id number] Randi Sandra Eosinophils/100 WBC (Bld) 0.3 % Critically low 0.9-7.0 [facility] Comment on above: Performed By: #### C BC #### [facility] [address] [place] [address] Randi Sandra Erythrocyte distribution width (RBC) [Ratio] 12.2 % Normal 11.0-15.0 [facility] Comment on above: Performed By: #### C BC #### [facility] [address] [place] [address] Randi Sandra Hematocrit (Bld) [Volume fraction] 35.3 % Critically low 36.0-48.0 [facility] Comment on above: Performed By: #### C BC #### [facility] [address] [place], [place] [address] Randi Sandra Hemoglobin (Bld) [Mass/Vol] 12.4 g/dL Normal 12.0-16.0 [facility] Comment on above: Performed By: #### C BC #### [facility] [address] [place] [phone] Randi Sandra IG # 0.01 10e3/ul Normal 0.00-0.03 [facility] Comment on above: Performed By: #### C BC #### [facility] [address] [place] [address] Randi Sandra IG % 0.2 % Normal 0.0-0.5 [facility] Comment on above: Performed By: #### C BC #### [facility] [address] [place] [address] Randi Sandra Lymphocytes (Bld) [#/Vol] 2.4 103/ul Normal 1.2-3.8 [facility] Comment on above: Performed By: #### C BC #### [facility] [address] [place], [place] [phone] Randi Sandra Lymphocytes/100 WBC (Bld) 39.3 % Normal 20.5-60.0 [facility] Comment on above: Performed By: #### C BC #### [facility] [address] [place], [place] [phone] Randi Sandra MANUAL DIFF REQ NO Normal [facility] Comment on above: Performed By: #### C BC #### [facility] [address] [place], [place] [phone] Randi Sandra MCH (RBC) [Entitic mass] 30.8 pg Normal 26.7-34.0 [facility] Comment on above: Performed By: #### C BC #### [facility] [address] [place], [place] [phone] Randi Sandra MCHC (RBC) [Mass/Vol] 35.1 g/dL Normal 29.9-35.2 [facility] Comment on above: Performed By: #### C BC #### [facility] [address] [place], [place] [address] Randi Sandra MCV (RBC) [Entitic vol] 87.6 fL Normal 81.0-99.0 [facility] Comment on above: Performed By: #### C BC #### [facility] [address] [place] [address] Randi Sandra Monocytes (Bld) [#/Vol] 0.4 103/ul Normal 0.3-0.8 [facility] Comment on above: Performed By: #### C BC #### [facility] [address] [place] [address] Randi Sandra Monocytes/100 WBC (Bld) 6.8 % Normal 1.7-12.0 [facility] Comment on above: Performed By: #### C BC #### [facility] [address] [place], [place] [phone] Randi Sandra Neutrophils (Bld) [#/Vol] 3.2 103/ul Normal 1.4-6.5 [facility] Comment on above: Performed By: #### C BC #### [facility] [address] [place] [phone] Randi Sandra Neutrophils/100 WBC (Bld) 52.9 % Normal 43.0-75.0 [facility] Comment on above: Performed By: #### C BC #### [facility] [address] [place] [phone] Randi Sandra Platelet mean volume (Bld) [Entitic vol] 10.9 fL Normal 9.5-13.5 [facility] Comment on above: Performed By: #### C BC #### [facility] [address] [place] [id number] Randi Sandra Platelets (Bld) [#/Vol] 213 103/ul Normal 150-450 [facility] Comment on above: Performed By: #### C BC #### [facility] [address] [place], [place] [phone] Randi Sandra RBC (Bld) [#/Vol] 4.03 106/ul Critically low 4.20-5.40 [facility] Comment on above: Performed By: #### C BC #### [facility] [address] [place] [address] Randi Sandra WBC (Bld) [#/Vol] 6.1 103/ul Normal 4.0-11.[address] [facility] Comment on above: Performed By: #### C BC #### [facility] [address] [place] [address] Randi Sandra ER URINE PROFILEon 8 Bilirubin [Mass/Vol] Negative Normal NEGATIVE [facility] Comment on above: Performed By: #### ALEXANDRA OLIVIA #### [facility] [address] [place] [address] Randi Sandra BLOOD TRACE-INTACT Normal NEGATIVE [facility] Comment on above: Performed By: #### ALEXANDRA OLIVIA #### [facility] [address] [place] [address] Randi Sandra Clarity (U) CLEAR Normal [facility] Comment on above: Performed By: #### ALEXANDRA OLIVIA #### [facility] [address] [place] [address] Randi Sandra Color (U) YELLOW Normal YELLOW [facility] Comment on above: Performed By: #### ALEXANDRA OLIVIA #### [facility] [address] [place] [address] Randi Sandra ERUAHD A micrscopic examination will be performed if indicated. Normal [facility] Comment on above: Performed By: #### ALEXANDRA OLIVIA #### [facility] [address] [place] [address] Randi Sandra Glucose [Mass/Vol] Negative Normal NEGATIVE [facility] Comment on above: Performed By: #### ALEXANDRA OLIVIA #### [facility] [address] [place] [address] Randi Sandra Ketones Ql (U) TRACE Normal NEGATIVE [facility] Comment on above: Performed By: #### ALEXANDRA OLIVIA #### [facility] [address] [place] [address] Randi Sandra Nitrite Ql (U) Negative Normal NEGATIVE [facility] Comment on above: Performed By: #### Rere VASQUEZ, UMICRO #### [facility] [address] [place], [place] [phone] Randipancho Flores pH (Bld) 6.0 Normal 5-9 [facility] Comment on above: Performed By: #### Rere VASQUEZ, UMICRO #### [facility] [address] [place], [place] [phone] Randi Sandra Protein (U) [Mass/Vol] Negative Normal [facility] Comment on above: Performed By: #### Rere VASQUEZ UMICRO #### [facility] [address] [place], [place] [phone] Randipancho Flores SPEC GRAVITY >=1.030 Normal 1.005-<=1.025 [facility] Comment on above: Performed By: #### Rere VASQUEZ, UMICRO #### [facility] [address] [place], [place] [phone] Randi Flores UR MICRO IND INDICATED Normal [facility] Comment on above: Performed By: #### Rere VASQUEZ UMICRO #### [facility] [address] [place], [place] [phone] Randipancho Flores Urobilinogen Qn (U) 0.2 EU/dl Normal [facility] Comment on above: Performed By: #### Rere VASQUEZ UMICRO #### [facility] [address] [place], [place] [phone] Randipancho Flores WBC (Bld) [#/Vol] Negative Normal NEGATIVE [facility] Comment on above: Performed By: #### Rere VASQUEZ, UMICRO #### [facility] [address] [place], [place] [address] Randipancho Flores PREG QUANT HCGon 10-28-2018 HCG QUANT 02670.00 mIU/mL Normal [facility] Comment on above: Performed By: #### Omar MP, PREGQNT #### [facility] [address] [place], [place] [phone] Randi Sandra HCG RANGE SEE BELOW Normal [facility] Comment on above: Result Comment: 5-50 0-1 WEEK 40-300 1-2 WEEKS 100-1,000 2-3 WEEKS 500-6,000 3-4 WEEKS 5,000-200,000 1-2 MONTHS 10,000-100,000 2-3 MONTHS 3,000-50,000 2ND TRIMESTER 1,000-50,000 3RD TRIMESTER Performed By: #### B HANG, PREGQNT #### [facility] [address] [place] [address] Randi Sandra PROF CHEM 8 (BAS METB)on Anion gap [Moles/Vol] 12.1 mmol/L Normal [facility] Comment on above: Performed By: #### B HANG, PREGQNT #### [facility] [address] [place] [address] Randi Sandra Calcium [Mass/Vol] 9.0 mg/dL Normal 8.4-10.2 [facility] Comment on above: Performed By: #### Omar MAURICIO PREGQNT #### [facility] [address] [place] [address] Randi Sandra Chloride [Moles/Vol] 101 mmol/L Normal 98-107 [facility] Comment on above: Performed By: #### Omar MAURICIO PREGQNT #### [facility] [address] [place] [address] Randi Sandra CO2 [Moles/Vol] 26.0 mmol/L Normal 22.0-30.0 [facility] Comment on above: Performed By: #### Omar MAURICIO, PREGQNT #### [facility] [address] [place] [address] Randi Sandra Creatinine [Mass/Vol] 0.61 mg/dL Normal 0.52-1.04 [facility] Comment on above: Performed By: #### Omar MAURICIO, PREGQNT #### [facility] [address] [place], [place] [address] Randi Sandra EGFR-AF COLOMBIAN >60 Normal >=60 [facility] Comment on above: Performed By: #### Omar MAURICIO, PREGQNT #### [facility] [address] [place], [place] [address] Randi Sandra EGFR-NON AF COLOMBIAN >60 Normal >=60 [facility] Comment on above: Performed By: #### B HANG, PREGQNT #### [facility] [address] [place], [place] [address] Randi Sandra Glucose [Mass/Vol] 82 mg/dL Normal 74-106 [facility] Comment on above: Performed By: #### B HANG, PREGQNT #### [facility] [address] [place], [place] [address] Randi Sandra Potassium [Moles/Vol] 3.1 mmol/L Critically low 3.4-5.0 [facility] Comment on above: Performed By: #### B HANG, PREGQNT #### [facility] [address] [place] [address] Randi Sandra Sodium [Moles/Vol] 136 mmol/L Critically low 137-145 [facility] Comment on above: Performed By: #### B HANG, PREGQNT #### [facility] [address] [place] [address] Randi Sandra Urea nitrogen [Mass/Vol] 8.0 mg/dL Normal 7.0-17.0 [facility] Comment on above: Performed By: #### B HANG, PREGQNT #### [facility] [address] [place] [address] Randi Sandra Urea nitrogen/Creatinine [Mass ratio] 13.1 mg/mg Normal [facility] Comment on above: Performed By: #### Omar MAURICIO PREGQNT #### [facility] [address] [place], [place] [phone] Randi Sandra URINE MICROSCOPIC ONLYon Bacteria LM.HPF (Urine sed) [#/Area] TRACE Normal NONE SEEN The [facility] Comment on above: Performed By: #### ALEXANDRA OLIVIA #### [facility] [address] [place] [address] Randi Sandra CAST NONE SEEN Normal NONE SEEN [facility] Comment on above: Performed By: #### EPHRAIM OLIVIARO #### [facility] [address] [place], [place] [phone] Randi Sandra Crystals LM Nom (Urine sed) NONE SEEN Normal NONE SEEN [facility] Comment on above: Performed By: #### EPHRAIM OLIVIARO #### [facility] [address] [place], [place] [phone] Randi Sandra CULTURE NOT INDICATED Normal [facility] Comment on above: Performed By: #### Rere VASQUEZ, UMPAIGERO #### [facility] [address] [phone] Randi Sandra Epithelial cells LM.HPF (Urine sed) [#/Area] RARE Normal [facility] Comment on above: Performed By: #### Rere VASQUEZ, UMPAIGERO #### [facility] [address] [place] [id number] Randi Sandra MUCOUS NONE SEEN Normal NONE SEEN [facility] Comment on above: Performed By: #### Rere VASQUEZ, EPHRAIMRO #### [facility] [address] [place], [place] [phone] Randi Asndra RBC (U) [#/Vol] 0-2 Normal 0-2 [facility] Comment on above: Performed By: #### Rere VASQUEZ, UMPAIGERO #### [facility] [address] [place] [phone] Randi Sandra WBC (Bld) [#/Vol] 0-2 Normal NONE SEEN The [facility] Comment on above: Performed By: #### Rere VASQUEZ, UMPAIGERO #### [facility] [address] [place] [phone] Randi Sandra Vital Signs Date Time Vital Sign Value Performing Clinician Anitai hardeep 01-13-2024 15:40-0500 Body mass index (BMI) [Ratio] 20.88 kg/m2 [facility] 01-13-2024 15:40-0500 Body weight 56.93 kg [facility] 01-13-2024 15:40-0500 Diastolic blood pressure 58 mm[Hg] [facility] 01-13-2024 15:40-0500 Systolic blood pressure 100 mm[Hg] [facility] 01-05-2024 09:01-0500 Body height 165.1 cm Kal Ellison MD Work Phone: [facility] [employer] [facility] 01-05-2024 09:01-0500 Body mass index (BMI) [Ratio] 21.13 kg/m2 Kal Ellison MD Work Phone: [facility] [employer] [facility] 01-05-2024 09:01-0500 Body weight 57.61 kg Kal Ellison MD Work Phone: [facility] [employer] [facility] 01-05-2024 09:01-0500 Diastolic blood pressure 60 mm[Hg] Kal Ellison MD Work Phone: [facility] [employer] [facility] 01-05-2024 09:01-0500 Heart rate 80 /min Kal Ellison MD Work Phone: [facility] [employer] [facility] 01-05-2024 09:01-0500 SaO2% (BldA) [Mass fraction] 100 % Kal Ellison MD Work Phone: [facility] [employer] [facility] 01-05-2024 09:01-0500 Systolic blood pressure 110 mm[Hg] Kal Ellison MD Work Phone: [facility] [employer] [facility] 12-17-2023 14:13-0500 Body mass index (BMI) [Ratio] 19.96 kg/m2 Andressa Keven BROOMMAKING SUPERVISOR-WASH OIL PUMP OPERATOR Work Phone: [facility] [employer] [facility] 12-17-2023 14:13-0500 Body weight 56.06 kg Andressa Keven BROOMMAKING SUPERVISOR-WASH OIL PUMP OPERATOR Work Phone: [facility] [employer] [facility] 12-17-2023 14:13-0500 Diastolic blood pressure 52 mm[Hg] Andressa Keven BROOMMAKING SUPERVISOR-WASH OIL PUMP OPERATOR Work Phone: [facility] [employer] [facility] 12-17-2023 14:13-0500 Systolic blood pressure 94 mm[Hg] Andressa Keven BROOMMAKING SUPERVISOR-WASH OIL PUMP OPERATOR Work Phone: [facility] [employer] [facility] 12-16-2023 14:09-0500 Body height 167.6 cm Jossy Nunes MD Work Phone: [facility] 12-16-2023 14:09-0500 Body mass index (BMI) [Ratio] 19.47 kg/m2 Jossy Nunes MD Work Phone: [facility] 12-16-2023 14:09-0500 Body weight 54.7 kg Jossy Nunes MD Work Phone: [facility] 12-16-2023 14:09-0500 Diastolic blood pressure 60 mm[Hg] Jossy Nunes MD Work Phone: [facility] 12-16-2023 14:09-0500 Systolic blood pressure 98 mm[Hg] Jossy Nunes MD Work Phone: [facility] 12-09-2023 14:15-0500 Body height 167.6 cm ws [facility] 12-09-2023 14:15-0500 Body mass index (BMI) [Ratio] 19.43 kg/m2 [facility] 12-09-2023 14:15-0500 Body weight 54.61 kg ws [facility] 12-09-2023 14:15-0500 Diastolic blood pressure 64 mm[Hg] ws [facility] 12-09-2023 14:15-0500 Systolic blood pressure 112 mm[Hg] [facility] Encounters Encounter Date Encounter Type Care Provider Facility Start: 04-11-2024 End: 04-11-2024 ambulatory NELLI DEBRA Not Available Start: 04-04-2024 End: 04-05-2024 ambulatory EDUAR [facility] Start: 04-04-2024 End: 04-04-2024 ambulatory ABDELRAHMAN PAN Not Available Start: 03-27-2024 End: 03-27-2024 ambulatory ABDELRAHMAN PAN Not Available Start: 03-20-2024 End: 03-20-2024 ambulatory NELLI DEBRA Not Available Start: 03-07-2024 End: 03-08-2024 ambulatory [facility] Start: 03-06-2024 End: 03-06-2024 ambulatory ABDELRAHMAN PAN Not Available Start: 02-22-2024 Telephone encounter Tamie clayton BROOMMAKING SUPERVISOR-CNM Work Phone: [facility] Start: 02-21-2024 End: 02-21-2024 ambulatory NELLI RICHARDSON Not Available Start: 02-18-2024 End: 02-18-2024 ambulatory [facility] Start: 02-15-2024 End: 02-16-2024 ambulatory TAMIE Mejia [facility] Start: 02-15-2024 End: 02-15-2024 ambulatory TAMIE M [facility] Start: 02-07-2024 End: 02-07-2024 ambulatory ABDELRAHMAN AMARAL Not Available Start: 01-21-2024 End: 01-22-2024 Emergency department patient visit SAVI MOTA [facility] Start: 01-18-2024 End: 01-19-2024 ambulatory [facility] Start: 01-13-2024 End: 01-13-2024 ambulatory [facility] Start: 01-13-2024 End: 01-13-2024 Subsequent care visit [facility] Website/Blog Editor [facility] Comment on above: GA: 25w1d Start: 01-05-2024 End: 01-05-2024 [facility] Start: 01-05-2024 End: 01-05-2024 Office outpatient visit 15 minutes Dominik Meza MD Work Phone: [facility] Comment on above: Mitral valve insuffi ciency, unspecified etiology (Primary Dx); Gestational edema in third trimester Start: 12-17-2023 End: 12-17-2023 ambulatory ANDRESSA Mejia [facility] Start: 12-17-2023 End: 12-17-2023 Subsequent care visit Andressa Gallagher BROOMMAKING SUPERVISOR-WASH OIL PUMP OPERATOR Work Phone: [facility] Comment on above: GA: 21w2d Start: 12-16-2023 End: 12-16-2023 Office outpatient new 45 minutes Hind Nadim Moussa MD Work Phone: [facility] Comment on above: High-risk in second trimester (Primary Dx); Drug use affecting , antepartum; History of acute congestive heart failure; Nonrheumatic mitral valve regurgitation; Echogenic intracardiac focus of fetus on ultrasound; 21 weeks gestation of ; Nausea/vomiting in ; Constipation during in second trimester Start: 12-16-2023 End: 12-16-2023 Orders Only Srinivasan Campbell RN [facility] Comment on above: Nonrheumatic mitral valve regurgitation (Primary Dx); Drug use affecting , antepartum; History of acute congestive heart failure Start: 12-10-2023 Orders Only Andressa Gallagher APRN-WASH OIL PUMP OPERATOR Work Phone: [facility] Comment on above: Bacterial vaginosis in (Primary Dx); Vaginal yeast infection; with 20 completed weeks gestation Start: 12-10-2023 End: 12-10-2023 ambulatory ANDRESSA M [facility] Start: 12-09-2023 End: 12-09-2023 ambulatory [facility] Start: 12-09-2023 End: 12-09-2023 Office outpatient visit 15 minutes [facility]/Blog Editor [facility] Comment on above: Vaginal discharge (P rimary Dx); Vagina itching; Vaginal irritation; Nausea/vomiting in ; Constipation during in second trimester Start: 11-23-2023 Telephone encounter Mago cerna DO Work Phone: [facility] Start: 11-17-2023 End: 11-18-2023 ambulatory [facility] Start: 11-17-2023 End: 11-17-2023 ambulatory [facility] Start: 11-12-2023 Telephone encounter Tamie clayton BROOMMAKING SUPERVISOR-CNM Work Phone: [facility] Start: 11-12-2023 End: 11-12-2023 Emergency department patient visit [facility] Start: 06-05-2019 End: 06-07-2019 Evaluation and [...] in Cervix by Cyto stain Tamie Velásquez BROOMMAKING SUPERVISOR-CNM Work Phone: Start: 06-05-2019 Delivery of Products of Conception, External Approach ZIGGY PAZ Plan of Treatment Date Care Activity Detail Author Start: 09-28-2026 Screening for malign ant neoplasm of cervix Pap Smear [facility] Start: 02-17-2025 Adult BMI Screening Adult BMI Screen ing [facility] Start: 02-17-2025 Tobacco Screening Tobacco Screening [facility] Start: 01-13-2025 Adult BMI Screening Adult BMI Screen ing [facility] Start: 01-13-2025 Tobacco Screening Tobacco Screening [facility] Start: 12-17-2024 Adult BMI Screening Adult BMI Screen ing [facility] Start: 12-17-2024 Tobacco Screening Tobacco Screening [facility] Start: 12-16-2024 Adult BMI Screening Adult BMI Screen ing [facility] Start: 12-16-2024 Tobacco Screening Tobacco Screening [facility] Start: 12-09-2024 Adult BMI Screening Adult BMI Screen ing [facility] Start: 12-09-2024 Tobacco Screening Tobacco Screening [facility] Start: 11-17-2024 Adult BMI Screening Adult BMI Screen ing [facility] Start: 11-17-2024 Tobacco Screening Tobacco Screening [facility] Start: 11-11-2024 Adult BMI Screening Adult BMI Screen ing [facility] Start: 11-11-2024 Tobacco Screening Tobacco Screening [facility] Start: 07-23-2024 Influenza vaccination Influenza Vacc ine [facility] Start: 03-07-2024 End: 03-07-2024 Patient encounter procedure 03/07/2024 9:30 AM EDT Appointment [facility] [address] [place] [address] [facility] Start: 01-18-2024 End: 01-18-2024 Patient encounter procedure 01/18/2024 2:45 PM EST Appointment [facility] [address] [place] [address] [facility] - Ultrasound Start: 01-16-2024 End: 12-16-2024 US MFM with or without consult US MFM with or without consult Imaging Routine Nonrheumatic mitral valve regurgitation Drug use affecting , antepartum History of acute congestive heart failure Expected: 01/16/2024 (Approximate), Expires: 12/16/2024 [facility] Work Phone: Comment on above: Expected: 01/16/2024 (Approximate), Expires: 12/16/2024 Start: 01-13-2024 End: 01-13-2024 Patient encounter procedure 01/13/2024 3:45 PM EST Routine [facility] [address] [place] [id number] [facility] Start: 01-05-2024 End: 01-05-2024 Patient encounter procedure 01/05/2024 9:00 AM EST Office Visit [facility] Card[facility] [address] [place] [phone] Dominik Meza MD [address] [place] [address] Kal Ellison MD [address] [place] [phone] [facility] Start: 12-20-2023 End: 12-20-2023 Patient encounter procedure 12/20/2023 8:00 AM EST Office Visit [facility] [address] [place] [phone] Dominik Meza MD [address] [place] [address] Joseph Cook MD [address] [place], [place] [id number] [facility] Start: 12-17-2023 End: 12-17-2023 Patient encounter procedure 12/17/2023 2:15 PM EST Routine [facility] [address] [facility] [place] [phone] Andressa Gallagher, BROOMMAKING SUPERVISOR-WASH OIL PUMP OPERATOR [address] [place] [address] [facility] Start: 12-16-2023 End: 12-16-2023 Telemedicine consultation with patient 12/16/2023 2:15 PM EST Telemedicine [facility] [address] [place] [phone] Jossy Nunes MD [address] [facility], [address] [place] [address] [facility] Start: 12-16-2023 End: 12-16-2023 Patient encounter procedure 12/16/2023 1:00 PM EST Appointment [facility] [address] [place] [address] [facility] Start: 12-15-2023 End: 12-15-2023 Patient encounter procedure 12/15/2023 4:00 PM EST Routine [facility] [address] [place] [address] [facility] Start: 12-09-2023 End: 12-09-2024 Vaginitis Panel PCR Vaginitis Panel PCR Microbiology Routine Vaginal discharge Vagina itching Vaginal irritation Expected: 12/09/2023 (Approximate), Expires: 12/09/2024 [facility] Work Phone: Comment on above: Expected: 12/09/2023 (Approximate), Expires: 12/09/2024 Start: 11-24-2023 End: 11-24-2023 Patient encounter procedure 11/24/2023 9:30 AM EST Routine [facility] [address] [place] [address] Mago Valdez DO [address] [place] [address] [facility] Start: 11-17-2023 End: 11-17-2023 Patient encounter procedure [facility] Start: 2011 DTaP,Tdap and Td Vaccines (1 - Tdap) DTaP,Tdap and Td Vaccines (1 - Tdap) [facility] Start: 2010 Adult BMI Follow Up Plan Adult BMI Follow Up Plan [facility] Start: 2004 Depression Screening Depression Nas nair [facility] Start: 1992 Tobacco Counseling Tobacco Counselin g [facility] End: 01-12-2025 CBC panel - Blood [...] Occurrences starting 01/13/2024 until 01/13/2025 [facility] Comment on above: 1 Occurrences starti ng 01/13/2024 until 01/13/2025 End: 01-13-2025 Syphilis Total(Unknown Syphilis Status) Syphilis Total(Unknown Syphilis Status) Lab Routine 25 weeks gestation of Second trimester 1 Occurrences starting 01/13/2024 until 01/13/2025 [facility] on above: 1 Occurrences starti ng 01/13/2024 until 01/13/2025 Immunizations Immunization Date Immunization Notes Care Provider Lizeth swann 10-26-2023 influenza virus vaccine, unspecified formulation Tamie Velásquez BROOMMAKING SUPERVISOR-CNM Work Phone: [facility] Payers Date Payer Category Payer Private Health [place] [facility] [id number] 2022-Present [phone] [address] [place] [address] [id number] 2022 Private Health Insurance [id number] 1992 Unknown [id number] 2.16.840.1.701611.3.579. 2.593 1992 Unknown [id number] 2.16.840.1.885760.3.579. 2.593 1992 Unknown [id number] 2.16.840.1.031986.3.579. 2.593 1992 Unknown [id number] 2.16.840.1.681336.3.579. 2.593 1992 Unknown [id number] 2.16.840.1.704661.3.579. 2.593 1992 Unknown [id number] 2.16.840.1.425571.3.579. 2.593 1992 Unknown [id number] 2.16.840.1.743532.3.579. 2.593 1992 Unknown [id number] 2.16.840.1.294254.3.579. 2.1285 1992 Unknown [id number] 2.16.840.1.554588.3.579. 2.1285 1992 Unknown [id number] 2.16.840.1.199225.3.579. 2.1285 1992 Unknown [id number] 2.16.840.1.168796.3.579. 2.1285 1992 Unknown [id number] 2.16.840.1.174505.3.579. 2.1285 1992 Unknown [id number] 2.16.840.1.702059.3.579. 2.1285 1992 Unknown [id number] 2.16.840.1.347399.3.579. 2.1285 1992 Unknown [id number] 2.16.840.1.776818.3.579. 2.1285 1992 Unknown [id number] 2.16.840.1.928570.3.579. 2.1285 1992 Unknown [id number] 2.16.840.1.051832.3.579. 2.1285 1992 Unknown [id number] 2.16.840.1.532993.3.579. 2.1285 1992 Unknown [id number] 2.16.840.1.978415.3.579. 2.1285 1992 Unknown [id number] 2.16.840.1.780483.3.579. 2.1285 1992 Unknown [id number] 2.16.840.1.082808.3.579. 2.1285 1992 Unknown [id number] 2.16.840.1.040478.3.579. 2.1286 1992 Unknown [id number] 2.16.840.1.490575.3.579. 2.1286 1992 Unknown [id number] 2.16.840.1.345818.3.579. 2.6 1992 Unknown [id number] 2.16.840.1.227209.3.579. 2.1286 1992 Unknown [id number] 2.16.840.1.886504.3.579. 2.9 1992 Unknown [id number] 2.16.840.1.521576.3.579. 2.9 1992 Unknown [id number] 2.16.840.1.703746.3.579. 2.9 1992 Unknown [id number] 2.16.840.1.735007.3.579. 2.9 1992 Unknown [id number] 2.16.840.1.946266.3.579. 2.9 1992 Unknown [id number] 2.16.840.1.140904.3.579. 2.9 1992 Unknown [id number] 2.16.840.1.780306.3.579. 2.1259 1959 Self-pay 1959 Unknown [id number] Social History Date Type Detail Facility Start: 03-29-2021 End: 11-17-2023 Tobacco smoking status [facility] Occasional tobacco smoker [facility] Start: 03-29-2021 End: 11-17-2023 Tobacco use and exposure Smokeless tobacco non-user [facility] Start: 11-11-2023 End: 02-18-2024 Alcohol intake Ex-drinker (finding) [facility] Start: 10-21-2018 End: 01-02-2021 History of Social function [facility] Start: 10-21-2018 End: 01-02-2021 Alcohol Use Disorder Identification Test - Consumption [AUDIT-C] [facility] Frequency of Alcohol Consumption Never [facility] Start: 08-04-2023 [facility] Start: 1992 Sex Assigned At Not on file [facility] Clinical Notes 11-12-2023 to 02-22-2024 Telephone [...] Pt. Verbalized understanding. documented in this encounter [facility] 02-22-2024 Telephone encounter Note Call to [...] tomorrow to discuss labs. Pt. Verbalized understanding. [facility] 01-13-2024 History of Presen t illness Narrative 34 y.o. at 25w1d. No CTX, VB, LOF. positive FM. Pt. Initially unable to void for routine appt. 1. Reviewed signs of labor and movement 2. No cramping, vaginal bleeding or LOF 3. 28 wk labs next visit 4. Return 3 WKS. WITH [facility]. Discussed MFM recommendation for telemetry in labor and 24hr. After. Discussed availability of cardiology at [facility] vs. [facility] and avoidance of separation of mom and baby if either were to need transferred after delivery 5. Reviewed cardiology referral on 01/05 w/Dr. [place] 6. Reviewed MFM note on 12/16 MARIA ESTHER Hernandez 01/13/24 1321 [facility] History of Presen t illness Narrative [...] Chief Complaint Patient presents with New Patient CREAM RIPENER Mitral valve insufficiency, unspecified etiology L/S MGI [...] Physician: Dominik Meza MD [address] [facility] [place] [address] documented in this encounter [facility] 01-05-2024 Instructions Adwoa Trisha, QUALITY CONTROL SPECIALIST - 01/05/2024 9:00 AM EST Are You Ready To Kick The Habit? Free Tobacco Cessation Resources [facility] Services [facility] provide all employees with free tobacco cessation services that include: Counseling to understand nicotine addiction Education about medications that can help you successfully quit Assistance with developing a plan to quit Call to set up an individual appointment or find out when group classes will be held: [facility]: [phone] [facility]: [phone] [facility]: [phone] [facility]: [phone] Quit Smoking Action Plan and Resources [facility] offers an eight-week, online smoking cessation plan to all [facility] employees, regardless of whether [place] is your medical insurance provider. Go to www.RentPostmedica.org/employeewell ness and click the Health Risk Assessment and Resources link to get started. In the Womai menu, click Action Plans instead of Health Risk Assessment to access the Quit Smoking Action Plan. Additional smoking cessation resources are also available to all [facility] employees on the Ebjzq3Umjvee web page at www.Vputi/quit smoking. [place] Tobacco Cessation Program If [place] is your medical insurance provider, there are more free resources available to you, including: No copays or deductibles on local tobacco cessation counseling services to help you quit Prescription assistance for tobacco cessation medications to help you quit For details about the tobacco cessation program available to [place] members, go to www.RentPost.Newsreps (Search: Tobacco Cessation Program). [place] Tobacco Quit Line 7-978-WFQR-NOW ( ) is a toll-free, telephonic service that helps [place] residents quit smoking and using tobacco. It is staffed by experts who tailor a quit plan for you and provide you with advice. [place] Tobacco Quit Line 0-236-FNKH-NOW ( ) is a toll-free, telephonic service that helps [place] residents quit smoking and using tobacco. It is staffed by experts who tailor a quit plan for you and provide you with advice. Two weeks of nicotine replacement therapy may be provided at no charge, if needed. Additional Resources These national organizations also offer free information and resources to help you quit tobacco: [place] Cancer Society--www.cancer.org/healthy/ stayawayfromtobacco [place] Heart Association--www.heart.org (Search: Quit Smoking) Centers for Disease Control and Prevention--www.cdc.gov/tobacco [place] Lung Association--www.lungusa.org documented in this encounter [facility] 12-17-2023 History of Presen t illness Narrative [...] 7. Return 4 wks. NITO Younger 12/17/23 4678 documented in this encounter [facility] 12-16-2023 History of Presen t illness Narrative Images from the original note were not included. [facility] Maternal- Medicine Tele-Consult Note Reason For Consult: Provider at different site/location than patient. Connie Ramirezcurrently at [place] office and provider at remote site The patient consented to be treated electronically via this form of telemedicine. This visit was not related to an office visit or procedure in the past 7 days, and in-office follow up is not recommended in the next 24 hours. Video Visit via Real-time Synchronous Audiovisual Provider Location: [facility] AT [address] [phone] Patient Location: Other Patient Location Senior Net Software Engineer: None Video Visit Consent Statement: I discussed [...] that there are some limitations compared to [id number] evaluations. We elected to proceed. HPI: Connie Ramirez is a 33 y.o. @ 21w1d who presented for consultation from Dr. Velásquez, Tamie Mejia, BROOMMAKING SUPERVISOR-C* regarding Chief Complaint Patient presents with mfm [...] in heart failure 1 week . Connie Ramierz reports that after her discharge from the hospital post delivery she started having shortness of breath at form especially with orthopnea. She presented to the hospital and was told that she has fluid around her heart and in her lungs. Workup at that time included maternal echocardiogram that revealed an ejection fraction that was borderline however not abnormal. There was cwap-pi-xuafdihs mitral valve regurgitation. There was no evidence [...] and management during . In view of pokagon valvular heart disease however not meeting criteria [...] recommended. She is agreeable for delivery at [facility]. Referral to [place] for [facility] is recommended accordingly. In addition to that recommend anesthesia consultation in the 3rd trimester this can be initiated by her primary OB team. Telemetry during labor and for 24 hours Plan reviewed with patient. She vocalized understanding all questions answered. [facility], the CDC, and other organizations representing maternal and public health professionals recommend that , , and lactating people and those considering receive the COVID-19 vaccination. Vaccination is the best method to reduce maternal and complications of SARS-CoV-2 infection. This document was created with [employer] technology. Though I make every effort to review the dictation as it is transcribed, on occasion the spoken word can be misinterpreted by the technology leading to inappropriate words, phrases, or sentences. This note is addressed to the requesting provider as a consultation for clinical guidance. Specific medical abbreviations are occasionally used and those are generally approved by the [place]?Board of?Obstetrics and?Gynecology?as well as?[place] s abbreviations. The above plan of care was based solely on the diagnoses for which a consultation was requested. ?More frequent testing may be indicated based on her other medical/obstetrical conditions. The management of other or medical conditions is beyond the scope of requested consultation and will continue to be followed by the primary inspector floor sub assembly or primary care provider. Thank you for [...] procedures Referring and communicating with other health resident care coordinator (not separately reported) Documenting clinical information in [...] patient Have you been seen here at [facility] in a previous ? no Recent ER visits or hospitalizations? no Bring blood sugar log or meter with you today? (Please bring them with you for every visit at [facility]) Traveled outside the country in the past 6 month no Any concerns that you would like me to mention to the provider today? No concerns documented in this encounter [facility] 12-10-2023 Miscellaneous Notes Pt seen in Office [...] asked for it to be emailed to [email or web address]. Work note emailed to Pt. documented in this encounter [facility] 12-10-2023 Telephone encounter Note Pt seen in Office on December 09 for yeast infection. Pt states she is having a lot of pain. Pt is requesting work excuse note for today. Please advise. Thank you [facility] 12-10-2023 Telephone encounter Note Please provide work note for today only. I did sent prescriptions for her and she should begin them zoraida. Thank you. [facility] 12-10-2023 Telephone encounter Note Advised Pt work note can be provided. Pt asked for it to be emailed to [email or web address]. Work note emailed to Pt. [facility] 12-09-2023 History of Presen t illness [...] All questions answered. Educational material provided through [employer]. RTO for next scheduled visit or sooner as needed. Patient has her MFM consult and anatomy scan next week. PEEWEE MOTLEY, QUALITY CONTROL SPECIALIST NITO Younger 12/09/23 1431 documented in this encounter [facility] 11-23-2023 Miscellaneous Notes Pt states she had Echo cardiogram done last week & does not understand the results. Procedure was ordered by Dr. Meza. Pt was seen in this Office on November 17, 2023. Please advise. Thank you MAKE APPT TO DISCUSS RESULTS PLS Pt scheduled appt with Dr Valdez on November 24. documented in this encounter [facility] 11-23-2023 Telephone encounter Note Pt states she had Echo cardiogram done last week & does not understand the results. Procedure was ordered by Dr. Meza. Pt was seen in this Office on November 17, 2023. Please advise. Thank you [facility] 11-23-2023 Telephone encounter Note MAKE APPT TO DISCUSS RESULTS PLS [facility] Work Phone: 11-23-2023 Telephone encounter Note Pt scheduled appt with Dr Valdez on November 24. [facility] 11-12-2023 Miscellaneous Notes Call rec.'d from ans. [...] and verbalized understanding. documented in this encounter [facility] [employer] 11-12-2023 Telephone encounter Note Call rec.'d from [...] to plan of care and verbalized understanding. [facility] Evaluation note Diagnosis Vaginal discharge- Primary Leukorrhea, not specified as infective Vagina itching Pruritus of genital organs Vaginal irritation Pruritus of genital organs Nausea/vomiting in Unspecified vomiting of , unspecified as to episode of care Constipation during in second trimester [facility] Diagnosis Bacterial vaginosis in - Primary Vaginal yeast infection Candidiasis of vulva and vagina with 20 completed weeks gestation documented [facility]* Diagnosis Nonrheumatic mitral valve regurgitation- Primary Drug use affecting , antepartum History of acute congestive heart failure documented [facility]* Diagnosis High-risk in second trimester- Primary Drug use affecting , antepartum History of acute congestive heart failure Nonrheumatic mitral valve regurgitation Echogenic intracardiac focus of fetus on ultrasound 21 weeks gestation of Nausea/vomiting in Unspecified vomiting of , unspecified as to episode of care Constipation during in second trimester [facility]* Diagnosis with 21 completed weeks gestation- Primary [facility]* Diagnosis Mitral valve insufficiency, unspecified etiology- Primary Gestational edema in third trimester [facility]* Diagnosis 25 weeks gestation of - Primary Second trimester state, incidental History of congenital mitral regurgitation History of CHF (congestive heart failure) Personal history of other diseases of circulatory system documented in this encounter [facility] System[facility]ructionsNot on filedocumented in this encounter [facility] System[facility]ructionsNot on filedocumented in this encounter [facility]* Attachments The following attachments cannot be sent through Care Everywhere. * High Fiber Diet (Bhutanese) * The Fifth Month (Bhutanese) * Vaginitis (Bhutanese) documented in [facility] SystemInstructionsNot on file documented in this [facility] SystemInstructionsNot on file documented in this encounterProM[facility] SystemInstructionsNot on file documented in this [facility]Pro[facility] SystemInstructions* Attachments The following attachments cannot be sent through Care Everywhere. * How to Prepare Baby Formula (Bhutanese) * Kangaroo Care (Bhutanese) documented in this encounterProM[facility] SystemInstructionsNot on file documented in this encounterProMarietta [facility] SystemInstructionsNot on file documented in this encounterGrant [facility] SystemReason for referral (narrative)* Consultation (Routine) - Pending Review Specialty Diagnoses / Procedures Referred By Cassius reynolds Referred To Contact Obstetrics and Gynecology Diagnoses 25 weeks gestation of Second trimester History of congenital mitral regurgitation History of CHF (congestive heart failure) Tamie Velásquez APRN-CNM [id number] [place] [address] [facility] [address] [place] [address] Referral ID Status Reason Start Date Expiration Date Visits Requested Visits Authorized [id number] Pending Review Specialty Services Required 01/13/2024 01/12/2025 1 1 [facility] Summary Purpose Family History No Family [...] of acute congestive heart failure Procedures US [facility] with or without consult Jossy Nunes MD [address] [facility], [address] [place] [address] [facility] Maternal Med [address] [place] [address] Referral ID Status Reason Start Date Expiration Date V isits Requested Visits Authorized [id number] Pending Review 12/16/2023 12/15/2024 1 1 Additional Source Comments INFORMATION SOURCE (unrecogn ized section and content) DATE CREATED AUTHOR 07/21/2019 [facility] DATE CREATED AUTHOR AUTHOR'S ORGANIZ ATION 12/12/[address] [facility] DATE CREATED AUTHOR AUTHOR'S ORGANIZ ATION 01/21/2024 [facility] DATE CREATED AUTHOR AUTHOR'S ORGANIZ ATION 04/06/2024 [facility] DATE CREATED AUTHOR AUTHOR'S ORGANIZ ATION 04/13/2024 [facility] dical Specialists EPIC Care Teams (unrecognized sec tion and content) Cracking Unit Operator Relationship Specialty Start Date End Date Services, [facility] [address] [place] PCP - General Family Medicine 09/04/23 Cracking Unit Operator Relationship Specialty Start Date End Date Services, [facility] [address] [place] PCP - General Family Medicine 09/04/23 Cracking Unit Operator Relationship Specialty Start Date End Date Services, [facility] [address] [place] PCP - General Family Medicine 09/04/23 Cracking Unit Operator Relationship Specialty Start Date End Date Services, [facility] [address] [place] PCP - General Family Medicine 09/04/23 Cracking Unit Operator Relationship Specialty Start Date End Date Services, [facility] [address] [place] PCP - General Family Medicine 09/04/23 Cracking Unit Operator Relationship Specialty Start Date End Date Services, [facility] [address] [place] PCP - General Family Medicine 09/04/23 Cracking Unit Operator Relationship Specialty Start Date End [facility] [address] [place] PCP - General [facility] 09/04/23 Cracking Unit Operator Relationship Specialty Start Date End Date Services, [facility] [address] [place] PCP - General [facility] Medicine 09/04/23 Cracking Unit Operator Relationship Specialty Start Date End Date Services, [facility] [address] [place] PCP - [facility] Medicine 09/04/23 Reason for Visit (unrecogniz ed section and content) Reason Comments Vaginitis Reason Comments mfm consult Reason Comments Routine Visit Reason Comments New Patient CREAM [facility] Mitral valve insu fficiency, unspecified etiology L/S [facility] 08/2020 PT is in her first trimester due in April 2024. no testing per patient sched w/pt Specialty Diagnoses / Procedures Referred By Contjanel t Referred To Contact Cardiology Diagnoses Mitral valve insufficiency, unspecified etiology Dominik Meza MD [address] [place] [address] [facility] [address] [id number] Referral ID Status Reason Start Date Expiration Date Visits Requested Visits Authorized [id number] Pending Review Specialty Services Required 09/28/2023 09/27/2024 [...] BE BASED ON THE PRIMARY CLINICAL RECORDS. [facility] provides no warranty or guarantee of the accuracy or completeness of information in this document.
--- NOTE | 2024-04-21 13:34 | PC.NURSE ---
Pt and baby did not show for follow up appointment. TC to listed phone number and message left to return call for possible reschedule of appointment. Dr Echevarria notified of missed appointment. Amna Rosales returns call to notify [facility] that infant was seen in Dr office. Not by Dr Cisneros but by another doctor and has next appointment 04/26/2024. Does have questions about replacing patches for heart monitor. Would prefer to see Dr Echevarria 04/22/2024 for assistance with patches for monitor. Plans to return 04/22/[address] Echevarria notified of pt request.
== END 2024-04-21 08:45 | disposition home or self-care (01) ==
LOC: FBCO 08:45
PROVIDERS: Visit Provider Obstetrics & Gynecology
DX: Z39.2 Encounter for routine postpartum follow-up (principal)

== ENCOUNTER 2024-08-16 21:38 | Outpatient (REF) | payer OTHER, SELFPAY ==
--- OUTSIDE RECORDS SUMMARY | 2024-08-16 21:42 | XMS_ITS | CCD ---
Author Organization [facility] Care Team Providers Care Exam Proctor Name Role Phone ZIGGY PAZ Admitting Unavailable [...] Unavailable KARASIK, RICHARD Consulting Unavailable RENZO SLOAN Consulting Unavailable PAN, ABDELRAHMAN Admitting Unavailable PANWYATTY Attending Unavailable KARASIK, RICHARD Admitting Unavailable KARASIK, RICHARD Attending Unavailable KARASIK, RICHARD Consulting Unavailable RENZO SLOAN R Consulting Unavailable KARASIK, RICHARD Admitting Unavailable KARASIK, RICHARD Attending Unavailable KARASIK, RICHARD Consulting Unavailable KARASIK, RICHARD Admitting Unavailable KARASIK, RICHARD Attending Unavailable REQUEST, NONE LISTED Primary Care Unavailable KARASIK, RICHARD Consulting Unavailable ARISTEOASIK, RICHARD Procedure Practitioner Unavaila SAMMIE Melgar Consulting Unavailable Services, [facility] Primary Care Provider ANDRESSA GALLAGHER Referring Unavailable SERVICES, [facility] Primary Care Unava ilable SERVICES, [facility] Primary Care Unava ilable SERVICES, [facility] Primary Care Unava ilable TAMIE VELÁSQUEZ Referring Unavailable SERVICES, [facility] Primary Care Unava ilable MOUSSA, HIND NADIM Attending Unavailable TAMIE VELÁSQUEZ Referring Unavailable SERVICES, [facility] Primary Care Unava ilable ANDRESSA GALLAGHER Attending Unavailable SERVICES, [facility] Primary Care Unava ilable SERVICES, [facility] Unava ilable SERVICES, [facility] Unava ilable SAVI MOTA Attending Unavailab le NAKUL, SAVI Torrez Attending Unavailab SAVI Ta Referring Unavailab le SERVICES, [facility] Unava ilable AHMED, ABEER Attending Unavailable AHMED, ABEER Referring Unavailable SERVICES, [facility] Unava ilable TAMIE VELÁSQUEZ Referring Unavailable SERVICES, [facility] Unava ilable TAMIE VELÁSQUEZ Referring Unavailable SERVICES, [facility] Unava ilable JUNG, TIBERIU S Admitting Unavailable JUNG, TIBERIU S Attending Unavailable SERVICES, [facility] Unava ilable SERVICES, [facility] Un[facility] il[facility] SHAYY AGARWAL Attending Unavailable JEFFREYKAL Attending Unavailable AHMED, ABEER Referring Unavailable SERVICES, [facility] Unava ilable TAMIE VELÁSQUEZ Referring Unavailable SERVICES, [facility] Unava ilable HOLLY ROMEO Referring Unavailable SERVICES, [facility] Unava ilable KELSEY EDUAR Referring Unavailable SERVICES, [facility] Unava ilable PAN, ABDELRAHMNA Attending Unavailable DEBRA, NELLI Attending Unavailable APN, ABDELRAHMAN Attending Unavailable DEBRA, NELLI Attending Unavailable PAN, ABDELRAHMAN Attending Unavailable PAN, ABDELRAHMAN Attending Unavailable DEBRA, NELLI Attending Unavailable PAN, ABDELRAHMAN Attending Unavailable Medications Current Medications Medication Drug [...] applicable or unspecified; Translations: [MAT CARE OT WI FTL GRTH 3RD TM UNS] Onset: 05-12-2019 [...] width (RBC) [Ratio] 13.1 % Normal 11.5-15.0 [facility] Comment on above: Performed By: #### Anabella VERGARA, 1504-0, 07476-0 #### [facility] ([id number]) [address], [address] [place] [address] Hematocrit (Bld) [Volume fraction] 30.3 % Low 35-47 [facility] Comment on above: Performed By: #### Anabella VERGARA, 1504-0, 31854-2 #### [facility] ([id number]) [address], [address] [place] [address] Hemoglobin (Bld) [Mass/Vol] 10.4 g/dL Low 11.7-15.5 [facility] Comment on above: Performed By: #### Anabella VERGARA, 1504-0, 54671-3 #### [facility] ([id number]) [address], [address] [place] [address] MCH (RBC) [Entitic mass] 31.2 pg Normal 27-34 [facility] Comment on above: Performed By: #### Anabella VERGARA, 1504-0, 23753-5 #### [facility] ([id number]) [address], [address] [place] [address] MCHC (RBC) [Mass/Vol] 34.3 g/dL Normal 32-36 [facility] Comment on above: Performed By: #### Anabella VERGARA, 1504-0, 19706-9 #### [facility] ([id number]) [address], [address] [place] [address] MCV (RBC) [Entitic vol] 91 fL Normal 80-100 [facility] Comment on above: Performed By: #### Anabella VERGARA, 1504-0, 46699-0 #### [facility] ([id number]) [address], [address] [place] [address] Platelet mean volume (Bld) [Entitic vol] 10.0 fL Normal 7-12 [facility] Comment on above: Performed By: #### Anabella VERGARA, 1504-0, 67353-3 #### [facility] ([id number]) [address], [address] [place] [address] Platelets (Bld) [#/Vol] 152 10*3/uL Normal 150-450 [facility] Comment on above: Performed By: #### Anabella VERGARA, 1504-0, 21896-1 #### [facility] ([id number]) [address], [address] [place] [address] RBC COUNT 3.33 X10E12/L Low 3.80-5.20 [facility] Comment on above: Performed By: #### Anabella VERGARA, 1504-0, 31553-0 #### [facility] ([id number]) [address], [address] [place] [address] WBC (Bld) [#/Vol] 6.1 10*3/uL Normal 4.0-11.0 [facility] Comment on above: Performed By: #### C , 1504-0, 86081-3 #### [facility] ([id number]) [address] [place] [address] Glucose 1 Hr post 50 g gluco se PO [Mass/Vol]on 02-15-2024 GLU 1H POST 50G LOAD 102 mg/dL Normal 65-[address] [facility] Comment on above: Performed By: #### C , 1504-0, 75407-9 #### [facility] ([id number]) [address] [facility], [address] [place] [address] T. pallidum IgG+IgM IA Ql (S )on 02-15-2024 Syphilis Total <0.2 Normal 0.0-0.8 [facility] Comment on above: Result Comment: NON REACTIVE No serologic evidence of infection to Treponema pallidum (syphilis). Repeat testing may be considered in patients with suspected acute or primary syphilis in 2 to 4 weeks. Performed By: #### Anabella , 1504-0, 07345-2 #### [facility] ([id number]) [address] [facility], [address] [place] [address] POCT EKGon 01-05-2024 [facility] VAGINITIS PANEL PCRon 2023 VAGINITIS PANEL [...] clinical presentation to determine patient diagnosis. Normal [facility] Comment on above: Performed By: #### V PPCR #### [facility] ([id number]) [address], [address] [place] [address] URINE CULTUREon 11-12-2023 Bacteria identified Cx Nom (U) CULTURE RESULTS 10-50,000 ORGANISMS/mL NORMAL UROGENITAL PAYTON Normal [facility] Comment on above: Performed By: #### 6 30-4 #### [facility] ([id number]) [address] [facility] [place] [address] URN MACROSCOPIC NURon 2022 BILIRUBIN MERY Negative Normal NEG [facility] Comment on above: Performed By: #### N UM #### [facility] ([id number]) [address] [place] [address] BLOOD/HGB MERY Trace Abnormal NEG [facility] Comment on above: Performed By: #### N UM #### [facility] ([id number]) [address] [place] [address] GLUCOSE MERY Negative Normal NEG [facility] Comment on above: Performed By: #### N UM #### [facility] ([id number]) [address] [place] [address] KETONES MERY 15 mg/dL Abnormal NEG [facility] Comment on above: Performed By: #### N UM #### [facility] ([id number]) [address] [place] [address] LEUKOCYTE ESTERASE MERY Trace Abnormal NEG [facility] Comment on above: Performed By: #### N UM #### [facility] ([id number]) [address] [place] [address] NITRITE MERY Negative Normal NEG [facility] Comment on above: Performed By: #### N UM #### [facility] ([id number]) [address] [place] [address] PH MERY 6.0 Normal 5.0-8.5 [facility] Comment on above: Performed By: #### N UM #### [facility] ([id number]) [address] [place] [address] PROTEIN MERY 100 mg/dL Abnormal NEG [facility] Comment on above: Performed By: #### N UM #### [facility] ([id number]) [address] [place] [address] SPECIFIC GRAVITY MERY >=1.030 Normal 1.003-1.035 [facility] Comment on above: Performed By: #### N UM #### [facility] ([id number]) [address] [place] [address] UROBILINOGEN MERY 0.2 eu/dL Normal <1.1 [facility] Comment on above: Performed By: #### N UM #### [facility] ([id number]) [address] [place] [address] BARBITUATE CONFIRMATION, URI NEon 06-11-2019 Amobarbital Negative Normal Wcohlw=439 [facility] Comment on above: Performed By: #### ALEXANDRA OLIVIA #### [facility] [address] [place] [address] Randi Sandra Barbiturates Positive Abnormal [facility] Comment on above: Performed By: #### ALEXANDRA OLIVIA #### [facility] [address] [place] [address] Randi Sandra Butalbital Positive Abnormal [facility] Comment on above: Performed By: #### ALEXANDRA OLIVIA #### [facility] [address] [address] Randi Sandra Butalbital GC/MS Conf 361 ng/mL Normal Bidjft=168 [facility] Comment on above: Performed By: #### ALEXANDRA OLIVIA #### [facility] [address] [place] [address] Randi Sandra Phenobarbital [Mass/Vol] Negative Normal Xeihsq=469 [facility] Comment on above: Performed By: #### ALEXANDRA OLIVIA #### [facility] [address] [place] [address] Randi Sandra Phentobarbital Negative Normal Nmuadi=391 [facility] Comment on above: Performed By: #### ALEXANDRA OLIVIA #### [facility] [address] [place] [address] Randi Sandra Secobarbital Negative Normal Qcgcec=913 [facility] Comment on above: Performed By: #### ALEXANDRA OLIVIA #### [facility] [address] [place] [address] Randi Sandra CANNABINOID (THC) CONFIRMATI ON, URINEon 06-10-2019 Cannabinoid Positive Abnormal [facility] Comment on above: Performed By: #### ALEXANDRA OLIVIA #### [facility] [address] [place] [address] Randi Sandra Carboxy THC GC/MS Conf 76 ng/mL Normal Cutoff=10 [facility] Comment on above: Performed By: #### ALEXANDRA OLIVIA #### [facility] [address] [place] [address] Randi Sandra CBC AUTO DIFFon 06-06-2019 Basophils (Bld) [#/Vol] 0.0 103/ul Normal 0.0-0.1 [facility] Comment on above: Performed By: #### ALEXANDRA OLIVIA #### [facility] [address] [place] [address] Randi Sandra Basophils/100 WBC (Bld) 0.4 % Normal 0.2-2.0 [facility] Comment on above: Performed By: #### ALEXANDRA OLIVIA #### [facility] [address] [place] [address] Randi Sandra Eosinophils (Bld) [#/Vol] 0.1 103/ul Normal 0.0-0.7 [facility] Comment on above: Performed By: #### ALEXANDRA OLIVIA #### [facility] [address] [place], [place] [address] Randi Sandra Eosinophils/100 WBC (Bld) 0.6 % Critically low 0.9-7.0 [facility] Comment on above: Performed By: #### ALEXANDRA OLIVIA #### [facility] [address] [place] [address] Randi Sandra Erythrocyte distribution width (RBC) [Ratio] 13.8 % Normal 11.0-15.0 [facility] Comment on above: Performed By: #### ALEXANDRA OLIVIA #### [facility] [address] [place] [address] Randi Sandra Hematocrit (Bld) [Volume fraction] 25.0 % Critically low 36.0-48.0 [facility] Comment on above: Performed By: #### ALEXANDRA OLIVIA #### [facility] [address] [place] [address] Randi Sandra Hemoglobin (Bld) [Mass/Vol] 8.0 g/dL Critically low 12.0-16.0 [facility] Comment on above: Performed By: #### ALEXANDRA OLIVIA #### [facility] [address] [place], [place] [address] Randi Sandra IG # 0.13 10e3/ul Critically high 0.00-0.03 [facility] Comment on above: Performed By: #### EPHRAIM OLIVIARO #### [facility] [address] [place], [place] [address] Randi Sandra IG % 1.6 % Critically high 0.0-0.5 [facility] Comment on above: Performed By: #### EPHRAIM OLIVIARO #### [facility] [address] [place], [place] [address] Randi Sandra Lymphocytes (Bld) [#/Vol] 1.9 103/ul Normal 1.2-3.8 [facility] Comment on above: Performed By: #### ALEXANDRA OLIVIA #### [facility] [address] [place], [place] [address] Randi Sandra Lymphocytes/100 WBC (Bld) 22.5 % Normal 20.5-60.0 [facility] Comment on above: Performed By: #### ALEXANDRA OLIVIA #### [facility] [address] [place], [place] [address] Randi Sandra MANUAL DIFF REQ NO Normal [facility] Comment on above: Performed By: #### ALEXANDRA OLIVIA #### [facility] [address] [place] [address] Randi Sandra MCH (RBC) [Entitic mass] 28.0 pg Normal 26.7-34.0 [facility] Comment on above: Performed By: #### ALEXANDRA OLIVIA #### [facility] [address] [place] [address] Randi Sandra MCHC (RBC) [Mass/Vol] 32.0 g/dL Normal 29.9-35.2 [facility] Comment on above: Performed By: #### ALEXANDRA OLIVIA #### [facility] [address] [place] [address] Randi Sandra MCV (RBC) [Entitic vol] 87.4 fL Normal 81.0-99.0 [facility] Comment on above: Performed By: #### ALEXANDRA OLIVIA #### [facility] [address] [place] [address] Randi Sandra Monocytes (Bld) [#/Vol] 0.6 103/ul Normal 0.3-0.8 [facility] Comment on above: Performed By: #### ALEXANDRA OLIVIA #### [facility] [address] [place] [address] Randi Sandra Monocytes/100 WBC (Bld) 6.7 % Normal 1.7-12.0 [facility] Comment on above: Performed By: #### ALEXANDRA OLIVIA #### [facility] [address] [place], [place] [address] Randi Sandra Neutrophils (Bld) [#/Vol] 5.6 103/ul Normal 1.4-6.5 [facility] Comment on above: Performed By: #### ALEXANDRA OLIVIA #### [facility] [address] [place], [place] [address] Randi Sandra Neutrophils/100 WBC (Bld) 68.2 % Normal 43.0-75.0 [facility] Comment on above: Performed By: #### EPHRAIM OLIVIARO #### [facility] [address] [place], [place] [address] Randi Sandra Platelet mean volume (Bld) [Entitic vol] 12.9 fL Normal 9.5-13.5 [facility] Comment on above: Performed By: #### ALEXANDRA OLIVIA #### [facility] [address] [place], [place] [address] Randi Sandra Platelets (Bld) [#/Vol] 103 103/ul Critically low 150-450 [facility] Comment on above: Performed By: #### ALEXANDRA OLIVIA #### [facility] [address] [place], [place] [address] Randi Sandra RBC (Bld) [#/Vol] 2.86 106/ul Critically low 4.20-5.40 [facility] Comment on above: Performed By: #### EPHRAIM OLIVIARO #### [facility] [address] [place], [place] [address] Randi Sandra WBC (Bld) [#/Vol] 8.3 103/ul Normal 4.0-11.0 [facility] Comment on above: Performed By: #### EPHRAIM OLIVIARO #### [facility] [address] [place], [place] [address] Randi Sandra ABO AND RH TYPEon 06-05-2019 ABO and Rh group Nom (Bld) ABO Rh Typing O Rh Positive Normal [facility] Comment on above: Performed By: #### EPHRAIM OLIVIARO #### [facility] [address] [place], [place] [address] Randi Sandra CBC AUTO DIFFon 06-05-2019 Basophils (Bld) [#/Vol] 0.0 103/ul Normal 0.0-0.1 [facility] Comment on above: Performed By: #### C BC #### [facility] [address] [place], [place] [address] Randi Sandra Basophils/100 WBC (Bld) 0.4 % Normal 0.2-2.0 [facility] Comment on above: Performed By: #### C BC #### [facility] [address] [place] [address] Randi Sandra Eosinophils (Bld) [#/Vol] 0.0 103/ul Normal 0.0-0.7 [facility] Comment on above: Performed By: #### C BC #### [facility] [address] [place] [address] Randi Sandra Eosinophils/100 WBC (Bld) 0.3 % Critically low 0.9-7.0 [facility] Comment on above: Performed By: #### C BC #### [facility] [address] [place] [address] Randi Sandra Erythrocyte distribution width (RBC) [Ratio] 13.6 % Normal 11.0-15.0 [facility] Comment on above: Performed By: #### C BC #### [facility] [address] [place] [address] Randi Sandra Hematocrit (Bld) [Volume fraction] 26.8 % Critically low 36.0-48.0 [facility] Comment on above: Performed By: #### C BC #### [facility] [address] [place] [address] Randi Snadra Hemoglobin (Bld) [Mass/Vol] 8.8 g/dL Critically low 12.0-16.0 [facility] Comment on above: Performed By: #### C BC #### [facility] [address] [place] [address] Randi Sandra IG # 0.03 10e3/ul Normal 0.00-0.03 [facility] Comment on above: Performed By: #### C BC #### [facility] [address] [id number] Randi Sandra IG % 0.4 % Normal 0.0-0.5 [facility] Comment on above: Performed By: #### C BC #### [facility] [address] [place], [place] [address] Randi Sandra Lymphocytes (Bld) [#/Vol] 1.9 103/ul Normal 1.2-3.8 [facility] Comment on above: Performed By: #### C BC #### [facility] [address] [place], [place] [address] Randi Sandra Lymphocytes/100 WBC (Bld) 25.2 % Normal 20.5-60.0 [facility] Comment on above: Performed By: #### C BC #### [facility] [address] [place], [place] [address] Randi Sandra MANUAL DIFF REQ NO Normal [facility] Comment on above: Performed By: #### C BC #### [facility] [address] [place], [place] [address] Randi Sandra MCH (RBC) [Entitic mass] 28.3 pg Normal 26.7-34.0 [facility] Comment on above: Performed By: #### C BC #### [facility] [address] [place], [place] [address] Randi Sandra MCHC (RBC) [Mass/Vol] 32.8 g/dL Normal 29.9-35.2 [facility] Comment on above: Performed By: #### C BC #### [facility] [address] [place], [place] [address] Randi Sandra MCV (RBC) [Entitic vol] 86.2 fL Normal 81.0-99.0 [facility] Comment on above: Performed By: #### C BC #### [facility] [address] [place], [place] [address] Randi Sandra Monocytes (Bld) [#/Vol] 0.4 103/ul Normal 0.3-0.8 [facility] Comment on above: Performed By: #### C BC #### [facility] [address] [place], [place] [address] Randi Sandra Monocytes/100 WBC (Bld) 5.7 % Normal 1.7-12.0 [facility] Comment on above: Performed By: #### C BC #### [facility] [address] [place], [place] [address] Randi Sandra Neutrophils (Bld) [#/Vol] 5.2 103/ul Normal 1.4-6.5 [facility] Comment on above: Performed By: #### C BC #### [facility] [address] [place], [place] [address] Randi Sandra Neutrophils/100 WBC (Bld) 68.0 % Normal 43.0-75.0 [facility] Comment on above: Performed By: #### C BC #### [facility] [address] [place] [address] Randi Sandra Platelet mean volume (Bld) [Entitic vol] 13.1 fL Normal 9.5-13.5 [facility] Comment on above: Performed By: #### C BC #### [facility] [address] [place] [address] Randi Sandra Platelets (Bld) [#/Vol] 112 103/ul Critically low 150-450 [facility] Comment on above: Result Comment: smea r reviewed, few giant plts seen Performed By: #### C BC #### [facility] [address] [place] [address] Randi Sandra RBC (Bld) [#/Vol] 3.11 106/ul Critically low 4.20-5.40 [facility] Comment on above: Performed By: #### C BC #### [facility] [address] [place], [place] [address] Randi Sandra WBC (Bld) [#/Vol] 7.6 103/ul Normal 4.0-11.0 [facility] Comment on above: Performed By: #### C BC #### [facility] [address] [place], [place] [address] Randi Sandra DRUG SCREEN RAPID (URINE)on 06-05-2019 AMP Negative Normal NEGATIVE [facility] Comment on above: Performed By: #### ALEXANDRA OLIVIA #### [facility] [address] [place] [address] Randi Sandra BAR Positive Normal NEGATIVE [facility] Comment on above: Performed By: #### ALEXANDRA OLIVIA #### [facility] [address] [place] [address] Randi Sandra BUP Negative Normal NEGATIVE [facility] Comment on above: Performed By: #### ALEXANDRA OLIVIA #### [facility] [address] [place] [address] Randi Sandra BZO Negative Normal NEGATIVE [facility] Comment on above: Performed By: #### ALEXANDRA OLIVIA #### [facility] [address] [place] [address] Randi Sandra LOREE Negative Normal NEGATIVE [facility] Comment on above: Performed By: #### ALEXANDRA OLIVIA #### [facility] [address] [place] [address] Randi Sandra CUT-OFFS SEE BELOW Normal [facility] Comment on above: Result Comment: [...] ng/mL Performed By: #### EPHRAIM OLIVIARO #### [facility] [address] [place] [address] Sandra DRUG CUT HEADER DRUG CLASS TEST SYSTEM CUT-OFF CONCENTRATIONS ARE FOLLOWS: Normal [facility] Comment on above: Performed By: #### ALEXANDRA OLIVIA #### [facility] [address] [place] [address] Randi Sandra mAMP Negative Normal NEGATIVE [facility] Comment on above: Performed By: #### EPHRAIM OLIVIARO #### [facility] [address] [place] [address] Randi Sandra MTD Negative Normal NEGATIVE [facility] Comment on above: Performed By: #### EPHRAIM OLIVIARO #### [facility] [address] [place] [address] Randi Sandra OPI Negative Normal NEGATIVE [facility] Comment on above: Performed By: #### EPHRAIM OLIVIARO #### [facility] [address] [place] [address] Randi Sandra OXY Negative Normal NEGATIVE [facility] Comment on above: Performed By: #### EPHRAIM OLIVIARO #### [facility] [address] [place] [address] Randi Sandra PCP Negative Normal NEGATIVE [facility] Comment on above: Performed By: #### EPHRAIM OLIVIARO #### [facility] [address] [place] [address] Randi Sandra PPX Negative Normal NEGATIVE [facility] Comment on above: Performed By: #### EPHRAIM OLIVIARO #### [facility] [address] [place] [address] Randi Sandra TCA Negative Normal NEGATIVE [facility] Comment on above: Performed By: #### EPHRAIM OLIVIARO #### [facility] [address] [place] [address] Randi Sandra THC Positive Normal NEGATIVE [facility] Comment on above: Performed By: #### EPHRAIM OLIVIARO #### [facility] [address] [place] [address] Randi Sandra GROUP B STREP CULTUREon 04-23 S. agalactiae Ag Ql (Unsp spec) Culture Observations: Negative for Group B Streptococcus. Normal [facility] Comment on above: Performed By: #### G BSCX #### [facility] [address] [place] [address] Randi Flores US PREG GROWTHon 05-12-2019 US PREG GROWTH Patient: CONNIE RAMIREZ Exam Date: 05/12/2019 : 1990 Gender:F Ordering : DR RICHARD GARCÍA . Admission #: [id number] Family : Order #: [id number] CLICK HERE TO VIEW EXAM RADIOLOGY REPORT PROCEDURE: ULTRASOUND GROWTH COMPARISON: None. INDICATIONS: [id number]-[id number] baby P05.10; 35w0d TECNIQUE: Transabdominal sonographic examination [...] Sloan M.D. on 05/12/2019 at 14:02 Normal [facility] US PREG REEVAL ABNon 03-09- 019 US PREG REEVAL ABN [address] [place] [address] Patient: CONNIE RAMIREZ Exam Date: 03/09/2019 : 1990 Gender:F Ordering : DR RICHARD GARCÍA . Admission #: [id number] Family : Order #: [id number] CLICK HERE TO VIEW EXAM RADIOLOGY REPORT [...] Sloan M.D. on 03/09/2019 at 17:13 Normal [facility] PREG ANATOMY SINGLEon PREG ANATOMY SINGLE [address] [place] [address] Patient: CONNIE RAMIREZ Exam Date: 01/17/2019 : 1990 Gender:F Ordering : DR RICHARD GARCÍA . Admission #: [id number] Family : Order #: [id number] CLICK HERE TO VIEW EXAM RADIOLOGY REPORT [...] M.D. on 01/17/2019 at 10:21 Normal [facility] CBC AUTO DIFFon 10-28-2018 Basophils (Bld) [#/Vol] 0.0 103/ul Normal 0.0-0.1 [facility] Comment on above: Performed By: #### C BC #### [facility] [address] [place] [address] Randi Sandra Basophils/100 WBC (Bld) 0.5 % Normal 0.2-2.0 [facility] Comment on above: Performed By: #### C BC #### [facility] [address] [place] [address] Randi Sandra Eosinophils (Bld) [#/Vol] 0.0 103/ul Normal 0.0-0.7 [facility] Comment on above: Performed By: #### C BC #### [facility] [address] [place], [place] [id number] Randi Sandra Eosinophils/100 WBC (Bld) 0.3 % Critically low 0.9-7.0 [facility] Comment on above: Performed By: #### C BC #### [facility] [address] [place] [address] Randi Sandra Erythrocyte distribution width (RBC) [Ratio] 12.2 % Normal 11.0-15.0 [facility] Comment on above: Performed By: #### C BC #### [facility] [address] [place] [address] Randi Sandra Hematocrit (Bld) [Volume fraction] 35.3 % Critically low 36.0-48.0 [facility] Comment on above: Performed By: #### C BC #### [facility] [address] [place], [place] [address] Randi Sandra Hemoglobin (Bld) [Mass/Vol] 12.4 g/dL Normal 12.0-16.0 [facility] Comment on above: Performed By: #### C BC #### [facility] [address] [place] [id number] Randi Sandra IG # 0.01 10e3/ul Normal 0.00-0.03 [facility] Comment on above: Performed By: #### C BC #### [facility] [address] [place] [address] Randi Sandra IG % 0.2 % Normal 0.0-0.5 [facility] Comment on above: Performed By: #### C BC #### [facility] [address] [place] [address] Randi Sandra Lymphocytes (Bld) [#/Vol] 2.4 103/ul Normal 1.2-3.8 [facility] Comment on above: Performed By: #### C BC #### [facility] [address] [place], [place] [phone] Randi Sandra Lymphocytes/100 WBC (Bld) 39.3 % Normal 20.5-60.0 [facility] Comment on above: Performed By: #### C BC #### [facility] [address] [place], [place] [phone] Randi Sandra MANUAL DIFF REQ NO Normal [facility] Comment on above: Performed By: #### C BC #### [facility] [address] [place], [place] [phone] Randi Sandra MCH (RBC) [Entitic mass] 30.8 pg Normal 26.7-34.0 [facility] Comment on above: Performed By: #### C BC #### [facility] [address] [place], [place] [phone] Randi Sandra MCHC (RBC) [Mass/Vol] 35.1 g/dL Normal 29.9-35.2 [facility] Comment on above: Performed By: #### C BC #### [facility] [address] [place], [place] [address] Randi Sandra MCV (RBC) [Entitic vol] 87.6 fL Normal 81.0-99.0 [facility] Comment on above: Performed By: #### C BC #### [facility] [address] [place] [address] Randi Sandra Monocytes (Bld) [#/Vol] 0.4 103/ul Normal 0.3-0.8 [facility] Comment on above: Performed By: #### C BC #### [facility] [address] [place] [address] Randi Sandra Monocytes/100 WBC (Bld) 6.8 % Normal 1.7-12.0 [facility] Comment on above: Performed By: #### C BC #### [facility] [address] [place], [place] [phone] Randi Sandra Neutrophils (Bld) [#/Vol] 3.2 103/ul Normal 1.4-6.5 [facility] Comment on above: Performed By: #### C BC #### [facility] [address] [place] [address] Randi Sandra Neutrophils/100 WBC (Bld) 52.9 % Normal 43.0-75.0 [facility] Comment on above: Performed By: #### C BC #### [facility] [address] [place] [address] Randi Sandra Platelet mean volume (Bld) [Entitic vol] 10.9 fL Normal 9.5-13.5 [facility] Comment on above: Performed By: #### C BC #### [facility] [address] [place] [address] Randi Sandra Platelets (Bld) [#/Vol] 213 103/ul Normal 150-450 [facility] Comment on above: Performed By: #### C BC #### [facility] [address] [place], [place] [phone] Randi Sandra RBC (Bld) [#/Vol] 4.03 106/ul Critically low 4.20-5.40 [facility] Comment on above: Performed By: #### C BC #### [facility] [address] [place] [address] Randi Sandra WBC (Bld) [#/Vol] 6.1 103/ul Normal 4.0-11.0 [facility] Comment on above: Performed By: #### C BC #### [facility] [address] [place] [address] Randi Sandra ER URINE PROFILEon 8 Bilirubin [Mass/Vol] Negative Normal NEGATIVE [facility] Comment on above: Performed By: #### ALEXANDRA OLIVIA #### [facility] [address] [place] [address] Randi Sandra BLOOD TRACE-INTACT Normal NEGATIVE [facility] Comment on above: Performed By: #### ALEXANDRA OLIVIA #### [facility] [address] [place] [address] Randi Sandra Clarity (U) CLEAR Normal [facility] Comment on above: Performed By: #### ALEXANDRA OLIVIA #### [facility] [address] [place] [address] Randi Sandra Color (U) YELLOW Normal YELLOW [facility] Comment on above: Performed By: #### ALEXANDRA OLIVIA #### [facility] [address] [place] [address] Randi Sandra ERUAHD A micrscopic examination will be performed if indicated. Normal [facility] Comment on above: Performed By: #### ALEXANDRA OLIVIA #### [facility] [address] [place] [address] Randi Sandra Glucose [Mass/Vol] Negative Normal NEGATIVE [facility] Comment on above: Performed By: #### ALEXANDRA OLIVIA #### [facility] [address] [place] [address] Randi Sandra Ketones Ql (U) TRACE Normal NEGATIVE [facility] Comment on above: Performed By: #### ALEXANDRA OLIVIA #### [facility] [address] [place] [address] Randi Sandra Nitrite Ql (U) Negative Normal NEGATIVE [facility] Comment on above: Performed By: #### Rere VASQUEZ, UMICRO #### [facility] [address] [place], [place] [phone] Randipancho Flores pH (Bld) 6.0 Normal 5-9 [facility] Comment on above: Performed By: #### Rere VASQUEZ, UMICRO #### [facility] [address] [place], [place] [address] Randi Sandra Protein (U) [Mass/Vol] Negative Normal [facility] Comment on above: Performed By: #### Rere VASQUEZ UMICRO #### [facility] [address] [place], [place] [address] Randipancho Flores SPEC GRAVITY >=1.030 Normal 1.005-<=1.025 [facility] Comment on above: Performed By: #### Rere VASQUEZ, UMICRO #### [facility] [address] [place], [place] [phone] Randi Flores UR MICRO IND INDICATED Normal [facility] Comment on above: Performed By: #### Rere VASQUEZ UMICRO #### [facility] [address] [place], [place] [address] Randipancho Flores Urobilinogen Qn (U) 0.2 EU/dl Normal [facility] Comment on above: Performed By: #### Rere VASQUEZ UMICRO #### [facility] [address] [place], [place] [address] Randipancho Flores WBC (Bld) [#/Vol] Negative Normal NEGATIVE [facility] Comment on above: Performed By: #### Rere VASQUEZ, UMICRO #### [facility] [address] [place], [place] [address] Randipancho Flores PREG QUANT HCGon 10-28-2018 HCG QUANT 35598.00 mIU/mL Normal [facility] Comment on above: Performed By: #### Omar MP, PREGQNT #### [facility] [address] [place], [place] [phone] Randi Sandra HCG RANGE SEE BELOW Normal [facility] Comment on above: Result Comment: 5-50 0-1 WEEK 40-300 1-2 WEEKS 100-1,000 2-3 WEEKS 500-6,000 3-4 WEEKS 5,000-200,000 1-2 MONTHS 10,000-100,000 2-3 MONTHS 3,000-50,000 2ND TRIMESTER 1,000-50,000 3RD TRIMESTER Performed By: #### B HANG, PREGQNT #### [facility] [address] [place] [address] Randi Sandra PROF CHEM 8 (BAS METB)on Anion gap [Moles/Vol] 12.1 mmol/L Normal [facility] Comment on above: Performed By: #### B HANG, PREGQNT #### [facility] [address] [place] [address] Randi Sandra Calcium [Mass/Vol] 9.0 mg/dL Normal 8.4-10.2 [facility] Comment on above: Performed By: #### Omar MAURICIO PREGQNT #### [facility] [address] [place] [address] Randi Sandra Chloride [Moles/Vol] 101 mmol/L Normal 98-107 [facility] Comment on above: Performed By: #### Omar MAURICIO PREGQNT #### [facility] [address] [place] [address] Randi Sandra CO2 [Moles/Vol] 26.0 mmol/L Normal 22.0-30.0 The [facility] Comment on above: Performed By: #### Omar MAURICIO, PREGQNT #### [facility] [address] [place] [address] Randi Sandra Creatinine [Mass/Vol] 0.61 mg/dL Normal 0.52-1.04 [facility] Comment on above: Performed By: #### Omar MAURICIO, PREGQNT #### [facility] [address] [place], [place] [address] Randi Sandra EGFR-AF ECUADOREAN >60 Normal >=60 The [facility] Comment on above: Performed By: #### Omar MAURICIO, PREGQNT #### [facility] [address] [place], [place] [address] Randi Sandra EGFR-NON AF ECUADOREAN >60 Normal >=60 [facility] Comment on above: Performed By: #### B HANG, PREGQNT #### [facility] [address] [place], [place] [address] Randi Sandra Glucose [Mass/Vol] 82 mg/dL Normal 74-106 [facility] Comment on above: Performed By: #### B HANG, PREGQNT #### [facility] [address] [place], [place] [address] Randi Sandra Potassium [Moles/Vol] 3.1 mmol/L Critically low 3.4-5.0 [facility] Comment on above: Performed By: #### B HANG, PREGQNT #### [facility] [address] [place] [address] Randi Sandra Sodium [Moles/Vol] 136 mmol/L Critically low 137-145 [facility] Comment on above: Performed By: #### B HANG, PREGQNT #### [facility] [address] [place] [address] Randi Sandra Urea nitrogen [Mass/Vol] 8.0 mg/dL Normal 7.0-17.0 [facility] Comment on above: Performed By: #### B HANG, PREGQNT #### [facility] [address] [place] [address] Randi Sandra Urea nitrogen/Creatinine [Mass ratio] 13.1 mg/mg Normal [facility] Comment on above: Performed By: #### Omar MAURICIO PREGQNT #### [facility] [address] [place], [place] [phone] Randi Sandra URINE MICROSCOPIC ONLYon Bacteria LM.HPF (Urine sed) [#/Area] TRACE Normal NONE SEEN The [facility] Comment on above: Performed By: #### ALEXANDRA OLIVIA #### [facility] [address] [place] [address] Randi Sandra CAST NONE SEEN Normal NONE SEEN [facility] Comment on above: Performed By: #### EPHRAIM OLIVIARO #### [facility] [address] [place], [place] [phone] Randi Sandra Crystals LM Nom (Urine sed) NONE SEEN Normal NONE SEEN [facility] Comment on above: Performed By: #### EPHRAIM OLIVIARO #### [facility] [address] [place], [place] [phone] Randi Asndra CULTURE NOT INDICATED Normal [facility] Comment on above: Performed By: #### Rere VASQUEZ, UMPAIGERO #### [facility] [address] [phone] Randi Sandra Epithelial cells LM.HPF (Urine sed) [#/Area] RARE Normal [facility] Comment on above: Performed By: #### Rere VASQUEZ, UMPAIGERO #### [facility] [address] [place] [address] Randi Sandra MUCOUS NONE SEEN Normal NONE SEEN [facility] Comment on above: Performed By: #### Rere VASQUEZ, EPHRAIMRO #### [facility] [address] [place], [place] [phone] Randi Sandra RBC (U) [#/Vol] 0-2 Normal 0-2 [facility] Comment on above: Performed By: #### Rere VASQUEZ, UMPAIGERO #### [facility] [address] [place] [address] Randi Sandra WBC (Bld) [#/Vol] 0-2 Normal NONE SEEN The [facility] Comment on above: Performed By: #### Rere VASQUEZ, UMPAIGERO #### [facility] [address] [place] [id number] Randi Sandra Vital Signs Date Time Vital Sign Value Performing Clinician Anitai hardeep 01-13-2024 15:40-0500 Body mass index (BMI) [Ratio] 20.88 kg/m2 [facility] 01-13-2024 15:40-0500 Body weight 56.93 kg [facility] 01-13-2024 15:40-0500 Diastolic blood pressure 58 mm[Hg] [facility] 01-13-2024 15:40-0500 Systolic blood pressure 100 mm[Hg] [facility] 01-05-2024 09:01-0500 Body height 165.1 cm Kal Ellison MD Work Phone: [facility] [employer] [facility] 01-05-2024 09:01-0500 Body mass index (BMI) [Ratio] 21.13 kg/m2 Kal Ellison MD Work Phone: [facility] [employer] [facility] 01-05-2024 09:01-0500 Body weight 57.61 kg Kal Ellison MD Work Phone: [facility] [employer] [facility] 01-05-2024 09:01-0500 Diastolic blood pressure 60 mm[Hg] Kal Ellison MD Work Phone: [facility] [employer] [facility] 01-05-2024 09:01-0500 Heart rate 80 /min Kal Ellison MD Work Phone: [facility] [employer] [facility] 01-05-2024 09:01-0500 SaO2% (BldA) [Mass fraction] 100 % Kal Ellison MD Work Phone: [facility] [employer] [facility] 01-05-2024 09:01-0500 Systolic blood pressure 110 mm[Hg] Kal Ellison MD Work Phone: [facility] [employer] [facility] 12-17-2023 14:13-0500 Body mass index (BMI) [Ratio] 19.96 kg/m2 Andressa Elliott ELECTRICAL MACHINIST-[employer]AILER Work Phone: [facility] [employer] [facility] 12-17-2023 14:13-0500 Body weight 56.06 kg Andressa Elliott ELECTRICAL MACHINIST-[employer] DETAILER Work Phone: [facility] [employer] [facility] 12-17-2023 14:13-0500 Diastolic blood pressure 52 mm[Hg] Andressa Elliott ELECTRICAL MACHINIST-RV DETAILER Work Phone: [facility] [employer] [facility] 12-17-2023 14:13-0500 Systolic blood pressure 94 mm[Hg] Andressa Elliott ELECTRICAL MACHINIST-RV DETAILER Work Phone: [facility] [employer] [facility] 12-16-2023 14:09-0500 Body height 167.6 cm Jossy Nunes MD [facility] Phone: [facility] 12-16-2023 14:09-0500 Body mass index (BMI) [Ratio] 19.47 kg/m2 Jossy Nunes MD Work Phone: [facility] 12-16-2023 14:09-0500 Body weight 54.7 kg Jossy Nunes MD Work Phone: [facility] 12-16-2023 14:09-0500 Diastolic blood pressure 60 mm[Hg] Jossy Nunes MD Work Phone: [facility] 12-16-2023 14:09-0500 Systolic blood pressure 98 mm[Hg] Jossy Nunes MD Work Phone: [facility] 12-09-2023 14:15-0500 Body height 167.6 cm ws [facility] 12-09-2023 14:15-0500 Body mass index (BMI) [Ratio] 19.43 kg/m2 [employer] [facility] 12-09-2023 14:15-0500 [facility] 12-09-2023 14:15-0500 Diastolic blood pressure 64 mm[Hg] ws [employer] [facility] 12-09-2023 14:15-0500 Systolic blood pressure 112 mm[Hg] [facility] Encounters Encounter Date Encounter Type Care Provider Facility Start: 06-01-2024 End: 06-01-2024 ambulatory ABDELRAHMAN PAN Not Available Start: 05-29-2024 End: 05-29-2024 ambulatory ABDELRAHMAN PAN Not Available Start: 04-11-2024 End: 04-11-2024 ambulatory NELLI DEBRA Not Available Start: 04-04-2024 End: 04-05-2024 ambulatory EDUAR [facility] Start: 04-04-2024 End: 04-04-2024 ambulatory ABDELRAHMAN PAN Not Available Start: 03-27-2024 End: 03-27-2024 ambulatory ABDELRAHMAN PAN Not Available Start: 03-20-2024 End: 03-20-2024 ambulatory NELLI DEBRA Not Available Start: 03-07-2024 End: 03-08-2024 ambulatory HOLLY ROMEO [facility] Start: 03-06-2024 End: 03-06-2024 ambulatory ABDELRAHMAN PAN Not Available Start: 02-22-2024 Telephone encounter Tamie clayton ELECTRICAL MACHINIST-CNM Work Phone: [facility] Start: 02-21-2024 End: 02-21-2024 ambulatory NELLI RICHARDSON Not Available Start: 02-18-2024 End: 02-18-2024 ambulatory [facility] Start: 02-15-2024 End: 02-16-2024 ambulatory [facility] Start: 02-15-2024 End: 02-15-2024 ambulatory [facility] Start: 02-07-2024 End: 02-07-2024 ambulatory ABDELRAHMAN PAN Not Available Start: 01-21-2024 End: 01-22-2024 [facility] Start: 01-18-2024 End: 01-19-2024 ambulatory [facility] Start: 01-13-2024 End: 01-13-2024 ambulatory [facility] Start: 01-13-2024 End: 01-13-2024 Subsequent care visit Pfws [facility] Comment on above: GA: 25w1d Start: 01-05-2024 End: 01-05-2024 ambulatory KAL Mejia [facility] Start: 01-05-2024 End: 01-05-2024 Office outpatient visit 15 minutes Dominik Meza MD Work Phone: [facility] Comment on above: Mitral valve insuffi ciency, unspecified etiology (Primary Dx); Gestational edema in third trimester Start: 12-17-2023 End: 12-17-2023 ambulatory ANDRESSA Mejia ELLIOTT [facility] Start: 12-17-2023 End: 12-17-2023 Subsequent care visit Andressa Gallagher ELECTRICAL MACHINIST-RV DETAILER Work Phone: [facility] Comment on above: GA: 21w2d Start: 12-16-2023 End: 12-16-2023 Office outpatient new 45 minutes Jossy Nunes MD Work Phone: [facility] Comment on above: High-risk in second trimester (Primary Dx); Drug use affecting , antepartum; History of acute congestive heart failure; Nonrheumatic mitral valve regurgitation; Echogenic intracardiac focus of fetus on ultrasound; 21 weeks gestation of ; Nausea/vomiting in ; Constipation during in second trimester Start: 12-16-2023 End: 12-16-2023 Orders Only Srinivasan Campbell RN [facility] Comment on above: Nonrheumatic mitral valve regurgitation (Primary Dx); Drug use affecting , antepartum; History of acute congestive heart failure Start: 12-10-2023 Orders Only Andressa Gallagher ELECTRICAL MACHINIST-RV DETAILER Work Phone: [facility] Comment on above: Bacterial vaginosis in (Primary Dx); Vaginal yeast infection; with 20 completed weeks gestation Start: 12-10-2023 End: 12-10-2023 ambulatory ANDRESSAMouna GALLAGHER [facility] Start: 12-09-2023 End: 12-09-2023 [facility] Start: 12-09-2023 End: 12-09-2023 Office outpatient visit 15 minutes Pfws Ob Actuary [facility] Comment on above: Vaginal discharge (P rimary Dx); Vagina itching; Vaginal irritation; Nausea/vomiting in ; Constipation during in second trimester Start: 11-23-2023 Telephone encounter Mago cerna DO Work Phone: [facility] Start: 11-17-2023 End: 11-18-2023 ambulatory [facility] Start: 11-17-2023 End: 11-17-2023 [facility] Start: 11-12-2023 Telephone encounter Tamie clayton ELECTRICAL MACHINIST-CNM Work Phone: [facility] Start: 11-12-2023 End: 11-12-2023 Emergency department [facility] Start: 06-05-2019 End: 06-07-2019 Evaluation and [...] [Identifier] in Cervix by Cyto stain Tamie MAYO Work Phone: Start: 06-05-2019 Delivery of Products of Conception, External Approach ZIGGY PAZ Plan of Treatment Date Care Activity Detail Author Start: 09-28-2026 Screening for malign ant neoplasm of cervix Pap Smear [facility] Start: 02-17-2025 Adult BMI Screening Adult BMI Screen ing [facility] Start: 02-17-2025 Tobacco Screening Tobacco Screening [facility] Start: 01-13-2025 Adult BMI Screening Adult BMI Screen ing [facility] Start: 01-13-2025 Tobacco Screening Tobacco Screening [facility] Start: 12-17-2024 Adult BMI Screening Adult BMI Screen ing [facility] Start: 12-17-2024 Tobacco Screening Tobacco Screening [facility] Start: 12-16-2024 Adult BMI Screening Adult BMI Screen ing [facility] Start: 12-16-2024 Tobacco Screening Tobacco Screening [facility] Start: 12-09-2024 Adult BMI Screening Adult BMI Screen ing [facility] Start: 12-09-2024 Tobacco Screening Tobacco Screening [facility] Start: 11-17-2024 Adult BMI Screening Adult BMI Screen ing [facility] Start: 11-17-2024 Tobacco Screening Tobacco Screening [facility] Start: 11-11-2024 Adult BMI Screening Adult BMI Screen ing [facility] Start: 11-11-2024 Tobacco Screening Tobacco Screening [facility] Start: 07-23-2024 Influenza vaccination Influenza Vacc ine [facility] Start: 03-07-2024 End: 03-07-2024 Patient encounter procedure 03/07/2024 9:30 AM EDT Appointment [facility] [address] [place] [address] [facility] Start: 01-18-2024 End: 01-18-2024 Patient encounter procedure 01/18/2024 2:45 PM EST Appointment [facility] [address] [place] [address] [facility] Start: 01-16-2024 End: 12-16-2024 US MFM with or without consult US MFM with or without consult Imaging Routine Nonrheumatic mitral valve regurgitation Drug use affecting , antepartum History of acute congestive heart failure Expected: 01/16/2024 (Approximate), Expires: 12/16/2024 [facility] Work Phone: Comment on above: Expected: 01/16/2024 (Approximate), Expires: 12/16/2024 Start: 01-13-2024 End: 01-13-2024 Patient encounter procedure 01/13/2024 3:45 PM EST Routine [facility] [address] [place] [id number] [facility] Start: 01-05-2024 End: 01-05-2024 Patient encounter procedure 01/05/2024 9:00 AM EST Office Visit [facility] [address] [place] [id number] Dominik Meza MD [address] [place] [address] Kal Ellison MD [address] [place] [phone] [facility] Start: 12-20-2023 End: 12-20-2023 Patient encounter procedure 12/20/2023 8:00 AM EST Office Visit [facility] [address] [place] [phone] Dominik Meza MD [address] [place] [address] Joseph Cook MD [address] [place] [address] [facility] Start: 12-17-2023 End: 12-17-2023 Patient encounter procedure 12/17/2023 2:15 PM EST Routine [facility] [address] [facility] [place] [phone] Andressa Gallagher, ELECTRICAL MACHINIST-RV DETAILER [address] [place] [address] [facility] Start: 12-16-2023 End: 12-16-2023 Telemedicine consultation with patient 12/16/2023 2:15 PM EST Telemedicine [facility] [address] [place] [address] Jossy Nunes MD [address] [facility], [address] [place] [address] [facility] Start: 12-16-2023 End: 12-16-2023 Patient encounter procedure 12/16/2023 1:00 PM EST Appointment [facility] [address] [facility] [address] [place] [address] [facility] Start: 12-15-2023 End: 12-15-2023 Patient encounter procedure 12/15/2023 4:00 PM EST Routine [facility] [address] [facility] [place] [address] [facility] Start: 12-09-2023 End: 12-09-2024 Vaginitis Panel PCR Vaginitis Panel PCR Microbiology Routine Vaginal discharge Vagina itching Vaginal irritation Expected: 12/09/2023 (Approximate), Expires: 12/09/2024 [facility] Work Phone: Comment on above: Expected: 12/09/2023 (Approximate), Expires: 12/09/2024 Start: 11-24-2023 End: 11-24-2023 Patient encounter procedure 11/24/2023 9:30 AM EST Routine [facility] [address] [facility] [place] [address] Mago Valdez DO [address] [place] [address] [facility] Start: 11-17-2023 End: 11-17-2023 Patient encounter procedure [facility] Start: 2011 DTaP,Tdap and Td Vaccines (1 - Tdap) DTaP,Tdap and Td Vaccines (1 - Tdap) [facility] Start: 2010 Adult BMI Follow Up Plan Adult BMI Follow Up Plan [facility] Start: 2004 Depression Screening Depression Scre joanie [facility] Start: 1992 Tobacco Counseling Tobacco Counselin g [facility] End: 01-12-2025 CBC panel - Blood by Automated count CBC without diff Lab Routine 25 weeks gestation of Second trimester 1 Occurrences starting 01/13/2024 until 01/12/2025 [facility] Work Phone: Comment on above: 1 Occurrences starti ng 01/13/2024 until 01/12/2025 End: 01-13-2025 Glucose 1h post 50g load Glucose 1h post 50g load Lab Routine 25 weeks gestation of Second trimester 1 Occurrences starting 01/13/2024 until 01/13/2025 [facility] Comment on above: 1 Occurrences starti ng 01/13/2024 until 01/13/2025 End: 01-13-2025 Syphilis Total(Unknown Syphilis Status) Syphilis Total(Unknown Syphilis Status) Lab Routine 25 weeks gestation of Second trimester 1 Occurrences starting 01/13/2024 until 01/13/2025 [facility] Comment on above: 1 Occurrences starti ng 01/13/2024 until 01/13/2025 Immunizations Immunization Date Immunization Notes Care Provider Lizeth swann 10-26-2023 influenza virus vaccine, unspecified formulation Tamie MAYO [facility] Phone: [facility] Payers Date Payer Category Payer Private Health Insurance [facility] [id number] 2022-Present [phone] [address] [place] [address] [id number] 2022 Private Health Insurance [id number] 1992 Unknown [id number] 2.16.840.1.634869.3.579. 2.593 1992 Unknown [id number] 2.16.840.1.555148.3.579. 2.593 1992 Unknown [id number] 2.16.840.1.897330.3.579. 2.593 1992 Unknown [id number] 2.16.840.1.315940.3.579. 2.593 1992 Unknown [id number] 2.16.840.1.937802.3.579. 2.593 1992 Unknown [id number] 2.16.840.1.312478.3.579. 2.593 1992 Unknown [id number] 2.16.840.1.574461.3.579. 2.593 1992 Unknown [id number] 2.16.840.1.965454.3.579. 2.1285 1992 Unknown [id number] 2.16.840.1.144478.3.579. 2.1285 1992 Unknown [id number] 2.16.840.1.782978.3.579. 2.1285 1992 Unknown [id number] 2.16.840.1.878979.3.579. 2.1285 1992 Unknown [id number] 2.16840.1.228971.3.579. 2.1285 1992 Unknown [id number] 2.16.840.1.872440.3.579. 2.1285 1992 Unknown [id number] 2.16.840.1.067609.3.579. 2.1285 1992 Unknown [id number] 2.16.840.1.796719.3.579. 2.1285 1992 Unknown [id number] 2.16840.1.798004.3.579. 2.1285 1992 Unknown [id number] 2.16.840.1.507537.3.579. 2.1285 1992 Unknown [id number] 2.16.840.1.655971.3.579. 2.1285 1992 Unknown [id number] 2.16.840.1.077527.3.579. 2.1285 1992 Unknown [id number] 2.16.840.1.612012.3.579. 2.1285 1992 Unknown [id number] 2.16.840.1.975014.3.579. 2.1286 1992 Unknown [id number] 2.16.840.1.552585.3.579. 2.6 1992 Unknown [id number] 2.16.840.1.633189.3.579. 2.6 1992 Unknown [id number] 2.16.840.1.325186.3.579. 2.1285 1992 Unknown [id number] 2.16.840.1.076320.3.579. 2.6 1992 Unknown [id number] 2.16.840.1.819195.3.579. 2.1258 1992 Unknown [id number] 2.16.840.1.807315.3.579. 2.9 1992 Unknown [id number] 2.16.840.1.973718.3.579. 2.1258 1992 Unknown [id number] 2.16.840.1.790151.3.579. 2.1258 1992 Unknown [id number] 2.16.840.1.289181.3.579. 2.1258 1992 Unknown [id number] 2.16.840.1.291244.3.579. 2.9 1992 Unknown [id number] 2.16.840.1.633623.3.579. 2.9 1992 Unknown [id number] 2.16.840.1.140322.3.579. 2.9 1992 Unknown [id number] 2.16.840.1.154527.3.579. 2.1258 1992 Unknown [id number] 2.16.840.1.141243.3.579. 2.1259 1959 Self-pay 1959 Unknown [id number] Social History Date Type Detail Facility Start: 03-29-2021 End: 12-27-2023 Tobacco smoking status NHIS Occasional tobacco smoker [facility] Start: 03-29-2021 End: 11-17-2023 Tobacco use and exposure Smokeless tobacco non-user [facility] Start: 11-11-2023 End: 02-18-2024 Alcohol intake Ex-drinker (finding) [facility] Start: 10-21-2018 End: 01-02-2021 History of Social function [facility] Start: 10-21-2018 End: 01-02-2021 Alcohol Use Disorder Identification Test - Consumption [AUDIT-C] [facility] Frequency of Alcohol Consumption Never [facility] Start: 08-04-2023 [facility] Start: 1992 Sex Assigned At Not on file [facility] Clinical Notes 11-12-2023 to 02-22-2024 Telephone [...] Pt. Verbalized understanding. documented in this encounter [facility] 02-22-2024 Telephone encounter Note Call to [...] tomorrow to discuss labs. Pt. Verbalized understanding. [facility] 01-13-2024 History of Presen t illness Narrative 34 y.o. at 25w1d. No CTX, VB, LOF. positive FM. Pt. Initially unable to void for routine appt. 1. Reviewed signs of labor and movement 2. No cramping, vaginal bleeding or LOF 3. 28 wk labs next visit 4. Return 3 WKS. WITH [facility]. Discussed MFM recommendation for telemetry in labor and 24hr. After. Discussed availability of cardiology at [facility] vs. [place] and avoidance of separation of mom and baby if either were to need transferred after delivery 5. Reviewed cardiology referral on 01/05 w/Dr. Ellison 6. 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 PCP: [facility] Marci Referring Physician: Dominik Meza MD [address] [facility] [place] [address] documented in this encounter [facility] 01-05-2024 Instructions Adwoa Rico [facility] - 01/05/2024 9:00 AM EST Are You Ready To Kick The Habit? Free Tobacco Cessation Resources [facility] Services [facility] Centers provide all employees with free tobacco cessation services that include: Counseling to understand nicotine addiction Education about medications that can help you successfully quit Assistance with developing a plan to quit Call to set up an individual appointment or find out when group classes will be held: [facility]: [phone] [facility]: [phone] [facility]: [phone] [facility]: [phone] Quit Smoking Action Plan and Resources [facility] offers an eight-week, online smoking cessation plan to all [facility] employees, regardless of whether [place] is your medical insurance provider. Go to www.mypromedica.org/employeewell ness and click the Health Risk Assessment and Resources link to get started. In the Lnlxk9Srabtm menu, click Action Plans instead of Health Risk Assessment to access the Quit Smoking Action Plan. Additional smoking cessation resources are also available to all [facility] employees on the Jdwxe7Dkmjss web page at www.[employer].com/quit smoking. [place] Tobacco Cessation Program If [place] is your medical insurance provider, there are more free resources available to you, including: No copays or deductibles on local tobacco cessation counseling services to help you quit Prescription assistance for tobacco cessation medications to help you quit For details about the tobacco cessation program available to [place] members, go to www.[employer] (Search: Tobacco Cessation Program). [place] Tobacco Quit Line 9-859-XOPK-NOW ( ) is a toll-free, telephonic service that helps [place] residents quit smoking and using tobacco. It is staffed by experts who tailor a quit plan for you and provide you with advice. [place] Tobacco Quit Line 9-395-ETFE-NOW ( ) is a toll-free, telephonic service that helps [place] residents quit smoking and using tobacco. It is staffed by experts who tailor a quit plan for you and provide you with advice. Two weeks of nicotine replacement therapy may be provided at no charge, if needed. Additional Resources These national organizations also offer free information and resources to help you quit tobacco: [place] Cancer Society--www.cancer.org/healthy/ stayawayfromtobacco [place] Heart Association--www.heart.org (Search: Quit Smoking) Centers for Disease Control and Prevention--www.cdc.gov/tobacco [place] Lung Association--www.lungusa.org documented in [facility] encounter [facility] History of Presen t illness Narrative [...] Younger 12/17/23 1438 documented in this encounter [facility] [employer] [facility] 12-16-2023 History of Presen t illness Narrative Images from the original note were not included. [facility] Maternal- Medicine Tele-Consult Note Reason For Consult: Provider at different site/location than patient. Connieemily Ramirezcurrently at [place] office and provider at remote site The patient consented to be treated electronically via this form of telemedicine. This visit was not related to an office visit or procedure in the past 7 days, and in-office follow up is not recommended in the next 24 hours. Video Visit via Real-time Synchronous Audiovisual Provider Location: [facility] AT [address] [id number] Patient Location: Other Patient Location Rehabilitation Caseworker: None Video Visit Consent Statement: I discussed [...] that there are some limitations compared to obqg-he-fmkm evaluations. We elected to proceed. HPI: Connie Ramirez is a 33 y.o. @ 21w1d who presented for consultation from Tamie Westfall, ELECTRICAL MACHINIST-C* regarding Chief Complaint Patient presents with mfm [...] was borderline however not abnormal. There was qntb-lp-odposvzq mitral valve regurgitation. There was no evidence [...] and management during . In view of [place] valvular heart disease however not meeting criteria [...] is agreeable for delivery at [facility]. Referral to [facility] is recommended accordingly. In addition to that recommend anesthesia consultation in the 3rd trimester this can be initiated by her primary OB team. Telemetry during labor and for 24 hours Plan reviewed with patient. She vocalized understanding all questions answered. [facility], the CDC, and other organizations representing maternal and public health professionals recommend that , , and lactating people and those considering receive the COVID-19 vaccination. Vaccination is the best method to reduce maternal and complications of SARS-CoV-2 infection. This document was created with [employer] technology. Though I make every effort to review the dictation as it is transcribed, on occasion the spoken word can be misinterpreted by the technology leading to inappropriate words, phrases, or sentences. This note is addressed to the requesting provider as a consultation for clinical guidance. Specific medical abbreviations are occasionally used and those are generally approved by the [place]?Board of?Obstetrics and?Gynecology?as well as?Hussain cross abbreviations. The above plan of care was based solely on the diagnoses for which a consultation was requested. ?More frequent testing may be indicated based on her other medical/obstetrical conditions. The management of other or medical conditions is beyond the scope of requested consultation and will continue to be followed by the primary engraver tire mold or primary care provider. Thank you for [...] procedures Referring and communicating with other health home care physical therapist (not separately reported) Documenting clinical information in [...] patient Have you been seen here at [facility] in a previous ? no Recent ER visits or hospitalizations? no Bring blood sugar log or meter with you today? (Please bring them with you for every visit at [facility]) Traveled outside the country in the past 6 month no Any concerns that you would like me to mention to the provider today? No concerns documented in this encounter [facility] 12-10-2023 Miscellaneous Notes Pt seen in [...] asked for it to be emailed to [email or web address]. Work note emailed to Pt. documented in this encounter [facility] 12-10-2023 Telephone encounter Note Pt seen in Office on December 09 for yeast infection. Pt states she is having a lot of pain. Pt is requesting work excuse note for today. Please advise. Thank you [facility] 12-10-2023 Telephone encounter Note Please provide work note for today only. I did sent prescriptions for her and she should begin them zoraida. Thank you. [facility] 12-10-2023 Telephone encounter Note Advised Pt work note can be provided. Pt asked for it to be emailed to [email or web address]. Work note emailed to Pt. [facility] 12-09-2023 History of Presen t illness [...] All questions answered. Educational material provided through [employer]. RTO for next scheduled visit or sooner as needed. Patient has her MFM consult and anatomy scan next week. ALEIDA BILLY APRN-RADHA 12/09/23 1431 documented in this encounter [facility] 11-23-2023 Miscellaneous Notes Pt states she had Echo cardiogram done last week & does not understand the results. Procedure was ordered by Dr. Meza. Pt was seen in this Office on November 17, 2023. Please advise. Thank you MAKE APPT TO DISCUSS RESULTS PLS Pt scheduled appt with Dr Valdez on November 24. documented in this encounter [facility] 11-23-2023 Telephone encounter Note Pt states she had Echo cardiogram done last week & does not understand the results. Procedure was ordered by Dr. Meza. Pt was seen in this Office on November 17, 2023. Please advise. Thank you [facility] 11-23-2023 Telephone encounter Note MAKE APPT TO DISCUSS RESULTS PLS [facility] Work Phone: 11-23-2023 Telephone encounter Note Pt scheduled appt with Dr Valdez on November 24. [facility] 11-12-2023 Miscellaneous Notes Call rec.'d from ans. [...] and verbalized understanding. documented in this encounter [facility] 11-12-2023 Telephone encounter Note Call rec.'d from [...] to plan of care and verbalized understanding. [facility] Evaluation note Diagnosis Vaginal discharge- Primary Leukorrhea, not specified as infective Vagina itching Pruritus of genital organs Vaginal irritation Pruritus of genital organs Nausea/vomiting in Unspecified vomiting of , unspecified as to episode of care Constipation during in second trimester [facility] Diagnosis Bacterial vaginosis in - Primary Vaginal yeast infection Candidiasis of vulva and vagina with 20 completed weeks gestation [facility] Diagnosis Nonrheumatic mitral valve regurgitation- Primary Drug use affecting , antepartum History of acute congestive heart failure [facility] Diagnosis High-risk in second trimester- Primary Drug use affecting , antepartum History of acute congestive heart failure Nonrheumatic mitral valve regurgitation Echogenic intracardiac focus of fetus on ultrasound 21 weeks gestation of Nausea/vomiting in Unspecified vomiting of , unspecified as to episode of care Constipation during in second trimester [facility] Diagnosis with 21 completed weeks gestation- Primary documented in this [facility] Diagnosis Mitral valve insufficiency, unspecified etiology- Primary Gestational edema in third trimester [facility]* Diagnosis 25 weeks gestation of - Primary Second trimester state, incidental History of congenital mitral regurgitation History of CHF (congestive heart failure) Personal history of other diseases of circulatory system documented in this encounter [facility] Health SystemInstructionsNot on filedocumented in this encounter [facility] SystemInstructionsNot on filedocumented in this encounter [facility]* Attachments The following attachments cannot be sent through Care Everywhere. * High Fiber Diet ([place]) * The Fifth Month (Bahamian) * Vaginitis (Bahamian) documented in [facility] SystemInstructionsNot on file documented in [facility] [employer] SystemInstructionsNot on file documented in this encounterProSt. Francis [facility] SystemInstructionsNot on file documented in this encounterGenesis Hospital SystemInstructions* Attachments The following attachments cannot be sent through Care Everywhere. * How to Prepare Baby Formula (Bahamian) * Kangaroo Care (Bahamian) [facility] [employer] SystemInstructionsNot on file documented in this encounterProHartselle [facility] [employer] SystemInstructionsNot on file documented in this encounterGenesis Hospital SystemReason for referral (narrative)* Consultation (Routine) - Pending Review Specialty Diagnoses / Procedures Referred By Cassius reynolds Referred To Contact Obstetrics and Gynecology Diagnoses 25 weeks gestation of Second trimester History of congenital mitral regurgitation History of CHF (congestive heart failure) Tamie Velásquez APRN-CNM [facility], [address] [place] [address] [facility] [address] [place] [address] Referral ID Status Reason Start Date Expiration Date Visits Requested Visits Authorized [id number] Pending Review Specialty Services Required 01/13/2024 01/12/2025 1 1 [facility] Summary Purpose Family History No [...] History of acute congestive heart failure Procedures [facility] with or without consult Jossy Nunes MD [address] [facility], [address] [place] [id number] [facility] [address] [place] [address] Referral ID Status Reason Start Date Expiration Date V isits Requested Visits Authorized [id number] Pending Review 12/16/2023 12/15/2024 1 1 Additional Source Comments INFORMATION SOURCE (unrecogn ized section and content) DATE CREATED AUTHOR 07/21/2019 [facility] DATE CREATED AUTHOR AUTHOR'S ORGANIZ ATION 12/12/2023 [facility] DATE CREATED AUTHOR AUTHOR'S ORGANIZ ATION 01/21/2024 [facility] DATE CREATED AUTHOR AUTHOR'S ORGANIZ ATION [facility] DATE CREATED AUTHOR AUTHOR'S ORGANIZ ATION 06/07/2024 [facility] EPIC Care Teams (unrecognized sec tion and content) Exam Proctor Relationship Specialty Start Date End Date [facility] [address] [place] PCP - General Family Medicine 09/04/23 Exam Proctor Relationship Specialty Start Date End Date [facility] [address] [place] PCP - General Family Medicine 09/04/23 Exam Proctor Relationship Specialty Start Date End Date [facility] [address] [place] PCP - General Family Medicine 09/04/23 Exam Proctor Relationship Specialty Start Date End Date Services, [facility] [address] [place], [place] PCP - General Family Medicine 09/04/23 Exam Proctor Relationship Specialty Start Date End Date Services, [facility] [address] [place] [employer] PCP - General Family Medicine 09/04/23 Exam Proctor Relationship Specialty Start Date End Date Services, [facility] [address] [place] PCP - General Family Medicine 09/04/23 Exam Proctor Relationship Specialty Start Date End Date Services, [facility] [address] [place] PCP - General Family Medicine 09/04/23 Exam Proctor Relationship Specialty Start Date End Date Services, [facility] [address] [place] PCP - General Family Medicine 09/04/23 Exam Proctor Relationship Specialty Start Date End Date Services, [facility] [address] [place] PCP - General Family Medicine 09/04/23 Reason for Visit (unrecogniz ed section and content) Reason Comments Vaginitis Reason Comments mfm consult Reason Comments Routine Visit Reason Comments New Patient [employer] Mitral valve insu fficiency, unspecified etiology L/S [facility] 08/2020 PT is in her first trimester due in April 2024. no testing per patient sched w/pt Specialty Diagnoses / Procedures Referred By Contac t Referred To Contact Cardiology Diagnoses Mitral valve insufficiency, unspecified etiology Dominik Meza MD [address] [place] [address] [facility] [address] [place] [address] Referral ID Status Reason Start Date Expiration Date Visits Requested Visits Authorized [id number] Pending Review Specialty Services Required 09/28/2023 09/27/2024 [...] BE BASED ON THE PRIMARY CLINICAL RECORDS. [facility] [employer] provides no warranty or guarantee of the accuracy or completeness of information in this document.
[2024-08-23 11:11] LABS: Age Gdln ACOG Testing Note (.); HPV Aptima Negative (Negative); IGP, Aptima HPV, rfx 16/18,45 Note (.)
== END 2024-08-16 21:39 | disposition home or self-care (01) ==
LOC: LAB 21:38
PROVIDERS: Visit Provider Obstetrics & Gynecology
DX: Z01.419 Encounter for gynecological examination (general) (routine) without abnormal findings (principal)
CPT/HCPCS: 88175

== ENCOUNTER 2025-07-31 19:30 | Outpatient (REF) | payer OTHER, SELFPAY ==
--- OUTSIDE RECORDS SUMMARY | 2025-07-31 19:37 | XMS_ITS | CCD ---
Author Organization [facility] Care Team Providers Care Monument Letterer Name Role Phone ZIGGY PAZ Admitting Unavailable ZIGGY PAZ Attending Unavailable REQUEST, NONE LISTED Primary Care Unavailable ZIGGY PAZ Consulting Unavailable KARASIK, RICHARD Admitting Unavailable KARASIK, RICHARD Attending Unavailable REQUEST, NONE LISTED Primary Care Unavailable KARASIK, RICHARD Consulting Unavailable HUBER SIBLEY V Consulting Unavailable KARASIK, RICHARD Admitting Unavailable KARASIK, RICHARD Attending Unavailable REQUEST, NONE LISTED Primary Care Unavailable KARASIK, RICHARD Consulting Unavailable RENZO SLOAN Consulting Unavailable MUNIR NAVJOT Admitting Unavailable MUNIRWYATTY Attending Unavailable KARASIK, RICHARD Admitting Unavailable KARASIK, RICHARD Attending Unavailable KARASIK, RICHARD Consulting Unavailable RENZO SLOAN R Consulting Unavailable KARASIK, RICHARD Admitting Unavailable KARASIK, RICHARD Attending Unavailable KARASIK, RICHARD Consulting Unavailable KARASIK, RICHARD Admitting Unavailable KARASIK, RICHARD Attending Unavailable REQUEST, NONE LISTED Primary Care Unavailable KARASIK, RICHARD Consulting Unavailable KARASIK, RICHARD Procedure Practitioner Unavaila SAMMIE Melgar Consulting Unavailable ANDRESSA GALLAGHER Referring Unavailable SERVICES, [facility] Primary Care Unava ilable SERVICES, [facility] Primary Care Unava ilable SERVICES, [facility] Primary Care Unava ilable TAMIE VELÁSQUEZ Referring Unavailable SERVICES, [facility] Primary Care Unava ilable MOJOSSY MCKEON Attending Unavailable TAMIE VELÁSQUEZ Referring Unavailable SERVICES, [facility] Primary Care Unava ilable ANDRESSA GALLAGHER Attending Unavailable SERVICES, [facility] Primary Care Unava ilable SERVICES, [facility] Primary Care Unava ilable Unavailable Primary Care Provider Unavailabl e Services, [facility] Primary Care Provider SERVICES, [facility] Primary Care Unava ilable NAVJOT AMARAL Attending Unavailable NAVJOT AMARAL Attending Unavailable Lanny Jennings Unavailable Medications Current Medications Medication Drug Class(es) Dates Sig (Normalized) Sig (Original) clotrimazole 10 mg/ml vaginal cream (5 sources) Azole Antifungal Start: 4 End: 4 clotrimazole (GYNE-LOTRIMIN) 1 % vaginal cream Indications: Vaginal yeast infection , with 20 completed weeks gestation Insert 1 applicator into the vagina in the morning for 7 days. 45 g 0 12/10/2023 12/17/2023 Active docusate sodium 100 mg oral capsule (9 sources) Start: 4 take 1 capsule by mouth once in the morning, then take 1 capsule by mouth at bedtime docusate sodium (COLACE) 100 mg capsule Indications: Constipation during in second trimester Take 1 capsule (100 mg total) by mouth in the morning and 1 capsule (100 mg total) before bedtime. 60 capsule 1 12/09/2023 Active 1 ml medroxyPROGESTERone acetate 150 mg/ml injection (7 sources) Progestin Start: 5 medroxyPROGESTERone (Depo-Provera) injection 150 mg Start: 11-23-2024 medroxyPROGEST ERone (Depo-Provera) 150 MG/ML injection Indications: Encounter for initial prescription of injectable contraceptive Inject 1 mL (150 mg) into the shoulder, thigh, or buttocks every 3 (three) months 1 mL 3 11/23/2024 Active Start: 05-29-2024 medroxyPROGEST ERone (Depo-Provera) 150 MG/ML injection Indications: Encounter for initial prescription of injectable contraceptive Inject 1 mL (150 mg) into the shoulder, thigh, or buttocks every 3 (three) months 1 mL 3 05/29/2024 Active metroNIDAZOLE 500 mg oral tablet (10 sources) Nitroimidazole Antimicrobial Start: 12-10-2023 End: 12-17-2023 [...] / nitrofurantoin, monohydrate 75 mg oral capsule (2 sources) Nitrofuran Antibacterial Start: 11-11-2023 End: 11-18-2023 take [...] Active 28 mg iron- 800 mcg tablet (12 sources) Start: 09-16-2023 take 1 tablet by [...] (Original) ondansetron 4 mg disintegrating oral tablet (4 sources) Serotonin-3 Receptor Antagonist Start: 10-28-2023 End: [...] Active Problems Problem Classification Problem Date Documented Da te Episodic/Chronic Cardiac and circulatory congenital anomalies (2 sources) Personal history of (corrected) congenital malformations of heart and circulatory system; Translations: [H/O: cardiac anomaly] Onset: 01-13-2024 01-13-2024 Episodic Disorders of teeth and jaw (1 source) Other specified disorders of teeth and supporting structures; Translations: [Other specified disorders of teeth and supporting structures] Onset: 04-16-2025 Episodic Headache; including migraine (1 source) Headache; including migraine Onset: 04-16-2025 Heart valve disorders (20 sources) Nonrheumatic mitral (valve) insufficiency; Translations: [Mitral valve regurgitation] Onset: 11-23-2019 02-11-2024 Chronic Inflammatory diseases of female pelvic organs (1 source) Vaginitis Onset: 12-09-2023 Episodic Other circulatory disease (1 source) Personal history of other diseases of the circulatory system; Translations: [Personal history of other diseases of the circulatory system] Onset: 11-17-2023 Episodic Other complications of (4 sources) Maternal care for other known or suspected poor growth, third trimester, not applicable or unspecified; Translations: [[facility]] Onset: 05-12-2019 Episodic Other complications of (2 sources) Supervision of high risk , unspecified, second trimester; Translations: [SUP HIGH RISK UNS 2ND TRI] Onset: 01-19-2019 Episodic Other complications of (1 source) Abnormal ultrasonic finding on screening of mother; Translations: [Abnormal ultrasonic finding on screening of mother] Onset: 12-16-2023 Episodic Other complications of (3 sources) Diseases of the digestive system complicating , second trimester; Translations: [Other current conditions classifiable elsewhere of mother, antepartum condition or complication] Onset: 12-09-2023 12-09-2023 Episodic Other complications of (1 source) Supervision of high risk , unspecified, unspecified trimester; Translations: [Supervision of high risk , unspecified, unspecified trimester] Onset: 12-16-2023 Episodic Other female genital disorders (2 sources) Other specified noninflammatory disorders of vagina; Translations: [Other specified noninflammatory disorders of vagina] Onset: 12-09-2023 Episodic Other gastrointestinal disorders (1 source) Constipation, unspecified; Translations: [Constipation, unspecified] Onset: 12-09-2023 Episodic Other screening for suspected conditions (not mental disorders or infectious disease) (3 sources) Encounter for other specified screening; Translations: [Encounter for screening for cervical length] Onset: 12-16-2023 Episodic Other screening for suspected conditions (not mental disorders or infectious disease) (8 sources) Encounter for screening for Streptococcus B; Translations: [Encounter for other specified screening] Onset: 01-17-2019 Residual codes; unclassified (1 source) 25 weeks [...] HISTORY OF NICOTINE DEPEND] Onset: 06-15-2019 Episodic Umbilical cord complication (3 sources) Labor and delivery complicated by cord around neck, without compression, not applicable or unspecified; Translations: [L AND D COMP CORD NECK NO COMPRS NA/UNS] Onset: 06-05-2019 Episodic Unclassified (1 source) mfm consult Onset: 12-16-2023 Unclassified (1 source) Routine Visit Onset: 11-17-2023 Unclassified (5 sources) OB Reminders Onset: 02-07-2024 02-07-2024 Unclassified (1 source) Cold Like Symptoms Onset: 04-16-2025 Past or Other Problems Problem Classification Problem Date Documented Date Episodic/Chronic Contraceptive and procreative management (5 sources) Contraception status; Translations: [Encounter for initial prescription of injectable contraceptive] Onset: 05-29-2024 05-29-2024 Episodic Mycoses (6 sources) Mycosis; Translations: [Candidiasis, unspecified] Onset: 05-29-2024 05-29-2024 Episodic Nausea and vomiting (3 sources) Nausea with vomiting, unspecified; Translations: [NAUSEA WITH VOMITING UNSPECIFIED] Onset: 10-28-2018 Episodic Other circulatory disease (18 sources) H/O: heart failure; Translations: [Personal history of other diseases of the circulatory system] Onset: 11-17-2023 02-11-2024 Episodic Other complications of ; puerperium affecting management of mother (4 sources) Maternal care for other (suspected) abnormality and damage, not applicable or unspecified; Translations: [MAT CARE OTH ABN DAMGE NA/UNS] Onset: 03-09-2019 Episodic Other complications of (1 source) Supervision of with insufficient care, second trimester; Translations: [SUP PG INSUFF ANTENATL CARE 2ND TRI] Onset: 01-19-2019 Episodic Other complications of (7 sources) Vomiting of , unspecified; Translations: [Unspecified vomiting of , unspecified as to episode of care or not applicable] Onset: 11-23-2018 02-11-2024 Episodic Other complications of (14 sources) Diseases of the digestive system complicating , unspecified trimester; Translations: [Other current conditions classifiable elsewhere of mother, unspecified as to episode of care or not applicable] Onset: 12-09-2023 02-11-2024 Episodic Other complications of (11 sources) Nausea [...] [Gestational edema, third trimester] 01-05-2024 Episodic Other female genital disorders (1 source) Vaginal discharge; Translations: [Other specified noninflammatory disorders of vagina] 12-09-2023 Episodic Other female genital disorders (1 source) Pruritus of vagina; Translations: [Other specified noninflammatory disorders of vagina] 12-09-2023 Episodic Other female genital disorders (1 source) Vaginal irritation; Translations: [Other specified noninflammatory disorders of vagina] 12-09-2023 Episodic Other lower respiratory disease (12 sources) Dyspnea; Translations: [Dyspnea, unspecified] Onset: 06-11-2019 06-11-2019 Episodic Other and delivery including normal (9 sources) Single live ; Translations: [Encounter for test, result positive] Onset: 01-19-2019 02-15-2024 Episodic January-; endo-; and myocarditis; cardiomyopathy (except that caused by tuberculosis or sexually transmitted disease) (5 sources) Disorder of pericardium; Translations: [Disease of pericardium, unspecified] Onset: 03-06-2024 03-06-2024 Episodic Residual codes; unclassified (5 sources) Gestation period, 30 weeks; Translations: [30 weeks gestation of ] Onset: 02-15-2024 02-15-2024 Episodic Residual codes; unclassified (1 source) Gestation period, 20 weeks; Translations: [20 weeks gestation of ] 12-10-2023 Episodic Residual codes; unclassified (2 sources) Gestation period, 21 weeks; Translations: [21 weeks gestation of ] 12-16-2023 Episodic Residual codes; unclassified (1 source) Gestation period, 25 weeks; Translations: [25 weeks gestation of ] 01-13-2024 Episodic Substance-related disorders (15 sources) Drug use complicating , unspecified trimester; Translations: [Maternal drug use] Onset: 11-12-2023 11-12-2023 Episodic Results Test Name Value Interpretation Reference Range Facility IGP,APTIMA HPV,AGE GDLNon AGE GDLN ACOG TESTING Note . [facility] Comment on above: TESTS RESULT FLAG UN ITS REF RANGE LAB Clinician Provided Cytology Information Source.............Cervix;Endocervix No. of containers..01 ThinPrep Vial Age Algo ACOG Elena... FLAG LEGEND: L-Low Normal,H-High Normal,LL-Alert Low,HH-Alert High <-Panic Low,>-Panic High,A-Abnormal,AA-Critical Abnormal Performed at: 01 =G [address] [address] Verito Hodges MD, HPV APTIMA Negative Negative [facility] e Comment on above: This nucleic acid am plification test detects fourteen high- risk HPV types (16,18,31,33,35,39,45,51,52,56,58,59,66,68) without differentiation. Performed at: =[address] [id number] Vice President Talent Management: Verito Hodges MD, Phone: [phone] Performed at: [facility] [id number] [place] [address] [id number] Vice President Talent Management: Luis Arana MD, Phone: [phone] IGP, APTIMA HPV, RFX 16/18,45 Note . [facility] Comment on above: TESTS RESULT FLAG UN ITS REF RANGE LAB DIAGNOSIS: 02 NEGATIVE FOR INTRAEPITHELIAL LESION OR MALIGNANCY. FUNGAL ORGANISMS MORPHOLOGICALLY CONSISTENT WITH CHASITY SPECIES ARE PRESENT. THIS SPECIMEN WAS RESCREENED PART OF OUR TRACTOR MECHANIC HELPER PROGRAM. Specimen adequacy: 02 Satisfactory for evaluation. Endocervical and/or squamous metaplastic cells (endocervical component) are present. Performed by: 02 Rita Valdez, Practical Nursing Faculty (ASC) QC reviewed by: 02 Clary Vicente, Practical Nursing Faculty (ASC) . 02 Note: Note 03 The Pap smear is a screening test designed to aid in the detection of premalignant and malignant conditions of the uterine cervix. It is not a diagnostic procedure and should not be used as the sole means of detecting cervical cancer. Both false-positive and false-negative reports do occur. Test Methodology: Note 03 This liquid based ThinPrep(R) pap test was screened with the use of an image guided system. HPV Genotype Reflex Note 02 Criteria not met, HPV Genotype not performed. FLAG LEGEND: L-Low Normal,H-High Normal,LL-Alert Low,HH-Alert High <-Panic Low,>-Panic High,A-Abnormal,AA-Critical Abnormal Performed at: 02 [facility] [address] [place] [address] Luis Arana MD, 03 WB [facility] [address] [address] Verito Hodges MD, BRUSH-SPATULA CERVIX ENDOCERVIX [facility] POCT EKGon 01-05-2024 [facility] VAGINITIS PANEL PCRon 2023 VAGINITIS PANEL [...] clinical presentation to determine patient diagnosis. Normal [facility] Comment on above: Performed By: #### Leonila PPCR #### [facility] ([id number]) [address] [place] [address], [address] [place] [address] BARBITUATE CONFIRMATION, URI NEon 06-11-2019 Amobarbital Negative Normal Uvdrws=282 [facility] Comment on above: Performed By: #### ALEXANDRA OLIVIA #### [facility] [address] [id number] Randi Sandra Barbiturates Positive Abnormal [facility] Comment on above: Performed By: #### ALEXANDRA OLIVIA #### [facility] [address] [id number] Randi Sandra Butalbital Positive Abnormal [facility] Comment on above: Performed By: #### ALEXANDRA OLIVIA #### [facility] [address] [address] Randi Sandra Butalbital GC/MS Conf 361 ng/mL Normal Sxajva=713 [facility] Comment on above: Performed By: #### ALEXANDRA OLIVIA #### [facility] [address] [place] [address] Randi Sandra Phenobarbital [Mass/Vol] Negative Normal Cbvury=253 [facility] Comment on above: Performed By: #### ALEXANDRA OLIVIA #### [facility] [address] [place] [address] Randi Sandra Phentobarbital Negative Normal Djtuqh=497 [facility] Comment on above: Performed By: #### ALEXANDRA OLIVIA #### [facility] [address] [place] [address] Randi Sandra Secobarbital Negative Normal Rutgrg=926 [facility] Comment on above: Performed By: #### ALEXANDRA OLIVIA #### [facility] [address] [place] [address] Randi Sandra CANNABINOID (THC) CONFIRMATI ON, URINEon 06-10-2019 Cannabinoid Positive Abnormal [facility] Comment on above: Performed By: #### ALEXANDRA OLIVIA #### [facility] [address] [place] [address] Randipancho Lombardien Carboxy THC GC/MS Conf 76 ng/mL Normal Cutoff=10 [facility] Comment on above: Performed By: #### ALEXANDRA OLIVIA #### [facility] [address] [place] [address] Randi Sandra CBC AUTO DIFFon 06-06-2019 Basophils (Bld) [#/Vol] 0.0 103/ul Normal 0.0-0.1 [facility] Comment on above: Performed By: #### ALEXANDRA OLIVIA #### [facility] [address] [place] [address] Randi Sandra Basophils/100 WBC (Bld) 0.4 % Normal 0.2-2.0 [facility] Comment on above: Performed By: #### ALEXANDRA OLIVIA #### [facility] [address] [place], [place] [id number] Randi Sandra Eosinophils (Bld) [#/Vol] 0.1 103/ul Normal 0.0-0.7 [facility] Comment on above: Performed By: #### ALEXANDRA OLIVIA #### [facility] [address] [place], [place] [id number] Randi Sandra Eosinophils/100 WBC (Bld) 0.6 % Critically low 0.9-7.0 [facility] Comment on above: Performed By: #### ALEXANDRA OLIVIA #### [facility] [address] [place] [address] Randi Sandra Erythrocyte distribution width (RBC) [Ratio] 13.8 % Normal 11.0-15.0 [facility] Comment on above: Performed By: #### ALEXANDRA OLIVIA #### [facility] [address] [place] [address] Randi Sandra Hematocrit (Bld) [Volume fraction] 25.0 % Critically low 36.0-48.0 [facility] Comment on above: Performed By: #### ALEXANDRA OLIVIA #### [facility] [address] [place] [address] Randi Sandra Hemoglobin (Bld) [Mass/Vol] 8.0 g/dL Critically low 12.0-16.0 [facility] Comment on above: Performed By: #### ALEXANDRA OLIVIA #### [facility] [address] [place] [address] Randi Sandra IG # 0.13 10e3/ul Critically high 0.00-0.03 [facility] Comment on above: Performed By: #### ALEXANDRA OLIVIA #### [facility] [address] [place] [address] Randi Sandra IG % 1.6 % Critically high 0.0-0.5 [facility] Comment on above: Performed By: #### EPHRAIM OLIVIARO #### [facility] [address] [place] [address] Randi Sandra Lymphocytes (Bld) [#/Vol] 1.9 103/ul Normal 1.2-3.8 [facility] Comment on above: Performed By: #### ALEXANDRA OLIVIA #### [facility] [address] [place], [place] [id number] Randi Sandra Lymphocytes/100 WBC (Bld) 22.5 % Normal 20.5-60.0 [facility] Comment on above: Performed By: #### ALEXANDRA OLIVIA #### [facility] [address] [place], [place] [id number] Randi Sandra MANUAL DIFF REQ NO Normal [facility] Comment on above: Performed By: #### ALEXANDRA OLIVIA #### [facility] [address] [place], [place] [id number] Randi Sandra MCH (RBC) [Entitic mass] 28.0 pg Normal 26.7-34.0 [facility] Comment on above: Performed By: #### ALEXANDRA OLIVIA #### [facility] [address] [place] [address] Randi Sandra MCHC (RBC) [Mass/Vol] 32.0 g/dL Normal 29.9-35.2 [facility] Comment on above: Performed By: #### ALEXANDRA OLIVIA #### [facility] [address] [place], [place] [id number] Randi Sandra MCV (RBC) [Entitic vol] 87.4 fL Normal 81.0-99.0 [facility] Comment on above: Performed By: #### ALEXANDRA OLIVIA #### [facility] [address] [place], [place] [id number] Randi Sandra Monocytes (Bld) [#/Vol] 0.6 103/ul Normal 0.3-0.8 [facility] Comment on above: Performed By: #### ALEXANDRA OLIVIA #### [facility] [address] [place], [place] [id number] Randi Sandra Monocytes/100 WBC (Bld) 6.7 % Normal 1.7-12.0 [facility] Comment on above: Performed By: #### ALEXANDRA OLIVIA #### [facility] [address] [place] [address] Randi Sandra Neutrophils (Bld) [#/Vol] 5.6 103/ul Normal 1.4-6.5 [facility] Comment on above: Performed By: #### ALEXANDRA OLIVIA #### [facility] [address] [place], [place] [id number] Randi Asndra Neutrophils/100 WBC (Bld) 68.2 % Normal 43.0-75.0 [facility] Comment on above: Performed By: #### ALEXANDRA OLIVIA #### [facility] [address] [place] [address] Randi Sandra Platelet mean volume (Bld) [Entitic vol] 12.9 fL Normal 9.5-13.5 [facility] Comment on above: Performed By: #### ALEXANDRA OLIVIA #### [facility] [address] [place] [address] Randi Sandra Platelets (Bld) [#/Vol] 103 103/ul Critically low 150-450 [facility] Comment on above: Performed By: #### ALEXANDRA OLIVIA #### [facility] [address] [place], [place] [id number] Randi Sandra RBC (Bld) [#/Vol] 2.86 106/ul Critically low 4.20-5.40 [facility] Comment on above: Performed By: #### ALEXANDRA OLIVIA #### [facility] [address] [place] [address] Randi Sandra WBC (Bld) [#/Vol] 8.3 103/ul Normal 4.0-11.0 [facility] Comment on above: Performed By: #### ALEXANDRA OLIVIA #### [facility] [address] [place] [address] Randi Sandra ABO AND RH TYPEon 06-05-2019 ABO and Rh group Nom (Bld) ABO Rh Typing O Rh Positive Normal [facility] Comment on above: Performed By: #### ALEXANDRA OLIVIA #### [facility] [address] [place], [place] [address] Randi Sandra CBC AUTO DIFFon 06-05-2019 Basophils (Bld) [#/Vol] 0.0 103/ul Normal 0.0-0.1 [facility] Comment on above: Performed By: #### C BC #### [facility] [address] [id number] Randi Sandra Basophils/100 WBC (Bld) 0.4 % Normal 0.2-2.0 [facility] Comment on above: Performed By: #### C BC #### [facility] [address] [place], [place] [id number] Randi Sandra Eosinophils (Bld) [#/Vol] 0.0 103/ul Normal 0.0-0.7 [facility] Comment on above: Performed By: #### C BC #### [facility] [address] [place], [place] [id number] Randi Sandra Eosinophils/100 WBC (Bld) 0.3 % Critically low 0.9-7.0 [facility] Comment on above: Performed By: #### C BC #### [facility] [address] [place], [place] [id number] Randi Sandra Erythrocyte distribution width (RBC) [Ratio] 13.6 % Normal 11.0-15.0 [facility] Comment on above: Performed By: #### C BC #### [facility] [address] [place], [place] [id number] Randi Sandra Hematocrit (Bld) [Volume fraction] 26.8 % Critically low 36.0-48.0 [facility] Comment on above: Performed By: #### C BC #### [facility] [facility] [address] [place], [place] [id number] Randi Sandra Hemoglobin (Bld) [Mass/Vol] 8.8 g/dL Critically low 12.0-16.0 [facility] Comment on above: Performed By: #### C BC #### [facility] [address] [place], [place] [id number] Randi Sandra IG # 0.03 10e3/ul Normal 0.00-0.03 [facility] Comment on above: Performed By: #### C BC #### [facility] [address] [place], [place] [address] Randi Sandra IG % 0.4 % Normal 0.0-0.5 [facility] Comment on above: Performed By: #### C BC #### [facility] [address] [place], [place] [id number] Randi Sandra Lymphocytes (Bld) [#/Vol] 1.9 103/ul Normal 1.2-3.8 [facility] Comment on above: Performed By: #### C BC #### [facility] [address] [place], [place] [id number] Randi Sandra Lymphocytes/100 WBC (Bld) 25.2 % Normal 20.5-60.0 [facility] Comment on above: Performed By: #### C BC #### [facility] [address] [place], [place] [id number] Randi Sandra MANUAL DIFF REQ NO Normal [facility] Comment on above: Performed By: #### C BC #### [facility] [address] [place], [place] [phone] Randi Sandra MCH (RBC) [Entitic mass] 28.3 pg Normal 26.7-34.0 [facility] Comment on above: Performed By: #### C BC #### [facility] [address] [place], [place] [id number] Randi Sandra MCHC (RBC) [Mass/Vol] 32.8 g/dL Normal 29.9-35.2 [facility] Comment on above: Performed By: #### C BC #### [facility] [address] [place], [place] [id number] Randi Sandra MCV (RBC) [Entitic vol] 86.2 fL Normal 81.0-99.0 [facility] Comment on above: Performed By: #### C BC #### [facility] [address] [place], [place] [id number] Randi Sandra Monocytes (Bld) [#/Vol] 0.4 103/ul Normal 0.3-0.8 [facility] Comment on above: Performed By: #### C BC #### [facility] [address] [place], [place] [address] Randi Sandra Monocytes/100 WBC (Bld) 5.7 % Normal 1.7-12.0 [facility] Comment on above: Performed By: #### C BC #### [facility] [address] [place], [place] [address] Randi Sandra Neutrophils (Bld) [#/Vol] 5.2 103/ul Normal 1.4-6.5 [facility] Comment on above: Performed By: #### C BC #### [facility] [address] [place], [place] [address] Randi Sandra Neutrophils/100 WBC (Bld) 68.0 % Normal 43.0-75.0 [facility] Comment on above: Performed By: #### C BC #### [facility] [address] [place], [place] [phone] Randi Sandra Platelet mean volume (Bld) [Entitic vol] 13.1 fL Normal 9.5-13.5 [facility] Comment on above: Performed By: #### C BC #### [facility] [address] [place] [address] Randi Sandra Platelets (Bld) [#/Vol] 112 103/ul Critically low 150-450 [facility] Comment on above: Result Comment: smea r reviewed, few giant plts seen Performed By: #### C BC #### [facility] [address] [place] [address] Randi Sandra RBC (Bld) [#/Vol] 3.11 106/ul Critically low 4.20-5.40 [facility] Comment on above: Performed By: #### C BC #### [facility] [address] [place] [address] Randi Sandra WBC (Bld) [#/Vol] 7.6 103/ul Normal 4.0-11.0 [facility] Comment on above: Performed By: #### C BC #### [facility] [address] [place] [address] Randipancho Lombardien DRUG SCREEN RAPID (URINE)on 06-05-2019 AMP Negative Normal NEGATIVE [facility] Comment on above: Performed By: #### EPHRAIM OLIVIARO #### [facility] [address] [place] [address] Randi Sandra BAR Positive Normal NEGATIVE [facility] Comment on above: Performed By: #### E CHRISTINA, UMICRO #### [facility] [address] [place] [address] Randi Sandra BUP Negative Normal NEGATIVE [facility] Comment on above: Performed By: #### Rere VASQUEZ, UMICRO #### [facility] [address] [place] [address] Randi Sandra BZO Negative Normal NEGATIVE [facility] Comment on above: Performed By: #### Rere VASQUEZ, TERESAICRO #### [facility] [address] [place] [address] Randi Asndra LOREE Negative Normal NEGATIVE [facility] Comment on above: Performed By: #### Rere VASQUEZ, EPHRAIMRO #### [facility] [address] [place] [address] Randi Sandra CUT-OFFS SEE BELOW Normal [facility] Comment on above: Result Comment: AMP (Amphetamine): [...] Antidepressants): 300 ng/mL Performed By: #### E RUR, UMICRO #### [facility] [address] [place] [address] Randi Sandra DRUG CUT HEADER DRUG CLASS TEST SYSTEM CUT-OFF CONCENTRATIONS ARE FOLLOWS: Normal [facility] Comment on above: Performed By: #### EPHRAIM OLIVIARO #### [facility] [address] [place] [address] Randi Sandra mAMP Negative Normal NEGATIVE [facility] Comment on above: Performed By: #### EPHRAIM OLIVIARO #### [facility] [address] [place] [address] Randi Sandra MTD Negative Normal NEGATIVE [facility] Comment on above: Performed By: #### EPHRAIM OLIVIARO #### [facility] [address] [place] [address] Randi Sandra OPI Negative Normal NEGATIVE [facility] Comment on above: Performed By: #### EPHRAIM OLIVIARO #### [facility] [address] [place] [address] Randi Sandra OXY Negative Normal NEGATIVE [facility] Comment on above: Performed By: #### EPHRAIM OLIVIARO #### [facility] [address] [place] [address] Randi Sandra PCP Negative Normal NEGATIVE [facility] Comment on above: Performed By: #### EPHRAIM OLIVIARO #### [facility] [address] [place] [address] Randi Sandra PPX Negative Normal NEGATIVE [facility] Comment on above: Performed By: #### EPHRAIM OLIVIARO #### [facility] [address] [place] [address] Randi Sandra TCA Negative Normal NEGATIVE [facility] Comment on above: Performed By: #### EPHRAIM OLIVIARO #### [facility] [address] [place] [address] Randi Sandra THC Positive Normal NEGATIVE [facility] Comment on above: Performed By: #### EPHRAIM OLIVIARO #### [facility] [address] [place] [address] Randi Sandra GROUP B STREP CULTUREon 04-23 S. agalactiae Ag Ql (Unsp spec) Culture Observations: Negative for Group B Streptococcus. Normal [facility] Comment on above: Performed By: #### G BSCX #### [facility] [address] [place], [place] [address] Randi Flores US PREG GROWTHon 05-12-2019 US PREG GROWTH Patient: CONNIE RAMIREZ Exam Date: 05/12/2019 : 1990 Gender:F Ordering : DR RICHARD GARCÍA . Admission #: [id number] Family : Order #: [id number] CLICK HERE TO VIEW EXAM RADIOLOGY REPORT PROCEDURE: ULTRASOUND GROWTH COMPARISON: None. INDICATIONS: [id number] baby P05.10; 35w0d TECNIQUE: Transabdominal sonographic examination [...] on 05/12/2019 at 14:02 Normal [facility] PREG REEVAL ABNon 019 US PREG REEVAL ABN [address] [place] [address] Patient: CONNIE RAMIREZ Exam Date: 03/09/2019 : 1990 Gender:F Ordering : DR RICHARD GARCÍA . Admission #: [id number] Family : Order #: [id number] CLICK HERE TO VIEW EXAM RADIOLOGY REPORT [...] PREG ANATOMY SINGLEon PREG ANATOMY SINGLE [address] [place] [address] Patient: CONNIE RMAIREZ Exam Date: 01/17/2019 : 1990 Gender:F Ordering : DR RICHARD GARCÍA . Admission #: [id number] Family : Order #: [id number] CLICK HERE TO VIEW EXAM RADIOLOGY REPORT [...] M.D. on 01/17/2019 at 10:21 Normal [facility] CBC AUTO DIFFon 10-28-2018 Basophils (Bld) [#/Vol] 0.0 103/ul Normal 0.0-0.1 [facility] Comment on above: Performed By: #### C BC #### [facility] [address] [place] [address] Randi Sandra Basophils/100 WBC (Bld) 0.5 % Normal 0.2-2.0 [facility] Comment on above: Performed By: #### C BC #### [facility] [address] [place] [address] Randi Sandra Eosinophils (Bld) [#/Vol] 0.0 103/ul Normal 0.0-0.7 [facility] Comment on above: Performed By: #### C BC #### [facility] [address] [place] [address] Randi Sandra Eosinophils/100 WBC (Bld) 0.3 % Critically low 0.9-7.0 [facility] Comment on above: Performed By: #### C BC #### [facility] [address] [place], [place] [address] Randi Sandra Erythrocyte distribution width (RBC) [Ratio] 12.2 % Normal 11.0-15.0 [facility] Comment on above: Performed By: #### C BC #### [facility] [address] [place] [address] Randi Sandra Hematocrit (Bld) [Volume fraction] 35.3 % Critically low 36.0-48.0 [facility] Comment on above: Performed By: #### C BC #### [facility] [address] [place] [phone] Randi Sandra Hemoglobin (Bld) [Mass/Vol] 12.4 g/dL Normal 12.0-16.0 [facility] Comment on above: Performed By: #### C BC #### [facility] [address] [place] [id number] Randi Sandra IG # 0.01 10e3/ul Normal 0.00-0.03 [facility] Comment on above: Performed By: #### C BC #### [facility] [address] [place], [place] [address] Randi Sandra IG % 0.2 % Normal 0.0-0.5 [facility] Comment on above: Performed By: #### C BC #### [facility] [address] [place], [place] [phone] Randi Sandra Lymphocytes (Bld) [#/Vol] 2.4 103/ul Normal 1.2-3.8 [facility] Comment on above: Performed By: #### C BC #### [facility] [address] [place], [place] [address] Randi Sandra Lymphocytes/100 WBC (Bld) 39.3 % Normal 20.5-60.0 [facility] Comment on above: Performed By: #### C BC #### [facility] [address] [place], [place] [address] Randi Flores MANUAL DIFF REQ NO Normal [facility] Comment on above: Performed By: #### C BC #### [facility] [address] [place], [place] [address] Randi Sandra MCH (RBC) [Entitic mass] 30.8 pg Normal 26.7-34.0 [facility] Comment on above: Performed By: #### C BC #### [facility] [address] [place], [place] [phone] Randi Sandra MCHC (RBC) [Mass/Vol] 35.1 g/dL Normal 29.9-35.2 [facility] Comment on above: Performed By: #### C BC #### [facility] [address] [place], [place] [address] Randi Sandra MCV (RBC) [Entitic vol] 87.6 fL Normal 81.0-99.0 [facility] Comment on above: Performed By: #### C BC #### [facility] [address] [place], [place] [address] Randi Sandra Monocytes (Bld) [#/Vol] 0.4 103/ul Normal 0.3-0.8 [facility] Comment on above: Performed By: #### C BC #### [facility] [address] [place], [place] [address] Randi Sandra Monocytes/100 WBC (Bld) 6.8 % Normal 1.7-12.0 [facility] Comment on above: Performed By: #### C BC #### [facility] [address] [place] [address] Randi Sandra Neutrophils (Bld) [#/Vol] 3.2 103/ul Normal 1.4-6.5 [facility] Comment on above: Performed By: #### C BC #### [facility] [address] [place] [address] Randi Sandra Neutrophils/100 WBC (Bld) 52.9 % Normal 43.0-75.0 [facility] Comment on above: Performed By: #### C BC #### [facility] [address] [place] [address] Randi Sandra Platelet mean volume (Bld) [Entitic vol] 10.9 fL Normal 9.5-13.5 [facility] Comment on above: Performed By: #### C BC #### [facility] [address] [place], [place] [address] Randi Sandra Platelets (Bld) [#/Vol] 213 103/ul Normal 150-450 [facility] Comment on above: Performed By: #### C BC #### [facility] [address] [place] [address] Randi Sandra RBC (Bld) [#/Vol] 4.03 106/ul Critically low 4.20-5.40 [facility] Comment on above: Performed By: #### C BC #### [facility] [address] [place] [address] Randi Sandra WBC (Bld) [#/Vol] 6.1 103/ul Normal 4.0-11.0 [facility] Comment on above: Performed By: #### C BC #### [facility] [address] [place], [place] [phone] Randi Sandra ER URINE PROFILEon 8 Bilirubin [Mass/Vol] Negative Normal NEGATIVE [facility] Comment on above: Performed By: #### EPHRAIM OLIVIARO #### [facility] [address] [place] [address] Randi Sandra BLOOD TRACE-INTACT Normal NEGATIVE [facility] Comment on above: Performed By: #### EPHRAIM OLIVIARO #### [facility] [address] [place] [address] Randi Sandra Clarity (U) CLEAR Normal [facility] Comment on above: Performed By: #### EPHRAIM OLIVIARO #### [facility] [address] [place] [address] Randi Sandra Color (U) YELLOW Normal YELLOW [facility] Comment on above: Performed By: #### EPHRAIM OLIVIARO #### [facility] [address] [place] [address] Randi Sandra ERUAHD A micrscopic examination will be performed if indicated. Normal [facility] Comment on above: Performed By: #### EPHRAIM OLIVIARO #### [facility] [address] [place] [address] Randi Sandra Glucose [Mass/Vol] Negative Normal NEGATIVE [facility] Comment on above: Performed By: #### EPHRAIM OLIVIARO #### [facility] [address] [place] [address] Randi Sandra Ketones Ql (U) TRACE Normal NEGATIVE [facility] Comment on above: Performed By: #### EPHRAIM OLIVIARO #### [facility] [address] [place] [address] Randi Sandra Nitrite Ql (U) Negative Normal NEGATIVE The [facility] Comment on above: Performed By: #### ALEXANDRA OLIVIA #### [facility] [address] [place], [place] [phone] Randi Flores pH (Bld) 6.0 Normal 5-9 [facility] Comment on above: Performed By: #### ALEXANDRA OLIVIA #### [facility] [address] [place] [address] Randi Flores Protein (U) [Mass/Vol] Negative Normal [facility] Comment on above: Performed By: #### ALEXANDRA OLIVIA #### [facility] [address] [place] [address] Randi Flores SPEC GRAVITY >=1.030 Normal 1.005-<=1.025 [facility] Comment on above: Performed By: #### ALEXANDRA OLIVIA #### [facility] [address] [place] [address] Randi Flores UR MICRO IND INDICATED Normal [facility] Comment on above: Performed By: #### ALEXANDRA OLIVIA #### [facility] [address] [place] [address] Randi Flores Urobilinogen Qn (U) 0.2 EU/dl Normal [facility] Comment on above: Performed By: #### ALEXANDRA OLIVIA #### [facility] [address] [place] [address] Randi Flores WBC (Bld) [#/Vol] Negative Normal NEGATIVE [facility] Comment on above: Performed By: #### EPHRAIM OLIVIARO #### [facility] [address] [place], [place] [phone] Randipancho Flores PREG QUANT HCGon 10-28-2018 HCG QUANT 48872.00 mIU/mL Normal [facility] Comment on above: Performed By: #### B MP, PREGQNT #### [facility] [address] [place], [place] [phone] Randi Sandra HCG RANGE SEE BELOW Normal [facility] Comment on above: Result Comment: 5-50 0-1 WEEK 40-300 1-2 WEEKS 100-1,000 2-3 WEEKS 500-6,000 3-4 WEEKS 5,000-200,000 1-2 MONTHS 10,000-100,000 2-3 MONTHS 3,000-50,000 2ND TRIMESTER 1,000-50,000 3RD TRIMESTER Performed By: #### B HANG, PREGQNT #### [facility] [address] [place] [id number] Randi Sandra PROF CHEM 8 (BAS METB)on Anion gap [Moles/Vol] 12.1 mmol/L Normal [facility] Comment on above: Performed By: #### Omar MAURICIO, PREGQNT #### [facility] [address] [place], [place] [address] Randi Sandra Calcium [Mass/Vol] 9.0 mg/dL Normal 8.4-10.2 [facility] Comment on above: Performed By: #### Omar MAURICIO, PREGQNT #### [facility] [address] [place] [address] Randi Sandra Chloride [Moles/Vol] 101 mmol/L Normal 98-107 [facility] Comment on above: Performed By: #### Omar MAURICIO, PREGQNT #### [facility] [address] [place], [place] [address] Randi Sandra CO2 [Moles/Vol] 26.0 mmol/L Normal 22.0-30.0 [facility] Comment on above: Performed By: #### Omar MAURICIO, PREGQNT #### [facility] [address] [place], [place] [address] Randi Sandra Creatinine [Mass/Vol] 0.61 mg/dL Normal 0.52-1.04 [facility] Comment on above: Performed By: #### Omar MAURICIO, PREGQNT #### [facility] [address] [place], [place] [address] Randi Sandra EGFR-AF SRI LANKAN >60 Normal >=60 [facility] Comment on above: Performed By: #### Omar MAURICIO, PREGQNT #### [facility] [address] [place] [address] Randi Sandra EGFR-NON AF SRI LANKAN >60 Normal >=60 [facility] Comment on above: Performed By: #### Omar MAURICIO PREGQNT #### [facility] [address] [place], [place] [phone] Randi Sandra Glucose [Mass/Vol] 82 mg/dL Normal 74-106 [facility] Comment on above: Performed By: #### Omar MAURICIO PREGQNT #### [facility] [address] [place] [address] Randi Sandra Potassium [Moles/Vol] 3.1 mmol/L Critically low 3.4-5.0 [facility] Comment on above: Performed By: #### B HANG PREGQNT #### [facility] [address] [place] [address] Randi Sandra Sodium [Moles/Vol] 136 mmol/L Critically low 137-145 [facility] Comment on above: Performed By: #### Omar MAURICIO PREGQNT #### [facility] [address] [place] [address] Randi Sandra Urea nitrogen [Mass/Vol] 8.0 mg/dL Normal 7.0-17.0 [facility] Comment on above: Performed By: #### Omar MAURICIO PREGQNT #### [facility] [address] [place], [place] [address] Randi Sandra Urea nitrogen/Creatinine [Mass ratio] 13.1 mg/mg Normal [facility] Comment on above: Performed By: #### Omar MAURICIO PREGQNT #### [facility] [address] [place], [place] [address] Randi Sandra URINE MICROSCOPIC ONLYon Bacteria LM.HPF (Urine sed) [#/Area] TRACE Normal NONE SEEN [facility] Comment on above: Performed By: #### ALEXANDRA OLIVIA #### [facility] [address] [place], [place] [address] Randi Sandra CAST NONE SEEN Normal NONE SEEN The [facility] Comment on above: Performed By: #### ALEXANDRA OLIVIA #### [facility] [address] [place], [place] [address] Randi Sandra Crystals LM Nom (Urine sed) NONE SEEN Normal NONE SEEN The [facility] Comment on above: Performed By: #### ALEXANDRA OLIVIA #### [facility] [address] [place], [place] [address] Randi Sandra CULTURE NOT INDICATED Normal [facility] Comment on above: Performed By: #### EPHRAIM OLIVIARO #### [facility] [address] [place], [place] [address] Randi Sandra Epithelial cells LM.HPF (Urine sed) [#/Area] RARE Normal [facility] Comment on above: Performed By: #### ALEXANDRA OLIVIA #### [facility] [address] [place] [address] Randi Sandra MUCOUS NONE SEEN Normal NONE SEEN [facility] Comment on above: Performed By: #### ALEXANDRA OLIVIA #### [facility] [address] [place], [place] [phone] Randi Sandra RBC (U) [#/Vol] 0-2 Normal 0-2 The [facility] Comment on above: Performed By: #### EPHRAIM OLIVIARO #### [facility] [address] [place], [place] [id number] Randi Sandra WBC (Bld) [#/Vol] 0-2 Normal NONE SEEN [facility] Comment on above: Performed By: #### EPHRAIM OLIVIARO #### [facility] [address] [place], [place] [id number] Randi Sandra Vital Signs Date Time Vital Sign Value Performing Clinician Faci lity 08-16-2024 16:41-0400 Body weight 58.88 kg [employer]MB [employer] DO Work Phone: [facility] 08-16-2024 16:41-0400 Diastolic blood pressure 70 mm[Hg] Knoda DO Work Phone: [facility] 08-16-2024 16:41-0400 Systolic blood pressure 110 mm[Hg] Navjot StyleZen DO Work Phone: [facility] 01-13-2024 15:40-0500 Body mass index (BMI) [Ratio] 20.88 kg/m2 Pfws Title Officer [facility] 01-13-2024 15:40-0500 Body weight 56.93 kg Pfws Title Officer [facility] 01-13-2024 15:40-0500 Diastolic blood pressure 58 mm[Hg] Pfws Title Officer [facility] 01-13-2024 15:40-0500 Systolic blood pressure 100 mm[Hg] [facility] 01-05-2024 09:01-0500 Body height 165.1 cm Mayo Ellison MD Work Phone: [facility] 01-05-2024 09:01-0500 Body mass index (BMI) [Ratio] 21.13 kg/m2 Mayo Ellison MD Work Phone: [facility] 01-05-2024 09:01-0500 Body weight 57.61 kg Mayo Ellison MD Work Phone: [facility] 01-05-2024 09:01-0500 Diastolic blood pressure 60 mm[Hg] Mayo Ellison MD Work Phone: [facility] 01-05-2024 09:01-0500 Heart rate 80 /min Mayo Ellison MD Work Phone: [facility] 01-05-2024 09:01-0500 SaO2% (BldA) [Mass fraction] 100 % Mayo Ellison MD Work Phone: [facility] 01-05-2024 09:01-0500 Systolic blood pressure 110 mm[Hg] Mayo Ellison MD Work Phone: [facility] 12-17-2023 14:13-0500 Body mass index (BMI) [Ratio] 19.96 kg/m2 Andressa BEAUCHAMP Work Phone: [facility] 12-17-2023 14:13-0500 Body weight 56.06 kg Andressa Gallagher APRN-RADHA Work Phone: [facility] 12-17-2023 14:13-0500 Diastolic blood pressure 52 mm[Hg] Andressa Shankaro ENAMEL SHADER-INFORMATION SERVICES ASSISTANT Work Phone: [facility] 12-17-2023 14:13-0500 Systolic blood pressure 94 mm[Hg] Andressa Shankaro ENAMEL SHADER-INFORMATION SERVICES ASSISTANT Work Phone: [facility] 12-16-2023 14:09-0500 Body height 167.6 cm Jossy Nunes MD Work Phone: [facility] 12-16-2023 14:09-0500 Body mass index (BMI) [Ratio] 19.47 kg/m2 Jossy Nunes MD Work Phone: [facility] 12-16-2023 14:09-0500 Body weight 54.7 kg Jossy Nunes MD Work Phone: [facility] 12-16-2023 14:09-0500 Diastolic blood pressure 60 mm[Hg] Jossy Nunes MD Work Phone: [facility] 12-16-2023 14:09-0500 Systolic blood pressure 98 mm[Hg] Jossy Nunes MD Work Phone: [facility] 12-09-2023 14:15-0500 Body height 167.6 cm [facility] 12-09-2023 14:15-0500 Body mass index (BMI) [Ratio] 19.43 kg/m2 Pfws Title Officer [facility] 12-09-2023 14:15-0500 Body weight 54.61 kg Pfws Title Officer [facility] 12-09-2023 14:15-0500 Diastolic blood pressure 64 mm[Hg] Pfws Title Officer [facility] 12-09-2023 14:15-0500 Systolic blood pressure 112 mm[Hg] [facility] Encounters Encounter Date Encounter Type Care Provider Facility Start: 07-31-2025 End: 07-31-2025 Bookero flowsneri Amaral DO Work Phone: [facility] Start: 07-31-2025 End: 07-31-2025 Bamboo flowsheet Navjot Munir DO Work Phone: [facility] Start: 05-11-2025 End: 05-11-2025 ambulatory NAVJOT MUNIR Not Available Start: 04-16-2025 End: 04-16-2025 Emergency department patient visit [facility] Start: 02-16-2025 End: 02-16-2025 ambulatory NAVJOT MUNIR Not Available Start: 11-24-2024 End: 11-24-2024 ambulatory NAVJOT MUNIR Not Available Start: 08-24-2024 End: 08-24-2024 ambulatory NAVJOT MUNIR Not Available Start: 08-16-2024 End: 08-16-2024 Patient encounter procedure Navjot Munir DO Work Phone: [facility] Work Phone: Start: 08-16-2024 End: 08-16-2024 Periodic preventive med est patient 18-39 yrs Navjot Munir DO Work Phone: [facility] Comment on above: Well woman exam with routine gynecological exam Start: 08-16-2024 End: 08-16-2024 ambulatory NAVJOT MUNIR Not Available Start: 08-16-2024 End: 08-16-2024 Bamboo flowsheet Navjot Munir DO Work Phone: [facility] Start: 08-16-2024 End: 08-23-2024 Clinisync Result Encounter Navjot Munir DO Work Phone: [facility] Unsolicited Start: 08-16-2024 End: 08-23-2024 Clinisync Result Encounter Navjot Munir DO Work Phone: [facility] Unsolicited Start: 06-01-2024 End: 06-01-2024 ambulatory NAVJOT MUNIR Not Available Start: 05-29-2024 End: 05-29-2024 ambulatory NAVJOT MUNIR Not Available Start: 02-22-2024 Telephone encounter Tamie WEAVERCNM Work Phone: [facility] Start: 01-13-2024 End: 01-13-2024 ambulatory [facility] Start: 01-13-2024 End: 01-13-2024 Subsequent care visit [facility] Title Officer [facility] Comment on above: GA: 25w1d Start: 01-05-2024 End: 01-05-2024 Office outpatient visit 15 minutes Dominik Meza MD Work Phone: [facility] Comment on above: Mitral valve insuffi ciency, unspecified etiology (Primary Dx); Gestational edema in third trimester Start: 12-17-2023 End: 12-17-2023 ambulatory [facility] Start: 12-17-2023 End: 12-17-2023 Subsequent care visit Andressa Gallagher ENAMEL SHADER-INFORMATION SERVICES ASSISTANT Work Phone: [facility] Comment on above: GA: 21w2d Start: 12-16-2023 End: 12-16-2023 ambulatory [facility] Start: 12-16-2023 End: 12-16-2023 Office outpatient new 45 minutes Jossy Nunes MD Work Phone: [facility] Comment on above: High-risk in second trimester (Primary Dx); Drug use affecting , antepartum; History of acute congestive heart failure; Nonrheumatic mitral valve regurgitation; Echogenic intracardiac focus of fetus on ultrasound; 21 weeks gestation of ; Nausea/vomiting in ; Constipation during in second trimester Start: 12-16-2023 End: 12-16-2023 ambulatory [facility] Comment on above: Nonrheumatic mitral valve regurgitation (Primary Dx); Drug use affecting , antepartum; History of acute congestive heart failure Start: 12-10-2023 Orders Only Andressa Gallagher ENAMEL SHADER-INFORMATION SERVICES ASSISTANT Work Phone: [facility] Comment on above: Bacterial vaginosis in (Primary Dx); Vaginal yeast infection; with 20 completed weeks gestation Start: 12-10-2023 End: 12-10-20[facility] Start: 12-09-2023 End: 12-09-2023 [facility] Start: 12-09-2023 End: 12-09-2023 Office outpatient visit 15 minutes [facility] Ob Title Officer [facility] Comment on above: Vaginal discharge (P rimary Dx); Vagina itching; Vaginal irritation; Nausea/vomiting in ; Constipation during in second trimester Start: 11-23-2023 Telephone encounter Mago Sylvie Mitchell eryn DO Work Phone: [facility] Start: 11-17-2023 Chart abstracting Marilyn Kaur CMA [facility] Start: 11-17-2023 End: 11-17-2023 ambulatory [facility] Start: 11-12-2023 Telephone encounter Tamie clayton APRN-CNM Work Phone: [facility] Start: 06-05-2019 End: 06-07-2019 Evaluation and management of inpatient RICHARD GARCÍA Facility:[facility]1 Start: 05-19-2019 End: 05-19-2019 Patient encounter procedure RICHARD GARCÍA Facility:[facility] Start: 05-12-2019 End: 05-13-2019 Patient encounter procedure RICHARD GARCÍA Facility:[facility]1 Start: 03-11-2019 Patient encounter procedure NAVJOT AMARAL Facility:[facility] Start: 03-09-2019 End: 03-10-2019 Patient encounter procedure RICHARD GARCÍA Facility:[facility]1 Start: 01-17-2019 End: 01-18-2019 Patient encounter procedure RICHARD GARCÍA Facility:[facility]1 Start: 10-28-2018 End: 10-28-2018 Patient encounter procedure ZIGGY PAZ Facility:[facility]1 Procedures Date Procedure Procedure Detail Performing Clinician Start: 08-16-2024 IGP,APTIMA HPV,AGE GDLN Navjot Amaral DO Work Phone: Start: 08-16-2024 Microscopic observat ion [Identifier] in Cervix by Cyto stain Navjot Amaral DO Work Phone: Start: 01-05-2024 Ecg routine ecg w/le ast 12 lds w/i&r Mayo Ellison MD Work Phone: Start: 09-28-2023 Microscopic observat ion [Identifier] in Cervix by Cyto stain Tamie Velásquez AXEL-SOHEILAM Work Phone: Start: 06-05-2019 Delivery of Products of Conception, External Approach ZIGGY PAZ Plan of Treatment Date Care Activity Detail Author Start: 08-16-2029 Screening for malignant neoplasm of cervix [facility] Start: 09-28-2026 Screening for malignant neoplasm of cervix Pap Smear [facility] Start: 08-29-2025 End: 08-29-2025 Patient encounter procedure 08/29/2025 4:00 PM EDT Office Visit [facility] [address] [place] [id number] Navjot Amaral, DO [address] [place], [place] [id number] [facility] Start: 07-23-2025 Influenza vaccination Influenza Vacc ine (#1) [facility] Start: 02-17-2025 Adult BMI Screening Adult BMI Screen ing [facility] Start: 02-17-2025 Tobacco Screening Tobacco Screening [facility] Start: 01-13-2025 Adult BMI Screening Adult BMI Screen ing [facility] Start: 01-13-2025 Tobacco Screening Tobacco Screening [facility] Start: 12-17-2024 Adult BMI Screening Adult BMI Screen ing [facility] Start: 12-17-2024 Tobacco Screening Tobacco Screening [facility] Start: 12-16-2024 Adult BMI Screening Adult BMI Screen ing [facility] Start: 12-16-2024 Tobacco Screening Tobacco Screening [facility] Start: 12-09-2024 Adult BMI Screening Adult BMI Screen ing [facility] Start: 12-09-2024 Tobacco Screening Tobacco Screening [facility] Start: 11-17-2024 Adult BMI Screening Adult BMI Screen ing [facility] Start: 11-17-2024 Tobacco Screening Tobacco Screening [facility] Start: 11-11-2024 Adult BMI Screening Adult BMI Screen ing [facility] Start: 11-11-2024 Tobacco Screening Tobacco Screening [facility] Start: 08-24-2024 End: 08-24-2024 Clinical Support 08/24/2024 1:10 PM EDT Clinical Support [facility] [address] [facility] [facility] [phone] [facility] Start: 08-16-2024 End: 08-16-2024 Patient encounter procedure 08/16/2024 4:00 PM EDT Office Visit [facility] [address] [facility] [facility] [phone] Navjot mAaral, [address] [place], [place] [id number] Arrived [facility] Comment on above: Arrived Start: 07-23-2024 Influenza vaccination Influenza Vacc ine [facility] Start: 03-07-2024 End: 03-07-2024 Patient encounter procedure 03/07/2024 9:30 AM EDT Appointment [facility] [address] [place] [address] [facility] Start: 01-18-2024 End: 01-18-2024 Patient encounter procedure 01/18/2024 2:45 PM EST Appointment [facility] [address] [place] [address] [facility] Start: 01-16-2024 End: 12-16-2024 US MFM with or without consult US MFM with or without consult Imaging Routine Nonrheumatic mitral valve regurgitation Drug use affecting , antepartum History of acute congestive heart failure Expected: 01/16/2024 (Approximate), Expires: 12/16/2024 [facility] Work Phone: Comment on above: Expected: 01/16/2024 (Approximate), Expires: 12/16/2024 Start: 01-13-2024 End: 01-13-2024 Patient encounter procedure 01/13/2024 3:45 PM EST Routine [facility] [address] [place] [phone] [facility] Start: 01-05-2024 End: 01-05-2024 Patient encounter procedure 01/05/2024 9:00 AM EST Office Visit [facility] [address] [place] [address] Dominik Meza MD [address] [place] [address] Mayo Ellison MD [address] [place] [facility] [place] [phone] [facility] Start: 12-20-2023 End: 12-20-2023 Patient encounter procedure 12/20/2023 8:00 AM EST Office Visit [facility] [address] [place] [phone] Dominik Meza MD [address] [place] [address] Joseph Cook MD [address] [place] [address] [facility] Start: 12-17-2023 End: 12-17-2023 Patient encounter procedure 12/17/2023 2:15 PM EST Routine [facility] [address] [place] [phone] Andressa Gallagher, ENAMEL SHADER-INFORMATION SERVICES ASSISTANT [address] [facility] [place] [address] [facility] Start: 12-16-2023 End: 12-16-2023 Telemedicine consultation with patient 12/16/2023 2:15 PM EST Telemedicine [facility] [address] [place] [address] Jossy Nunes MD [address] [facility], [address] [place] [address] [facility] Start: 12-16-2023 End: 12-16-2023 Patient encounter procedure 12/16/2023 1:00 PM EST Appointment [facility] [address] [place] [phone] [facility] Start: 12-15-2023 End: 12-15-2023 Patient encounter procedure 12/15/2023 4:00 PM EST Routine [facility] [address] [place] [address] [facility] Start: 12-09-2023 End: 12-09-2024 Vaginitis Panel PCR Vaginitis Panel PCR Microbiology Routine Vaginal discharge Vagina itching Vaginal irritation Expected: 12/09/2023 (Approximate), Expires: 12/09/2024 [facility] Work Phone: Comment on above: Expected: 12/09/2023 (Approximate), Expires: 12/09/2024 Start: 11-24-2023 End: 11-24-2023 Patient encounter procedure 11/24/2023 9:30 AM EST Routine [facility] [address] [place] [address] Mago Valdez DO [address] [place] [address] [facility] Start: 11-17-2023 Subsequent hospital visit by physician 11/17/2023 1:00 PM EST [facility] [address] [place] [address] Dominik Meza MD [address] [place] [address] [facility] Start: 11-17-2023 End: 11-17-2023 Patient encounter procedure [facility] Start: 2011 DTaP,Tdap and Td Vaccines (1 - Tdap) DTaP,Tdap and Td Vaccines (1 - Tdap) [facility] Start: 2010 Adult BMI Follow Up Plan Adult BMI Follow Up Plan [facility] Start: 2004 Depression Screening Depression Scre ening [facility] Start: 1992 Tobacco Counseling Tobacco Counselin g [facility] End: 01-12-2025 CBC panel - Blood by Automated count CBC without diff Lab Routine 25 weeks gestation of Second trimester 1 Occurrences starting 01/13/2024 until 01/12/2025 [employer] Work Phone: Comment on above: 1 Occurrences starti ng 01/13/2024 until 01/12/2025 Cytology Cervical or vaginal smear or scraping study Pap Smear Pathology and Cytology Routine Well woman exam with routine gynecological exam Ordered: 08/16/2024 [employer] Work Phone: Comment on above: Ordered: 08/16/2024 End: 01-13-2025 Glucose 1h post 50g load Glucose 1h post 50g load Lab Routine 25 weeks gestation of Second trimester 1 Occurrences starting 01/13/2024 until 01/13/2025 [facility] Comment on above: 1 Occurrences starti ng 01/13/2024 until 01/13/2025 Human papilloma viru s DNA [Presence] in Unspecified specimen by Probe with amplification HPV DNA probe, amplified Microbiology Routine Well woman exam with routine gynecological exam Ordered: 08/16/2024 [employer] Comment on above: Ordered: 08/16/2024 End: 01-13-2025 Syphilis Total(Unknown Syphilis Status) Syphilis Total(Unknown Syphilis Status) Lab Routine 25 weeks gestation of Second trimester 1 Occurrences starting 01/13/2024 until 01/13/2025 [facility] Comment on above: 1 Occurrences starti ng 01/13/2024 until 01/13/2025 Immunizations Immunization Date Immunization Notes Care Provider Lizeth swann 10-26-2023 influenza virus vaccine, unspecified formulation Tamie MAYO Work Phone: [facility] Payers Date Payer Category Payer Medicaid [employer] [id number] 2023-Present [address] [place] [address] [id number] 2022 Private Health Insurance [id number] 2022 Private Health Insurance [id number] 1992 Unknown [id number] 2.16.840.1.260784.3.579.2. 593 1992 Unknown [id number] 2.16.840.1.131075.3.579.2. 593 1992 Unknown [id number] 2.16.840.1.456153.3.579.2. 593 1992 Unknown [id number] 2.16.840.1.514084.3.579.2. 593 1992 Unknown [id number] 2.16.840.1.756684.3.579.2. 593 1992 Unknown [id number] 2.16.840.1.616051.3.579.2. 593 1992 Unknown [id number] 2.16.840.1.402764.3.579.2. 593 1992 Unknown [id number] 2.16.840.1.404282.3.579.2. 1286 1992 Unknown [id number] 2.16.840.1.051749.3.579.2. 1286 1992 Unknown [id number] 2.16.840.1.144426.3.579.2. 1286 1992 Unknown [id number] 2.16.840.1.306205.3.579.2. 1286 1992 Unknown [id number] 2.16.840.1.816374.3.579.2. 1286 1992 Unknown [id number] 2.16.840.1.819202.3.579.2. 1286 1992 Unknown [id number] 2.16.840.1.725585.3.579.2. 1286 1992 Unknown [id number] 2.16.840.1.857854.3.579.2. 1286 1992 Unknown [id number] 2.16.840.1.999445.3.579.2. 9 1992 Unknown [id number] 2.16.840.1.237626.3.579.2. 9 1992 Unknown [id number] 2.16.840.1.758939.3.579.2. 1259 1992 Unknown [id number] 2.16.840.1.049440.3.579.2. 9 1992 Unknown [id number] 2.16.840.1.822537.3.579.2. 9 1992 Unknown [id number] 2.16.840.1.211026.3.579.2. 9 1992 Unknown [id number] 2.16.840.1.669100.3.579.2. 9 1992 Unknown [id number] 2.16.840.1.178878.3.579.2. 1259 1959 Self-pay 1959 Unknown [id number] Social History Date Type Detail Facility Tobacco smoking stat [facility] Tobacco smoking consumption unknown [facility] Start: 1992 Sex assigned at Female [facility] Start: 02-07-2024 Gender identity Identifies as female gender (finding) [facility] Start: 10-21-2018 End: 01-02-2021 Sexual orientation Not on file [facility] Start: 03-29-2021 End: 11-17-2023 Tobacco smoking status NHIS Occasional tobacco smoker [facility] Start: 03-29-2021 End: 11-17-2023 Tobacco use and exposure Smokeless tobacco non-user [facility] Start: 11-11-2023 End: 02-18-2024 Alcohol intake Ex-drinker (finding) [facility] Start: 10-21-2018 End: 01-02-2021 History of Social function [facility] Frequency of Alcohol Consumption Never [facility] Start: 08-04-2023 [facility] Start: 1992 Sex Assigned At Not on file [facility] Goals Date Patient Goal Desired Activity /State Personal health goal Clinical Notes 11-12-2023 to 08-16-2024 Aspen Wills, JOSE - 08/16/2024 4:00 PM EDTTelephone Encounter - MARIA ESTHER Hernandez - 02/22/2024 4:31 PM EDTTelephone Encounter - MARIA ESTHER Hernandez - 02/22/2024 4:31 PM EDT Note Date & Type Note Facility 08-16-2024 History of Presen t illness Narrative Reason for Appointment: Patient ID: Connie Ramirez is a 34 y.o. female who presents for Well Women Visit and Contraception (Depo) Patient presents today for Annual Exam. 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 No pertinent past medical history. Social History Tobacco Use Smoking status: Not on file Smokeless tobacco: Not on file Substance Use Topics Alcohol use: Not on file Drug use: Not on file FAMILY HISTORY No family history on file. SURGICAL HISTORY Past Surgical History: Procedure Laterality Date CT ANGIOGRAM HEART CORONARY 06/11/2019 CT ANGIOGRAM TAVR 06/11/2019 REVIEW OF SYSTEMS Review of Systems: Review of Systems All other systems reviewed and are negative. OBJECTIVE Objective: Physical Exam Constitutional: Appearance: Normal appearance. She is well-developed. Genitourinary: Vulva normal. Cardiovascular: Rate and Rhythm: Normal rate and regular rhythm. Pulmonary: Effort: Pulmonary effort is normal. Breath sounds: Normal breath sounds. Abdominal: General: Bowel sounds are normal. There is no distension. Palpations: Abdomen is soft. Tenderness: There is no abdominal tenderness. There is no guarding or rebound. Musculoskeletal: General: No swelling. Normal range of motion. Right lower leg: No edema. Left lower leg: No edema. Neurological: Mental Status: She is alert and oriented to person, place, and time. Skin: General: Skin is warm and dry. Psychiatric: Mood and Affect: Mood normal. Behavior: Behavior normal. Vitals and nursing note reviewed. Exam conducted with a pull out operator present. Vitals: There is no height or weight on file to calculate BMI. BP: 110/70 No LMP recorded. ASSESSMENT & PLAN ICD-10-CM 1. Well woman exam with routine gynecological exam Z01.419 Pap Smear HPV DNA probe, amplified Annual Exam: Patient presents today for an annual exam. Patient states she is doing well and has no complaints. Pap was obtained without difficulty. Orders Placed This Encounter Procedures HPV DNA probe, amplified Follow Up: Patient is to return in one year for annual unless needed otherwise. Documented by Aspen Wills LPN on behalf of: Navjot Amaral DO documented in this encounter [facility] 02-22-2024 Miscellaneous Notes Call to pt. To [...] Pt. Verbalized understanding. documented in this encounter [facility] 02-22-2024 Telephone encounter Note Call to [...] tomorrow to discuss labs. Pt. Verbalized understanding. [facility] 01-13-2024 History of Presen t illness [...] 24hr. After. Discussed availability of cardiology at [facility] vs. [place] and avoidance of separation of mom and baby if either were to need transferred after delivery 5. Reviewed cardiology referral on 01/05 w/Dr. Ellison 6. 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 Free Tobacco Cessation Resources [facility] Services [facility] provide all employees with free tobacco cessation services that include: Counseling to understand nicotine addiction Education about medications that can help you successfully quit Assistance with developing a plan to quit Call to set up an individual appointment or find out when group classes will be held: [facility]: [phone] [facility]: [phone] [facility]: [phone] [facility]: [phone] Quit Smoking Action Plan and Resources [facility] offers an eight-week, online smoking cessation plan to all [facility] employees, regardless of whether [place] is your medical insurance provider. Go to [email or web address] [email or web address] and click the Health Risk Assessment and Resources link to get started. In the [employer]ret[employer] menu, click Action Plans instead of Health Risk Assessment to access the Quit Smoking Action Plan. Additional smoking cessation resources are also available to all [facility] employees on the Kijnu1Xfnocb web page at www.[employer]/naida ortega. [place] Tobacco Cessation Program If [place] is your medical insurance provider, there are more free resources available to you, including: No copays or deductibles on local tobacco cessation counseling services to help you quit Prescription assistance for tobacco cessation medications to help you quit For details about the tobacco cessation program available to [place] members, go to www.[employer] (Search: Tobacco Cessation Program). [place] Tobacco Quit Line 8-900-DFIC-NOW ( ) is a toll-free, telephonic service that helps [place] residents quit smoking and using tobacco. It is staffed by experts who tailor a quit plan for you and provide you with advice. [place] Tobacco Quit Line 3-677-YDNB-NOW ( ) is a toll-free, telephonic service that helps [place] residents quit smoking and using tobacco. It is staffed by experts who tailor a quit plan for you and provide you with advice. Two weeks of nicotine replacement therapy may be provided at no charge, if needed. Additional Resources These national organizations also offer free information and resources to help you quit tobacco: [place] Cancer Society--www.cancer.org/healthy /stayawayfromtobacco [place] Heart Association--www.heart.org (Search: Quit Smoking) Centers for Disease Control and Prevention--www.cdc.gov/tobacco [place] Lung Association--www.lungusa.org documented in this encounter [facility] 12-17-2023 History of Presen t illness Narrative [...] Younger 12/17/23 1438 documented in this encounter [facility] 12-16-2023 History of Presen t illness Narrative Images from the original note were not included. [facility] Maternal- Medicine Tele-Consult Note Reason For Consult: Provider at different site/location than patient. Connie Wallis Hudgiescurrently at [place] office and provider at remote site The patient consented to be treated electronically via this form of telemedicine. This visit was not related to an office visit or procedure in the past 7 days, and in-office follow up is not recommended in the next 24 hours. Video Visit via Real-time Synchronous Audiovisual Provider Location: [facility] AT [address] [address] Patient Location: Other Patient Location Library Technical Assistant: None Video Visit Consent Statement: I discussed [...] that there are some limitations compared to ntel-pj-tjvq evaluations. We elected to proceed. HPI: Connie Ramirez is a 33 y.o. @ 21w1d who presented for consultation from Tamie Westafll, ENAMEL SHADER-C* regarding Chief Complaint Patient presents with mfm [...] was borderline however not abnormal. There was ktoq-yu-[id number] mitral valve regurgitation. There was no evidence [...] and management during . In view of [place]-apache valvular heart disease however not meeting criteria [...] recommended. She is agreeable for delivery at [facility]. Referral to [facility] is recommended accordingly. In addition to that recommend anesthesia consultation in the 3rd trimester this can be initiated by her primary OB team. Telemetry during labor and for 24 hours Plan reviewed with patient. She vocalized understanding all questions answered. [facility], the CDC, and other organizations representing maternal and public health professionals recommend that , , and lactating people and those considering receive the COVID-19 vaccination. Vaccination is the best method to reduce maternal and complications of SARS-CoV-2 infection. This document was created with [employer] technology. Though I make every effort to review the dictation as it is transcribed, on occasion the spoken word can be misinterpreted by the technology leading to inappropriate words, phrases, or sentences. This note is addressed to the requesting provider as a consultation for clinical guidance. Specific medical abbreviations are occasionally used and those are generally approved by the [place]?Board of?Obstetrics and?Gynecology?as well as?[place] s abbreviations. The above plan of care was based solely on the diagnoses for which a consultation was requested. ?More frequent testing may be indicated based on her other medical/obstetrical conditions. The management of other or medical conditions is beyond the scope of requested consultation and will continue to be followed by the primary call center analyst or primary care provider. Thank you for [...] procedures Referring and communicating with other health workforce investment act career manager (not separately reported) Documenting clinical information [...] patient Have you been seen here at [facility] in a previous ? no Recent ER visits or hospitalizations? no Bring blood sugar log or meter with you today? (Please bring them with you for every visit at [facility]) Traveled outside the country in the past 6 month no Any concerns that you would like me to mention to the provider today? No concerns documented in this encounter [facility] 12-10-2023 Miscellaneous Notes Pt seen in [...] asked for it to be emailed to [email or web address]. Work note emailed to Pt. documented in this encounter [facility] 12-10-2023 Telephone encounter Note Pt seen in Office on December 09 for yeast infection. Pt states she is having a lot of pain. Pt is requesting work excuse note for today. Please advise. Thank you [facility] 12-10-2023 Telephone encounter Note Please provide work note for today only. I did sent prescriptions for her and she should begin them zoraida. Thank you. [facility] 12-10-2023 Telephone encounter Note Advised Pt work note can be provided. Pt asked for it to be emailed to [email or web address]. Work note emailed to Pt. [facility] 12-09-2023 History of Presen t illness [...] All questions answered. Educational material provided through [email or web address]. RTO for next scheduled visit or sooner as needed. Patient has her MFM consult and anatomy scan next week. ALEIDA BILLY APRN-CNP 12/09/23 1431 documented in this encounter [facility] 11-23-2023 Miscellaneous Notes Pt states she had Echo cardiogram done last week & does not understand the results. Procedure was ordered by Dr. Meza. Pt was seen in this Office on November 17, 2023. Please advise. Thank you MAKE APPT TO DISCUSS RESULTS PLS Pt scheduled appt with Dr Valdez on November 24. documented [facility] this encounter [facility] 11-23-2023 Telephone encounter Note Pt states she had Echo cardiogram done last week & does not understand the results. Procedure was ordered by Dr. Meza. Pt was seen in this Office on November 17, 2023. Please advise. Thank you [facility] 11-23-2023 Telephone encounter Note MAKE APPT TO DISCUSS RESULTS PLS [facility]: 11-23-2023 Telephone encounter Note Pt scheduled appt with Dr Valdez on November 24. [facility] 11-17-2023 History of Presen t illness Narrative Added episode to pts chart documented in this encounter [facility] 11-12-2023 Miscellaneous Notes Call rec.'d from ans. [...] and verbalized understanding. documented in this encounter [facility] 11-12-2023 Telephone encounter Note Call rec.'d [...] to plan of care and verbalized understanding. [facility] Evaluation note Diagnosis Well woman exam with routine gynecological exam Routine gynecological examination [facility] Diagnosis Vaginal discharge- Primary Leukorrhea, not specified as infective Vagina itching Pruritus of genital organs Vaginal irritation Pruritus of genital organs Nausea/vomiting in Unspecified vomiting of , unspecified as to episode of care Constipation during in second trimester [facility] Diagnosis Bacterial vaginosis in - Primary Vaginal yeast infection Candidiasis of vulva and vagina with 20 completed weeks gestation [facility] Diagnosis Nonrheumatic mitral valve regurgitation- Primary Drug use affecting , antepartum History of acute congestive heart failure [facility] Diagnosis High-risk in second trimester- Primary Drug use affecting , antepartum History of acute congestive heart failure Nonrheumatic mitral valve regurgitation Echogenic intracardiac focus of fetus on ultrasound 21 weeks gestation of Nausea/vomiting in Unspecified vomiting of , unspecified as to episode of care Constipation during in second trimester [facility] Diagnosis with 21 completed weeks gestation- Primary documented in this encounter [facility] Diagnosis Mitral valve insufficiency, unspecified etiology- Primary Gestational edema in third trimester documented in this encounter [facility]* Diagnosis 25 weeks gestation of - Primary Second trimester state, incidental History of congenital mitral regurgitation History of CHF (congestive heart failure) Personal history of other diseases of circulatory system documented in this encounter [facility] Immunetics SystemInstructionsNot on filedocumented in this encounter [facility] SystemInstructionsNot on filedocumented in this encounter [facility]* Attachments The following attachments cannot be sent through Care Everywhere. * High Fiber Diet (Estonian) * The Fifth Month (Estonian) * Vaginitis (Estonian) [facility] System[facility] on file [facility] SystemInstructionsNot on file [facility] Immun[facility] SystemInstructionsNot on file [facility]* Attachments The following attachments cannot be sent through Care Everywhere. * How to Prepare Baby Formula (Estonian) * Kangaroo Care (Estonian) [facility] SystemInstructionsNot on file [facility] Immun[facility] SystemInstructionsNot on file documented [facility] for [facility] (narrative)* Consultation (Routine) - Pending Review Specialty Diagnoses / Procedures Referred By Contac t Referred To Contact Obstetrics and Gynecology Diagnoses 25 weeks gestation of Second trimester History of congenital mitral regurgitation History of CHF (congestive heart failure) Tamie Velásquez APRN-CNM [address] [facility] [place] [address] [facility] [address] [place] [address] Referral ID Status Reason Start Date Expiration Date Visits Requested Visits Authorized [id number] Pending Review Specialty Services Required 01/13/2024 01/12/2025 1 1 [facility] Summary Purpose Family History No Family History Records FoundNo Family History Records FoundNo Family History Records FoundNo Family History Records FoundNo Family History Records Found Advance Directives Latest Code Status on File Code Status [...] of acute congestive heart failure Procedures US [facility] with or without consult Jossy Nunes MD [address], [address] [place] [address] [facility] [address] [place] [address] Referral ID Status Reason Start Date Expiration Date V isits Requested Visits Authorized [id number] Pending Review 12/16/2023 12/15/2024 1 1 Additional Source Comments INFORMATION SOURCE (unrecogn ized section and content) DATE CREATED AUTHOR 07/21/2019 [facility] DATE CREATED AUTHOR AUTHOR'S ORGANIZ ATION 12/12/2023 [facility] DATE CREATED AUTHOR AUTHOR'S ORGANIZ ATION 01/21/2024 [facility] DATE CREATED AUTHOR AUTHOR'S ORGANIZ ATION 04/20/2025 [facility] DATE CREATED AUTHOR AUTHOR'S ORGANIZ ATION 05/14/2025 [facility] EPIC Reason for Visit (unrecogniz ed section and content) Reason Comments Well Women Visit Contraception Depo Reason Comments Vaginitis Reason Comments mfm consult Reason Comments Routine Visit Reason Comments New Patient 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 no testing per patient sched w/pt Specialty Diagnoses / Procedures Referred By Cassius reynolds Referred To Contact Cardiology Diagnoses Mitral valve insufficiency, unspecified etiology Dominik Meza MD [address] [place] [address] [facility] Cardiology [address] [address] Referral ID Status Reason Start Date Expiration Date Visits Requested Visits Authorized [id number] Pending Review Specialty Services Required 09/28/2023 09/27/2024 1 1 Reason Comments Routine Visit Care Teams (unrecognized sec tion and content) Monument Letterer Relationship Specialty Start Date End Date Services, [facility] [address] [place], [place] PCP - General Family Medicine 09/04/23 Monument Letterer Relationship Specialty Start Date End Date Services, [facility] [address] [place] PCP - General Family Medicine 09/04/23 Monument Letterer Relationship Specialty Start Date End Date Services, [facility] [address] [place] PCP - General Family Medicine 09/04/23 Monument Letterer Relationship Specialty Start Date End Date Services, [facility] [address] [place] PCP - General Family Medicine 09/04/23 Monument Letterer Relationship Specialty Start Date End Date Services, [facility] [address] [place] PCP - General Family Medicine 09/04/23 Monument Letterer Relationship Specialty Start Date End Date Services, [facility] [address] [place] PCP - General Family Medicine 09/04/23 Monument Letterer Relationship Specialty Start Date End Date Services, [facility] [address] [place] PCP - General Family Medicine 09/04/23 Monument Letterer Relationship Specialty Start Date End Date Services, [facility] [address] [place] PCP - General Family Medicine 09/04/23 Monument Letterer Relationship Specialty Start Date End [facility] [address] [place] PCP - General Family Medicine 09/04/23 Monument Letterer Relationship Specialty Start Date End Date Services, [facility] [address] [place], [place] PCP - General Family Medicine 09/04/23 Monument Letterer Relationship Specialty Start Date End Date Lanny Butler PA [address] [place] [address] [place] [address] PCP - [facility] 08/22/24 FOR RECORDS PERTAINING TO PATIENTS WHO ARE [...] BE BASED ON THE PRIMARY CLINICAL RECORDS. [facility] [employer] [facility]. provides no warranty or guarantee of the accuracy or completeness of information in this document.
[2025-08-03 15:08] LABS: Age Gdln ACOG Testing Note (.); IGP, Aptima HPV, rfx 16/18,45 Note (.)
== END 2025-07-31 19:31 | disposition home or self-care (01) ==
LOC: LAB 19:30
PROVIDERS: Visit Provider Obstetrics & Gynecology
DX: Z01.419 Encounter for gynecological examination (general) (routine) without abnormal findings (principal)
CPT/HCPCS: 87624; 88175